=== PATIENT | female | born 1965 | race Caucasian/White ===

== ENCOUNTER 2022-12-06 04:24 | Emergency (ER) | payer OTHER, SELFPAY ==
[2022-12-06 04:35] VITALS: BP 178/101; PULSE 80; RESP 16; TEMP 36.6; O2SAT 96; BMI 29.1
[2022-12-06] MEDS: diphenhydrAMINE 50 MG/ML inj 25 MG IVP (05:02)
[2022-12-06] MEDS: LORazepam 2 MG/ML inj 0.5 MG IVP (05:02)
[2022-12-06] MEDS: METHYLPREDNISOLONE SOD SUCC 62.5 MG/ML (125) 93.75 MG IVP (05:03)
[2022-12-06] MEDS: 0.9 % SODIUM CHLORIDE 1000 ml 1,000 ML IV (05:04)
[2022-12-06 05:05] VITALS: BP 150/89; PULSE 80; RESP 16; O2SAT 96
[2022-12-06 07:00] VITALS: BP 160/87; PULSE 89; O2SAT 95
--- NOTE | 2022-12-06 07:03 | ED_ITS ---
HPI - Allergic Reaction General Chief complaint: Allergic Reaction Stated complaint: Hives Time Seen by Provider: 12/06/22 04:46 History of Present Illness HPI narrative: 57-year-old woman presenting to the emergency department with spouse with concern hives. Present now for about 9 hours as a 7:00 p.m. last night. It started the top of her head and seems to spread down her body. This is not the 1st time she has had hives of unclear etiology.. She is unclear as to what she might have gotten into. She says ?they just do not know?. No sensation of throat closure. Mild nausea. No abdominal pain cramping. No fever. Cough cold symptoms. Around 8 hours ago took 50 mg of diphenhydramine. Itchy. Has not seemed to help. She notes how she has trimmed her nails to avoid scratching. Last eruption like this was about 2 years ago. Related Data Home Medications Medication Instructions Recorded Confirmed lisinopril 40 mg tablet mg 12/06/22 omeprazole 20 mg capsule,delayed mg 12/06/22 release ropinirole 0.25 mg tablet mg 12/06/22 trazodone 50 mg tablet mg 12/06/22 venlafaxine 150 mg mg PO 12/06/22 capsule,extended release 24 hr venlafaxine 37.5 mg mg PO 12/06/22 capsule,extended release 24 hr Allergies Allergy/AdvReac Type Severity Reaction Status Date / Time Iodinated Contrast Media Allergy Intermediate hives Verified 12/06/22 04:33 azithromycin [From Zithromax] AdvReac Mild Abdominal Verified 12/06/22 04:33 Pain Review of Systems Status of ROS Reports: 10 or more systems reviewed and unremarkable except as noted in History and below [facility] Social History Smoking Status: Never smoker Do you use any of these nicotine containing products: None Second hand tobacco smoke exposure: No How often do you have a drink containing alcohol: never How often do you have six or more drinks on one occasion: Never AUDIT-C Alcohol total score: 0 Non-prescribed substance use: denies use service: No Exam Narrative: Exam Narrative: Pleasant. NAD. Breathing easily. Skin is warm and dry with diffuse eruptions of urticaria. No other rash is apparent. Lungs are clear. Heart is with a regular rate and rhythm. Abdomen is soft and nontender. Extremities are without edema. Oropharynx is a little sticky. Const: Vital Signs, click to edit/add: Vital Signs - 24 hr 12/06/22 04:35 12/06/22 05:05 12/06/22 07:04 Temperature 97.9 F Pulse Rate [Pulse Oximeter] 80 80 89 Respiratory Rate 16 16 16 Blood Pressure [Le ft Upper Arm] 178/101 H 150/89 H 160/87 H Pulse Oximetry 96 96 96 Oxygen Delivery Me thod Room Air Room Air Room Air 12/06/22 07:00 Temperature Pulse Rate [Pulse Oximeter] 89 Respiratory Rate Blood Pressure [Le ft Upper Arm] 160/87 H Pulse Oximetry 95 Oxygen Delivery Me thod Room Air Documenting provider has reviewed patient's vital signs: yes Course Vital Signs Vital signs: Initial Vital Signs Temperature 97.9 F 12/06/22 04:35 Temperature Source Temporal Artery Scan 12/06/22 04:35 Pulse Rate 80 12/06/22 04:35 Pulse Rhythm 12/06/22 04:35 Respiratory Rate 16 12/06/22 04:35 Blood Pressure 178/101 H 12/06/22 04:35 Blood Pressure Mean 126 12/06/22 04:35 Pulse Oximetry 96 12/06/22 04:35 Oxygen Delivery Method 12/06/22 04:35 Vital Signs Temperature 97.9 F 12/06/22 04:35 Pulse Rate 80 12/06/22 04:35 Respiratory Rate 16 12/06/22 04:35 Blood Pressure 178/101 H 12/06/22 04:35 Pulse Oximetry 96 12/06/22 04:35 Oxygen Delivery Method 12/06/22 04:35 Temperature 97.9 F 12/06/22 04:35 Pulse Rate 89 12/06/22 07:04 Respiratory Rate 16 12/06/22 07:04 Blood Pressure 160/87 H 12/06/22 07:04 Pulse Oximetry 96 12/06/22 07:04 Oxygen Delivery Method 12/06/22 07:04 MDM - Allergic Reaction MDM Narrative Medical decision making narrative: Will place IV give some IV fluids. Ordered for methylprednisolone, lorazepam, more diphenhydramine. On reassessment is feeling less itchy but urticaria still clearly present. Has been able to rest. Examining again shows faded urticaria now with just some blotchy red patches. Discharge Plan Discharge Clinical Impression: Urticaria Patient Disposition: Home w/ Parent or Adult Condition: Improved Additional Instructions: Stay well-hydrated. You can take diphenhydramine 25-50 mg as needed for breakthrough itch or rash. Prednisone from [facility] for 3 days. Return for any indication difficulty breathing, repeated vomiting/associated abdominal cramping. Prescriptions: No Action venlafaxine 37.5 mg capsule,extended release 24hr PO Label Comments: TAKE ONE CAPSULE BY MOUTH EVERY DAY IN ADDITION TO 1-150MG CAPSULE FOR TOTAL DAILY DOSE OF 187.5MG venlafaxine 150 mg capsule,extended release 24hr PO Label Comments: TAKE ONE CAPSULE BY MOUTH ONCE DAILY ropinirole 0.25 mg tablet Label Comments: TAKE ONE TABLET BY MOUTH EVERY DAY omeprazole 20 mg capsule,delayed release(DR/EC) Label Comments: TAKE ONE CAPSULE BY MOUTH ONCE DAILY 1 HOUR BEFORE A MEAL lisinopril 40 mg tablet Label Comments: TAKE ONE TABLET BY MOUTH EVERY DAY trazodone 50 mg tablet Label Comments: TAKE ONE TABLET BY MOUTH AT BEDTIME NEEDED FOR SLEEP Follow Up/Referrals: Provider,Not a Local [Primary Care Provider] - Stand Alone Forms: [employer] Info Instructions
[2022-12-06 07:04] VITALS: BP 160/87; PULSE 89; RESP 16; O2SAT 96
== END 2022-12-06 07:45 | disposition home or self-care (01) ==
PROVIDERS: Emergency Provider Family Medicine
DX: L50.9 Urticaria, unspecified (principal)
CPT/HCPCS: 96374; 96375; 99283; 99284; J1200; J2060; J2930; J7030

== ENCOUNTER 2022-12-07 02:59 | Emergency (ER) | payer OTHER, SELFPAY ==
[2022-12-07 02:59] VITALS: BP 186/112; PULSE 107; RESP 22; TEMP 36.6; O2SAT 94; BMI 29.1
--- NOTE | 2022-12-07 03:10 | ED.GENADULT ---
HPI - General Adult General Time Seen by Provider: 03:10 Date Seen: 12/07/22 Chief complaint: Allergic Reaction Stated complaint: Hives Time Seen by Provider: 12/07/22 03:03 Source: patient and RN notes reviewed Mode of arrival: ambulatory Limitations: no limitations History of Present Illness HPI narrative: 57-year-old female who presents today with hives. Patient seen for this yesterday, started on prednisone of which she has had 2 doses, rash returned tonight. Last dose of Benadryl was 6 hours ago. Other than Benadryl and prednisone patient is not taking anything. No sensation of throat closure, no cough or wheezing, no abdominal pain, nausea, or vomiting. No new soaps, lotions detergents, or medications. Patient had similar episode of this couple years ago with no definite etiology found at that time. She has had upper respiratory symptoms for about a week. Related Data Home Medications Medication Instructions Recorded Confirmed lisinopril 40 mg tablet 40 mg PO DAILY 12/06/22 12/07/22 omeprazole 20 mg capsule,delayed 20 mg PO DAILY 12/06/22 12/07/22 release ropinirole 0.25 mg tablet 0.25 mg PO DAILY 12/06/22 12/07/22 trazodone 50 mg tablet 50 mg PO QHS PRN sleep 12/06/22 12/07/22 venlafaxine 150 mg 150 mg PO DAILY 12/06/22 12/07/22 capsule,extended release 24 hr venlafaxine 37.5 mg 37.5 mg PO DAILY 12/06/22 12/07/22 capsule,extended release 24 hr Previous Rx's Medication Instructions Recorded cetirizine 10 mg capsule (Zyrtec) 10 mg PO BID #14 caps 12/07/22 famotidine 20 mg tablet (Pepcid) 20 mg PO DAILY #7 tabs 12/07/22 hydroxyzine pamoate 25 mg capsule 25 mg PO QID PRN #20 caps 12/07/22 (Vistaril) prednisone 10 mg tablet 10 mg PO DIRECTED #19 tabs 12/07/22 Allergies Allergy/AdvReac Type Severity Reaction Status Date / Time Iodinated Contrast Media Allergy Intermediate hives Verified 12/06/22 04:33 azithromycin [From Zithromax] AdvReac Mild Abdominal Verified 12/06/22 04:33 Pain PFSH PFSH Social History Smoking Status: Never smoker Do you use any of these nicotine containing products: None Second hand tobacco smoke exposure: No How often do you have a drink containing alcohol: never How often do you have six or more drinks on one occasion: Never AUDIT-C Alcohol total score: 0 Non-prescribed substance use: denies use service: No Exam Narrative: Exam Narrative: General: Well-developed and well-nourished, no acute distress Head: Atraumatic and normocephalic Eyes: Pupils are equal reactive, extraocular motions intact, conjunctiva clear ENT: External nose and ears are normal, posterior pharynx without erythema or exudate Neck: No midline cervical tenderness, full spontaneous range of motion the neck, trachea midline, no adenopathy Heart: Regular rate and rhythm no murmurs or thrills Lungs: Clear to auscultation bilaterally without wheezes or crackles Abdomen: Soft, nontender, nondistended with active bowel sounds Musculoskeletal: No tenderness, deformity, or edema Neurologic: Awake, alert, and oriented x3, no gross focal neurologic deficits, cranial nerves intact as tested Psych: Mood and affect are appropriate Skin: Diffuse urticaria on the chest, little bit on the face, and arms Const: Vital Signs, click to edit/add: Vital Signs - 24 hr 12/07/22 02:59 12/07/22 04:02 12/07/22 05:25 Temperature 97.8 F Pulse Rate [Left P ulse Oximeter] 107 H 81 75 Respiratory Rate 22 18 16 Blood Pressure [Ri ght Upper Arm] 186/112 H 174/101 H 159/87 H Pulse Oximetry 94 96 95 Oxygen Delivery Me thod Room Air Room Air Room Air Course Course Hospital Course: 3:05 a.m. patient seen and examined, prior records are reviewed. Patient presents today hives. No indication of throat swelling, no hoarse voice, no lip or tongue swelling, no cough or breathing difficulty. Benadryl IM is given along with Zyrtec and Pepcid. Patient is already on prednisone. Will extend her course of prednisone as she was given 3 days and will need a longer course. Also will start on scheduled Zyrtec and Benadryl as well as Pepcid. Reevaluation(s) Reevaluation #1: Hives on the chest are improved although still present, patient thinks hives on the legs are about the same although they seem little less erythematous. Epinephrine will be given, patient is also complaining of headache and so Tylenol will be administered. Time: 04:48 Reevaluation #2: Hives improved after epinephrine, stable for discharge. Time: 05:29 Vital Signs Vital signs: Initial Vital Signs Temperature 97.8 F 12/07/22 02:59 Temperature Source Temporal Artery Scan 12/07/22 02:59 Pulse Rate 107 H 12/07/22 02:59 Respiratory Rate 22 12/07/22 02:59 Blood Pressure 186/112 H 12/07/22 02:59 Blood Pressure Mean 136 12/07/22 02:59 Blood Pressure Position Semi-Fowlers 12/07/22 02:59 Pulse Oximetry 94 12/07/22 02:59 Oxygen Delivery Method 12/07/22 02:59 Vital Signs Temperature 97.8 F 12/07/22 02:59 Pulse Rate 107 H 12/07/22 02:59 Respiratory Rate 22 12/07/22 02:59 Blood Pressure 186/112 H 12/07/22 02:59 Pulse Oximetry 94 12/07/22 02:59 Oxygen Delivery Method 12/07/22 02:59 Temperature 97.8 F 12/07/22 02:59 Pulse Rate 75 12/07/22 05:25 Respiratory Rate 16 12/07/22 05:25 Blood Pressure 159/87 H 12/07/22 05:25 Pulse Oximetry 95 12/07/22 05:25 Oxygen Delivery Method 12/07/22 05:25 Discharge Plan Discharge Clinical Impression: Urticaria Patient Disposition: Home, Self-Care Condition: Improved Instructions: Urticaria (ED) Additional Instructions: Zyrtec 10mg twice a day for 7 days Pepcid 20mg daily for 7 days Vistatil 25 every 6 hours for 2 days and then as needed Take the prednisone 20 mg tablet to her prescribed twice a day until they are gone, then start the prednisone taper prescribed today Activity Level: No Restrictions Discharge Diet: Regular Prescriptions: New Zyrtec 10 mg capsule 10 mg PO BID Qty: 14 0RF famotidine [Pepcid] 20 mg tablet 20 mg PO DAILY Qty: 7 0RF prednisone 10 mg tablet 10 mg PO DIRECTED Qty: 19 0RF Rx Instructions: Take 30mg daily for 3 days, then 20mg daily for 3 days, then 10mg daily for 3 days, then 5mg daily for 2 days hydroxyzine pamoate [Vistaril] 25 mg capsule 25 mg PO QID PRNQty: 20 0RF No Action venlafaxine 37.5 mg capsule,extended release 24hr 37.5 mg PO DAILY Label Comments: TAKE ONE CAPSULE BY MOUTH EVERY DAY IN ADDITION TO 1-150MG CAPSULE FOR TOTAL DAILY DOSE OF 187.5MG venlafaxine 150 mg capsule,extended release 24hr 150 mg PO DAILY Label Comments: TAKE ONE CAPSULE BY MOUTH ONCE DAILY ropinirole 0.25 mg tablet 0.25 mg PO DAILY Label Comments: TAKE ONE TABLET BY MOUTH EVERY DAY omeprazole 20 mg capsule,delayed release(DR/EC) 20 mg PO DAILY Label Comments: TAKE ONE CAPSULE BY MOUTH ONCE DAILY 1 HOUR BEFORE A MEAL lisinopril 40 mg tablet 40 mg PO DAILY Label Comments: TAKE ONE TABLET BY MOUTH EVERY DAY trazodone 50 mg tablet 50 mg PO QHS PRN (Reason: sleep) Label Comments: TAKE ONE TABLET BY MOUTH AT BEDTIME NEEDED FOR SLEEP Follow Up/Referrals: Provider,Not a Local [Primary Care Provider] - Stand Alone Forms: [employer] Info Instructions
[2022-12-07] MEDS: diphenhydrAMINE 50 MG/ML inj IM (03:19)
[2022-12-07] MEDS: FAMOTIDINE 20 MG TABLET PO (03:20)
[2022-12-07] MEDS: CETIRIZINE HCL 10 MG TABLET PO (03:23)
[2022-12-07 04:02] VITALS: BP 174/101; PULSE 81; RESP 18; O2SAT 96
[2022-12-07] MEDS: EPINEPHrine 1 MG/ML inj 0.3 MG IM (04:56)
[2022-12-07] MEDS: ACETAMINOPHEN 500 MG TABLET 1000 MG PO (04:56)
[2022-12-07 05:25] VITALS: BP 159/87; PULSE 75; RESP 16; O2SAT 95
[2022-12-07 05:44] VITALS: BP 156/86; PULSE 78; RESP 16
== END 2022-12-07 05:45 | disposition home or self-care (01) ==
LOC: ED 04:02
PROVIDERS: Emergency Provider Family Medicine
DX: L50.9 Urticaria, unspecified (principal)
CPT/HCPCS: 96372; 99283; 99284; A9270; J0171; J1200

== ENCOUNTER 2023-12-14 12:38 | Emergency (ER) | payer OTHER, SELFPAY ==
[2023-12-14 12:57] VITALS: BP 142/95; PULSE 110; RESP 20; TEMP 36.8; O2SAT 94; BMI 31.5
--- NOTE | 2023-12-14 13:55 | CRLHL7_ITS ---
For Patients: As a result of the Cures Act, medical imaging exams and procedure reports are released immediately into your electronic medical record. You may view this report before your referring provider. If you have questions, please contact your health care provider. INDICATION: Shortness of breath. TECHNIQUE: Chest 2 views. COMPARISON: None. FINDINGS: Cardiovascular and mediastinum: Heart size and vasculature are normal in caliber and appearance. Lungs and pleural spaces: Lungs are clear. No sign of infiltrate or mass. No sign of pleural effusion. No pneumothorax. Bones and soft tissues: No significant findings. IMPRESSION: No acute or significant findings. Dictated by Sarabjit Evans MD @ 12/14/2023 2:30:24 PM (Electronically Signed)
--- NOTE | 2023-12-14 14:07 | ED_ITS ---
HPI - Fever General Date Seen: 12/14/23 Chief Complaint: Fever Stated Complaint: trouble breathing / chest pain Time Seen by Provider: 12/14/23 13:40 Source: patient Mode of arrival: ambulatory Limitations: no limitations History of Present Illness HPI Narrative: 58-year-old female with a history of hypertension presenting to the emergency department for flu-like symptoms. Symptoms 1st started 2 days ago. She says at that time she started having some nausea , fevers that were controlled with Tylenol ibuprofen, and a mild headache. She started noticing some chest pain yesterday. Says it is midsternal and feels like a squeezing sensation. Denies ever having symptoms like this before. She is also feeling short of breath. No history of blood clots. She is not aware of any sick contacts. Her father had triple bypass around the age of 60. She has never smoked. With states her nausea has improved and she is not current they feeling nauseated. She has been drinking plenty fluids but had had much of an appetite. She thinks she is dehydrated. Denies diarrhea, constipation, dysuria Related Data Home Medications Medication Instructions Recorded Confirmed lisinopril 40 mg tablet 40 mg PO DAILY 12/06/22 12/14/23 omeprazole 20 mg capsule,delayed 20 mg PO DAILY 12/06/22 12/14/23 release ropinirole 0.25 mg tablet 0.25 mg PO DAILY 12/06/22 12/14/23 trazodone 50 mg tablet 50 mg PO QHS PRN sleep 12/06/22 12/14/23 venlafaxine 150 mg 150 mg PO DAILY 12/06/22 12/14/23 capsule,extended release 24 hr venlafaxine 37.5 mg 37.5 mg PO DAILY 12/06/22 12/14/23 capsule,extended release 24 hr hydrochlorothiazide 12.5 mg tablet 12.5 mg PO QDAY 09/26/23 12/14/23 amlodipine 5 mg tablet 5 mg PO DAILY 12/14/23 12/14/23 topiramate 25 mg tablet mg PO 12/14/23 Previous Rx's Medication Instructions Recorded cetirizine 10 mg capsule (Zyrtec) 10 mg PO BID #14 caps 12/07/22 Allergies Allergy/AdvReac Type Severity Reaction Status Date / Time Iodinated Contrast Media Allergy Intermediate hives Verified 12/06/22 04:33 azithromycin [From Zithromax] AdvReac Mild Abdominal Verified 12/06/22 04:33 Pain Review of Systems Status of ROS Reports: 10 or more systems reviewed and unremarkable except as noted in History and below PFSH [facility] Social History Smoking Status: Never smoker Do you use any of these nicotine containing products: None Second hand tobacco smoke exposure: No How often do you have a drink containing alcohol: never How often do you have six or more drinks on one occasion: Never AUDIT-C Alcohol total score: 0 Non-prescribed substance use: denies use service: No Exam Narrative Exam Narrative: Const: Well-nourished, Well-developed, in mild distress Eyes: PERRL, no conjunctival injection, and symmetrical lids HENT: Atraumatic external nose and ears. Moist mucous membranes. Neck: Symmetric, trachea midline, No thyromegaly. CVS: RRR, No murmurs or gallops. Peripheral pulses 2+ and equal in all extremities RESP: Unlabored respiratory effort. Clear to auscultation bilaterally. GI: Nontender/Nondistended, No rebound or guarding. MSK:Extremities w/o deformity, Normal Active ROM Skin: Warm, Dry. No rashes or lesions. Neuro: Normal Muscle tone, No focal neurological deficits. Psych: Awake, Alert, & Oriented x3. Appropriate mood and affect. Const Vital Signs, click to edit/add: Vital Signs - 24 hr 12/14/23 12:57 12/14/23 15:00 12/14/23 15:30 Temperature 98.2 F Pulse Rate [Right Pulse Oximeter] 110 H 80 76 Respiratory Rate 20 14 16 Blood Pressure [Right Upper Arm] 142/95 H 160/91 H 163/91 H Pulse Oximetry 94 95 94 Oxygen Delivery Method Room Air Room Air Room Air 12/14/23 16:00 12/14/23 16:30 12/14/23 17:15 Temperature Pulse Rate [Right Pulse Oximeter] 70 70 Respiratory Rate 16 16 Blood Pressure [Right Upper Arm] 142/87 H 149/91 H Pulse Oximetry 93 93 Oxygen Delivery Method Room Air Room Air Course Vital Signs Vital signs: Initial Vital Signs Temperature 98.2 F 12/14/23 12:57 Temperature Source Temporal Artery Scan 12/14/23 12:57 Pulse Rate 110 H 12/14/23 12:57 Respiratory Rate 20 12/14/23 12:57 Blood Pressure 142/95 H 12/14/23 12:57 Blood Pressure Mean 110 H 12/14/23 12:57 Blood Pressure Position Sitting 12/14/23 12:57 Pulse Oximetry 94 12/14/23 12:57 Oxygen Delivery Method Room Air 12/14/23 12:57 Vital Signs Temperature 98.2 F 12/14/23 12:57 Pulse Rate 110 H 12/14/23 12:57 Respiratory Rate 20 12/14/23 12:57 Blood Pressure 142/95 H 12/14/23 12:57 Pulse Oximetry 94 12/14/23 12:57 Oxygen Delivery Method Room Air 12/14/23 12:57 Temperature 98.2 F 12/14/23 12:57 Pulse Rate 70 12/14/23 17:15 Respiratory Rate 16 12/14/23 17:15 Blood Pressure 149/91 H 12/14/23 16:30 Pulse Oximetry 93 12/14/23 17:15 Oxygen Delivery Method Room Air 12/14/23 17:15 Medications Administered Medications: Discontinued Medications Generic Name Dose Route Start Last Admin Trade Name Freq PRN Reason Stop Dose Admin Lactated Ringer's 1,000 mls @ 1,000 mls/hr 12/14/23 13:54 12/14/23 14:21 Lactated Ringers 1000 Ml IV 12/14/23 14:53 1,000 mls/hr .Q1H ONE Administration MDM - Fever MDM Narrative Medical decision making narrative: Patient is a 58-year-old female presenting to emergency department for fever and chest pain. She says her chest pain is not as bad today states it. Differential includes pulmonary embolism she finished left, pneumonia, viral syndrome, pneumothorax, ACS. Symptoms likely the ER dissection this lightheaded otherwise stable vital signs. His eyes she has had a mildly sore throat and was sent will check COVID chest flu/RSV and strep test. The ordered his lactate, BMP, CBC, D-dimer, troponin. She states she was feeling dehydrated and did a L of lactated Ringer's was given. After these fluids her heart rate went 110 to 70. She is feeling much better. D-dimer is at 0.43 and a PE is very unlikely. Cbc antibiotic, CMP with also showed no concerning abnormalities. COVID/flu/RSV test was negative. Strep test negative. Troponin was done and was within normal limits. Repeat troponin was also done 2 hours later that did not show any changes. Chest x-ray showed no concerning findings. She is otherwise doing well can be discharged home. Lab Data Labs: Lab Results 12/14/23 12/14/23 12/14/23 Range/Units 13:02 14:10 16:11 WBC 4.41 L (4.50-11.00) K/uL RBC 4.84 (4.00-5.20) m/uL Hgb 13.9 (12.0-16.0) gm/dL Hct 42.0 (33.0-51.0) % MCV 87 (80-100) fL MCH 29 (26-34) pg MCHC 33 (32-36) gm/dL RDW Coeff of Denise 12.4 (11.5-15.5) % Plt Count 196 (140-440) K/uL Neut % (Auto) 56.3 (42.0-72.0) % Lymph % (Auto) 24.7 (20-44) % Gregory % (Auto) 13.8 H (0.0-11.0) % Eos % (Auto) 4.8 (0.0-7.0) % Baso % (Auto) 0.2 (0.0-3.0) % Neut # (Auto) 2.50 (1.7-7.0) K/uL Lymph # (Auto) 1.10 (0.90-2.90) K/uL Gregory # (Auto) 0.60 (0.00-0.90) K/UL Eos # (Auto) 0.20 (0.00-0.50) K/uL Baso # (Auto) 0.00 (0.00-0.30) K/uL Abs Immat Gran (auto) 0.00 (0.00-0.30) K/uL Imm/Tot Granulo (auto) 0.2 % D-Dimer Quant (PE/DVT) 0.43 (0.00-0.50) ug/ml Sodium 140 (135-149) mmol/L Potassium 3.4 L (3.6-5.1) mmol/L Chloride 101 (96-114) mmol/L Carbon Dioxide 26 (20-32) mmol/L Anion Gap 13 (7-15) mEq/L BUN 13 (7-30) mg/dL Creatinine 1.1 (0.5-1.5) mg/dL Estimated Creat Clear 53.46 Estimated GFR 59 ml/min Glucose 108 (60-115) mg/dL Lactate 1.2 (0.5-1.9) mmol/L Calcium 9.7 (8.4-10.6) mg/dL SARS-CoV-2 (PCR) Negative SARS-CoV-2 (Negative) Influenza Type A (PCR) Negative PCR FLU A (Negative) Influenza Type B (PCR) Negative PCR FLU B (Negative) RSV (PCR) Negative PCR RSV (Negative) Group A Strep DNA NOT DETECTED (Not Detectd) POC Troponin I 0.01 0.01 (0.01-0.04) ng/ml Imaging Data Chest x-ray: Radiologist's impression: No acute or significant findings. Dictated by Sarabjit Evans MD @ 12/14/2023 2:30:24 PM ECG Data Attestation: I personally reviewed and interpreted this ECG as follows: Prior ECG tracings: not available for review Interpretation: Normal sinus rhythm with a rate of 78 beats per minute, normal intervals, normal axis, no ST or T-wave abnormalities. Discharge Plan Discharge Clinical Impression: Viral infection Patient Disposition: Home, Self-Care Condition: Improved Instructions: Viral Syndrome (ED) Additional Instructions: You do not have COVID or flu. It does appear that you have a respiratory viral infection at this time though. Follow-up with your primary care provider symptoms persist. Return to emergency department for new or worsening symptoms Prescriptions: No Action hydrochlorothiazide 12.5 mg tablet 12.5 mg PO QDAY venlafaxine 37.5 mg capsule,extended release 24hr 37.5 mg PO DAILY Patient Comments: TAKE ONE CAPSULE BY MOUTH EVERY DAY IN ADDITION TO 1-150MG CAPSULE FOR TOTAL DAILY DOSE OF 187.5MG venlafaxine 150 mg capsule,extended release 24hr 150 mg PO DAILY Patient Comments: TAKE ONE CAPSULE BY MOUTH ONCE DAILY ropinirole 0.25 mg tablet 0.25 mg PO DAILY Patient Comments: TAKE ONE TABLET BY MOUTH EVERY DAY omeprazole 20 mg capsule,delayed release(DR/EC) 20 mg PO DAILY Patient Comments: TAKE ONE CAPSULE BY MOUTH ONCE DAILY 1 HOUR BEFORE A MEAL lisinopril 40 mg tablet 40 mg PO DAILY Patient Comments: TAKE ONE TABLET BY MOUTH EVERY DAY trazodone 50 mg tablet 50 mg PO QHS PRN (Reason: sleep) Patient Comments: TAKE ONE TABLET BY MOUTH AT BEDTIME NEEDED FOR SLEEP Zyrtec 10 mg capsule 10 mg PO BID Qty: 14 0RF topiramate 25 mg tablet PO amlodipine 5 mg tablet 5 mg PO DAILY Follow Up/Referrals: Provider,Not a Local [Primary Care Provider] - Stand Alone Forms: [email or web address] Info Instructions
[2023-12-14 14:08] LABS: PCR FLU A Negative PCR FLU A (Negative); PCR FLU B Negative PCR FLU B (Negative); PCR RSV Negative PCR RSV (Negative); SARS PCR* Negative SARS-CoV-2 (Negative)
--- OUTSIDE RECORDS SUMMARY | 2023-12-14 14:10 | XMS_ITS | Clinical Summary ---
Author Name Unknown Organization [facility] Address [address] [place] [address] Care Team Providers Care Logging Equipment Mechanic Name Role Phone Viki Sauer MD Primary Care Provider [phone] Source Comments You are receiving this document as you are listed as the primary care provider,follow-up provider, or the patient has been referred to you for consultation.This is in compliance with the Medicare and[facility] E[facility]centive [facility],which states Providers who transition their patient to another setting of careor provider of care or refers their patient to another provider of care shouldprovide summary care record for each transition of care or referral. [facility] Allergies Active Allergy Reactions Criticality Noted Date Comments Azithromycin 05/03/2020 Upset stomach Iodinated Contrast Media High 05/03/2020 Diffuse hives Semaglutide Rash 06/23/2023 Medications Medication Sig Dispensed Refills Start Date End Date Status ascorbic acid (AKA VITAMIN C) 500 MG tabletIndications: take with iron to aide in iron absorption Take 1 Tablet (500 mg) by mouth daily. Indications: take with iron to aide in iron absorption 0 12/28/2014 Active ferrous sulfate 325 (65 FE) MG tablet Take 1 Tablet (325 mg) by mouth daily. 0 12/28/2014 Active CALCIUM OR Take 1 tablet by mouth 2 times daily. Indications: HYPOCALCEMIA PREVENTION 0 12/28/2014 Active cholecalciferol (AKA VITAMIN D3) 2000 UNITS tablet Take 1 Tablet (2,000 Units) by mouth daily. 0 12/28/2014 Active cyanocobalamin [address] 1 Tablet (1,000 mcg) under tongue daily. 0 12/28/2014 Active saline 0.65 % nasal solution 1 [place] by Nasal route every morning. 0 11/11/2012 Active diphenhydrAMINE (BENADRYL) 25 MG tabletIndications: allergies Take 1-2 Tablets (25-50 mg) by mouth 4 times daily as needed (Take 25-50 mg by mouth 4 times daily as needed.). Indications: allergies 0 07/25/2008 Active SUMAtriptan (IMITREX) 50 MG tabletIndications: Migraine with aura and without status migrainosus, not intractable Take 1 Tablet by mouth as needed for Migraine. May repeat one tablet after 2 hours if needed. Maximum 4 tabs/24 hours and 9 days/month 9 Tablet 3 09/16/2021 Active tacrolimus (PROTOPIC) 0.1 % ointmentIndication s:Perioral dermatitis Apply topically two times a day. 30 g 11 12/30/2022 Active Pyridoxine HCl (VITAMIN B-6) 50 MG tablet TAKE 2 TABLETS (100 MG) BY MOUTH DAILY. 180 Tablet 3 03/31/2023 Active hydroCHLOROthiazid e (ORETIC) 25 MG tabletIndications: Essential hypertension (HRC) Take 1 Tablet (25 mg) by mouth daily. 90 Tablet 3 04/08/2023 04/07/2024 Active losartan (COZAAR) 100 MG tabletIndications: Essential hypertension (HRC) Take 1 Tablet (100 mg) by mouth daily. 90 Tablet 3 05/19/2023 05/18/2024 Active cetirizine (ZYRTEC) 10 MG tablet Take 1 Tablet (10 mg) by mouth daily. 90 Tablet 3 05/19/2023 Active venlafaxine (EFFEXORXR) 150 MG 24 hour release capsuleIndications :Major depressive disorder with single episode, in partial remission (HRC) Take 1 Capsule (150 mg) by mouth daily. 90 Capsule 3 05/19/2023 Active venlafaxine (EFFEXORXR) 37.5 MG 24 hour release capsuleIndications :Major depressive disorder, recurrent episode, in full remission (HRC) Take 1 Capsule (37.5 mg) by mouth daily. 90 Capsule 3 05/19/2023 Active amLODIPine (NORVASC) 5 MG tabletIndications: Essential hypertension (HRC) Take 1 Tablet (5 mg) by mouth daily. 90 Tablet 3 06/28/2023 06/27/2024 Active omeprazole (PRILOSEC) 20 MG capsuleIndications :Gastroesophageal reflux disease without esophagitis,Jg t's esophagus without dysplasia Take 1 Capsule (20 mg) by mouth daily. 1 HOUR BEFORE A MEAL 90 Capsule 3 06/28/2023 Active traZODone (DESYREL) 50 MG tabletIndications: Chronic insomnia TAKE ONE TABLET BY MOUTH AT BEDTIME NEEDED FOR SLEEP 90 Tablet 3 07/06/2023 Active multivitamin (THERAGRAN) tablet Take 1 Tablet by mouth daily. 0 Active rOPINIRole (REQUIP) 0.25 MG tabletIndications: RLS (restless legs syndrome) TAKE ONE TABLET BY MOUTH EVERY DAY 90 Tablet 3 08/27/2023 Active ALBUterol sulfate HFA 108 (90 Base) MCG/ACT inhalerIndications :SOB (shortness of breath) Inhale 1-2 Puffs every 4 hours as needed for Wheezing. 1 Each 1 08/30/2023 Active vukkvv-atch-ykiiul g chambers devices as needed. 1 Each 0 08/30/2023 Active benzonatate (TESSALON) 100 MG capsuleIndications :Acute cough Take 1 Capsule (100 mg) by mouth three times a day as needed. 30 Capsule 0 08/30/2023 Active topiramate (TOPAMAX) 25 MG tabletIndications: Obesity, Class I, BMI 30-34.9 (HRC) Take 1 Tablet (25 mg) by mouth two times a day for four weeks, then increase to 2 tabs twice daily if tolerating. 180 Tablet 1 11/23/2023 Active Active Problems Problem Noted Date Diagnosed Date Sleep disturbance 06/16/2023 Snoring 06/16/2023 Mild obstructive sleep apnea 10/09/2021 Overview: 10/09/2021 sleep eval very mild. rx for oral appliance vs CPAP, rec to decrease meds Qhs for daytime somnolence Low bone mass 02/12/2021 Overview: DEXA: 02/12/2021 DEXA -2.4, low risk, s/p gastric bypass - DUE 2 years, 07/14/2023 improved osteopenia, -2.1. repeat in 3 years - DUE 06/2026 Hypertensive left ventricula r hypertrophy, without heart failure 02/12/2021 Routine health maintenance 08/08/2020 Overview: Reviewed at physical exam 04/08/2023 Menstrual periods: Post menopausal Calcium/vit D: Recommended daily DEXA: 02/12/2021 DEXA -2.4, low risk, s/p gastric bypass - DUE 2 years, 07/14/2023 improved osteopenia, -2.1. repeat in 3 years - DUE 06/2026 ASA: NA Obesity: Estimated body mass index is 29.05 kg/m?? as calculated from the following: Height as of 12/30/22: 1.676 m (5' 6). Weight as of 12/30/22: 81.6 kg (180 lb). Exercise: Recommended daily 30 min Smoking cessation: Never smoker Mammogram: Last normal 04/2021 DUE annually, ordered 04/08/2023 Pap smear: Neg 09/03/2020 with cotesting, DUE 2024 Colonoscopy - 10/2012 - 10/05/2023 normal, DUE 10 years, 09/2033 EGD - [place] - 07/2020 - DUE 3 years, due 07/2023 Elevated parathyroid hormone 07/22/2020 Overview: S/p gastric bypass - 07/22/2020 PTH 103, 1-2 months after resuming appropriate supplementation post Betty-en-Y, vitamin d in 40s, calcium low 9s. History of Betty-en-Y gastric bypass 05/03/2020 Overview: 2015 PN History of diabetes mellitus 05/03/2020 Overview: Resolved s/p betty en y Essential hypertension 05/03/2020 Overview: Lisinopril d/c 2022 with angioedema/hives - resolved. Losartan 100 mg Migraine with aura and witho ut status migrainosus, not intractable 05/03/2020 Overview: topiramate Qhs started 2019 in [place] - imitrex. Chronic insomnia 05/03/2020 Overview: Trazodone works well RLS (restless legs syndrome) 05/03/2020 Overview: requip controlled low dose 0.25 Liver fibrosis 05/03/2020 Overview: Stage 3-4 dx liver bx in 2013, s/p betty en y, NAFLD. Ref back to GI and RUQ US ordered 05/03/2020 ORTIZ (nonalcoholic steatohepatitis) 06/27/2014 Overview: fatty liver on us 10/03, liver bx 07/05 steatohepatitis stage3-4 fibrosis History of GI bleed 11/11/2012 Overview: hospitalized s/p egd, colonoscopy-colitis vs nsaid related- felt related to NSAID use SUSANA (generalized anxiety disorder) 06/25/2011 Social phobia 06/25/2011 Major depression, recurrent 04/16/2009 Gastroesophageal reflux disease without esophagi tis Overview: PPI resumed 08/2020, ulceration on EGD - indefinite Mixed hyperlipidemia Overview: Hyperlipidemia LDL goal < 130 Obesity, Class I, BMI 30-34.9 Resolved Problems Problem Noted Date Diagnosed Date Resolved Date Vitamin D deficiency 09/04/2022 024 Vitamin B6 deficiency 03/23/20222023 Vitamin B12 deficiency 07/22/202011/23 Iron deficiency anemia secon cec[place] to inadequate dietary iron intake 05/03/2020 Overview: ALICIA s/p betty en y Major depressive disorder wi th single episode, in partial remission 05/03/2020 09/16/2021 Overview: effexor controlled - tried celexa, zoloft and prozac in the past NAFLD (nonalcoholic fatty liver disease) 05/03/2020 11/23/2023 Overview: Dx on biopsy - s/p betty en y Zhao's esophagus with dysplasia 05/03/2020 09/03/2020 Overview: Noted on [place] EGD x2 historically - ref to GI 05/03/2020 to determine if repeat EGD warranted. Major depressive disorder, r ecurrent episode, in full remission 01/04/2015 11/23/2023 Overview: effexor controlled - tried celexa, zoloft and prozac in the past Status post bariatric surgery 11/27/2014 11/23/2023 Overview: Laparoscopic Betty-en-Y gastric bypass Fibrosis of liver 07/24/2014 08/16/2020 Excessive or frequent menstruation 04/25/2014 09/03/2020 Diabetes mellitus type 2, diet-controlled 08/03/2013 09/16/2021 Overview: hgba1c 6.8, fbs 142 Pre-syncope 11/11/2012 08/03/2013 Dysthymic disorder 06/25/2011 0 Elevated liver enzymes 09/03 Overview: fatty liver on us Zhao's esophagus without dysplasia 10/05/2023 Overview: dx'd 2009 [place] EGD x 2 - EGD 08/2020 resumed PPI for ulceration, DUE EGD 2022 (colon too) -- 10/05/2023 Dr Garcia EGD no further surveillance warranted. - Normal esophagus. I do not see any Zhao's. No further routine endoscopic surveillance is required. Recommend ongoing use of PPI for symptom control at lowest effective dose. Anemia due to GI blood loss 06/10/2015 HTN, goal below 140/90 09/16 Restless leg syndrome 2023 Overview: requip Encounters Date Type Department Care Team Description 12/14/2023 Nurse Triage [facility] [address] [place] [address] Unassigned, Provider BREATHING PROBLEM; CHEST PAIN 12/09/2023 10:00 AM [facility] Surgery [address] [place] [phone] Marcelina Young, RDN, LD Obesity, unspecified classification, unspecified obesity type, unspecified whether serious comorbidity present (HRC) (Primary Dx); Body mass index (BMI) of 31.0-31.9 in adult; Liver fibrosis; Mild obstructive sleep apnea; Essential hypertension (HRC) 11/26/2023 6:50 PM PICKLE WATER PUMP OPERATOR E-Visit [facility] [address] [address] Delia Diallo PA-C Chief Comp: Follow-up, NOS 11/26/2023 7:20 AM PICKLE WATER PUMP OPERATOR Lab Visit [facility] [address] [place], [place] [id number] Elevated parathyroid hormone (HRC) (Primary Dx); Status post bariatric surgery; Intestinal malabsorption, unspecified type; Personal history of endocrine disorder; Vitamin D deficiency (HRC) 11/23/2023 2:30 PM PICKLE WATER PUMP OPERATOR Telemedicine [facility] [address] [address] Delia Diallo PA-C Liver fibrosis (Primary Dx); Obesity, Class I, BMI 30-34.9 (HRC); Status post bariatric surgery; Intestinal malabsorption, unspecified type; Personal history of endocrine disorder; Mild obstructive sleep apnea; Elevated parathyroid hormone (HRC); Essential hypertension (HRC); History of diabetes mellitus; Hypertensive left ventricular hypertrophy, without heart failure (HRC); Recurrent major depressive disorder, remission status unspecified (HRC); Mixed hyperlipidemia (HRC) 11/18/2023 E-Visit [facility] [address] [place] [address] Mychart, Generic Provider 11/05/2023 12:05 PM PICKLE WATER PUMP OPERATOR E-Visit [address] [id number] Marcelina Ward, RECORDS MANAGEMENT ASSISTANT, ADJUNCT FACULTY INSTRUCTOR Dx: Acute non-recurrent maxillary sinusitis (Primary Dx) 11/05/2023 9:50 AM PICKLE WATER PUMP OPERATOR E-Visit [facility] [address] [place] [address] Delia Diallo PA-C Chief Comp: Pre-visit Planning 11/03/2023 2:40 PM PICKLE WATER PUMP OPERATOR E-Visit [facility] [address] [place] [address] Provider, E-Visit Chief Comp: QUESTIONS, GENERAL 11/03/2023 2:20 PM PICKLE WATER PUMP OPERATOR Telemedicine [facility] [address] [place] [address] Marcelina Ward, RECORDS MANAGEMENT ASSISTANT, ADJUNCT FACULTY INSTRUCTOR Acute non-recurrent maxillary sinusitis (Primary Dx) 10/05/2023 1:46 PM PICKLE WATER PUMP OPERATOR - 10/05/2023 11:59 PM PICKLE WATER PUMP OPERATOR Hospital Encounter [facility] Procedures [address] [place] [address] Valentin Garcia MD Zhao's esophagus without dysplasia Discharge Disposition: Home 10/05/2023 1:46 PM PICKLE WATER PUMP OPERATOR - 10/05/2023 11:59 PM PICKLE WATER PUMP OPERATOR Hospital Encounter [facility] Procedures [address] [place] [address] Valentin Garcia MD Screening for colon cancer Discharge Disposition: Home 10/05/2023 Nurse Triage [facility] [address] [place] [address] Unknown, Physician Post Procedure Questions 10/05/2023 Telephone [facility] [address] [place] [address] Viki Sauer MD Post-Op Problem 10/04/2023 9:30 AM PICKLE WATER PUMP OPERATOR - 10/04/2023 11:59 PM PICKLE WATER PUMP OPERATOR Hospital Encounter [facility] Procedures [address] [place] [address] Valentin Garcia MD Discharge Disposition: Home 09/24/2023 Notes/[facility]ders [facility] [address] [facility] [place] [address] Valentin Garcia MD from Last 3 Months Immunizations Name Administration Dates Next Due Flu Vac (3+ yrs) 08/24/2012,09/22/2011, 0 Flu Vac Preserv Free (3+yrs) 08/24/2012,09/26/20 09 HepB Adult (Engerix-B, 20+ y rs, 3 dose series) 04/08/2023,03/15/2021,09/03/2020 Influenza (Fluzone 0.25, 6-35 mos) 08/03/2013 Influenza IIV4 (Quadrivalent ) 0.5mL (22255) 10/03/2022,09/16/2021,09/03/2020, 014,08/03/2013 Moderna Monovalent 12+ 04/24/2021,03/26/2021 PCV20 ([id number]) 04/08/2023 PPSV23 (Pneumovax) 09/03/2020 Pfizer Bivalent 12+ 10/27/2022 Tdap 09/03/2020 Zoster RZV (Shingrix) 09/17/2021,06/16/2021 Family History Medical History Relation Name Comments Coronary Artery Disease Father Bertram Sr CABG /s/p 4v cabg in 50's Diabetes Father Bertram Sr type 2 Obstructive Sleep Apnea Father Bertram Sr Anxiety Mother Ernalewilfredo Depression Mother Eric Mother Hypertension Mother Ernalee Heart Disease Maternal Grandmother 70 Diabetes Paternal Grandfather Waqar Sr decea sed Heart Attack Paternal Grandfather Waqar Sr Other Sister 1 autoimmune unkn own Cancer, Breast Negative Family History Cancer, Colon Negative Family History Cancer, Uterine Negative Family History Relation Name Status Comments Father Bertram Sr Alive Mother Eric Alive Maternal Grandmother Paternal Grandfather Waqar Sr Sister 1 Alive Sister 2 Alive Social History Tobacco Use Types Packs/Day Years Used Date Smoking Tobacco: Never Smokeless Tobacco: Never Alcohol Use Standard Drinks/Week Comments Never 0 (1 standard drink = 0.6 oz pur e alcohol) AUDIT-C Answer Date Recorded Q1: How often do you have a drink containing alc ohol? Never 09/03/2020 Average Number of Drinks Not on file 020 Frequency of Binge Drinking Not on file 08/22 PHQ-2 Answer Date Recorded PHQ-2 Score 2 11/03/2023 Sex and Gender Information Value Date Recorded Sex Assigned at Not on file Gender Identity Not on file Sexual Orientation Not on file Last Filed Vital Signs Vital Sign Reading Time Taken Comments Blood Pressure 179/80 11/03/2023 2:03 PM PICKLE WATER PUMP OPERATOR Pulse 75 10/05/2023 3:00 PM PICKLE WATER PUMP OPERATOR Temperature 37.1 ??C (98.7 ??F) 05/19/2023 8:55 AM CD T pt reported Respiratory Rate 16 10/05/2023 3:00 PM PICKLE WATER PUMP OPERATOR Oxygen Saturation 97% 10/05/2023 3:00 PM PICKLE WATER PUMP OPERATOR Inhaled Oxygen Concentration - - Weight 88.5 kg (195 lb) 12/09/2023 10:0 9 AM PICKLE WATER PUMP OPERATOR self-reported Height 167.6 cm (5' 6) 12/09/2023 10:0 9 AM PICKLE WATER PUMP OPERATOR self-reported Body Mass Index 31.47 12/09/2023 10:09 AM PICKLE WATER PUMP OPERATOR Plan of Treatment Upcoming Encounters Date Type Department Care Team Description 01/14/2024 12:30 PM PICKLE WATER PUMP OPERATOR Appointment [facility] [address] [place], [place] [address] [place] [address] [place], [place] [phone] 03/02/2024 3:30 PM CDT Telemedicine [facility] [address] [facility] [address] [place], [place] [address] Delia Diallo, PARyannC [address] [place], [place] [address] Health Maintenance Due Date Last Done Comments MTM Targeted 1967 Diabetes: Eye Exam 01/01/2015 01/01/2014 COVID-19 Vaccine ( season) 2023 10/27/2022, 04/24/2021, 03/26/2021 Influenza (#1) 2023 10/03/2022, 08/23, 09/03/2020, Additional history exists Diabetes: HGBA1C 10/14/2023 07/14/2023, , 04/07/2023, Additional history exists Diabetes: Foot Exam 12/30/2023 12/30/2022, 09/16/2021 (Completed), 09/03/2020 (Completed) Diabetes: Urine Microalbumin 01/21/2024 01/20/2023, 07/03/2021, 09/03/2020, Additional history exists Adult Preventive Visit 04/08/2024 , 09/16/2021, 09/03/2020 Mammogram 04/13/2024 04/13/2023, 04/22, 09/20/2012 Diabetes: Creatinine 07/14/2024 07/14/2023, 04/20/2023, 01/20/2023, Additional history exists Dexa 07/14/2025 07/14/2023, 02/05/2021 Cervical Cancer Screening 09/03/20252019, 09/20/2012, 09/20/2012 Diabetes: Lipid Panel 01/21/2028 01/20/2023 , 08/27/2022, 09/09/2021, Additional history exists DTaP/Tdap/Td (2 - Tdap) 09/03/2030 09/03/2020 Colonoscopy 10/05/2033 10/05/2023, 11/12/2012 HIV Screening (Preventive Services) Completed 07/20/2020 Zoster/Shingles Completed 09/17/2021, 06/16/2021 Cholesterol Discontinued 01/20/2023, 10/0 04/2022, 09/09/2021, Additional history exists Hep C Screening (Preventive Services) Completed 01/20/2023 HepB Completed 04/08/2023, 04/2 02/2021, 09/03/2020 Pneumococcal Completed 04/08/2023, 09/03/2020 HepA Aged Out No longer eligi ble based on patient's age to complete this topic Hib Aged Out No longer eligi ble based on patient's age to complete this topic IPV (Polio) Aged Out No longer eligi ble based on patient's age to complete this topic [email or web address] Aged Out No longer eligi ble based on patient's age to complete this topic Procedures Procedure Name Priority Date/Time Associated Diagnosis Comments PREALBUMIN Routine 11/26/2023 7:16 AM PICKLE WATER PUMP OPERATOR Status post bariatric surgery Intestinal malabsorption, unspecified type CALCIUM Routine 11/26/2023 7:16 AM PICKLE WATER PUMP OPERATOR Status post bariatric surgery Intestinal malabsorption, unspecified type INTACT PTH Routine 11/26/2023 7:16 AM PICKLE WATER PUMP OPERATOR Status post bariatric surgery Intestinal malabsorption, unspecified type VITAMIN D 25-HYDROXY, TOTAL Routine 03/2024 7:16 AM PICKLE WATER PUMP OPERATOR Personal history of endocrine disorder FERRITIN Routine 11/26/2023 7:16 AM PICKLE WATER PUMP OPERATOR Status post bariatric surgery Intestinal malabsorption, unspecified type IRON PROFILE (IRON,TIBC,%SAT.(CALC)) Routine 11/26/2023 7:16 AM PICKLE WATER PUMP OPERATOR Status post bariatric surgery Intestinal malabsorption, unspecified type VITAMIN B12 ONLY Routine 11/26/2023 7:16 AM PICKLE WATER PUMP OPERATOR Status post bariatric surgery Intestinal malabsorption, unspecified type COMPLETE BLOOD COUNT-NO DIFF Routine 03/2024 7:16 AM PICKLE WATER PUMP OPERATOR Status post bariatric surgery Intestinal malabsorption, unspecified type ENDOSCOPY, COLON, SCREENING/DIAGNOSTIC Routine 10/05/2023 2:20 PM PICKLE WATER PUMP OPERATOR Screening for colon cancer ENDO ESOPHAGOGASTRODUODENOSC OPY (EGD) Routine 10/05/2023 1:54 PM PICKLE WATER PUMP OPERATOR Zhao's esophagus without dysplasia from Last 3 Months Results * (ABNORMAL) Vitamin D 25-Hydroxy, Total (11/26/2023 7:16 AM PICKLE WATER PUMP OPERATOR) Vitamin D, 25-OH, Total 28(L) 30 - 80 ng/mL 11/26/2023 12:01 PM PICKLE WATER PUMP OPERATOR [facility] Blood Venipuncture / Unknown 11/26/2023 7:16 AM PICKLE WATER PUMP OPERATOR 11/26/2023 7:16 AM PICKLE WATER PUMP OPERATOR Narrative [facility] - 11/26/2023 12:01 PM PICKLE WATER PUMP OPERATOR Expected values Deficiency: <20 ng/mL Insufficiency: 20-29 ng/mL Optimum: 30-80 ng/mL Possible toxicity: >80 ng/mL Delia Diallo PA-C LAB_1 Performing Organization Address City/[facility]/ZIP Co de Phone Number [facility] [address] [phone] * (ABNORMAL) Intact PTH (11/26/2023 7:16 AM PICKLE WATER PUMP OPERATOR) Intact PTH 153(H) 10 - 100 pg/mL 11/26/2023 12:42 PM PICKLE WATER PUMP OPERATOR [facility] Blood Venipuncture / Unknown 11/26/2023 7:16 AM PICKLE WATER PUMP OPERATOR 11/26/2023 7:16 AM PICKLE WATER PUMP OPERATOR Delia Shawk PA-C LAB_1 Performing Organization Address [facility]/[place] [address], [facility] [phone] * PREALBUMIN (11/26/2023 7:16 AM PICKLE WATER PUMP OPERATOR) Prealbumin 21.8 16.0 - 38.0 mg/dL 11/26/2023 12:36 PM [facility] Blood Venipuncture / Unknown 11/26/2023 7:16 AM PICKLE WATER PUMP OPERATOR 11/26/2023 7:16 AM PICKLE WATER PUMP OPERATOR Delia Shawk PA-C LAB_1 Performing Organization Address [facility] [place] [address], [facility] [phone] * Complete Blood Count-No Diff (11/26/2023 7:16 AM PICKLE WATER PUMP OPERATOR) WBC 4.6 3.5 - 10.5 x10(9)/L 11/26/2023 8:38 AM PICKLE WATER PUMP OPERATOR [facility] RBC 4.27 3.90 - 5.03 x10(12)/L 11/26/2023 8:38 AM PICKLE WATER PUMP OPERATOR [facility] Hemoglobin 12.6 12.0 - 15.5 g/dL 11/26/2023 8:38 AM PICKLE WATER PUMP OPERATOR [facility] HCT 37.8 34.9 - 44.5 % 11/26/2023 8:38 AM [facility] MCV 88.5 80.0 - 100.0 fL 11/26/2023 8:38 AM [facility] MCH 29.5 27.6 - 33.3 pg 11/26/2023 8:38 AM [facility] MCHC 33.3 31.5 - 35.2 g/dL 11/26/2023 8:38 AM [facility] RDW 12.6 11.9 - 15.5 % 11/26/2023 8:38 AM [facility] Platelets 259 150 - 450 x10(9)/L 11/26/2023 8:38 AM [facility] Blood Venipuncture / Unknown 11/26/2023 7:16 AM PICKLE WATER PUMP OPERATOR 11/26/2023 7:16 AM PICKLE WATER PUMP OPERATOR Delia Diallo PA-C LAB_1 Performing Organization Address City/[facility]/ZIP Co de Phone Number [facility] [address] [place] [address], [facility] [phone] * FERRITIN (11/26/2023 7:16 AM PICKLE WATER PUMP OPERATOR) Ferritin 43 9 - 204 ng/mL 11/26/2023 12:10 PM PICKLE WATER PUMP OPERATOR [facility] Blood Venipuncture / Unknown 11/26/2023 7:16 AM PICKLE WATER PUMP OPERATOR 11/26/2023 7:16 AM PICKLE WATER PUMP OPERATOR Delia Diallo PA-C LAB_1 [facility] [address] [address], [facility] [phone] * (ABNORMAL) B12 ONLY (11/26/2023 7:16 AM PICKLE WATER PUMP OPERATOR) Vitamin B12 888(H) 213 - 816 pg/mL 11/26/2023 5:20 PM PICKLE WATER PUMP OPERATOR [facility] Blood Venipuncture / Unknown 11/26/2023 7:16 AM PICKLE WATER PUMP OPERATOR 11/26/2023 7:16 AM PICKLE WATER PUMP OPERATOR Delia Diallo PA-C LAB_1 Performing Organization Address [facility]/ZIP Co de Phone Number [facility] [address] [place] [address], [facility] [phone] * IRON PROFILE (IRON,TIBC,%SAT.(CALC)) (11/26/2023 7:16 AM PICKLE WATER PUMP OPERATOR) Iron 107 50 - 170 mcg/dL 11/26/2023 12:41 PM [facility] Transferrin 288 180 - 382 mg/dL 11/26/2023 12:41 PM [facility] TIBC, Calculated 360 240 - 450 mcg/dL 11/26/2023 12:41 PM [facility] % Saturation, Calculated 30 10 - 50 % 11/26/2023 12:41 PM [facility] Blood Venipuncture / Unknown 11/26/2023 7:16 AM PICKLE WATER PUMP OPERATOR 11/26/2023 7:16 AM PICKLE WATER PUMP OPERATOR Delia Diallo PA-C LAB_1 Performing Organization Address [facility]/[place] [address], [facility] [phone] * Calcium (11/26/2023 7:16 AM PICKLE WATER PUMP OPERATOR) Calcium 9.4 8.4 - 10.4 mg/dL 11/26/2023 11:47 AM PICKLE WATER PUMP OPERATOR [facility] [facility] Blood Venipuncture / Unknown 11/26/2023 7:16 AM PICKLE WATER PUMP OPERATOR 11/26/2023 7:16 AM PICKLE WATER PUMP OPERATOR Delia Shawk PA-C LAB_1 Performing Organization Address [facility]/ZIP Co de Phone Number [facility] [address] [address] [phone] * Endoscopy, Colon, Screening/Diagnostic (10/05/2023 2:20 PM PICKLE WATER PUMP OPERATOR) 10/05/2023 2:20 PM PICKLE WATER PUMP OPERATOR Narrative PN PROVATION - 10/05/2023 2:20 PM PICKLE WATER PUMP OPERATOR Patient Name: Nel Pearl Procedure Date: 10/05/2023 2:20 PM Date of : 1965 Admit Type: Outpatient Age: 58 Gender: Female Note Status: Finalized Attending MD: Valentin Garcia MD, Procedure: ? Colonoscopy Indications: ? Screening for colorectal malignant ? neoplasm, Last colonoscopy: ? October 2012 Providers: ? Valentin Garcia MD, Arely Horowitz ? Brianda Referring : ?Viki Sauer Medicines: ? Fentanyl 50 micrograms IV, ? Midazolam 1 mg IV, Note: Residual ? sedation (2/100) present from ? immediate prior EGD. Complications: ? No immediate complications. Procedure: ? After I obtained informed consent, ? the scope was passed under direct ? vision. Throughout the procedure, ? the patient's blood pressure, ? pulse, and oxygen saturations were ? monitored continuously. The ? [id number] was introduced through ? the anus and advanced to the ? terminal ileum, with identification ? of the appendiceal orifice and IC ? valve. The colonoscopy was ? performed without difficulty. The ? patient tolerated the procedure ? well. The quality of the bowel ? preparation was good. Anatomical ? landmarks were photographed. Findings: ? The terminal ileum appeared normal. ? The colon (entire examined portion) appeared normal. Moderate Sedation: ? Moderate (conscious) sedation was administered by the ? nurse and supervised by the endoscopist. The ? patient's oxygen saturation, heart rate, blood ? pressure and response to care were monitored. Total ? physician intraservice time was 20 minutes. Impression: ?- The examined portion of the ileum ? was normal. ? - The entire examined colon is ? normal. ? - No specimens collected. Recommendation: ?- Repeat colonoscopy in 10 years ? for screening purposes. Procedure Code(s): ? --- Professional --- ? G0121, Colorectal cancer screening; ? colonoscopy on individual not ? meeting criteria for high risk ? G0500, Moderate sedation services ? provided by the same physician or ? other qualified health care ? professional performing a ? gastrointestinal endoscopic service ? that sedation supports, requiring ? the presence of an independent ? trained observer to assist in the ? monitoring of the patient's level ? of consciousness and physiological ? status; initial 15 minutes of ? intra-service time; patient age 5 ? years or older (additional time may ? be reported with 75193, as ? appropriate) Diagnosis Code(s): ? --- Professional --- ? Z12.11, Encounter for screening for ? malignant neoplasm of colon CPT copyright 2021 [employer]. All rights reserved. The codes documented in this report are preliminary and upon gyro compass tester review may be revised to meet current compliance requirements. Valentin Garcia MD 10/05/2023 2:42:22 PM This document has been electronically signed. Number of Addenda: 0 Note Initiated On: 10/05/2023 2:20 PM ? Endoscopy Report Procedure Note Valentin Garcia MD - 10/05/2023 Patient Name: Nel Pearl Procedure Date: 10/05/2023 2:20 PM Date of : 1965 Admit Type: Outpatient Age: 58 Gender: Female Note Status: Finalized Attending MD: Valentin Garcia MD, Procedure: Colonoscopy Indications: Screening for colorectal malignant neoplasm, Last colonoscopy: October 2012 Providers: Valentin Garcia MD, Arely Lamar Referring MD: Viki Sauer Medicines: Fentanyl 50 micrograms IV, Midazolam 1 mg IV, Note: Residual sedation (2/100) present from immediate prior EGD. Complications: No immediate complications. Procedure: After I obtained informed consent, the scope was passed under direct vision. Throughout the procedure, the patient's blood pressure, pulse, and oxygen saturations were monitored continuously. The [id number] was introduced through the anus and advanced to the terminal ileum, with identification of the appendiceal orifice and IC valve. The colonoscopy was performed without difficulty. The patient tolerated the procedure well. The quality of the bowel preparation was good. Anatomical landmarks were photographed. Findings: The terminal ileum appeared normal. The colon (entire examined portion) appeared normal. Moderate Sedation: Moderate (conscious) sedation was administered by the nurse and supervised by the endoscopist. The patient's oxygen saturation, heart rate, blood pressure and response to care were monitored. Total physician intraservice time was 20 minutes. Impression: - The examined portion of the ileum was normal. - The entire examined colon is normal. - No specimens collected. Recommendation: - Repeat colonoscopy in 10 years for screening purposes. Procedure Code(s): --- Professional --- G0121, Colorectal cancer screening; colonoscopy on individual not meeting criteria for high risk G0500, Moderate sedation services provided by the same physician or other qualified health overnight caregiver performing a gastrointestinal endoscopic service that sedation supports, requiring the presence of an independent trained observer to assist in the monitoring of the patient's level of consciousness and physiological status; initial 15 minutes of intra-service time; patient age 5 years or older (additional time may be reported with 07181, as appropriate) Diagnosis Code(s): --- Professional --- Z12.11, Encounter for screening for malignant neoplasm of colon CPT copyright 2021 [employer]. All rights reserved. The codes documented in this report are preliminary and upon gyro compass tester review may be revised to meet current compliance requirements. Valentin Garcia MD 10/05/2023 2:42:22 PM This document has been electronically signed. Number of Addenda: 0 Note Initiated On: 10/05/2023 2:20 PM Endoscopy Report Viki Sauer MD PN GI PROCEDURE ORDE SKIP PN PROVATION * EGD (10/05/2023 1:54 PM PICKLE WATER PUMP OPERATOR) 10/05/2023 1:54 PM PICKLE WATER PUMP OPERATOR Narrative PN PROVATION - 10/05/2023 1:54 PM PICKLE WATER PUMP OPERATOR Patient Name: Nel Pearl Procedure Date: 10/05/2023 1:54 PM Date of : 1965 Admit Type: Outpatient Age: 58 Gender: Female Note Status: Finalized Attending MD: Valentin Garcia MD, Procedure: ? Upper GI endoscopy Indications: ? Follow-up of Zhao's esophagus, ? Last EGD 2019 (biopsied showed no ? Zhao's) Providers: ? Valentin Garcia MD, Arely Horowitz ? Brianda Referring : ?Viki Sauer MD Medicines: ? Fentanyl 100 micrograms IV, ? Midazolam 2 mg IV Complications: ? No immediate complications. Procedure: ? After obtaining informed consent, ? the endoscope was passed under ? direct vision. Throughout the ? procedure, the patient's blood ? pressure, pulse, and oxygen ? saturations were monitored ? continuously. The flexible ? [id number] was introduced through ? the mouth, and advanced to the ? jejunum. The upper GI endoscopy was ? accomplished without difficulty. ? The patient tolerated the procedure ? well. Findings: ? The esophagus was normal. ? Evidence of a gastric bypass was found in the gastric ? body. This was characterized by healthy appearing ? mucosa. ? The examined jejunum was normal. Moderate Sedation: ? Moderate (conscious) sedation was administered by the ? nurse and supervised by the endoscopist. The ? patient's oxygen saturation, heart rate, blood ? pressure and response to care were monitored. Total ? physician intraservice time was 7 minutes. Impression: ?- Normal esophagus. I do not see ? any Zhao's. No further routine ? endoscopic surveillance is ? required. Recommend ongoing use of ? PPI for symptom control at lowest ? effective dose. ? - A gastric bypass was found, ? characterized by healthy appearing ? mucosa. ? - Normal examined jejunum. ? - No specimens collected. Recommendation: ?- Perform a colonoscopy today. Procedure Code(s): ? --- Professional --- ? 87809, Esophagogastroduodenoscopy, ? flexible, transoral; diagnostic, ? including collection of specimen(s) ? by brushing or washing, when ? performed (separate procedure) Diagnosis Code(s): ? --- Professional --- ? K22.70, Zhao's esophagus without ? dysplasia ? Z98.84, Bariatric surgery status CPT copyright 2021 [employer]. All rights reserved. The codes documented in this report are preliminary and upon gyro compass tester review may be revised to meet current compliance requirements. Valentin Garcia MD 10/05/2023 2:20:26 PM This document has been electronically signed. Number of Addenda: 0 Note Initiated On: 10/05/2023 1:54 PM ? Endoscopy Report Procedure Note Valentin Garcia MD - 10/05/2023 Patient Name: Nel Pearl Procedure Date: 10/05/2023 1:54 PM Date of : 1965 Admit Type: Outpatient Age: 58 Gender: Female Note Status: Finalized Attending MD: Valentin Garcia MD, Procedure: Upper GI endoscopy Indications: Follow-up of Zhao's esophagus, Last EGD 2019 (biopsied showed no Zhao's) Providers: Valentin Garcia MD, Arely Lamar Referring MD: Viki Sauer MD Medicines: Fentanyl 100 micrograms IV, Midazolam 2 mg IV Complications: No immediate complications. Procedure: After obtaining informed consent, the endoscope was passed under direct vision. Throughout the procedure, the patient's blood pressure, pulse, and oxygen saturations were monitored continuously. The flexible [id number] was introduced through the mouth, and advanced to the jejunum. The upper GI endoscopy was accomplished without difficulty. The patient tolerated the procedure well. Findings: The esophagus was normal. Evidence of a gastric bypass was found in the gastric body. This was characterized by healthy appearing mucosa. The examined jejunum was normal. Moderate Sedation: Moderate (conscious) sedation was administered by the nurse and supervised by the endoscopist. The patient's oxygen saturation, heart rate, blood pressure and response to care were monitored. Total physician intraservice time was 7 minutes. Impression: - Normal esophagus. I do not see any Zhao's. No further routine endoscopic surveillance is required. Recommend ongoing use of PPI for symptom control at lowest effective dose. - A gastric bypass was found, characterized by healthy appearing mucosa. - Normal examined jejunum. - No specimens collected. Recommendation: - Perform a colonoscopy today. Procedure Code(s): --- Professional --- 91847, Esophagogastroduodenoscopy, flexible, transoral; diagnostic, including collection of specimen(s) by brushing or washing, when performed (separate procedure) Diagnosis Code(s): --- Professional --- K22.70, Zhao's esophagus without dysplasia Z98.84, Bariatric surgery status CPT copyright 2021 [employer]. All rights reserved. The codes documented in this report are preliminary and upon gyro compass tester review may be revised to meet current compliance requirements. Valentin Garcia MD 10/05/2023 2:20:26 PM This document has been electronically signed. Number of Addenda: 0 Note Initiated On: 10/05/2023 1:54 PM Endoscopy Report Viki Sauer MD PN GI PROCEDURE ORDE [facility] Organization Address City/State/ZIP Co de Phone Number PN PROVATION from Last 3 Months Advance Directives Latest Code Status on File Code Status Date Activated Date Inactivated Comments Full Code 11/27/2014 5:46 PM 11/29/2014 5:39 PM Code Status History Code Status Date Activated Date Inactivated Comments Full Code 04/25/2014 11:37 AM 04/25/2014 9:29 PM Full Code 11/11/2012 2:02 PM 11/12/2012 8:33 PM Care Teams Logging Equipment Mechanic Relationship Specialty [place] [address] [address] [address] PCP - General Internal Medicine 05/03/20
--- OUTSIDE RECORDS SUMMARY | 2023-12-14 14:10 | XMS_ITS | Encounter Summary ---
Author Name Unknown Organization [facility] Address [address] [place] [address] Care Team Providers Care Audio Visual Collections Coordinator Name Role Phone Viki Sauer MD Primary Care Provider [phone] Reason for Visit * Reason Comments Follow-up, NOS Entered automaticall y based on patient selection in [employer]. Encounter Details Date Type Department Care Team Description 11/26/2023 6:50 PM HOUSEHOLD APPLIANCE REPAIRER E-Visit [facility] [address] [place], [place] [address] Delia Diallo PA-C [address] [place], [place] [address] Chief Comp: Follow-up, NOS Social History Tobacco Use Types Packs/Day Years [...] on file Sexual Orientation Not on file documented as of this encounter Plan of Treatment Upcoming Encounters Date Type Department Care Team Description 01/14/2024 12:30 PM HOUSEHOLD APPLIANCE REPAIRER Appointment [facility] [address] [facility] [place] [address] [place] [address] [id number] 03/02/2024 3:30 PM CDT Telemedicine [facility] [address] [place] [address] Delia Diallo PA-C [address] [place] [address] documented as of this encounter Visit Diagnoses Not on filedocumented in this encounter Care Teams Audio Visual Collections Coordinator Relationship Specialty [place] [address] [address] [address] PCP - General Internal Medicine 05/03/20 documented as of this encounter
--- OUTSIDE RECORDS SUMMARY | 2023-12-14 14:10 | XMS_ITS | Encounter Summary ---
Author Name Unknown Organization [facility] Address [address], [place] [address] Care Team Providers Care Weapons Engineer Name Role Phone Viki Sauer MD Primary Care Provider [phone] Encounter Details Date Type Department Care Team Description 11/26/2023 7:20 AM FOLDER TAPER OPERATOR Lab Visit [facility] [address] [place] [address] Elevated parathyroid hormone (HRC) (Primary Dx); Status post bariatric surgery; Intestinal malabsorption, unspecified type; Personal history of endocrine disorder; Vitamin D deficiency (HRC) Social History Tobacco Use Types Packs/Day Years [...] on file documented as of this encounter Progress Notes * April Kiran PA-C - 11/26/2023 7:20 AM CSTAddended by: APRIL KIRAN on: 12/06/2023 09:23 AM Modules accepted: Orders ER TAPER OPERATOR documented in this encounter Plan of Treatment Upcoming Encounters Date Type Department Care Team Description 01/14/2024 12:30 PM FOLDER TAPER OPERATOR Appointment [facility] [address] [place], [place] [address] [place] [address] [address] [id number] 03/02/2024 3:30 PM CDT Telemedicine [facility] [address] [facility] [address] [place], [place] [id number] Delia Diallo PA-C [address] [place] [address] Scheduled Orders Name Type Priority Associated Diagnoses Orde r Schedule Intact PTH Lab Routine Elevated parathyroid hormone (HRC) Expected: 03/06/2024, Expires: 06/05/2024 Vitamin D 25-Hydroxy, (In house) Lab Routine Status post bariatric surgery Intestinal malabsorption, unspecified type Vitamin D deficiency (HRC) Expected: 03/06/2024, Expires: 06/05/2024 documented as of this encounter Procedures Procedure Name Priority Date/Time Associated Diagnosis Comments VITAMIN D 25-HYDROXY, TOTAL Routine 11/26/2023 7:16 AM FOLDER TAPER OPERATOR Personal history of endocrine disorder INTACT PTH Routine 11/26/2023 7:16 AM FOLDER TAPER OPERATOR Status post bariatric surgery Intestinal malabsorption, unspecified type PREALBUMIN Routine 11/26/2023 7:16 AM FOLDER TAPER OPERATOR Status post bariatric surgery Intestinal malabsorption, unspecified type COMPLETE BLOOD COUNT-NO DIFF Routine 11/26/2023 7:16 AM FOLDER TAPER OPERATOR Status post bariatric surgery Intestinal malabsorption, unspecified type FERRITIN Routine 11/26/2023 7:16 AM FOLDER TAPER OPERATOR Status post bariatric surgery Intestinal malabsorption, unspecified type VITAMIN B12 ONLY Routine 11/26/2023 7:16 AM FOLDER TAPER OPERATOR Status post bariatric surgery Intestinal malabsorption, unspecified type IRON PROFILE (IRON,TIBC,%SAT.(CA LC)) Routine 11/26/2023 7:16 AM FOLDER TAPER OPERATOR Status post bariatric surgery Intestinal malabsorption, unspecified type CALCIUM Routine 11/26/2023 7:16 AM FOLDER TAPER OPERATOR Status post bariatric surgery Intestinal malabsorption, unspecified type documented in this encounter Results * PREALBUMIN (11/26/2023 7:16 AM FOLDER TAPER OPERATOR) Prealbumin 21.8 16.0 - 38.0 mg/dL 11/26/2023 12:[address] [facility] Blood Venipuncture / Unknown 11/26/2023 7:16 AM FOLDER TAPER OPERATOR 11/26/2023 7:16 AM FOLDER TAPER OPERATOR Delia Diallo PA-C LAB_1 Performing Organization Address City/[facility]/ZIP Co de Phone Number [address] [address], [facility] [phone] * Calcium (11/26/2023 7:16 AM FOLDER TAPER OPERATOR) Calcium 9.4 8.4 - 10.4 mg/dL 11/26/2023 11:47 AM FOLDER TAPER OPERATOR [facility] Blood Venipuncture / Unknown 11/26/2023 7:16 AM FOLDER TAPER OPERATOR 11/26/2023 7:16 AM FOLDER TAPER OPERATOR Delia Diallo PA-C LAB_1 [facility] [address] [address], [facility] [place] [phone] * (ABNORMAL) Intact PTH (11/26/2023 7:16 AM FOLDER TAPER OPERATOR) Intact PTH 153(H) 10 - 100 pg/mL 11/26/2023 12:[address] [facility] Blood Venipuncture / Unknown 11/26/2023 7:16 AM FOLDER TAPER OPERATOR 11/26/2023 7:16 AM FOLDER TAPER OPERATOR Delia CUMMINGSC LAB_[address] [phone] * (ABNORMAL) Vitamin D 25-Hydroxy, Total (11/26/2023 7:16 AM FOLDER TAPER OPERATOR) Vitamin D, 25-OH, Total 28(L) 30 - 80 ng/mL 11/26/2023 12:01 PM FOLDER TAPER OPERATOR [facility] Blood Venipuncture / Unknown 11/26/2023 7:16 AM FOLDER TAPER OPERATOR 11/26/2023 7:16 AM FOLDER TAPER OPERATOR Narrative [facility] - 11/26/2023 12:01 PM FOLDER TAPER OPERATOR Expected values Deficiency: <20 ng/mL Insufficiency: 20-29 ng/mL Optimum: 30-80 ng/mL Possible toxicity: >80 ng/mL Delia CUMMINGSC LAB_1 Performing Organization Address [facility] [place] [facility] Co de Phone Number [facility] [address] [place] [address], [facility] [phone] * FERRITIN (11/26/2023 7:16 AM FOLDER TAPER OPERATOR) Ferritin 43 9 - 204 ng/mL 11/26/2023 12:10 PM FOLDER TAPER OPERATOR [facility] Blood Venipuncture / Unknown 11/26/2023 7:16 AM FOLDER TAPER OPERATOR 11/26/2023 7:16 AM FOLDER TAPER OPERATOR Delia CUMMINGSC LAB_1 Performing Organization Address [facility] [place] [facility] Co de Phone Number [facility] [address] [phone] * IRON PROFILE (IRON,TIBC,%SAT.(CALC)) (11/26/2023 7:16 AM FOLDER TAPER OPERATOR) Iron 107 50 - 170 mcg/dL 11/26/2023 12:[address] [facility] Transferrin 288 180 - 382 mg/dL 11/26/2023 12:[address] [facility] TIBC, Calculated 360 240 - 450 mcg/dL 11/26/2023 12:[address] [facility] % Saturation, Calculated 30 10 - 50 % 11/26/2023 12:[address] [facility] Blood Venipuncture / Unknown 11/26/2023 7:16 AM FOLDER TAPER OPERATOR 11/26/2023 7:16 AM FOLDER TAPER OPERATOR Delia YING-C LAB_1 [place] [address], [facility] [place] [phone] * (ABNORMAL) B12 ONLY (11/26/2023 7:16 AM FOLDER TAPER OPERATOR) Vitamin B12 888(H) 213 - 816 pg/mL 11/26/2023 5:20 PM FOLDER TAPER OPERATOR [facility] Blood Venipuncture / Unknown 11/26/2023 7:16 AM FOLDER TAPER OPERATOR 11/26/2023 7:16 AM FOLDER TAPER OPERATOR Delia YING-C LAB_1 [facility] [address] [phone] * Complete Blood Count-No Diff (11/26/2023 7:16 AM FOLDER TAPER OPERATOR) WBC 4.6 3.5 - 10.5 x10(9)/L 11/26/2023 8:38 AM FOLDER TAPER OPERATOR [facility] RBC 4.27 3.90 - 5.03 x10(12)/L 11/26/2023 8:38 AM FOLDER TAPER OPERATOR [facility] Hemoglobin 12.6 12.0 - 15.5 g/dL 11/26/2023 8:38 AM FOLDER TAPER OPERATOR [facility] HCT 37.8 34.9 - 44.5 % 11/26/2023 8:38 AM FOLDER TAPER OPERATOR [facility] MCV 88.5 80.0 - 100.0 fL 11/26/2023 8:38 AM FOLDER TAPER OPERATOR [facility] MCH 29.5 27.6 - 33.3 pg 11/26/2023 8:38 AM FOLDER TAPER OPERATOR [facility] MCHC 33.3 31.5 - 35.2 g/dL 11/26/2023 8:38 AM [facility] RDW 12.6 11.9 - 15.5 % 11/26/2023 8:38 AM FOLDER TAPER OPERATOR [facility] Platelets 259 150 - 450 x10(9)/L 11/26/2023 8:38 AM FOLDER TAPER OPERATOR [facility] Blood Venipuncture / Unknown 11/26/2023 7:16 AM FOLDER TAPER OPERATOR 11/26/2023 7:16 AM FOLDER TAPER OPERATOR Delia Diallo PA-C LAB_1 [facility] [address] [place] [address], [facility] [place] [phone] documented in this encounter Visit Diagnoses Diagnosis Elevated parathyroid hormone (HRC)- Primary Unspecified endocrine disorder Status post bariatric surgery Bariatric surgery status Intestinal malabsorption, unspecified type Personal history of endocrine disorder Personal history of other endocrine, metabolic, and immunity disorders Vitamin D deficiency (HRC) Unspecified vitamin D deficiency documented in this encounter Care Teams Weapons Engineer Relationship Specialty [place] [address] [place] [address] PCP - General Internal Medicine 05/03/20 documented as of this encounter
--- OUTSIDE RECORDS SUMMARY | 2023-12-14 14:10 | XMS_ITS | Encounter Summary ---
Author Name Unknown Organization [facility] Address [address], [place] [address] Care Team Providers Care [place] Leverman Name Role Phone Viki Sauer MD Primary Care Provider [phone] Reason for Visit * Reason Comments Nutrition Counseling Encounter Details Date Type Department Care Team Description 12/09/2023 10:00 AM ROOM COOLER INSTALLER Telemedicine [facility] Bariatric Surgery [address] [place] [address] Marcelina Young, RDN, LD [address] [place] [address] Obesity, unspecified classification, unspecified obesity type, unspecified whether serious comorbidity present (HRC) (Primary Dx); Body mass index (BMI) of 31.0-31.9 in adult; Liver fibrosis; Mild obstructive sleep apnea; Essential hypertension (HRC) Social History Tobacco Use Types Packs/Day [...] on file documented as of this encounter Last Filed Vital Signs Vital Sign Reading Time Taken Comments Blood Pressure - - Pulse - - Temperature - - Respiratory Rate - - Oxygen Saturation - - Inhaled Oxygen Concentration - - Weight 88.5 kg (195 lb) 12/09/2023 10:09 AM ROOM COOLER INSTALLER self-reported Height 167.6 cm (5' 6) 12/09/2023 10:09 AM ROOM COOLER INSTALLER self-reported Body Mass Index 31.47 12/09/2023 10:09 AM ROOM COOLER INSTALLER documented in this encounter Patient Instructions * Patient Instructions* Marcelina Young RDN, LD - 12/09/2023 10:00 AM ROOM COOLER INSTALLER Patient goals: Take 1000 mcg sublingual B12 weekly. Take 2000 IU vitamin D daily. Take 1000mg calcium daily. Balanced breakfast including lean protein, fruti/veg, grain Smaller coffee drink 3 times/week and smaller size Marcelina Young MS, RDN, LD [phone] COOLER INSTALLER documented in this encounter Progress Notes * Marcelina Young RDN, LD - 12/09/2023 10:00 AM CST [facility] Medical Nutrition Therapy: Bariatric Post-Op Back on Track ASSESSMENT: Referring Provider: Delia Diallo PA-C BMI: Estimated body mass index is 31.96 kg/m?? as calculated from the following: Height as of 10/05/23: 5' 6 (167.6 cm). Weight as of 11/03/23: 198 lb (43118 g). Reported weight: 195 lb Follow-up after gastric by-pass surgery. Date of Surgery: November N/A2014. Since last RD visit: Moved to [place] right after surgery and so did not get follow-up care through specialty. Coffee shop habit - trenti pink drink/yennifer tea 5 days a week, diluted sweet tea - 1 pod. Noalcohol. Does separate fluids from solids. Does eat on the faster side, hamburger feels like it gets stuck. Current dietary habits: Breakfast: bagel with cinnamon sugar butter. Lunch: leftovers (yesterday had chicken/rice/veggies/sauce). Dinner: varies - pro, starch, starchy or non-starchy veg. Snacks: 3 pm - apple, hs -lite popcorn Protein needs estimated at 65 grams daily. Intake does not meet estimated needs for protein. Vitamin/Minerals: Patient is taking the following vitamin and mineral supplements: multivitamin and mineral daily. 1000 IU vitamin D daily. Exercise: Patient is not engaging in physical activity: none. DIAGNOSIS: We will continue to treat the following obesity-associated medical conditions and conditions exacerbated by or contributing to weight gain by aggressive management of weight: RAFIA, HTN, liver fibrosis INTERVENTION: Medical Nutrition Therapy provided on post bariatric surgery nutrition and activity behaviors. MONITORING AND EVALUATION: Patient goals: Take 1000 mcg sublingual B12 weekly. Take 2000 IU vitamin D daily. Take 1000mg calcium daily. Balanced breakfast including lean protein, fruti/veg, grain Smaller coffee drink 3 times/week (small or medium?) Follow up with dietitian in 1-2 month(s). Time: 45 minutes Thank you for this referral This visit was conducted via video COOLER INSTALLER documented in this encounter Plan of Treatment Upcoming Encounters Date Type Department Care Team Description 01/14/2024 12:30 PM ROOM COOLER INSTALLER Appointment [facility] [address] [place] [address] [place] [address] [place] [address] 03/02/2024 3:30 PM CDT Telemedicine [facility] [address] [facility] [address] [place], [place] [id number] Delia Diallo PA-C [address] [place], [place] [address] documented as of this encounter Visit Diagnoses Diagnosis Obesity, unspecified classification, unspecified obesity type, unspecified whether serious comorbidity present (HRC)- Primary Body mass index (BMI) of 31.0-31.9 in adult Body Mass Index 31.0-31.9, adult Liver fibrosis Cirrhosis of liver without mention of alcohol Mild obstructive sleep apnea Obstructive sleep apnea (adult) (pediatric) Essential hypertension (HRC) Unspecified essential hypertension documented in this encounter Care Teams [place] Leverman Relationship Specialty [place] [address] [place] [address] PCP - General Internal Medicine 05/03/20 documented as of this encounter
--- OUTSIDE RECORDS SUMMARY | 2023-12-14 14:10 | XMS_ITS | Clinical Summary ---
Author Name Unknown Organization [facility] Address [place], [place] [address] Care Team Providers Care Cargo Broker Name Role Phone Juan Carlos Leon MD Unavailable [phone] Viki Sauer Primary Care Provider [phone] Allergies Active Allergy Reactions Criticality Noted Date Comments Diatrizoate Allergen Hives 04/09/2009 Azithromycin 10/22/2005 Medications Medication Sig Dispensed Refills Start Date End Date Status BENADRYL 50 MG CAP take 1 capsule (50mg) by oral route every 4-6 hours as needed 0 Active MELATONIN 5 MG TAB Take 1 tablet daily at HS 0 Active CLONAZEPAM 0.5 MG TAB take 1 tablet (0.5 mg) by oral route 1 times per day or as needed 0 Active PREDNISONE 20 MG TAB take one tablet twice a day for 5 days 10 0 05/06/2009 Active rOPINIRole (REQUIP) 0.25 mg tablet Take 0.25 mg by mouth. 0 05/03/2020 Active SUMAtriptan (IMITREX) 50 mg tablet Take 50 mg by mouth. 0 05/03/2020 Active topiramate (TOPAMAX) 100 mg tablet 0 10/25/2020 Active traZODone (DESYREL) 50 mg tablet 0 11/01/2020 Active venlafaxine (EFFEXOR XR) 150 mg Extended-Release capsule Take 150 mg by mouth. 0 06/28/2020 Active Active Problems Problem Noted Date Diagnosed Date Generalized anxiety disorder 04/30/2009 Major depression, recurrent 04/16/2009 Social History Tobacco Use Types Packs/Day Years Used Date Smoking Tobacco: Never Assessed Social Connections Answer Date Recorded Frequency of Communication with Friends and Fami ly Not on file 11/22/2021 Financial Resource Strain Answer Date R ecorded Difficulty of Paying Living Expenses Not on file 11/22/2021 Difficulty of Paying Living Expenses Not on file 11/22/2021 Sex and Gender Information Value Date Recorded Sex Assigned at Not on file Gender Identity Not on file Sexual Orientation Not on file Obstetrics History Last Filed Vital Signs Vital Sign Reading Time Taken Comments Blood Pressure 138/67 06/16/2021 3:45 PM CDT Pulse 60 06/16/2021 3:45 PM CDT Temperature 36.1 ??C (97 ??F) 06/16/2021 3:45 PM CDT Respiratory Rate 16 11/05/2020 5:24 PM TOWER CLEANER Oxygen Saturation 100% 06/16/2021 3:45 PM CDT Inhaled Oxygen Concentration - - Weight 99.8 kg (220 lb) 11/04/2011 8:54 AM TOWER CLEANER Height 167.6 cm (5' 6) 11/04/2011 8:54 AM TOWER CLEANER Body Mass Index 35.51 11/04/2011 8:54 AM TOWER CLEANER Plan of Treatment Health Maintenance Due Date Last Done Comments Tdap 1978 Depression screening for age 12+ 1979 HIV for age 15-65 1982 BMI (ht and wt on same day) for age 18+ 1985 Hepatitis C screening for ag e 18-79 1985 Tetanus booster 1987 Pap test for age 21-65 1988 Colonoscopy through age 75 2012 Lipids for age 45-75 2012 Mammogram for age 45-75 2012 Zoster (shingles) series for age 50+ (1 of 2) 2017 COVID-19 vaccine series (2022- season) 2023 04/24/2021, 03/26/2021 Influenza for age 50-64 07/23/2023 Pneumococcal series for age 6-64 Aged Out No longer eligible b ased on patient's age to complete this topic Care Teams Cargo Broker Relationship Specialty Start Date End Date Viki Sauer [address] [place] [address] PCP - General Internal Medicine 11/05/20 [place] [address] [place] [id number] 06/04/20
--- OUTSIDE RECORDS SUMMARY | 2023-12-14 14:10 | XMS_ITS | Encounter Summary ---
Author Name Unknown Organization [facility] Address [address] [place] [address] Care Team Providers Care Coke Loader Name Role Phone Viki Sauer MD Primary Care Provider [phone] Reason for Visit * Reason Comments BREATHING PROBLEM CHEST PAIN Encounter Details Date Type Department Care Team Description 12/14/2023 Nurse Triage Careline [address] [place], [place] [address] Unassigned, Provider [address] [place] [address] BREATHING PROBLEM; CHEST PAIN Social History Tobacco Use Types Packs/Day Years [...] on file documented as of this encounter Nursing Notes * Marcelina Ambriz I, JALEEL - 12/14/2023 12:04 PM CST Verified patient identity: Yes Situation/Background (brief explanation of current symptoms/situation): Symptoms started on Wednesday Chills, fatigue, headache, fever. Pt is coughing all the time. Chest hurts so bad pain is constant With tylenol temp is 99.6F Out breath with light activity Reviewed with patient pertinent medical history (as it related to the call): Yes High blood pressure Gastric bypass Reviewed with patient pertinent medications (as they relate to call): Yes tylenol Reviewed with patient pertinent allergies (as they relate to call): Yes Reason for Disposition SEVERE or constant chest pain or pressure (Exception: Mild central chest pain, present only when coughing.) Protocols used: Coronavirus (COVID-19) Diagnosed or [id number] Plan: Go to ED Now. Advised patient/caller to call back CareLine if there are further questions or concerns. The CareLine is available 14/06. Pt verbalized understanding and agreed with the plan. Marcelina Medina RN 12/14/2023, 12:09 PM LEAD * Mari Mullins - 12/14/2023 11:59 AM CST Verified patient identity using three identifiers: Yes Caller's relationship to patient: Self, Do you have a provider/clinic where you are seen for this? PN Are you calling about a related concern: No What is your question or concern cough - chest pain , breathing concerns , fever If patient is reporting symptoms, are any of the symptoms the patient is describing on the Red FlagList? Yes: Plan- Warm transferred caller to CareLine RN. Route to CareLine Call Waiting pool. LEAD documented in this encounter Plan of Treatment Upcoming Encounters Date Type Department Care Team Description 01/14/2024 12:30 PM IT LEAD Appointment [facility] [address] [place] [address] [place] [address] [address] [place] [address] 03/02/2024 3:30 PM CDT Telemedicine [facility] [address] [place] [address] Delia Diallo PA-C [address] [place] [address] documented as of this encounter Visit Diagnoses Not on filedocumented in this encounter Care Teams Coke Loader Relationship Specialty [place] [address] [place] [address] PCP - General Internal Medicine 05/03/20 documented as of this encounter
--- OUTSIDE RECORDS SUMMARY | 2023-12-14 14:11 | XMS_ITS | Encounter Summary ---
Author Name Unknown Organization [facility] Address [address] [address] Care Team Providers Care Pillar Man Name Role Phone Viki Sauer MD Primary Care Provider [phone] Reason for Visit * Reason Onset Date Comments Video Visit Swollen, red lip s. Extreme sore throat. Cough, runny nose. Chest congestion. ; [phone] Video Visit 08/30/2023 Encounter Details Date Type Department Care Team Description 08/30/2023 1:00 PM CDT Telemedicine [facility] [address] [facility] [place] [address] [place] [address] [place] [address] SOB (shortness of breath); Acute cough Social History Tobacco Use Types Packs/Day Years [...] 08/22 PHQ-2 Answer Date Recorded PHQ-2 Score 0 07/14/2023 Sex and Gender Information Value Date Recorded Sex Assigned at Not on file Gender Identity Not on file Sexual Orientation Not on file documented as of this encounter Patient Instructions * Patient Instructions* Ian Louie MD - 08/30/2023 1:00 PM CDT Start using albuterol inhaler with spacer up to 4 times a day to help coughing symptoms. If it has been a while since you've used a spacer with an inhaler, you can [employer] MDI spacerfor an instructional video on [email or web address]. You can take Zyr-sharita 10mg twice daily. Ok to continue lip balm/Vaseline for the lip irritation. Youshould seek immediate medical care if you start to have any sensation of swelling on the inside of your mouth or difficulty speaking or swallowing. Start benzonatate cough medication - 1 pill, 3 times a day for the next 2-3 days. Then can take it as needed. documented in this encounter Progress Notes * Ian Louie MD - 08/30/2023 1:00 PM CDT Subjective: Today's visit with Nel was conducted as a scheduled video visit. 58 y.o. F with PMH gastric bypass, GERD, HTN Starting 08/26, having some nasal drainage. Last night, started to get some coughing symptoms, occasionally with phlegm. She felt a little more fatigued when walking today into and out of building forRepRegen test. This morning she woke up and feeling redness and irritation of her lips. She feels likeher lips are swollen, although no difficulty swallowing or speaking. Lips are itchy. No fevers. No other skin rashes. also ill around this same time (COVID- 19 negative on home testing). She has not been using any OTC meds for her new symptoms. She has some termite control servicer coughing symptoms since having COVID-19 in the past, having used albuterol in the past. Objective: There were no vitals taken for this visit. Appears comfortable. Coughing intermittently. No clear facial edema on video. Assessment/Plan: SOB (shortness of breath) - ALBUterol sulfate HFA 108 (90 Base) MCG/ACT inhaler; Inhale 1-2 Puffs every 4 hours as needed forWheezing. Acute cough - benzonatate (TESSALON) 100 MG capsule; Take 1 Capsule (100 mg) by mouth three times a day as needed. Other orders - mpzpit-dlep-oedptcm chambers devices; as needed. Patient awaiting lab COVID-19 test collected earlier today. Discussed potential viral illness. Has had coughing that has improved in the past with albuterol and refill sent in. Given her history of gastric bypass, will hold on systemic steroids at this time. No signs of allergic reaction. Ok to use topical lip therapies and use an increased dose of cetirizine to 10mg BID for next few days. Reviewed signs and symptoms prompting immediate evaluation, patient voiced understanding. Huber Louie MD documented in this encounter Plan of Treatment Upcoming Encounters Date Type Department Care Team Description 01/14/2024 12:30 PM METAL CONTAINER MAKER Appointment [facility] [address] [place], [place] [address] [place] [address] [place] [address] 03/02/2024 3:30 PM CDT Telemedicine [facility] [address] [facility] [address] [place] [address] Delia Diallo PA-C [address] [place] [address] documented as of this encounter Visit Diagnoses Diagnosis SOB (shortness of breath) Shortness of breath Acute cough documented in this encounter Additional Health Concerns Infection Onset Date Last Indicated Resolved Time R/O COVID19 08/30/2023 08/30/2023 08/30/2023 9:30 PM CDT documented as of this encounter Care Teams Pillar Man Relationship Specialty [place] [address] [address] [place] [address] PCP - General Internal Medicine 05/03/20 documented as of this encounter
--- OUTSIDE RECORDS SUMMARY | 2023-12-14 14:11 | XMS_ITS | Encounter Summary ---
Author Name Unknown Organization [facility] Address [address], [place] [address] Care Team Providers Care Machine Trimmer Name Role Phone Viki Sauer MD Primary Care Provider [phone] Encounter Details Date Type Department Care Team Description 09/24/2023 Notes/Orders [facility] [address] [facility] [place], [place] [id number] Valentin Garcia MD [address] [place], [place] [id number] Social History Tobacco Use Types Packs/Day Years [...] Department Care Team Description 01/14/2024 12:30 PM ADMINISTRATIVE SUPPORT TECHNICIAN Appointment [facility] [address] [place] [address] Viki Sauer MD [address] [place], [place] [address] [address] 03/02/2024 3:30 PM CDT Telemedicine [facility] [address] [facility] [address] [place] [address] Delia Diallo PA-C [address] [place], [place] [address] documented as of this encounter Visit Diagnoses Not on filedocumented in this encounter Care Teams Machine Trimmer Relationship Specialty [place] [address] [facility] [address] [place] [address] PCP - General Internal Medicine 05/03/20 documented as of this encounter
--- OUTSIDE RECORDS SUMMARY | 2023-12-14 14:11 | XMS_ITS | Encounter Summary ---
Author Name Unknown Organization [facility] Address [address] [address] Care Team Providers Care Warp Coiler Name Role Phone Viki Sauer MD Primary Care Provider [phone] Reason for Visit * Reason Comments Post-Op Problem Encounter Details Date Type Department Care Team Description 10/05/2023 Telephone [facility] [address] [place] [address] [place] [address] [place] [address] Post-Op Problem Social History Tobacco Use Types Packs/Day Years [...] as of this encounter Nursing Notes * Sonia Garber RN - 10/05/2023 6:55 PM CST Patient calling. She had EGD done earlier today. About an hour after, started feeling like there issomething stuck in her throat on the right side. No difficulty breathing or swallowing. She has eaten and drank since the procedure without difficulty. Per protocol, warm-transferred patient to Careline for further guidance. STER OPERATOR * Laura Hernadez V - 10/05/2023 6:46 PM CST Symptoms Describe your symptoms (if pain, include location): Feels like something is stuck in throat but no pain or breathing issues When did they start? Today - about 1 hour after Additional comments (related to the above concern): upper endo today, stuck in throat- at [facility] If a prescription is needed, patient would like it filled at the pharmacy listed in Medication Management. Is it okay to leave a detailed message on your voicemail? Yes Is there anything else I can help you with today? STER OPERATOR documented in this encounter Plan of Treatment Upcoming Encounters Date Type Department Care Team Description 01/14/2024 12:30 PM DIGESTER OPERATOR Appointment [facility] [address] [place], [place] [id number] [place] [address] [address] [place] [address] 03/02/2024 3:30 PM CDT Telemedicine [facility] [address] [facility] [address] [place] [address] Delia Diallo PA-C [address] [place], [place] [address] documented as of this encounter Visit Diagnoses Not on filedocumented in this encounter Care Teams Warp Coiler Relationship Specialty [place] [address] [address] [place] [address] PCP - General Internal Medicine 05/03/20 documented as of this encounter
--- OUTSIDE RECORDS SUMMARY | 2023-12-14 14:11 | XMS_ITS | Encounter Summary ---
Author Name Unknown Organization [facility] Address [address] [place] [address] Care Team Providers Care Autocad Designer Name Role Phone Viki Sauer MD Primary Care Provider [phone] Encounter Details Date Type Department Care Team Description 11/18/2023 E-Visit [facility] [address] [facility] [address] [place], [place] [address] Mychart, [place] [address] Social History Tobacco Use Types Packs/Day Years [...] Department Care Team Description 01/14/2024 12:30 PM COMMUNITY COORDINATOR Appointment [facility] [address] [place], [place] [address] [place] [address] [place] [id number] 03/02/2024 3:30 PM CDT Telemedicine [facility] [address] [facility] [address] [place], [place] [id number] Delia Diallo PA-C [address] [place], [place] [address] documented as of this encounter Visit Diagnoses Not on filedocumented in this encounter Care Teams Autocad Designer Relationship Specialty [place] [address] [place] [address] PCP - General Internal Medicine 05/03/20 documented as of this encounter
--- OUTSIDE RECORDS SUMMARY | 2023-12-14 14:11 | XMS_ITS | Encounter Summary ---
Author Name Unknown Organization [facility] Address [address], [place] [address] Care Team Providers Care Gantry Rigger Name Role Phone Viki Sauer MD Primary Care Provider [phone] Reason for Visit * Reason Comments Pre-visit Planning Entered automaticall y based on patient selection in [facility]. Encounter Details Date Type Department Care Team Description 10/04/2023 9:30 AM CLINIC CHARGE NURSE - 10/04/2023 11:59 PM [facility] Hospital Encounter [facility] Endoscopy Procedures [address] [place], [place] [address] Valentin Garcia MD [address] [place], [place] [address] Discharge Disposition: Home Social History Tobacco Use Types Packs/Day Years [...] on file documented as of this encounter Medications at Time of Discharge Medication Sig Dispensed Refills Start Date End Date ALBUterol sulfate HFA 108 (90 Base) MCG/ACT inhalerIndications:SO B (shortness of breath) Inhale 1-2 Puffs every 4 hours as needed for Wheezing. 1 Each 1 08/30/2023 amLODIPine (NORVASC) 5 MG tabletIndications:Ess ential hypertension (HRC) Take 1 Tablet (5 mg) by mouth daily. 90 Tablet 3 06/28/2023 06/27/2024 ascorbic acid (AKA VITAMIN C) 500 MG tabletIndications:jose e with iron to aide in iron absorption Take 1 Tablet (500 mg) by mouth daily. Indications: take with iron to aide in iron absorption 0 12/28/2014 benzonatate (TESSALON) 100 MG capsuleIndications:Ac iroquois cough Take 1 Capsule (100 mg) by mouth three times a day as needed. 30 Capsule 0 08/30/2023 CALCIUM OR Take 1 tablet by mouth 2 times daily. Indications: HYPOCALCEMIA PREVENTION 0 12/28/2014 cetirizine (ZYRTEC) 10 MG tablet Take 1 Tablet (10 mg) by mouth daily. 90 Tablet 3 05/19/2023 cholecalciferol (AKA VITAMIN D3) 2000 UNITS tablet Take 1 Tablet (2,000 Units) by mouth daily. 0 12/28/2014 [address]ocobalamin [address] 1 Tablet (1,000 mcg) under tongue daily. 0 12/28/2014 diphenhydrAMINE (BENADRYL) 25 MG tabletIndications:all ergies Take 1-2 Tablets (25-50 mg) by mouth 4 times daily as needed (Take 25-50 mg by mouth 4 times daily as needed.). Indications: allergies 0 07/25/2008 ferrous sulfate 325 (65 FE) MG tablet Take 1 Tablet (325 mg) by mouth daily. 0 12/28/2014 hydroCHLOROthiazide (ORETIC) 25 MG tabletIndications:Ess ential hypertension (HRC) Take 1 Tablet (25 mg) by mouth daily. 90 Tablet 3 04/08/2023 04/07/2024 losartan (COZAAR) 100 MG tabletIndications:Ess ential hypertension (HRC) Take 1 Tablet (100 mg) by mouth daily. 90 Tablet 3 05/19/2023 05/18/2024 multivitamin (THERAGRAN) tablet Take 1 Tablet by mouth daily. 0 omeprazole (PRILOSEC) 20 MG capsuleIndications:Ga stroesophageal reflux disease without esophagitis,Zhao's esophagus without dysplasia Take 1 Capsule (20 mg) by mouth daily. 1 HOUR BEFORE A MEAL 90 Capsule 3 06/28/2023 Pyridoxine HCl (VITAMIN B-6) 50 MG tablet TAKE 2 TABLETS (100 MG) BY MOUTH DAILY. 180 Tablet 3 03/31/2023 rOPINIRole (REQUIP) 0.25 MG tabletIndications:RLS (restless legs syndrome) TAKE ONE TABLET BY MOUTH EVERY DAY 90 Tablet 3 08/27/2023 saline 0.65 % nasal solution 1 [place] by Nasal route every morning. 0 11/11/2012 gbkufx-wgwh-zlerids chambers devices as needed. 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 May repeat one tablet after 2 hours if needed. Maximum 4 tabs/24 hours and 9 days/month 9 Tablet 3 09/16/2021 tacrolimus (PROTOPIC) 0.1 % ointmentIndications:P erioral dermatitis Apply topically two times a day. 30 g 11 12/30/2022 traZODone (DESYREL) 50 MG tabletIndications:Chr onic insomnia TAKE ONE TABLET BY MOUTH AT BEDTIME NEEDED FOR SLEEP 90 Tablet 3 07/06/2023 venlafaxine (EFFEXORXR) 150 MG 24 hour release capsuleIndications:Ma andrew depressive disorder with single episode, in partial remission (HRC) Take 1 Capsule (150 mg) by mouth daily. 90 Capsule 3 05/19/2023 venlafaxine (EFFEXORXR) 37.5 MG 24 hour release capsuleIndications:Ma andrew depressive disorder, recurrent episode, in full remission (HRC) Take 1 Capsule (37.5 mg) by mouth daily. 90 Capsule 3 05/19/2023 bisacodyl (DULCOLAX) 5 MG enteric coated tablet Take as directed in patient instructions: 4 tablets by mouth once at 5 PM the evening before your procedure. 4 Tablet 0 09/24/2023 10/05/2023 ondansetron (ZOFRAN) 4 MG tablet Take 1 Tablet (4 mg) by mouth every 8 hours as needed for Nausea (during bowel prep). 3 Tablet 0 09/24/2023 10/05/2023 polyethylene glycol-electrolyte (GO-LYTELY) 236 g oral solution Take as directed in patient instructions: drink 2000 mL at 6PM the evening before your procedure and 2000 mL 4 hours before leaving home for your procedure. 4000 mL 0 09/24/2023 10/05/2023 documented as of this encounter Plan of Treatment Upcoming Encounters Date Type Department Care Team Description 01/14/2024 12:30 PM CLINIC CHARGE NURSE Appointment [facility] [place] [facility] [address] [place] [address] [place] [address] [id number] 03/02/2024 3:30 PM CDT Telemedicine [facility] [address] [place] [address] Delia Diallo PA-C [address] [place] [address] documented as of this encounter Visit Diagnoses Not on filedocumented in this encounter Care Teams Gantry Rigger Relationship Specialty [place] [address] [address] PCP - General Internal Medicine 05/03/20 documented as of this encounter
--- OUTSIDE RECORDS SUMMARY | 2023-12-14 14:11 | XMS_ITS | Encounter Summary ---
Author Name Unknown Organization [facility] Address [address], [place] [address] Care Team Providers Care Class 1 Owner Operator Name Role Phone Viki Sauer MD Primary Care Provider Reason for Referral * (Routine) - New Request Specialty Diagnoses / Procedures Referred By Lis nichole Referred To Contact Diagnoses Screening for colon cancer Procedures Endoscopy, Colon, Screening[place] [address] [place] [address] Referral ID Status Reason Start Date Expiration Date V isits Requested Visits Authorized [id number] New Request 04/08/2023 04/08/2025 1 1 RVISOR BRINE Reason for Visit * (Routine) - New Request Specialty Diagnoses / Procedures Referred By Lis nichole Referred To Contact Diagnoses Screening for colon cancer Procedures Endoscopy, Colon, Screening[place] [address] [place] [address] Referral ID Status Reason Start Date Expiration Date V isits Requested Visits Authorized [id number] New Request 04/08/2023 04/08/2025 1 1 Encounter Details Date Type Department Care Team Description 10/05/2023 1:46 PM SUPERVISOR BRINE - 10/05/2023 11:59 PM SUPERVISOR BRINE Hospital Encounter [facility] Procedures [address] [place] [address] Valentin Garcia MD [address] [place] [address] Screening for colon cancer Discharge Disposition: Home Social History Tobacco Use [...] Sign Reading Time Taken Comments Blood Pressure 135/69 10/05/2023 3:00 PM SUPERVISOR BRINE Pulse 75 10/05/2023 3:00 PM SUPERVISOR BRINE Temperature - - Respiratory Rate 16 10/05/2023 3:00 PM SUPERVISOR BRINE Oxygen Saturation 97% 10/05/2023 3:00 PM SUPERVISOR BRINE Inhaled Oxygen Concentration - - Weight 88.5 kg (195 lb) 10/05/2023 1:54 PM SUPERVISOR BRINE Height 167.6 cm (5' 6) 10/05/2023 1:54 PM SUPERVISOR BRINE Body Mass Index 31.47 10/05/2023 1:54 PM SUPERVISOR BRINE documented in this encounter Medications at Time of Discharge [...] 0 12/28/2014 benzonatate (TESSALON) 100 MG capsuleIndications:Ac curyung cough Take 1 Capsule (100 mg) by [...] 08/27/2023 saline 0.65 % nasal solution 1 [place] by Nasal route every morning. 0 11/11/2012 mycfct-ohnk-xkrhcxc chambers devices as needed. 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 90 Capsule 3 05/19/2023 venlafaxine (EFFEXORXR) 37.5 MG 24 hour release capsuleIndications:Connie andrew depressive disorder, recurrent episode, in full remission (HRC) Take 1 Capsule (37.5 mg) by mouth daily. 90 Capsule 3 05/19/2023 documented as of this encounter Progress Notes * Arely Lamar RN - 10/05/2023 2:30 PM CST Vitals charted per department protocol.Patient given pain med's intermittently for discomfort.Encourage deep breathing for sats 90% or below. Oxygen used for the procedure 2-5 liters.Patient tolerated procedure. RVISOR BRINE * Sobeida Rome RN - 10/05/2023 2:30 PM CST Patient alert, oriented. Denies pain at this time. Tolerating liquids. Discussed discharge teaching. Patient/family given handouts. Verbalized understanding. RVISOR BRINE documented in this encounter Procedure Notes * Valentin Garcia MD - 10/05/2023 2:20 PM CST Patient Name: Nel Pearl Procedure Date: 10/05/2023 [...] and oxygen saturations were monitored continuously. The [id number] was introduced through the anus and advanced [...] the same physician or other qualified health hospice spiritual care coordinator performing a gastrointestinal endoscopic service that sedation supports, requiring the presence of an independent trained observer to assist in the monitoring of the patient's level of consciousness and physiological status; initial 15 minutes of intra-service time; patient age 5 years or older (additional time may be reported with 62128, as appropriate) Diagnosis Code(s): --- Professional --- Z12.11, Encounter for screening for malignant neoplasm of colon CPT copyright 2021 [employer]. All rights reserved. The codes documented in this report are preliminary and upon architectural sales consultant review may be revised to meet current compliance requirements. Valentin Garcia MD 10/05/2023 2:42:22 PM This document has been electronically signed. Number of Addenda: 0 Note Initiated On: 10/05/2023 2:20 PM Endoscopy Report RVISOR BRINE documented in this encounter Plan of Treatment Upcoming Encounters Date Type Department Care Team Description 01/14/2024 12:30 PM SUPERVISOR BRINE Appointment [facility] [address] [place], [place] [phone] [place] [address] [place], [place] [id number] 03/02/2024 3:30 PM CDT Telemedicine [facility] [address] [facility] [address] [place], [place] [phone] Delia Diallo PA-C [address] [place] [address] documented as of this encounter Procedures Procedure Name Priority Date/Time Associated Diagnosis Comments ENDOSCOPY, COLON, SCREENING/DIAGNOSTI C Routine 10/05/2023 2:20 PM SUPERVISOR BRINE Screening for colon cancer documented in this encounter Results * Endoscopy, Colon, Screening/Diagnostic (10/05/2023 2:20 PM SUPERVISOR BRINE) 10/05/2023 2:20 PM SUPERVISOR BRINE Narrative PN PROVATION - 10/05/2023 2:20 PM SUPERVISOR BRINE Patient Name: Nel Pearl Procedure Date: 10/05/2023 2:20 PM Date of : 1965 Admit Type: Outpatient Age: 58 Gender: Female Note Status: Finalized Attending MD: Valentin Garcia MD, Procedure: ? Colonoscopy Indications: ? Screening for colorectal malignant ? neoplasm, Last colonoscopy: ? October 2012 Providers: ? Valentin Garcia MD, Arely Horowitz ? Brianda Referring : ?Viki M. Sauer Medicines: ? Fentanyl 50 micrograms IV, ? Midazolam 1 mg IV, Note: Residual ? sedation (2/100) present from ? immediate prior EGD. Complications: ? No immediate complications. Procedure: ? After I obtained informed consent, ? the scope was passed under direct ? vision. Throughout the procedure, ? the patient's blood pressure, ? pulse, and oxygen saturations were ? monitored continuously. The ? [id number] was introduced through ? the anus and [...] (additional time may ? be reported with 61084, as ? appropriate) Diagnosis Code(s): ? --- Professional --- ? Z12.11, Encounter for screening for ? malignant neoplasm of colon CPT copyright 2021 [employer]. All rights reserved. The codes documented in this report are preliminary and upon architectural sales consultant review may be revised to meet current [...] and oxygen saturations were monitored continuously. The [id number] was introduced through the anus and advanced [...] the same physician or other qualified health hospice spiritual care coordinator performing a gastrointestinal endoscopic service that sedation supports, requiring the presence of an independent trained observer to assist in the monitoring of the patient's level of consciousness and physiological status; initial 15 minutes of intra-service time; patient age 5 years or older (additional time may be reported with 16883, as appropriate) Diagnosis Code(s): --- Professional --- Z12.11, Encounter for screening for malignant neoplasm of colon CPT copyright 2021 [employer]. All rights reserved. The codes documented in this report are preliminary and upon architectural sales consultant review may be revised to meet current compliance requirements. Valentin Garcia MD 10/05/2023 2:42:22 PM This document has been electronically signed. Number of Addenda: 0 Note Initiated On: 10/05/2023 2:20 PM Endoscopy Report Viki Sauer MD PN GI PROCEDURE ORDNazia VALDIVIA PN PROVATION documented in this encounter Visit Diagnoses Diagnosis Screening for colon cancer Special screening for malignant neoplasms, colon documented in this encounter Administered Medications Inactive Administered Medications - up to 3 most recent administrations Medication Order MAR Action Action Date Dose Rate Site fentaNYL (SUBLIMAZE) injection 25-100 mcg 25-100 mcg, Intravenous, PRN, Other, Moderate Sedation, Starting on Wed10/05/23 at 0805, Until Wed10/26/23 at 020, Administer in 25-100 mcg increments as directed by endoscopy procedure Practitioner up to a total of 300 mcg. (Give only during endoscopy procedure visit) Given 10/05/2023 2:30 PM SUPERVISOR BRINE 150 mcg midazolam (VERSED) injection 0.5-2 mg 0.5-2 mg, Intravenous, PRN, Sedation, Starting on Wed10/05/23 at 0805, Until Wed10/26/23 at 0203, Administer in 0.5-2 mg increments as directed by endoscopy procedure Practitioner up to a total of 8 mg. (Give only during endoscopy procedure visit) Given 10/05/2023 2:30 PM SUPERVISOR BRINE 3 mg sodium chloride 0.9% injection 10-60 mL 10-60 mL, Intravenous, PRN, Line Patency, For port access and deaccess only, Starting on Wed10/05/23 at 0805, Until Wed10/26/23 at 0203 Given 10/05/2023 2:26 PM SUPERVISOR BRINE 20 mL documented in this encounter Care Teams Class 1 Owner Operator Relationship Specialty [place] [address] [place] [address] PCP - General Internal Medicine 05/03/20 documented as of this encounter
--- OUTSIDE RECORDS SUMMARY | 2023-12-14 14:11 | XMS_ITS | Encounter Summary ---
Author Name Unknown Organization [facility] Address [address] [place] [address] Care Team Providers Care Starbucks Clerk Name Role Phone Viki Sauer MD Primary Care Provider [phone] Reason for Visit * Reason Comments QUESTIONS, GENERAL Entered automaticall y based on patient selection in [facility]. Encounter Details Date Type Department Care Team Description 11/03/2023 2:40 PM SCOOPING MACHINE TENDER E-Visit [facility] [address] [facility] [place], [place] [address] Provider, [place] [address] Chief Comp: QUESTIONS, GENERAL Social History Tobacco Use Types Packs/Day Years [...] Department Care Team Description 01/14/2024 12:30 PM SCOOPING MACHINE TENDER Appointment [facility] [address] [place], [place] [address] [place] [address] [place] [address] 03/02/2024 3:30 PM CDT Telemedicine [facility] [address] [facility] [address] [place] [address] Delia Diallo PA-C [address] [place], [place] [address] documented as of this encounter Visit Diagnoses Not on filedocumented in this encounter Care Teams Starbucks Clerk Relationship Specialty [place] [address] [place] [address] PCP - General Internal Medicine 05/03/20 documented as of this encounter
--- OUTSIDE RECORDS SUMMARY | 2023-12-14 14:11 | XMS_ITS | Encounter Summary ---
Author Name Unknown Organization [facility] Address [address] [address] Care Team Providers Care Vice Chair Name Role Phone Viki Sauer MD Primary Care Provider [phone] Reason for Visit * Reason Comments Post Procedure Questions Encounter Details Date Type Department Care Team Description 10/05/2023 Nurse Triage [facility] [address] [facility] [place], [place] [address] Unknown, Physician [address] [place] [address] Post Procedure Questions Social History Tobacco Use Types Packs/Day Years [...] as of this encounter Nursing Notes * Marisabel Mitchell RN - 10/05/2023 8:15 PM CST Verified patient identity: Yes Situation/Background (brief explanation of current symptoms/situation): Had EGD today and feels like something on right side of throat, hurts when swallows. Able to eat and drink with out difficulty but feels like something in throat and hurts to swallow. No drooling and is able to eat and drink Reviewed with patient pertinent medical history (as it related to the call): Yes Reviewed with patient pertinent medications (as they relate to call): Yes Reviewed with patient pertinent allergies (as they relate to call): Yes Reason for Disposition [1] Caller has NON-URGENT question AND [2] triager unable to answer question Answer Assessment - Initial Assessment Questions 1. DATE/TIME: When did you have your endoscopy? 10/05/23 1400 2. MAIN CONCERN: What is your main concern right now? What questions do you have? Feels like something in throat 3. ADOMINAL PAIN: Are you having any abdominal (belly or stomach) pain? If Yes, ask: How bad is it? (e.g., Scale 1-10; mild, moderate, severe). - MILD (1-3): doesn't interfere with normal activities, abdomen soft and not tender to touch - MODERATE (4-7): interferes with normal activities or awakens from sleep, abdomen tender to touch - SEVERE (8-10): excruciating pain, doubled over, unable to do any normal activities denies 4. OTHER SYMPTOMS: What other symptoms are you having? (e.g., breathing or swallowing problems, chest pain, throat pain, hoarseness, vomiting, stomach pain, bloating, fever, dizziness) Hurts to swallow 5. ONSET: When did your symptoms start? 1600 noticed and on going 6. PATTERN: Is the symptom(s) constant or does it come and go? Is your symptom(s) getting worse,better, or staying the same? Constant when drinks or swallows Protocols used: Endoscopy (Upper GI) Symptoms and Nldtyanoc-GYQWD-TC Plan: Pt encouraged to continue to monitor and call the clinic in the morning to update. Advised patient/caller to call back CareLine if there are further questions or concerns or to be seen if situation becomes emergent. The CareLine is available 14/06. Lou Borges RN Careline ING MACHINE BACK TENDER * Sandra Wallace - 10/05/2023 6:54 PM CST Verified patient identity using three identifiers: Yes Caller's relationship to patient: Self, Do you have a provider/clinic where you are seen for this? PN Specialty Symptoms Describe the reason for call/symptoms (include location and duration if applicable): EGD today. Feels like something is in throat on the right hand side. More annoying, not painful. Has had several EGD's in the past. Never had this problem. No breathing or swallowing issues. Plan:The current callback time to speak with a nurse is 2 hours. If your symptoms change or worsen,or if you have not received a call back in the stated timeframe, please call us back ING MACHINE BACK TENDER documented in this encounter Plan of Treatment Upcoming Encounters Date Type Department Care Team Description 01/14/2024 12:30 PM SOAPING MACHINE BACK TENDER Appointment [facility] [address] [place], [place] [address] [place] [address] [place] [address] 03/02/2024 3:30 PM CDT Telemedicine [facility] [address] [facility] [address] [place] [address] Delia Diallo PA-C [address] [place], [place] [address] documented as of this encounter Visit Diagnoses Not on filedocumented in this encounter Care Teams Vice Chair Relationship Specialty [place] [address] [place] [address] PCP - General Internal Medicine 05/03/20 documented as of this encounter
--- OUTSIDE RECORDS SUMMARY | 2023-12-14 14:11 | XMS_ITS | Encounter Summary ---
Author Name Unknown Organization [facility] Address [address], [place] [address] Care Team Providers Care Rn Enterostomal Name Role Phone Viki Sauer MD Primary Care Provider [phone] Reason for Visit * Reason Comments Video Visit INFECTION, SINUS CONGESTION, NASAL Headache Encounter Details Date Type Department Care Team Description 11/03/2023 2:20 PM BANK APPRAISER Telemedicine [address] [address] Marcelina Ward, LOCK INSTALLER, BOARD MILL SUPERVISOR [address] [place] [address] Acute non-recurrent maxillary sinusitis (Primary Dx) Social History Tobacco Use Types Packs/Day Years [...] Comments Blood Pressure 179/80 11/03/2023 2:03 PM BANK APPRAISER Pulse - - Temperature - - Respiratory Rate - - Oxygen Saturation - - Inhaled Oxygen Concentration - - Weight 89.8 kg (198 lb) 11/03/2023 2:03 PM BANK APPRAISER P t reported. Height - - Body Mass Index 31.96 10/05/2023 1:54 PM BANK APPRAISER documented in this encounter Progress Notes * Marcelina Ward APRN, CNP - 11/03/2023 2:20 PM CST Subjective: Nel is a 58 y.o. female with 2-3 week history of URI symptoms. Went to [facility] and tested positive for Influenza A. Completed Tamiflu. Has had lingering nasal congestion. 6 days ago developed left maxillary pain and frontal headache. Has tried saline rinses, increased hydration, Nasocort, acetaminophen. Denies current fever, dyspnea, or chest pain Objective: Gen: A/O NAD Resp: Speaks calmly and clearly in full sentences. No cough or breathlessness MS: Independent movement and position change Skin: Normal Neuro: Coordinated and symmetric movement with no focal deficits. Speech clear, no confusion. Psych: Pleasant, interactive. Non-distressed Assessment/ Plan: Acute non-recurrent maxillary sinusitis - amoxicillin-clavulanate (AUGMENTIN) 875-125 mg per tablet; Take 1 Tablet by mouth two times a dayfor 10 days. - E-Visit (Provider Initiated); Future Suggested try Nasacort right at the onset of nasal symptoms in future to hopefully help prevent sinusitis complication. For this episode however will treat with the antibiotics that were helpful to her in past. AARON Mc[facility]or online account E-visit follow up initiated. APPRAISER documented in this encounter Plan of Treatment Upcoming Encounters Date Type Department Care Team Description 01/14/2024 12:30 PM BANK APPRAISER Appointment [facility] [address] [place], [place] [phone] [place] [address] [phone] 03/02/2024 3:30 PM CDT Telemedicine [facility] [address] [place] [address] Delia Diallo PA-C [address] [facility] [place] [place] [address] documented as of this encounter Visit Diagnoses Diagnosis Acute non-recurrent maxillary sinusitis- Primary documented in this encounter Care Teams Rn Enterostomal Relationship Specialty [place] [address] [place] [address] PCP - General Internal Medicine 05/03/20 documented as of this encounter
--- OUTSIDE RECORDS SUMMARY | 2023-12-14 14:11 | XMS_ITS | Encounter Summary ---
Author Name Unknown Organization [facility] Address [address], [place] [address] Care Team Providers Care Production Stage Manager Name Role Phone Viki Sauer MD Primary Care Provider [phone] Reason for Visit * Reason Comments Pre-visit Planning Entered automaticall y based on patient selection in [employer]. Encounter Details Date Type Department Care Team Description 11/05/2023 9:50 AM TACKER ELASTIC BAND E-Visit [facility] [address] [facility] [address] [place], [place] [id number] Delia Diallo PA-C [address] [place], [place] [address] Chief Comp: Pre-visit Planning Social History Tobacco Use Types Packs/Day Years [...] Department Care Team Description 01/14/2024 12:30 PM TACKER ELASTIC BAND Appointment [facility] [address] [place] [id number] [place] [address] [place] [address] 03/02/2024 3:30 PM CDT Telemedicine [facility] [address] [facility] [address] [place] [address] Delia Diallo PA-C [address] [place] [address] documented as of this encounter Visit Diagnoses Not on filedocumented in this encounter Care Teams Production Stage Manager Relationship Specialty [place] [address] [place] [address] PCP - General Internal Medicine 05/03/20 documented as of this encounter
--- OUTSIDE RECORDS SUMMARY | 2023-12-14 14:11 | XMS_ITS | Encounter Summary ---
Author Name Unknown Organization [facility] Address [address] [place] [address] Care Team Providers Care Forming Process Worker Name Role Phone Viki Sauer MD Primary Care Provider [phone] Encounter Details Date Type Department Care Team Description 11/23/2023 2:30 PM FLIGHT OPERATIONS MANAGER Telemedicine [facility] [address] [facility] [address] [place], [place] [address] Delia Diallo PA-C [address] [place] [address] Liver fibrosis (Primary Dx); Obesity, Class I, BMI 30-34.9 (HRC); Status post bariatric surgery; Intestinal malabsorption, unspecified type; Personal history of endocrine disorder; Mild obstructive sleep apnea; Elevated parathyroid hormone (HRC); Essential hypertension (HRC); History of diabetes mellitus; Hypertensive left ventricular hypertrophy, without heart failure (HRC); Recurrent major depressive disorder, remission status unspecified (HRC); Mixed hyperlipidemia (HRC) Social History Tobacco Use Types Packs/Day [...] this encounter Patient Instructions * Patient Instructions* Delia Diallo PA-C - 11/23/2023 2:30 PM FLIGHT OPERATIONS MANAGER Lab Instructions (to be put in AVS) Please follow the following instructions prior to having your labs drawn: No vitamins or supplements for 24 hours prior to the test No alcohol for 24 hours prior to the test No food or drink (other than water or plain, black coffee) for 12 hours prior to the test. You may call [phone] to schedule a lab appointment at the [facility] lab nearest you. Scheduled appointments are preferred; however, walk-ins are also accepted. The [place] location isopen Saturdays. HT OPERATIONS MANAGER documented in this encounter Progress Notes * Delia Diallo PA-C - 11/23/2023 2:30 PM CST Bariatric Surgery [id number] Post-Operative Follow Up DATE OF VISIT: 11/30/2023 SUBJECTIVE: This 58 y.o. year-old female with chronic medical problems including HTN, hypertensive left ventricular hypertrophy without heart failure, HL, hepatic fibrosis, anxiety, depression, migraine, RLS, RAFIA, insomnia, history of diabetes, and morbid obesity now obesity presents for routine postoperative f ollowup status post Laparoscopic Claire-en-Y. Last visit in our clinic was 05/2015. Pre-op weight: 230 lbs Post-op low: 140 lbs (maintained) Last visit weight: 153 lbs (05/30/15) Current weight: 198 lbs She returns today to discuss weight regain. She states she started to notice her weight creeping upabout one year post-operatively. Around this time, she moved to [place]. She states the move was stressful and reports increased snacking. Tried to establish with bariatrics down there, but their program was not helpful for machine lay out worker support. She does continue to practice several bariatric principles - holding liquids 30 min before eating, reducing having seconds. She states her portions are larger than they are supposed to be. She has a history of being more active. Also ordering a large starbucks daily - gets pink drink or yennifer. She does feel guilty about ordering starbucks. Patient reports paying attention to physical hunger. States her eating is sometimes just dictated by a schedule - 5PM is time to eat. Has ongoing issues with cravings - states her mind tells her toeat cookies. She knows she shouldn't but does anyway. Does not feel out of control in these situations. She denies emotional eating. 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 She has a history of using topiramate for migraine. Denies nephrolithiasis hx. Focuses on eating protein at most meals: No Fluid intake averages 48-64 oz oz per day. Exercise: What are you doing for exercise?: Walking Patient states that she doesn't love exercise. Limited by knee pain and carrying her weight in her lower extremities. She reports taking MVI, B12 SL weekly, and Vitamin D supplements as prescribed. She is taking one tablet of calcium daily, but unsure about type of calcium and dose. Patient is not taking additional iron supplements. Patient denies alcohol use, carbonated beverages, and tobacco use. REVIEW OF SYSTEMS: Patient is experiencing the following symptoms/problems: Back Pain, Bloating, Diarrhea, Emotional Eating, Eating Until Feeling Overfull, Increased Food Cravings, Joint Pain, Side Effects from Weight Loss Medication PAST MEDICAL HISTORY: Past Medical History: Diagnosis Date Anemia due to GI blood loss Zhao esophagus dx'd 2009 [place] EGD x 3 Zhao's esophagus with dysplasia 05/03/2020 Chronic insomnia 05/03/2020 Diabetes mellitus type 2, diet-controlled (HRC) 08/03/2013 hgba1c 6.8, fbs 142 Dysthymic disorder ([facility] 06/25/2011 Elevated liver enzymes fatty liver on us 10/03, liver bx 07/05 steatohepatitis stage3-4 fibrosis c/w ORTIZ Essential hypertension (HRC) 05/03/2020 SUSANA (generalized anxiety disorder) (ACG) 06/25/2011 GERD (gastroesophageal reflux disease) GI bleed 11/11/2012 hospitalized s/p egd, colonoscopy-colitis vs nsaid related- felt related to NSAID use HTN, goal below 140/90 (ACG) Hx gestational diabetes Hyperlipidemia LDL goal < 130 (ACG) ALICIA (iron deficiency anemia) Iron deficiency anemia secondary to inadequate dietary iron intake 05/03/2020 Laparoscopic Claire-en-Y gastric bypass 11/27/2014 Leg swelling Liver fibrosis 05/03/2020 Low back pain ([facility] Low bone mass 02/12/2021 Major depressive disorder with single episode, in partial remission ([facility]) 05/03/2020 Major depressive disorder, recurrent episode, unspecified 12/18/2011 f/b psychiatry Dr. Mathis-prozac, wellbutrin, seroquel, zoloft ineffective Migraine with aura and without status migrainosus, not intractable 05/03/2020 ORTIZ (nonalcoholic steatohepatitis) ([facility]) 06/27/2014 fatty liver on us 10/03, liver bx 07/05 steatohepatitis stage3-4 fibrosis Obesity (BMI 30-39.9) ([facility]) RAFIA (obstructive sleep apnea) 10/09/2021 Restless leg syndrome requip RLS (restless legs syndrome) 05/03/2020 Social phobia ([facility]) 06/25/2011 Type 2 diabetes mellitus without complications ([facility]) Type II or unspecified type diabetes mellitus without mention of complication, not stated as uncontrolled ([facility]) Vitamin B12 deficiency 07/22/2020 Vitamin D deficiency ([facility]) 09/04/2022 MEDICATIONS: ALBUterol sulfate HFA 108 (90 Base) MCG/ACT inhaler, Inhale 1-2 Puffs every 4 hours as needed for Wheezing., Disp: 1 Each, Rfl: 1 amLODIPine (NORVASC) 5 MG tablet, Take 1 Tablet (5 mg) by mouth daily., Disp: 90 Tablet, Rfl: 3 ascorbic acid (AKA VITAMIN C) 500 MG tablet, Take 1 Tablet (500 mg) by mouth daily. Indications: take with iron to aide in iron absorption, Disp: , Rfl: benzonatate (TESSALON) 100 MG capsule, Take 1 Capsule (100 mg) by mouth three times a day as needed., Disp: 30 Capsule, Rfl: 0 CALCIUM OR, Take 1 tablet by mouth 2 times daily. Indications: HYPOCALCEMIA PREVENTION, Disp: , Rfl: cetirizine (ZYRTEC) 10 MG tablet, Take 1 Tablet (10 mg) by mouth daily., Disp: 90 Tablet, Rfl: 3 cholecalciferol (AKA VITAMIN D3) 2000 UNITS tablet, Take 1 Tablet (2,000 Units) by mouth daily., Disp: , Rfl: cyanocobalamin 1000 MCG tablet, Place 1 Tablet (1,000 mcg) under tongue daily., Disp: , Rfl: diphenhydrAMINE (BENADRYL) 25 MG tablet, Take 1-2 Tablets (25-50 mg) by mouth 4 times daily as needed (Take 25-50 mg by mouth 4 times daily as needed.). Indications: allergies, Disp: , Rfl: ferrous sulfate 325 (65 FE) MG tablet, Take 1 Tablet (325 mg) by mouth daily., Disp: , Rfl: hydroCHLOROthiazide (ORETIC) 25 MG tablet, Take 1 Tablet (25 mg) by mouth daily., Disp: 90 Tablet, Rfl: 3 losartan (COZAAR) 100 MG tablet, Take 1 Tablet (100 mg) by mouth daily., Disp: 90 Tablet, Rfl: 3 multivitamin (THERAGRAN) tablet, Take 1 Tablet by mouth daily., Disp: , Rfl: omeprazole (PRILOSEC) 20 MG capsule, Take 1 Capsule (20 mg) by mouth daily. 1 HOUR BEFORE A MEAL, Disp: 90 Capsule, Rfl: 3 Pyridoxine HCl (VITAMIN B-6) 50 MG tablet, TAKE 2 TABLETS (100 MG) BY MOUTH DAILY., Disp: 180 Tablet, Rfl: 3 rOPINIRole (REQUIP) 0.25 MG tablet, TAKE ONE TABLET BY MOUTH EVERY DAY, Disp: 90 Tablet, Rfl: 3 saline 0.65 % nasal solution, 1 [place] by Nasal route every morning., Disp: , Rfl: qdxaun-gsus-swsljri chambers devices, as needed., Disp: 1 Each, Rfl: 0 SUMAtriptan (IMITREX) 50 MG tablet, Take 1 Tablet by mouth as needed for Migraine. May repeat one tablet after 2 hours if needed. Maximum 4 tabs/24 hours and 9 days/month, Disp: 9 Tablet, Rfl: 3 tacrolimus (PROTOPIC) 0.1 % ointment, Apply topically two times a day., Disp: 30 g, Rfl: 11 traZODone (DESYREL) 50 MG tablet, TAKE ONE TABLET BY MOUTH AT BEDTIME NEEDED FOR SLEEP, Disp: 90Tablet, Rfl: 3 venlafaxine (EFFEXORXR) 150 MG 24 hour release capsule, Take 1 Capsule (150 mg) by mouth daily., Disp: 90 Capsule, Rfl: 3 venlafaxine (EFFEXORXR) 37.5 MG 24 hour release capsule, Take 1 Capsule (37.5 mg) by mouth daily., Disp: 90 Capsule, Rfl: 3 No current facility-administered medications on file as of 11/23/2023. 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 Data from: 05/03/20 Enc Dept: [facility] [employer] , 6 grandkids. 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 Cat - likes to read. Social Determinants of Health Financial Resource Strain: Not on file Food Insecurity: Not on file Transportation Needs: Not on file Intimate Partner Violence: Not on file Housing Stability: Not on file Patient Employment Employer: Address: City: State: Zip: Phone: Occupation: Employee?: No OBJECTIVE: There were no vitals taken for this visit. BMI: Estimated body mass index is 31.96 kg/m?? as calculated from the following: Height as of 10/05/23: 5' 6 (167.6 cm). Weight as of 11/03/23: 198 lb (87359 g). GENERAL: Patient appears no apparent distress, alert and oriented RESPIRATORY: Non-labored breathing SKIN: Intact NEUROPSYCH: Normal, exhibits appropriate affect LABORATORY STUDIES: None are available at the time of appointment. ASSESSMENT: We will continue to treat the patient's obesity, obesity-associated medical conditions, and conditions exacerbated by or contributing to weight gain by aggressive management of weight: ICD-10-CM 1. Liver fibrosis K74.00 2. Obesity, Class I, BMI 30-34.9 (HRC) E66.9 topiramate (TOPAMAX) 25 MG tablet 3. Status post bariatric surgery Z98.84 Complete Blood Count-No Diff B12 ONLY IRON PROFILE (IRON,TIBC,%SAT.(CALC)) FERRITIN Intact PTH Calcium PREALBUMIN 4. Intestinal malabsorption, unspecified type K90.9 Complete Blood Count-No Diff B12 ONLY IRON PROFILE (IRON,TIBC,%SAT.(CALC)) FERRITIN Intact PTH Calcium PREALBUMIN 5. Personal history of endocrine disorder Z86.39 Vitamin D 25-Hydroxy, Total 6. Mild obstructive sleep apnea G47.33 7. Elevated parathyroid hormone (HRC) R79.89 8. Essential hypertension (HRC) I10 9. History of diabetes mellitus Z86.39 10. Hypertensive left ventricular hypertrophy, without heart failure (HRC) I11.9 11. Recurrent major depressive disorder, remission status unspecified (HRC) F33.9 12. Mixed hyperlipidemia (HRC) E78.2 PLAN: Routine laboratory studies needed today. Medications: Start topiramate taper. Side effects reviewed. - Medications which may not be appropriate for future use: naltrexone (hepatic fibrosis) Establish care with RD. Encouraged patient to try ordering smaller size of Starbucks, ordering a few less days per week or talking with thierry about decreasing added sugar to her drinks Exercise: Discussed ways to increase steps throughout day at work. Return to the clinic: in 3-4 months. Patient is especially encouraged to return to the clinic sooner if having problems/concerns or if failing to lose further weight. Total time 60 minutes, ahvm-ak-dhth counseling time 45 minutes, spent discussing lifestyle interventions for management of weight post-surgery as above. Delia Diallo PA-C This visit was conducted via video. Location of clinician clinic. Location of patient home. At the beginning of the visit, I discussed with the patient/parent that this visit is a telehealth visit that will be billed to their insurance. I reviewed potential benefits, risks, and confidentiality of telehealth visits. We made a contingency plan in the event of technical problems. I explainedthat the appropriateness of telehealth visits is determined by the provider and that patient may need to be seen in clinic in the future. They consented to proceed. This service was provided via telehealth and conducted using a synchronous audiovideo link. HT OPERATIONS MANAGER documented in this encounter Plan of Treatment Upcoming Encounters Date Type Department Care Team Description 01/14/2024 12:30 PM FLIGHT OPERATIONS MANAGER Appointment [facility] [address] [place], [place] [address] [place] [address] [place], [place] [id number] 03/02/2024 3:30 PM CDT Telemedicine [facility] [address] [facility] [address] [place], [place] [id number] Delia Diallo PA-C [address] [place], [place] [address] documented as of this encounter Results * PREALBUMIN (11/26/2023 7:16 AM FLIGHT OPERATIONS MANAGER) Prealbumin 21.8 16.0 - 38.0 mg/dL 11/26/2023 12:36 PM FLIGHT OPERATIONS MANAGER [facility] Blood Venipuncture / Unknown 11/26/2023 7:16 AM FLIGHT OPERATIONS MANAGER 11/26/2023 7:16 AM FLIGHT OPERATIONS MANAGER Delia Diallo PA-C LAB_[address] [address], [facility] [phone] * Calcium (11/26/2023 7:16 AM FLIGHT OPERATIONS MANAGER) Calcium 9.4 8.4 - 10.4 mg/dL 11/26/2023 11:47 AM FLIGHT OPERATIONS MANAGER [facility] Blood Venipuncture / Unknown 11/26/2023 7:16 AM FLIGHT OPERATIONS MANAGER 11/26/2023 7:16 AM FLIGHT OPERATIONS MANAGER Delia Diallo DEONNARyannC LAB_1 Performing Organization Address [facility] Co de Phone Number [facility] [address] [id number], [facility] [phone] * (ABNORMAL) Intact PTH (11/26/2023 7:16 AM FLIGHT OPERATIONS MANAGER) Intact PTH 153(H) 10 - 100 pg/mL 11/26/2023 12:42 PM FLIGHT OPERATIONS MANAGER [facility] Blood Venipuncture / Unknown 11/26/2023 7:16 AM FLIGHT OPERATIONS MANAGER 11/26/2023 7:16 AM FLIGHT OPERATIONS MANAGER Delia YING-C LAB_1 Performing Organization Address [facility] [place] [address], [facility] [phone] * (ABNORMAL) Vitamin D 25-Hydroxy, Total (11/26/2023 7:16 AM FLIGHT OPERATIONS MANAGER) Vitamin D, 25-OH, Total 28(L) 30 - 80 ng/mL 11/26/2023 12:01 PM FLIGHT OPERATIONS MANAGER [facility] Blood Venipuncture / Unknown 11/26/2023 7:16 AM FLIGHT OPERATIONS MANAGER 11/26/2023 7:16 AM FLIGHT OPERATIONS MANAGER Narrative [facility] - 11/26/2023 12:01 PM FLIGHT OPERATIONS MANAGER Expected values Deficiency: <20 ng/mL Insufficiency: 20-29 ng/mL Optimum: 30-80 ng/mL Possible toxicity: >80 ng/mL Delia Diallo DEONNARyannC LAB_1 Performing Organization Address [facility] Co de Phone Number [facility] [address] [address], [facility] [phone] * FERRITIN (11/26/2023 7:16 AM FLIGHT OPERATIONS MANAGER) Ferritin 43 9 - 204 ng/mL 11/26/2023 12:10 PM FLIGHT OPERATIONS MANAGER [facility] Blood Venipuncture / Unknown 11/26/2023 7:16 AM FLIGHT OPERATIONS MANAGER 11/26/2023 7:16 AM FLIGHT OPERATIONS MANAGER Delia YING-C LAB_1 Performing Organization Address City/[facility]/ZIP Co de Phone Number [facility] [address] [place] [address], [facility] [phone] * IRON PROFILE (IRON,TIBC,%SAT.(CALC)) (11/26/2023 7:16 AM FLIGHT OPERATIONS MANAGER) Iron 107 50 - 170 mcg/dL 11/26/2023 12:41 PM [facility] Transferrin 288 180 - 382 mg/dL 11/26/2023 12:41 PM [facility] TIBC, Calculated 360 240 - 450 mcg/dL 11/26/2023 12:41 PM [facility] % Saturation, Calculated 30 10 - 50 % 11/26/2023 12:41 PM [facility] Blood Venipuncture / Unknown 11/26/2023 7:16 AM FLIGHT OPERATIONS MANAGER 11/26/2023 7:16 AM FLIGHT OPERATIONS MANAGER Delia YING-C LAB_1 Performing Organization Address City/[facility]/ZIP Co de Phone Number [address] [address], [facility] [phone] * (ABNORMAL) B12 ONLY (11/26/2023 7:16 AM FLIGHT OPERATIONS MANAGER) Vitamin B12 888(H) 213 - 816 pg/mL 11/26/2023 5:20 PM FLIGHT OPERATIONS MANAGER [facility] Blood Venipuncture / Unknown 11/26/2023 7:16 AM FLIGHT OPERATIONS MANAGER 11/26/2023 7:16 AM FLIGHT OPERATIONS MANAGER Delia Diallo PA-C LAB_1 Performing Organization Address City/[facility]/ZIP Co de Phone Number [facility] [address] [address], [facility] [phone] * Complete Blood Count-No Diff (11/26/2023 7:16 AM FLIGHT OPERATIONS MANAGER) WBC 4.6 3.5 - 10.5 x10(9)/L 11/26/2023 8:38 AM FLIGHT OPERATIONS MANAGER [facility] RBC 4.27 3.90 - 5.03 x10(12)/L 11/26/2023 8:38 AM [facility] Hemoglobin 12.6 12.0 - 15.5 g/dL 11/26/2023 8:38 AM FLIGHT OPERATIONS MANAGER [facility] HCT 37.8 34.9 - 44.5 % 11/26/2023 8:38 AM [facility] MCV 88.5 80.0 - 100.0 fL 11/26/2023 8:38 AM [facility] MCH 29.5 27.6 - 33.3 pg 11/26/2023 8:38 AM [facility] MCHC 33.3 31.5 - 35.2 g/dL 11/26/2023 8:38 AM [facility] RDW 12.6 11.9 - 15.5 % 11/26/2023 8:38 AM [facility] Platelets 259 150 - 450 x10(9)/L 11/26/2023 8:38 AM [facility] Blood Venipuncture / Unknown 11/26/2023 7:16 AM FLIGHT OPERATIONS MANAGER 11/26/2023 7:16 AM FLIGHT OPERATIONS MANAGER Delia Diallo PA-C LAB_1 Performing Organization Address City/State/[facility] Co de Phone Number [facility] [address] [place] [address], [facility] [phone] documented in this encounter Visit Diagnoses Diagnosis Liver fibrosis- Primary Cirrhosis of liver without mention of alcohol Obesity, Class I, BMI 30-34.9 (HRC) Obesity, unspecified Status post bariatric surgery Bariatric surgery status Intestinal malabsorption, unspecified type Personal history of endocrine disorder Personal history of other endocrine, metabolic, and immunity disorders Mild obstructive sleep apnea Obstructive sleep apnea (adult) (pediatric) Elevated parathyroid hormone (HRC) Unspecified endocrine disorder Essential hypertension (HRC) Unspecified essential hypertension History of diabetes mellitus Personal history of other endocrine, metabolic, and immunity disorders Hypertensive left ventricular hypertrophy, without heart failure (HRC) Recurrent major depressive disorder, remission status unspecified (HRC) Mixed hyperlipidemia (HRC) Mixed hyperlipidemia documented in this encounter Care Teams Forming Process Worker Relationship Specialty [place] [address] [place] [address] PCP - General Internal Medicine 05/03/20 documented as of this encounter
--- OUTSIDE RECORDS SUMMARY | 2023-12-14 14:11 | XMS_ITS | Encounter Summary ---
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 [place] [address] [place] [address] Referral ID Status Reason Start Date Expiration Date V isits Requested Visits Authorized [id number] New Request 04/08/2023 07/07/2024 1 1 LA LINER HELPER Reason for Visit * Procedure/Equipment (Routine) - New Request Specialty Diagnoses / Procedures Referred By Lis nichole Referred To Contact Diagnoses Zhao's esophagus without [place] [address] [place] [address] Referral ID Status Reason Start Date Expiration Date V isits Requested Visits Authorized [id number] New Request 04/08/2023 07/07/2024 1 1 Encounter Details Date Type Department Care Team Description 10/05/2023 1:46 PM CUPOLA LINER HELPER - 10/05/2023 11:59 PM CUPOLA LINER HELPER Hospital Encounter [facility] Endoscopy Procedures [address] [place] [address] Valentin Garcia MD [address] [place] [address] 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 0 11/11/2012 upxcqa-efbf-zwofgqk chambers devices as needed. 1 Each 0 [...] (EFFEXORXR) 150 MG 24 hour release capsuleIndications:Connie morales depressive disorder with single episode, in partial remission (HRC) Take 1 Capsule (150 mg) by mouth daily. 90 Capsule 3 05/19/2023 venlafaxine (EFFEXORXR) 37.5 MG 24 hour release capsuleIndications:Connie andrew depressive disorder, recurrent episode, in full remission (HRC) Take 1 Capsule (37.5 mg) by mouth daily. 90 Capsule 3 05/19/2023 documented as of this encounter Procedure Notes * Valentin Garcia MD - 10/05/2023 1:54 PM CST Patient Name: Nel Pearl Procedure [...] oxygen saturations were monitored continuously. The flexible [id number] was introduced through the mouth, and advanced [...] colonoscopy today. 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 All rights reserved. The codes documented in this report are preliminary and upon outsole cementer machine review may be revised to meet current compliance requirements. Valentin Garcia MD 10/05/2023 2:20:26 PM This document has been electronically signed. Number of Addenda: 0 Note Initiated On: 10/05/2023 1:54 PM Endoscopy Report LA LINER HELPER documented in this encounter Plan of Treatment Upcoming Encounters Date Type Department Care Team Description 01/14/2024 12:30 PM CUPOLA LINER HELPER Appointment [facility] [address] [place], [place] [id number] [place] [address] [place] [id number] 03/02/2024 3:30 PM CDT Telemedicine [facility] [address] 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 Upper GI endoscopy Indications: ? Follow-up of Zhao's esophagus, ? Last EGD 2019 (biopsied showed no ? Zhao's) Providers: ? Valentin Garcia MD, Arely Horowitz ? Brianda Appiah MD: ?Viki Sauer MD Medicines: ? Fentanyl 100 micrograms IV, ? Midazolam 2 mg IV Complications: ? No immediate complications. Procedure: ? After obtaining informed consent, ? the endoscope was passed under ? direct vision. Throughout the ? procedure, the patient's blood ? pressure, pulse, and oxygen ? saturations were monitored ? continuously. The flexible ? [id number] was introduced through ? the mouth, and [...] Procedure Code(s): ? --- Professional --- ? 20999, Esophagogastroduodenoscopy, ? flexible, transoral; diagnostic, ? including collection of specimen(s) ? by brushing or washing, when ? performed (separate procedure) Diagnosis Code(s): ? --- Professional --- ? K22.70, Zhao's esophagus without ? dysplasia ? Z98.84, Bariatric surgery status CPT copyright 2021 [employer]. All rights reserved. The codes documented in this report are preliminary and upon outsole cementer machine review may be revised to meet current compliance requirements. Valentin Garcia MD 10/05/2023 2:20:26 PM This document has been electronically signed. Number of Addenda: 0 Note Initiated On: 10/05/2023 1:54 PM ? Endoscopy Report Procedure Note Valnetin Garcia MD - 10/05/2023 Patient Name: Nel [...] oxygen saturations were monitored continuously. The flexible [id number] was introduced through the mouth, and advanced [...] colonoscopy today. 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 All rights reserved. The codes documented in this report are preliminary and upon outsole cementer machine review may be revised to meet current compliance requirements. Valentin Garcia MD 10/05/2023 2:20:26 PM This document has been electronically signed. 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
--- OUTSIDE RECORDS SUMMARY | 2023-12-14 14:11 | XMS_ITS | Encounter Summary ---
Author Name Unknown Organization [facility] Address [address] [place] [address] Care Team Providers Care Edge Inker Uppers Name Role Phone Viki Sauer MD Primary Care Provider [phone] Reason for Visit * Reason Comments Follow-up, NOS Entered automaticall y based on patient selection in [employer]. Encounter Details Date Type Department Care Team Description 11/05/2023 12:05 PM MASTER ELECTRICIAN E-Visit [facility] [address] [place] [address] Marcelina Ward, SPORTS ANCHOR, DIRECTOR MACHINE [address] [place] [phone] Dx: Acute non-recurrent maxillary sinusitis (Primary Dx) Social [...] as of this encounter Nursing Notes * Shirley Acosta, RN - 11/05/2023 4:10 PM CST Clinician: Review and advise, Patient is expecting a MyChart message from Rush Rutledge for E-Visit as appropriate, and Close encounter Patient/critical care cns request: Input needed: ongoing symptoms Specific Request: Patient having ongoing symptoms. Now reporting diarrhea. ER ELECTRICIAN documented in this encounter Plan of Treatment Upcoming Encounters Date Type Department Care Team Description 01/14/2024 12:30 PM MASTER ELECTRICIAN Appointment [facility] [address] [place] [address] [place] [address] [place] [id number] 03/02/2024 3:30 PM CDT Telemedicine [facility] [address] [facility] [address] [place] [address] Delia Diallo PA-C [address] [place] [address] Scheduled Orders Name Type Priority Associated Diagnoses Orde r Schedule 2019 Novel Coronavirus (COVID-19) Microbiology Routine Acute non-recurrent maxillary sinusitis Expected: 11/05/2023, Expires: 12/06/2023 documented as of this encounter Visit Diagnoses Diagnosis Acute non-recurrent maxillary sinusitis- Primary documented in this encounter Care Teams Edge Inker Uppers Relationship Specialty [place] [address] [place] [address] PCP - General Internal Medicine 05/03/20 documented as of this encounter
--- OUTSIDE RECORDS SUMMARY | 2023-12-14 14:12 | XMS_ITS | Encounter Summary ---
Author Name Unknown Organization [facility] Address [address] [address] Care Team Providers Care Power Electronics Engineer Name Role Phone Viki Sauer MD Primary Care Provider [phone] Reason for Referral * Procedure/Equipment (Routine) - Closed Specialty Diagnoses / Procedures Referred By Lis nichole Referred To Contact Diagnoses RAFIA (obstructive sleep apnea) Procedures Sleep Diagnostic Tests: [place] [address] [place] [address] Referral ID Status Reason Start Date Expiration Date Visits Re quested Visits Authorized [id number] Closed 04/22/2023 07/21/2024 1 1 Reason for Visit * Procedure/Equipment (Routine) - Closed Specialty Diagnoses / Procedures Referred By Lis nichole Referred To Contact Diagnoses RAFIA (obstructive sleep apnea) Procedures Sleep Diagnostic [place] [address] [place] [address] Referral ID Status Reason Start Date Expiration Date Visits Re quested Visits Authorized [id number] Closed 04/22/2023 07/21/2024 1 1 Encounter Details Date Type Department Care Team Description 05/03/2023 10:04 AM CDT - 05/03/2023 11:59 PM CDT Hospital Encounter [facility] [address] [facility] [address] [place] [address] Discharge Disposition: Home Social History Tobacco Use [...] PHQ-2 Answer Date Recorded PHQ-2 Score 2 04/08/2023 Sex and Gender Information Value Date Recorded Sex Assigned at Not on file Gender Identity Not on file Sexual Orientation Not on file documented as of this encounter Medications at Time of Discharge Medication Sig Dispensed Refills Start Date End Date ascorbic acid (AKA VITAMIN C) 500 MG tabletIndications:ta ke with iron to aide in iron absorption Take 1 Tablet (500 mg) by mouth daily. Indications: take with iron to aide in iron absorption 0 12/28/2014 CALCIUM OR Take 1 tablet by mouth 2 times daily. Indications: HYPOCALCEMIA PREVENTION 0 12/28/2014 cholecalciferol (AKA VITAMIN D3) 2000 UNITS tablet Take 1 Tablet (2,000 Units) by mouth daily. 0 12/28/[address]oc[address] 1 Tablet (1,000 mcg) under tongue daily. 0 12/28/2014 diphenhydrAMINE (BENADRYL) 25 MG tabletIndications:al lergies Take 1-2 Tablets (25-50 mg) by mouth 4 times daily as needed (Take 25-50 mg by mouth 4 times daily as needed.). Indications: allergies 0 07/25/2008 ferrous sulfate 325 (65 FE) MG tablet Take 1 Tablet (325 mg) by mouth daily. 0 12/28/2014 hydroCHLOROthiazide (ORETIC) 25 MG tabletIndications:Es sential hypertension (HRC) Take 1 Tablet (25 mg) by mouth daily. 90 Tablet 3 04/08/2023 04/07/2024 Pyridoxine HCl (VITAMIN B-6) 50 MG tablet TAKE 2 TABLETS (100 MG) BY MOUTH DAILY. 180 Tablet 3 03/31/2023 saline 0.65 % nasal solution 1 [place] by Nasal route every morning. 0 11/11/2012 SUMAtriptan (IMITREX) 50 MG tabletIndications:Mi graine with aura and without status migrainosus, not intractable Take 1 Tablet by mouth as needed for Migraine. May repeat one tablet after 2 hours if needed. Maximum 4 tabs/24 hours and 9 days/month 9 Tablet 3 09/16/2021 tacrolimus (PROTOPIC) 0.1 % ointmentIndications: Perioral dermatitis Apply topically two times a day. 30 g 11 12/30/2022 semaglutide-weight management (WEGOVY) 0.5 MG/0.5ML pen injectionIndications :Obesity, Class I, BMI 30-34.9 (HRC) Inject 0.5 mL (0.5 mg) subcutaneously once a week for 4 doses. Do not start before May 19, 2023. 2 mL 0 05/19/2023 06/10/2023 semaglutide-weight management (WEGOVY) 1 MG/0.5ML pen injectionIndications :Obesity, Class I, BMI 30-34.9 (HRC) Inject 0.5 mL (1 mg) subcutaneously once a week for 4 doses. Do not start before June 16, 2023. 2 mL 0 06/16/2023 07/08/2023 ALBUterol sulfate HFA 108 (90 Base) MCG/ACT inhalerIndications:S OB (shortness of breath) Inhale 1-2 Puffs every 4 hours as needed for Wheezing. 1 Each 1 10/27/2022 08/30/2023 amLODIPine (NORVASC) 5 MG tabletIndications:Es sential hypertension (HRC) Take 1 Tablet (5 mg) by mouth daily. 30 Tablet 2 04/21/2023 06/28/2023 cetirizine (ZYRTEC) 10 MG tablet TAKE ONE TABLET BY MOUTH EVERY DAY 90 Tablet 2 10/29/2022 05/19/2023 diclofenac (VOLTAREN) 1 % gelIndications:Low back pain without sciatica, unspecified back pain laterality, unspecified chronicity Bid affected area as needed. 30 g 0 01/23/2022 06/07/2023 famotidine (PEPCID) 20 MG tabletIndications:Ga stroesophageal reflux disease without esophagitis Take 1 Tablet by mouth two times a day before meals. 180 Tablet 3 03/15/2021 07/14/2023 hydrocortisone 2.5 % cream Apply topically two times a day. You can use this for up to 2 weeks in a row before you should take a break. 30 g 0 07/01/2021 07/14/2023 hydrocortisone, Perianal, (PROCTOSOL-HC) 2.5 % rectal creamIndications:Inf lamed Hemorrhoids Insert rectally two times daily as needed. Indications: Inflamed Hemorrhoids 28 g 1 06/23/2022 07/14/2023 losartan (COZAAR) 100 MG tabletIndications:Es sential hypertension (HRC) TAKE 1 TABLET (100 MG) BY MOUTH DAILY. 90 Tablet 2 03/31/2023 05/19/2023 methocarbamol (ROBAXIN) 500 MG tabletIndications:Lo w back pain without sciatica, unspecified back pain laterality, unspecified chronicity Take 1 Tablet (500 mg) by mouth at bedtime as needed. 10 Tablet 0 01/23/2022 08/30/2023 omeprazole (PRILOSEC) 20 MG capsuleIndications:G astroesophageal reflux disease without esophagitis,Zhao' s esophagus without dysplasia TAKE ONE CAPSULE BY MOUTH ONCE DAILY 1 HOUR BEFORE A MEAL 90 Capsule 2 09/24/2022 06/28/2023 pediatric multiple vitamin-iron (FRUITY CHEWS/IRON) chew tablet Chew and swallow 1 Tablet by mouth daily. 0 12/04/2014 Pyridoxine HCl (VITAMIN B6) 50 MG TABS TAKE 2 TABLETS (100 MG) BY MOUTH DAILY. 0 03/31/2023 05/19/2023 rOPINIRole (REQUIP) 0.25 MG tabletIndications:RL S (restless legs syndrome) TAKE ONE TABLET BY MOUTH EVERY DAY 90 Tablet 3 08/28/2022 08/27/2023 traZODone (DESYREL) 50 MG tabletIndications:Ch ronic insomnia TAKE ONE TABLET BY MOUTH AT BEDTIME NEEDED FOR SLEEP 90 Tablet 2 10/05/2022 07/06/2023 venlafaxine (EFFEXORXR) 150 MG 24 hour release capsuleIndications:M ajor depressive disorder with single episode, in partial remission (HRC) TAKE ONE CAPSULE BY MOUTH ONCE DAILY 90 Capsule 2 09/24/2022 05/19/2023 venlafaxine (EFFEXORXR) 37.5 MG 24 hour release capsuleIndications:Igor joy depressive disorder, recurrent episode, in full remission (HRC) TAKE ONE CAPSULE BY MOUTH EVERY DAY IN ADDITION TO 1-150MG CAPSULE FOR TOTAL DAILY DOSE OF 187.5MG 90 Capsule 2 09/24/2022 05/19/2023 documented as of this encounter Progress Notes * Edvin Viki Lowery - 05/03/2023 10:30 AM CDT This is a type III unattended home sleep test (diagnostic). The study was scored using the 3% AASM hypopnea rule. Total recording was 8 hours and 18 minutes with an estimated sleep efficiency of 98%.Snoring was moderate. A few PACs noticed (see epochs 242 and 269 for examples). Overall study quality was good. * Terrence Viveros MD - 05/03/2023 12:00 AM CDT NAME: NEL WREN CSN: [id number] CLINIC NOTE DATE OF SERVICE: 05/03/2023 : 1965 DESCRIPTION OF STUDY: This is a nocturnal polysomnogram outpatient type 3 study. The patient had 498 minutes of recording time. During that period of time, there were 3 obstructive apneas, 2 mixed apneas, 39 hypopneas. This gives an RDI/GINA of 6 per hour, the low sat is 85. ASSESSMENT: This sleep study, therefore, shows mild obstructive sleep apnea with RDI/GINA of 6 per hour and a low sat of 85. PLAN: Followup will be in clinic to review the results of study and would recommend outpatient AutoAdjust CPAP trial with followup download and clinical correlation for therapeutic benefit for mild sleep-disordered breathing. Alternative to CPAP would be a mandibular advancement device. MD CIRO RICKS/JEFF /[id number] documented in this encounter Plan of Treatment Upcoming Encounters Date Type Department Care Team Description 01/14/2024 12:30 PM HEALTH SERVICES DIRECTOR [facility]ointment [facility] [address] [place] [address] [place] [address] [place] [address] 03/02/2024 3:30 PM CDT Telemedicine [facility] [address] [facility] [address] [place], [place] [address] Delia Diallo PA-C [address] [place], [place] [phone] Scheduled Orders Name Type Priority Associated Diagnoses Orde r Schedule Sleep Diagnostic Tests: HST Sleep Study Routine RAFIA (obstructive sleep apnea) 1 Occurrences starting 05/03/2023 until 05/03/2023 documented as of this encounter Visit Diagnoses Diagnosis RAFIA (obstructive sleep apnea)- Primary Obstructive sleep apnea (adult) (pediatric) documented in this encounter Care Teams Power Electronics Engineer Relationship Specialty [place] [address] [place] [address] PCP - General Internal Medicine 05/03/20 documented as of this encounter
--- OUTSIDE RECORDS SUMMARY | 2023-12-14 14:12 | XMS_ITS | Encounter Summary ---
Author Name Unknown Organization [facility] Address [address], [place] [address] Care Team Providers Care Plugman Name Role Phone Viki Sauer MD Primary Care Provider [phone] Reason for Visit * Reason Comments CONSULT * Consult/Transfer Care (Routine) - Closed Specialty Diagnoses / Procedures Referred By Lis nichole Referred To Contact Diagnoses Essential hypertension (HRC) RAFIA (obstructive sleep apnea) History of Claire-en-[place] [address] [place] [address] Referral ID Status Reason Start Date Expiration Date Visits Re quested Visits Authorized [id number] Closed 04/21/2023 07/20/2024 1 1 Encounter Details Date Type Department Care Team Description 06/16/2023 11:30 AM CDT [facility] Pulmonary Medicine [address] [facility] [address] [place], [place] [id number] Terrence Viveros MD [address] [facility] [address] [place] [address] RAFIA (obstructive sleep apnea) (Primary Dx); Mild obstructive sleep apnea; RLS (restless legs syndrome); Sleep disturbance; Chronic insomnia; Snoring Social History Tobacco Use Types Packs/Day Years [...] 08/22 PHQ-2 Answer Date Recorded PHQ-2 Score 1 05/19/2023 Sex and Gender Information Value Date Recorded Sex Assigned at Not on file Gender Identity Not on file Sexual Orientation Not on file documented as of this encounter Patient Instructions * Patient Instructions* Terrence Viveros MD - 06/16/2023 11:30 AM CDT You have the most mild sleep apnea with 6 apneas each hour. They are fairly short apneas in duration and therefore your oxygen level drops minimally to the lowest of 85%. There is probably a minimal to zero contribution of this mild sleep apnea to your hypertension. Fine to continue your treatment for insomnia and RLS as current doses as you are. documented in this encounter Progress Notes * Terrence Viveros MD - 06/16/2023 12:00 AM CDT NAME: NEL [facility]: [id number] CLINIC NOTE DATE OF SERVICE: 06/16/2023 : 1965 SUBJECTIVE: Ms. Wren is here for consultation regarding sleep-disordered breathing. She had a nocturnal polysomnogram outpatient type 3 study, and she is concerned whether there is sleep apnea. She specifically is referred due to hypertension. It has been difficult to control and the issue of whether that might be contributing. She has had a PSG in the past, several years ago, that showed a RDI around 6 per hour and a low sat of 89. Currently, she goes to bed at 8:30, she is up at 5:15 with an alarm. She takes trazodone 50 mg at bedtime and has no problems with sleep onset or sleep maintenance. Her says she has some snoring. It is occasional. She primarily sleeps on her side. She has no sleep walking, talking, bruxism,or enuresis. She sleeps relatively well through the night and does not have a hangover effect from the trazodone. Gets up with an alarm at 5:15 in the morning. She also has RLS, takes 1 Requip at bedtime, and is not having any symptomatology from her that is significant or she thinks needs a changein medication from her restless legs syndrome. She gets up with an alarm. She feels relatively well rested. She drinks 1 caffeine in the morning, typically tea. She gets a little draggy at the end of the afternoon. She is not taking any naps at work. She works 7 to 3:30. She occasionally closes her eyes during the work hours for just a few minutes. She does not get dozy driving and drives half an hour to and from work. She does feel a little worn out after work. She sleeps in on weekends and feels better after that. 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 She has no cataplexy or hypnagogic or hypnopompic hallucinations, or sleep paralysis. RLS is relatively well controlled and her insomnia is relatively well controlled on her current medications. REVIEW OF SYSTEMS: Otherwise negative. PHYSICAL EXAM: This is a video visit. Neck size noted. BMI 31 noted. LABORATORY EVALUATION: Includes a nocturnal polysomnogram outpatient type 3 study. She had an RDI/GINA of 6 per hour, low sat is 85. She did sleep supine for much of the night on the PSG. ASSESSMENT: 1.Mild obstructive sleep apnea. She has mild obstructive sleep apnea. She has a low sat of 85. I think the contribution to hypertension is minimal to none. This sleep study is relatively unchanged from her previous one. I offered her a CPAP trial for a couple months to see if that would improve herhypertension. I think it is unlikely to help and I also offered her CPAP for any treatment of other symptoms such as sleepiness during the day for that and she declines both those, and I support that. We discussed this in detail for counseling time. We reviewed her sleep study and we will have her follow up on an as needed basis and she will get her hypertension controlled through her primary care with no treatment for sleep-disordered breathing and no CPAP trial at the patient's decision. 2.Insomnia. We discussed her insomnia in detail for counseling time. She is doing well on the trazodone, that is continued. 3.Restless legs syndrome. She is relatively well controlled with her restless legs syndrome. She occasionally has a symptom before she takes medication, but it is not troublesome and she does not feel like it is worth changing the dosing. She is pretty happy with how she is treated and she will follow up with us on an as needed basis. Total time 45 minutes, counseling time greater than 50%. TERRENCE VIVEROS MD KRH/AQS /[id number] documented in this encounter Plan of Treatment Upcoming Encounters Date Type Department Care Team Description 01/14/2024 12:30 PM AGILE QA TESTER Appointment [facility] [address] [place], [place] [id number] [place] [address] [place] [id number] 03/02/2024 3:30 PM CDT Telemedicine [facility] [address] [facility] [address] [place], [place] [phone] Delia Diallo PA-C [address] [place], [place] [phone] Scheduled Referrals Name Type Priority Associated Diagnoses Orde r Schedule Sleep Services Referral Routine Essential hypertension (HRC) RAFIA (obstructive sleep apnea) History of Claire-en-Y gastric bypass Ordered: 04/21/2023 documented as of this encounter Visit Diagnoses Diagnosis RAFIA (obstructive sleep apnea)- Primary Obstructive sleep apnea (adult) (pediatric) Mild obstructive sleep apnea Obstructive sleep apnea (adult) (pediatric) RLS (restless legs syndrome) Restless legs syndrome (RLS) Sleep disturbance Sleep disturbance, unspecified Chronic insomnia Insomnia, unspecified Snoring Other dyspnea and respiratory abnormality documented in this encounter Care Teams Plugman Relationship Specialty [place] [address] [place] [id number] PCP - General Internal Medicine 05/03/20 documented as of this encounter
--- OUTSIDE RECORDS SUMMARY | 2023-12-14 14:12 | XMS_ITS | Encounter Summary ---
Author Name Unknown Organization [facility] Address [address], [place] [address] Care Team Providers Care Crystal Mounter Name Role Phone Viki Sauer MD Primary Care Provider [phone] Reason for Visit * Reason Comments Refill omeprazole (PRILOSEC ) 20 MG capsule [Pharmacy Med Name: OMEPRAZOLE 20 MG CPDR 20 Capsule]; amLODIPine (NORVASC) 5 MG tablet [Pharmacy Med Name: AMLODIPINE BESYLATE 5 MG TA 5 Tablet] Encounter Details Date Type Department Care Team Description 06/28/2023 Refill [facility] [address] [place] [address] [place] [address] [place] [address] Refill (omeprazole (PRILOSEC) 20 MG capsule [Pharmacy Med Name: OMEPRAZOLE 20 MG CPDR 20 Capsule]; amLODIPine (NORVASC) 5 MG tablet [Pharmacy Med Name: AMLODIPINE BESYLATE 5 MG TA 5 Tablet]) Social History Tobacco Use Types Packs/Day Years [...] as of this encounter Nursing Notes * Antonette Guy, RN - 06/28/2023 4:59 PM CDT Renewed medication per medication refill protocol. Requested Prescriptions Pending Prescriptions Disp Refills amLODIPine (NORVASC) 5 MG tablet [Pharmacy Med Name: AMLODIPINE BESYLATE 5 MG TA 5 Tablet] 90 Tablet 3 Sig: Take 1 Tablet (5 mg) by mouth daily. omeprazole (PRILOSEC) 20 MG capsule [Pharmacy Med Name: OMEPRAZOLE 20 MG CPDR 20 Capsule] 90 Capsule 3 Sig: Take 1 Capsule (20 mg) by mouth daily. 1 HOUR BEFORE A MEAL * Interface, Out Surescripts Prov Query - 06/28/2023 3:26 PM CDT amLODIPine (NORVASC) 5 MG tablet [Pharmacy Med Name: AMLODIPINE BESYLATE 5 MG TA 5 Tablet] Medication started: 05/09/2021 Last ordered by VIKI SAUER: 04/21/2023 (68 days ago) QTY: 30, Refills: 2, Sig: take 1 tablet (5 mg) by mouth daily. (unchanged) -> Refill x 12 months, qty: 90, refills: 3 (until due for an office visit) Last qualifying visit: 05/19/2023 (with VIKI SAUER) Next scheduled visit: 07/14/2023 (with VIKI SAUER) [facility] [employer] Embedded Refills, Reference: [id number], 06/28/2023 3:26:10 PM CDT, Pool: LYNDSEY IMED REFILL ([id number]) omeprazole (PRILOSEC) 20 MG capsule [Pharmacy Med Name: OMEPRAZOLE 20 MG CPDR 20 Capsule] Medication started: 08/06/2020 Last ordered by VIKI SAUER: 09/24/2022 (277 days ago) QTY: 90, Refills: 2, Sig: take one capsule by mouth once daily 1 hour before a meal (unchanged) -> Refill x 12 months, qty: 90, refills: 3 (until due for an office visit) Last qualifying visit: 05/19/2023 (with VIKI SAUER) Next scheduled visit: 07/14/2023 (with VIKI SAUER) [facility] [employer] Embedded Refills, Reference: [id number], 06/28/2023 3:26:10 PM CDT, Pool: LYNDSEY MARTÍNEZ REFILL ([id number]) documented in this encounter Plan of Treatment Upcoming Encounters Date Type Department Care Team Description 01/14/2024 12:30 PM MANAGER DIESEL Appointment [facility] [address] [place] [address] [place] [address] [place] [address] 03/02/2024 3:30 PM CDT Telemedicine [facility] [address] [facility] [address] [place] [address] Delia Diallo PA-C [address] [place] [address] documented as of this encounter Visit Diagnoses Diagnosis Essential hypertension (HRC) Unspecified essential hypertension Gastroesophageal reflux disease without esophagitis Esophageal reflux Zhao's esophagus without dysplasia Zhao's esophagus documented in this encounter Care Teams Crystal Mounter Relationship Specialty [place] [address] [place] [address] PCP - General Internal Medicine 05/03/20 documented as of this encounter
--- OUTSIDE RECORDS SUMMARY | 2023-12-14 14:12 | XMS_ITS | Encounter Summary ---
Author Name Unknown Organization [facility] Address [address], [place] [address] Care Team Providers Care Business Operations Manager Name Role Phone Viki Sauer MD Primary Care Provider Reason for Visit * Procedure/Equipment (Routine) - Incomplete Specialty Diagnoses / Procedures Referred By Lis nichole Referred To Contact Diagnoses Screening for osteoporosis Estrogen deficiency (HRC) Procedures DXA Bone D[place] Sp[place] [address] [place] [id number] Referral ID Status Reason Start Date Expiration Date V isits Requested Visits Authorized [id number] Incomplete 04/08/2023 07/07/2024 1 1 Encounter Details Date Type Department Care Team Description 07/14/2023 4:30 PM CDT Ancillary Procedure [facility] [address] [place], [place] [address] [place] [address] [place] [id number] Screening for osteoporosis; Estrogen deficiency (HRC) Social History Tobacco Use Types [...] Department Care Team Description 01/14/2024 12:30 PM JAVASCRIPT PROGRAMMER Appointment [facility] [address] [place], [place] [address] [place] [address] [place], [place] [address] 03/02/2024 3:30 PM CDT Telemedicine [facility] [address] [facility] [address] [place], [place] [phone] Delia Diallo PA-C [address] [place], [place] [phone] documented as of this encounter Procedures Procedure Name Priority Date/Time Associated Diagnosis Comments DXA BONE DENSITY SPINE/HIP Routine 07/14/2023 4:28 PM CDT Screening for osteoporosis Estrogen deficiency (HRC) documented in this encounter Results * DXA Bone Density Spine/Hip (07/14/2023 4:28 PM CDT) DXA Lumbar Spine Bone Mineral Density 0.922 gm/cm2 EXTERNAL RESULTS DXA Lumbar Spine T-Score -1.1 EXTERNAL RESULTS DXA Lumbar Spine Z-Score 0.0 EXTERNAL RESULTS DXA Hip Left Bone Mineral Density 0.750 gm/cm2 EXTERNAL RESULTS DXA Hip Left T-Score -1.6 EXTERNAL RESULTS DXA Hip Left Z-Score -0.8 EXTERNAL RESULTS DXA Femur Left Bone Mineral Density 0.618 gm/cm2 EXTERNAL RESULTS DXA Femur Left T-Score -2.1 EXTERNAL RESULTS DXA Femur Left Z-Score -1.0 EXTERNAL RESULTS % Change Spine -1.1 % EXTER NAL RESULTS % Change Left Hip (Total) 5.2 % EXTERNAL RESULTS Anatomical Region Laterality Modality Lower Extremity, Spine, Hip, L-Spine Radiographic Imaging Narrative 07/14/2023 4:44 PM CDT Table formatting from the original result was not included. Patient Name: Nel Pearl Densitometer: Kindful W Appt Dept/Resource: [facility] Demographics Age: 58 y.o. Gender: Female Height: 5' 6 (1.676 m) Height at age 27: 5.6 Weight: 190 lb (86.2 kg) Race: Medical/Surgical History Menstrual periods: None Age of menopause: 57 ?? Able to stand from a chair easily without use of the arms?: Yes, easily How many falls indoors/outdoors within the last 12 months?: 0 History of fractures in parents: No History of previous fractures?: No ?? Hip replacement?: No Oral cortisone or steroid medication for more than 3 months?: No ?? Currently or have taken medications to treat osteoporosis?: No ?? Taking any aromatase inhibitor medication for breast cancer - anti-estrogen excluding tamoxifen?: No ?? Have had the following medical conditions: None Dietary/Habit Alcohol 3 units or more per day on average?: No Currently smoking tobacco? No Daily servings of calcium rich food: 1 Do you take a daily calcium supplement?: No Dual-X-ray Absorptiometry (DXA) Results Skeletal Site BMD (gm/cm2) T-Score Z-Score % Change from Previous Scan dated: 02/05/2021 Spine (L1, L2, L3, L4) 0.922 -1.1 0.0 -1.1% Left Hip (Total) 0.750 -1.6 -0.8 5.2% Left Hip (Femoral neck) 0.618 -2.1 -1.0 N/A Right Hip (Total) N/A N/A N/A N/A Right Hip (Femoral neck) N/A N/A N/A N/A Forearm (11/24) (Not Scanned) N/A N/A N/A N/A ??*N/A indicates that measurements were either not needed or not valid TBS: Trabecular Bone Score (TBS): 1.292 FRAX Score: 10 Year Risk Hip Fracture: 0.9% 10 Year Risk Major Osteoporotic Fracture: 8.5% Comments: *Increase in bone density of hip is clinically significant. Diagnosis: *Osteopenia of left hip. Patient has a low risk of fracture Recommendations:. *Consider follow up DXA ??in 3 years, unless clinical circumstances change. FRAX Explanation: The 10 year risks of hip and major osteoporotic fractures (clinical spine, forearm, hip or shoulder fracture) are calculated by the FRAX algorithm based on femoral neck bone density, age, gender, race/ethnicity, weight, height, previous fracture, parental hip fracture, smoking status, glucocorticoid intake, history of RA, secondary osteoporosis, and high alcohol consumption. FRAX fracture risk estimates are adjusted for Trabecular Bone Score (TBS) when available. Trabecular Bone Score (TBS) is a measure of the microarchitectural integrity of trabecular bone, and is derived from the zaedi-gt-eicas changes of bone density embedded in the AP spine BMD image. TBS is only modestly correlated with BMD, and is modestly associated with incident major osteoporotic and hip fractures independent of BMD and other risk factors. FRAX Fracture Risk Categories in terms of major osteoporotic fractures: < 10% = low fracture risk = 10% and <15% = mildly increased fracture risk = 15% and <20% = moderately increased fracture risk = 20% and <30% = high fracture risk = 30% = very high fracture risk National Osteoporosis Foundation Treatment Guideline A clinician may consider FDA-approved medical therapies in postmenopausal women and men aged 50 years and older, if one or more of the following is present (clinical correlation required and therapy may not always be indicated): The patient has a hip or vertebral fracture. T-score = -2.5 at the femoral neck, hip, or spine after appropriate evaluation to exclude secondary causes. Low bone mass (T-score between -1.0 and -2.5 at the femoral neck, hip or spine) and a 10-year probability of a hip fracture = 3% or a 10-year probability of a major osteoporosis-related fracture = 20% based on the FRAX scores. ?? Viki Sauer MD RAD DEXA documented in this encounter Visit Diagnoses Diagnosis Screening for osteoporosis Special screening for osteoporosis Estrogen deficiency (HRC) Other ovarian failure documented in this encounter Care Teams Business Operations Manager Relationship Specialty [place] [address] [place] [address] PCP - General Internal Medicine 05/03/20 documented as of this encounter
--- OUTSIDE RECORDS SUMMARY | 2023-12-14 14:12 | XMS_ITS | Encounter Summary ---
Author Name Unknown Organization [facility]ly [facility] Address [address], [place] [address] Care Team Providers Care Body Press Operator Name Role Phone Viki Sauer MD Primary Care Provider Reason for Referral * Consult/Transfer Care (Routine) - New Request Specialty Diagnoses / Procedures Referred By Lis nichole Referred To Contact Diagnoses Rash [place] [address] [place] [address] Referral ID Status Reason Start Date Expiration Date V isits Requested Visits Authorized [id number] New Request 05/19/2023 08/17/2024 1 1 Scheduling Instructions Your clinician has recommended an appointment with Loren Jaimes. You can quickly make your appointment online at [employer]/schedule. You can also call [phone] for help scheduling your appointment. We suggest you call your health insurance company about your coverage and benefits for this appointment. Question Answer Appointment Urgency? Within 1 Week (Urgent) Reason for visit? rash * Consult/Transfer Care (Routine) - New Request Specialty Diagnoses / Procedures Referred By Lis nichole Referred To Contact Diagnoses History of [place] [address] [place] [address] Referral ID Status Reason Start Date Expiration Date V isits Requested Visits Authorized [id number] New Request 05/19/2023 08/17/2024 1 1 Scheduling Instructions Your provider [facility] You may call [phone] for help scheduling your appointment. We suggest you call your health insurance company about your coverage and benefits for this appointment. Question Answer Appointment Urgency? Non-Urgent Reason for Visit * Reason Comments Rash Encounter Details Date Type Department Care Team Description 05/19/2023 11:30 AM CDT Telemedicine [facility] [address] [place], [place] [phone] [place] [address] [place] [address] Rash and nonspecific skin eruption (Primary Dx); Essential hypertension (HRC); Major depressive disorder with single episode, in partial remission (HRC); Major depressive disorder, recurrent episode, in full remission (HRC); Itching; History of diabetes mellitus Social History Tobacco Use Types Packs/Day Years [...] Pressure - - Pulse - - Temperature 37.1 ??C (98.7 ??F) 05/19/2023 8:55 AM CD T pt reported Respiratory Rate - - Oxygen Saturation - - Inhaled Oxygen Concentration - - Weight 86.2 kg (190 lb) 05/19/2023 8:55 AM CDT p t reported Height 167.6 cm (5' 6) 05/19/2023 8:55 AM CDT p t reported Body Mass Index 30.67 05/19/2023 8:55 AM CDT documented in this encounter Patient Instructions * Patient Instructions* Viki Sauer MD - 05/19/2023 11:30 AM CDT Scabies massage permethrin cream thoroughly into the skin from the neck to the soles of the feet, includingareas under the fingernails and toenails The cream should be removed by washing (shower or bath) after 8 to 14 hours Repeat in 1 week. * Attachments The following attachments cannot be sent through Care Everywhere. * Scabies ([place] Islander) documented in this encounter Progress Notes * Viki Sauer MD - 05/19/2023 11:30 AM CDT IM VIDEO Visit Chief Complaint: Chief Complaint Patient presents with Rash Subjective: Today's visit with Nel Pearl was conducted as a scheduled VIDEO visit. Started Wegovy on April 23. HCTZ was new in March, but has taken historically without reactions. Rash started 4-5 days later Rash is itchy, located on the arms, legs, axilla bilaterally, right wrist, groin folds a little offthe underwear line, upper back. No hives, no other systemic symptoms Reports her sister has had a similar rash for the past 2 months, was seen in derm with punch biopsystating dx was 'staph' She has not been outdoors to get bites, no new products, no travel. ROS: Negative as per HPI Objective: General : No acute distress Neuro: Alert and oriented Psych: normal affect Health Maintenance Due Topic Date Due Diabetes: Eye Exam 01/01/2015 Colonoscopy 11/12/2022 Dexa 02/05/2023 Diabetes: HGBA1C 07/08/2023 BP Readings from Last 1 Encounters: 04/22/23 (!) 145/90 Assessment/Plan: Nel Pearl was seen today for follow-up and Video visit. Assessment/Plan Rash Distribution in the bilateral axilla, right wrist, groin fold, chest and sister having similar itchy rash (together weekly, only thing shared is sitting on couch) does raise scabies into the ddx- we discussed empiric treatment and she would like to proceed. Drug rash on ddx - started wegovy 4-5 days prior, however, no hives and although limited eval of rash via video visit, she does not describe a typical drug exanthem type of rash If does not resolve with holding wegovy, treatment as below - ref to derm. If resolves, may retry wegovy - close monitoring of her appetite suppression, low dose 0.25 caused no appetite, but she is still eating at regular times. No weight loss in first month. Nel was seen today for rash. Diagnoses and all orders for this visit: Rash and nonspecific skin eruption - Dermatology Consult-Adult/Peds - hydrOXYzine HCl (ATARAX) 25 MG tablet; Take 1 Tablet (25 mg) by mouth every 6 hours as needed forItching. Essential hypertension (HRC) - losartan (COZAAR) 100 MG tablet; Take 1 Tablet (100 mg) by mouth daily. Major depressive disorder with single episode, in partial remission (HRC) - venlafaxine (EFFEXORXR) 150 MG 24 hour release capsule; Take 1 Capsule (150 mg) by mouth daily. Major depressive disorder, recurrent episode, in full remission (HRC) - venlafaxine (EFFEXORXR) 37.5 MG 24 hour release capsule; Take 1 Capsule (37.5 mg) by mouth daily. Itching History of diabetes mellitus - Eye Care Consult-Adult/Peds [[id number]] - Hgb A1C; Future Other orders - cetirizine (ZYRTEC) 10 MG tablet; Take 1 Tablet (10 mg) by mouth daily. - permethrin (ELIMITE) 5 % cream; Apply topically once for 1 dose. Thoroughly massage cream into skin from chin to the soles of the feet. Wash off after 8 to 14 hours. Repeat in one week. Indications: Scabies - semaglutide-weight management (WEGOVY) 0.25 MG/0.5ML pen injection; Inject 0.5 mL (0.25 mg) subcutaneously once a week for 28 days. Disposition Home Care, with routine follow up in 2 month, sooner prn for new or worsening symptoms. Patient Instructions Scabies massage permethrin cream thoroughly into the skin from the neck to the soles of the feet, includingareas under the fingernails and toenails The cream should be removed by washing (shower or bath) after 8 to 14 hours Repeat in 1 week. This visit was conducted via video. Location of clinician home. Location of patient home. Billing based on: Time Total time 36 minutes spent reviewing records, lab results, performing exam and preparing plan of care. Viki Sauer MD documented in this encounter Plan of Treatment Upcoming Encounters Date Type Department Care Team Description 01/14/2024 12:30 PM EGG PROCESSOR Appointment [facility] [address] [place], [place] [phone] [place] [address] [place], [place] [phone] 03/02/2024 3:30 PM CDT Telemedicine [facility] [address] [facility] [address] [place], [place] [phone] Delia Diallo PA-C [address] [place], [place] [phone] Scheduled Referrals Name Type Priority Associated Diagnoses Orde r Schedule Eye Care Consult-Adult/Peds [[id number]] Referral Routine History of diabetes mellitus Ordered: 05/19/2023 Dermatology Consult-Adult/Peds Referral Routine Rash and nonspecific skin eruption Ordered: 05/19/2023 documented as of this encounter Results * Hgb A1C (07/14/2023 4:43 PM CDT) Hemoglobin A1C (Rapid) 5.3 <=5.6 % 07/14/2023 5:03 PM CDT [facility] Estimated Average Glucose (Calc) 105 < 117 mg/dL 07/14/2023 5:03 PM CDT [facility] Comment:Estimated average gl ucose (eAG) converts A1c into glucose units (mg/dL) and estimates average glucose over the past approximately 3 months. The eAG reference interval (<117 mg/dL) corresponds to an A1c of <5.7%. Blood Venipuncture / Unknown 07/14/2023 4:43 PM CDT 07/14/2023 4:43 PM CDT Narrative [facility] - 07/14/2023 5:03 PM CDT The test method used for this Hemoglobin A1c result can experience interference from elevated hemoglobin and other hemoglobin variants. In patients with results that do not correlate clinically, contact the lab for further direction. Viki Sauer MD LAB_1 [facility] [address] [place] [address], [facility] [phone] documented in this encounter Visit Diagnoses Diagnosis Rash and nonspecific skin eruption- Primary Rash and other nonspecific skin eruption Essential hypertension (HRC) Unspecified essential hypertension Major depressive disorder with single episode, in partial remission (HRC) Major depressive disorder, recurrent episode, in full remission (HRC) Major depressive disorder, recurrent episode, in full remission Itching Unspecified pruritic disorder History of diabetes mellitus Personal history of other endocrine, metabolic, and immunity disorders documented in this encounter Care Teams Body Press Operator Relationship Specialty [place] [address] [place] [address] PCP - General Internal Medicine 05/03/20 documented as of this encounter
--- OUTSIDE RECORDS SUMMARY | 2023-12-14 14:12 | XMS_ITS | Encounter Summary ---
Author Name Unknown Organization [facility] Address [address], [place] [address] Care Team Providers Care Elevator Dispatcher Name Role Phone Viki Sauer MD Primary Care Provider [phone] Reason for Visit * Reason Comments Refill traZODone (DESYREL) 50 MG tablet [Pharmacy Med Name: TRAZODONE HCL 50 MG TABS 50 Tablet] Encounter Details Date Type Department Care Team Description 07/06/2023 Refill [facility] [address] [place], [place] [phone] [place] [address] [place] [phone] Refill (traZODone (DESYREL) 50 MG tablet [Pharmacy Med Name: TRAZODONE HCL 50 MG TABS 50 Tablet]) Social History Tobacco Use Types Packs/Day [...] as of this encounter Nursing Notes * Randa Diop - 07/06/2023 12:53 PM CDT Renewed medication per medication refill standing order. Requested Prescriptions Pending Prescriptions Disp Refills traZODone (DESYREL) 50 MG tablet [Pharmacy Med Name: TRAZODONE HCL 50 MG TABS 50 Tablet] 90 Tablet Sig: TAKE ONE TABLET BY MOUTH AT BEDTIME NEEDED FOR SLEEP * Interface, Out Surescripts Prov Query - 07/06/2023 11:32 AM CDT traZODone (DESYREL) 50 MG tablet [Pharmacy Med Name: TRAZODONE HCL 50 MG TABS 50 Tablet] Medication started: 03/22/2020 Last ordered by VIKI SAUER: 10/05/2022 (274 days ago) QTY: 90, Refills: 2, Sig: take one tablet by mouth at bedtime as needed for sleep (unchanged) -> Refill x 12 months (until due for an office visit) -> Calculate the quantity and number of refills manually. Last qualifying visit: 05/19/2023 (with VIKI SAUER) Next scheduled visit: 07/14/2023 (with VIKI SAUER) [employer] Embedded Refills, Reference: [id number], 07/06/2023 11:32:11 AM CDT, Pool: LYNDSEY MARTÍNEZ REFILL ([id number]) documented in this encounter Plan of Treatment Upcoming Encounters Date Type Department Care Team Description 01/14/2024 12:30 PM INFORMATION CODER Appointment [facility] [address] [place] [address] [place] [address] [place] [address] 03/02/2024 3:30 PM CDT Telemedicine [facility] [address] [facility] [address] [place], [place] [address] Delia Diallo PA-C [address] [place] [address] documented as of this encounter Visit Diagnoses Diagnosis Chronic insomnia Insomnia, unspecified documented in this encounter Care Teams Elevator Dispatcher Relationship Specialty [place] [address] [address] [place] [address] PCP - General Internal Medicine 05/03/20 documented as of this encounter
--- OUTSIDE RECORDS SUMMARY | 2023-12-14 14:12 | XMS_ITS | Encounter Summary ---
Author Name Unknown Organization [facility] Address [address], [place] [address] Care Team Providers Care Party Planner Name Role Phone Viki Sauer MD Primary Care Provider [phone] Reason for Visit * Reason Comments Appointment Encounter Details Date Type Department Care Team Description 05/17/2023 Telephone [facility] [address] [place] [address] [place] [address] [place] [address] Appointment Social History Tobacco Use Types Packs/Day Years [...] as of this encounter Nursing Notes * Leni Wallace - 05/17/2023 12:34 PM CDT Spoke to patient, rescheduled appointment for 05/19/2023 VV. * Leni Wallace - 05/17/2023 12:34 PM CDT ----- Message from Viki Sauer MD sent at 05/17/2023 12:10 PM CDT ----- Friday 05/18 11:00 was scheduled via online as video visit - I believe template should be no phone/video for my in-person days. [place] - would you please call patient to see if she can come in to clinic for the rash evaluation, OV ideal for rash and I only do OV on this day. If desires VV - I have an opening Wednesday, to be rescheduled. Leadership - Are we able to see why online allowed this to be scheduled on a clinic day, and if canbe prevented in future? Notes:video visit; Rash breakout; Rash breakout; [phone] Made On:05/17/2023 9:15 AMBy:ONLINE, SIMPLIFIED Thank you, Nel Burns LMRN:[id number] Preferred Name: :1965 Date:05/18/2023atus:Scheduled Time:11:00 AMLength:30 Visit Type:VIDEO VISIT [[id number]]Department:[facility] Provider:Viki Sauer MDDepartment Address:[address] [place], [place] [id number] Chronic Specialist: JAYLA/ Referral #: Referral Status: Referral Src: Notes:video visit; Rash breakout; Rash breakout; [phone] Made On:05/17/2023 9:15 AMBy:ONLINE, SIMPLIFIED documented in this encounter Plan of Treatment Upcoming Encounters Date Type Department Care Team Description 01/14/2024 12:30 PM CUSTOM STOCK MAKER Appointment [facility] [address] [place] [address] Viki Sauer MD [address] [place] [address] [place] [address] 03/02/2024 3:30 PM CDT Telemedicine [facility] [address] [facility] [address] [place], [place] [address] Delia Diallo PA-C [address] [place] [address] documented as of this encounter Visit Diagnoses Not on filedocumented in this encounter Care Teams Party Planner Relationship Specialty [place] [address] [address] [place] [address] PCP - General Internal Medicine 05/03/20 documented as of this encounter
--- OUTSIDE RECORDS SUMMARY | 2023-12-14 14:12 | XMS_ITS | Encounter Summary ---
Author Name Unknown Organization [facility] Address [address], [place] [address] Care Team Providers Care Sprinkler Repair Technician Name Role Phone Viki Sauer MD Primary Care Provider [phone] Reason for Visit * Reason Comments DERMATITIS Improving with treat ment of triamcinolone. No new breakouts. Encounter Details Date Type Department Care Team Description 06/21/2023 4:00 PM CDT Office Visit [facility] [address] [place] [address] Mari Richards MD [address] [place] [id number] Post-inflammatory hyperpigmentation (Primary Dx); Adverse effect of drug, subsequent encounter Social History Tobacco Use Types Packs/Day Years [...] as of this encounter Progress Notes * Mari Richards MD - 06/21/2023 4:00 PM CDT Chief Complaint Patient presents with DERMATITIS Improving with treatment of triamcinolone. No new breakouts. History of Present Illness: Nel Pearl is a 58 y.o. female who presents to clinic today for rash f/u, thought to be due to Wegovy. She has not developed new spots since stopping the medication. Current lesions are resolvingwith triamcinolone 0.1% ointment as prescribed last visit. FINAL DIAGNOSIS Date Value Ref Range Status 06/07/2023 Final A. Skin, abdomen, punch, direct immunofluorescence examination of tissue: Negative Surgical Path, Dermatology: [id number] Order: [id number] Collected 06/07/2023 15:11 Status: Final result Component FINAL DIAGNOSIS A. Skin, Left Abdomen (side) - Lower, punch: - Urticarial reaction pattern. COMMENT: The dermis is edematous with a mild interstitial mixed inflammatory infiltrate including eosinophils and rare neutrophils. The epidermis is essentially normal. The findings suggest urticaria; the differential diagnosis includes urticarial medication reaction and urticarial phase of an autoimmune bullous disorder. There is no evidence of vasculitis. Medications: Reviewed. Physical Examination: General: Well-appearing female, in no distress, alert and oriented. Skin: noted as below Exam otherwise was normal. Assessment and Plan: 1. Post-inflammatory hyperpigmentation, stable Advised this will take some time resolve 2. Adverse effect of drug, initial encounter Likely to Wegovy, will add to her allergy list. Discussed she may have similar reactions to medications in this category, we cannot say for certain but she should be aware of this possibility. Continue triamcinolone 0.1% ointment BID to affected areas on trunk and extremities PRN. Discussed risk of LT use. Follow up: Return to clinic PRN, sooner for new concerns. Resident disclosure: This patient was seen and evaluated by me, Mari Richards MD, the resident physician with the attending, Abdi. The above note represents our joint plan of care. Discussed diagnosis, workup, and treatment with the patient who expressed understanding and agreement with the plan. Associated attestation - Maria E Patton MD - 06/25/2023 2:47 PM CDT Faculty Note: I evaluated and examined the patient with the resident physician today. I have discussed the findings and plan of care with the resident physician. I have reviewed the documentation and where appropriate amended/corrected it. This final version accurately reflects my clinical findings, observations, diagnoses, treatment plan, and follow-up. Maria E Patton MD 06/25/2023, 2:47 PM documented in this encounter Plan of Treatment Upcoming Encounters Date Type Department Care Team Description 01/14/2024 12:30 PM INSURANCE CLAIMS CLERK Appointment [facility] [address] [place] [address] Viki Sauer MD [address] [place] [address] [address] [place] [id number] 03/02/2024 3:30 PM CDT Telemedicine [facility] [address] [facility] [address] [place], [place] [address] Delia Diallo PA-C [address] [place], [place] [phone] documented as of this encounter Visit Diagnoses Diagnosis Post-inflammatory hyperpigmentation- Primary Dyschromia, unspecified Adverse effect of drug, subsequent encounter documented in this encounter Care Teams Sprinkler Repair Technician Relationship Specialty Start Date End Date Viki Sauer MD [address] [place] [address] [place] [address] PCP - General Internal Medicine 05/03/20 documented as of this encounter
--- OUTSIDE RECORDS SUMMARY | 2023-12-14 14:12 | XMS_ITS | Encounter Summary ---
Author Name Unknown Organization [facility] Address [address] [address] Care Team Providers Care Color Room Attendant Name Role Phone Viki Sauer MD Primary Care Provider [phone] Reason for Referral * Consult/Transfer Care (Routine) - New Request Specialty Diagnoses / Procedures Referred By Lis nichole Referred To Contact Diagnoses History of Claire-en-Y gastric bypass Obesity, Class I, BMI 30-34.9 ([facility]) Viki Sauer MD [id number] [place] [address] [place] [address] Referral ID Status Reason Start Date Expiration Date V isits Requested Visits Authorized [id number] New Request 07/14/2023 10/12/2024 1 1 Scheduling Instructions Your clinician has recommended an evaluation by our [facility] team. The first step is to complete a pre-visit packet. Our service center coordinator will call you within 2 business days to help you get started and answer any questions you might have. You may call [phone] for assistance. Question Answer Appointment Urgency? Non-Urgent Reason for Visit * Reason Comments Video Visit FOLLOW-UP,DIABETES Follow Up Medication Encounter Details Date Type Department Care Team Description 07/14/2023 3:30 PM CDT Telemedicine [facility] [address] [place] [address] [place] [address] [place] [address] Essential hypertension (HRC) (Primary Dx); History of Claire-en-Y gastric bypass; Obesity, Class I, BMI 30-34.9 (HRC); Zhao's esophagus without dysplasia; Snoring; Mild obstructive sleep apnea Social History Tobacco Use Types Packs/Day Years [...] * Patient Instructions* Viki Sauer MD - 07/14/2023 3:30 PM CDT If BP less than 140 and 90 - then no changes and send mychart BP value. If higher (either) - self increase amlodipine to 5 mg twice daily. Send updated BP in 1-2 weeks. Check labs for potassium level now on the OTC supplement. Keep EGD appt. [facility] - consult there would be great so that they can discuss the different meds and decide which if any would be right for you. Call [phone] to set up appointment with weight management. documented in this encounter Progress Notes * Viki Sauer MD - 07/14/2023 3:30 PM CDT IM VIDEO Visit Chief Complaint: Chief Complaint Patient presents with Video Visit FOLLOW-UP,DIABETES Follow Up Medication Subjective: Today's visit with Nel Pearl was conducted as a scheduled VIDEO visit. Resolved DMII - controlled s/p claire en Y. Seen with labs once annually Rash confirmed urticaria with dermatology biopsy, Wegovy was stopped and added to allergy list. She is interested in weight loss options, due to her history s/p claire en Y recommend ref to weight management clinic Uncontrolled HTN - has been taking the new amlodipine 5 mg every other day, recommend increase to daily in AM and if BP remains high - increase to 10 mg daily, will do 5 mg BID. Recheck potassium now - taking OTC supplement Had sleep eval and no CPAP needed. Fatigue is much better, possibly wegovy related. Rash confirmed urticaria with dermatology biopsy, Wegovy was stopped and added to allergy list. She is interested in weight loss options, due to her history s/p claire en Y recommend ref to weight management clinic DEXA pending today. ROS: Negative as per HPI Objective: General : No acute distress Neuro: Alert and oriented Psych: normal affect Health Maintenance Due Topic Date Due Diabetes: Eye Exam 01/01/2015 Colonoscopy 11/12/2022 Dexa 02/05/2023 Diabetes: HGBA1C 07/08/2023 BP Readings from Last 1 Encounters: 04/22/23 (!) 145/90 Assessment/Plan: Nel Pearl was seen today for follow-up and Video visit. Assessment/Plan Uncontrolled HTN - has been taking the new amlodipine 5 mg every other day, recommend increase to daily in AM and if BP remains high - increase to 10 mg daily, will do 5 mg BID. Recheck potassium now - taking OTC supplement Had sleep eval and no CPAP needed. Fatigue is much better, possibly wegovy related. Rash confirmed urticaria with dermatology biopsy, Wegovy was stopped and added to allergy list. She is interested in weight loss options, due to her history s/p claire en Y recommend ref to weight management clinic DEXA pending today. F/u pending BP readings - if needs further adjustment will need close follow up. If daily and/or increased amlodipine dose brings into goal range, will plan to see her in 6 months - Dec/March for med check There are no diagnoses linked to this encounter. Disposition Home Care, with routine follow up in 6 month, sooner prn for new or worsening symptoms. There are no Patient Instructions on file for this visit. This visit was conducted via video. Location of clinician home. Location of patient parked car . Billing based on: complexity Total time 25 minutes spent reviewing records, lab results, performing exam and preparing plan of care. Viki Sauer MD documented in this encounter Plan of Treatment Upcoming Encounters Date Type Department Care Team Description 01/14/2024 12:30 PM INDEPENDENT CROP CONSULTANT Appointment [facility] [address] [place], [place] [address] [place] [address] [place] [address] 03/02/2024 3:30 PM CDT Telemedicine [facility] [address] [facility] [address] [place], [place] [phone] Delia Diallo PA-C [address] [place], [place] [phone] Scheduled Referrals Name Type Priority Associated Diagnoses Orde r Schedule Weight Management and Bariatric Surgery Consult Referral Routine History of Claire-en-Y gastric bypass Obesity, Class I, BMI 30-34.9 (HRC) Ordered: 07/14/2023 documented as of this encounter Visit Diagnoses Diagnosis Essential hypertension (HRC)- Primary Unspecified essential hypertension History of Claire-en-Y gastric bypass Bariatric surgery status Obesity, Class I, BMI 30-34.9 (HRC) Obesity, unspecified Zhao's esophagus without dysplasia Zhao's esophagus Snoring Other dyspnea and respiratory abnormality Mild obstructive sleep apnea Obstructive sleep apnea (adult) (pediatric) documented in this encounter Care Teams Color Room Attendant Relationship Specialty [place] [address] [place] [address] PCP - General Internal Medicine 05/03/20 documented as of this encounter
--- OUTSIDE RECORDS SUMMARY | 2023-12-14 14:12 | XMS_ITS | Encounter Summary ---
Author Name Unknown Organization [facility] Address [address] [place] [address] Care Team Providers Care Assistant Boys Track Coach Name Role Phone Viki Sauer MD Primary Care Provider [phone] Encounter Details Date Type Department Care Team Description 05/03/2023 Orders Only [facility] Provider, [place] [address] Social History Tobacco Use Types Packs/Day Years [...] Care Team Description 01/14/2024 12:30 PM SUPERVISOR BONDING Appointment [facility] [address] [place], [place] [address] [place] [address] [place] [address] 03/02/2024 3:30 PM CDT Telemedicine [facility] [address] [facility] [address] [place], [place] [address] Delia Diallo PA-C [address] [place], [place] [phone] documented as of this encounter Procedures Procedure Name Priority Date/Time Associated Diagnosis Comments SLEEP STUDY 05/03/2023 documented in this encounter Results * SLEEP STUDY (05/03/2023) Interface Provider MD DUMMY/OTHER/AR documented in this encounter Visit Diagnoses Not on filedocumented in this encounter Care Teams Assistant Boys Track Coach Relationship Specialty [place] [address] [place] [address] PCP - General Internal Medicine 05/03/20 documented as of this encounter
--- OUTSIDE RECORDS SUMMARY | 2023-12-14 14:12 | XMS_ITS | Encounter Summary ---
Author Name Unknown Organization [facility] Address [address], [place] [address] Care Team Providers Care Manager Of Revenue Name Role Phone Viki Sauer MD Primary Care Provider [phone] Reason for Visit * Reason Comments Refill rOPINIRole (REQUIP) 0.25 MG tablet [Pharmacy Med Name: ROPINIROLE HCL 0.25 MG TAB 0.25 Tablet] Encounter Details Date Type Department Care Team Description 08/27/2023 Refill [facility] [address] [place] [address] Viki Sauer MD [address] [place] [phone] Refill (rOPINIRole (REQUIP) 0.25 MG tablet [Pharmacy Med Name: ROPINIROLE HCL 0.25 MG TAB 0.25 Tablet]) Social History Tobacco Use Types Packs/Day [...] as of this encounter Nursing Notes * Clotilde Wallace, RN - 08/27/2023 5:16 PM CDT Renewed medication per medication refill standing order. Requested Prescriptions Pending Prescriptions Disp Refills rOPINIRole (REQUIP) 0.25 MG tablet [Pharmacy Med Name: ROPINIROLE HCL 0.25 MG TAB 0.25 Tablet] 90 Tablet 3 Sig: TAKE ONE TABLET BY MOUTH EVERY DAY * Interface, Out SureUnblabripts Prov Query - 08/27/2023 3:57 PM CDT rOPINIRole (REQUIP) 0.25 MG tablet [Pharmacy Med Name: ROPINIROLE HCL 0.25 MG TAB 0.25 Tablet] Medication started: 03/21/2020 Last ordered by VIKI SAUER: 08/28/2022 (364 days ago) QTY: 90, Refills: 3, Sig: take one tablet by mouth every day (unchanged) -> Refill x 12 months, qty: 90, refills: 3 (until due for an office visit) Last qualifying visit: 07/14/2023 (with VIKI SAUER) Next scheduled visit: None [employer] Embedded Refills, Reference: [id number], 08/27/2023 3:57:06 PM CDT, Trip: LYNDSEY MARTÍNEZ REFILL ([id number]) documented in this encounter Plan of Treatment Upcoming Encounters Date Type Department Care Team Description 01/14/2024 12:30 PM FISH AND WILDLIFE BIOLOGIST Appointment [facility] [address] [place] [address] [place] [address] [place] [address] 03/02/2024 3:30 PM CDT Telemedicine [facility] [address] [facility] [address] [place], [place] [address] Delia Diallo PA-C [address] [place], [place] [address] documented as of this encounter Visit Diagnoses Diagnosis RLS (restless legs syndrome) Restless legs syndrome (RLS) documented in this encounter Care Teams Manager Of Revenue Relationship Specialty [place] [address] [place] [address] PCP - General Internal Medicine 05/03/20 documented as of this encounter
--- OUTSIDE RECORDS SUMMARY | 2023-12-14 14:12 | XMS_ITS | Encounter Summary ---
Author Name Unknown Organization [facility] Address [address], [place] [address] Care Team Providers Care Factorer Name Role Phone Viki Sauer MD Primary Care Provider [phone] Encounter Details Date Type Department Care Team Description 07/14/2023 4:40 PM CDT Lab Visit [facility] [address] [place], [place] [phone] History of diabetes mellitus; Essential hypertension (HRC) Social History Tobacco Use [...] Department Care Team Description 01/14/2024 12:30 PM NETWORK OPERATIONS SPECIALIST Appointment [facility] [address] [place], [place] [address] [place] [address] [place] [address] 03/02/2024 3:30 PM CDT Telemedicine [facility] [address] [facility] [address] [place] [address] Delia Diallo PA-C [address] [place] [address] documented as of this encounter Procedures Procedure Name Priority Date/Time Associated Diagnosis Comments BASIC METABOLIC PANEL Routine 07/14/2023 4:43 PM CDT Essential hypertension (HRC) HGB A1C Routine 07/14/2023 4:43 PM CDT History of diabetes mellitus documented in this encounter Results * Basic Metabolic Panel (07/14/2023 4:43 PM CDT) Sodium 141 136 - 145 mmol/L 07/14/2023 6:00 PM [facility] Potassium 3.7 3.5 - 5.1 mmol/L 07/14/2023 6:00 PM [facility] Chloride 104 98 - 109 mmol/L 07/14/2023 6:00 PM [facility] CO2 26 20 - 29 mmol/L 07/14/2023 6:00 PM [facility] Anion Gap 11 7 - 16 mmol/L 07/14/2023 6:00 PM [facility] Calcium 9.3 8.4 - 10.4 mg/dL 07/14/2023 6:00 PM [facility] BUN 14 7 - 26 mg/dL 07/14/2023 6:00 PM [facility] Creatinine 1.00 0.55 - 1.02 mg/dL 07/14/2023 6:00 PM [facility] Glucose 86 70 - 100 mg/dL 07/14/2023 6:00 PM [facility] Comment:The given reference range is for the fasting state. Non-fasting reference range for glucose is 70 - 180 mg/dL. GFR, Estimated >60 >60 mL/min/1.7 3m2 07/14/2023 6:00 PM [facility] Hours Fasting 0.1 8 - 12 Hours 07/14/2023 6:00 PM CDT [facility] Comment:Lab unable to obtain patient's fasting status at time of specimen collection. Blood Venipuncture / Unknown 07/14/2023 4:43 PM CDT 07/14/2023 4:43 PM CDT Viki Sauer MD LAB_1 Performing Organization Address [facility] Co de Phone Number [facility] [address] [place] [address], [facility] [phone] * Hgb A1C (07/14/2023 4:43 PM CDT) Hemoglobin A1C (Rapid) 5.3 <=5.6 % 07/14/2023 5:03 PM CDT [facility] Estimated Average Glucose (Calc) 105 < 117 mg/dL 07/14/2023 5:03 PM CDT [facility] Comment:Estimated average gl ucose (eAG) converts A1c into glucose units (mg/dL) and estimates average glucose over the past approximately 3 months. The eAG reference interval (<117 mg/dL) corresponds to an A1c of <5.7%. Blood Venipuncture / Unknown 07/14/2023 4:43 PM CDT 07/14/2023 4:43 PM CDT Narrative [facility] - 07/14/2023 5:03 PM CDT The test method used for this Hemoglobin A1c result can experience interference from elevated hemoglobin and other hemoglobin variants. In patients with results that do not correlate clinically, contact the lab for further direction. Viki Sauer MD LAB_1 Performing Organization Address [facility] Co de Phone Number [facility] [address] [place] [address], [facility] [phone] documented in this encounter Visit Diagnoses Diagnosis History of diabetes mellitus Personal history of other endocrine, metabolic, and immunity disorders Essential hypertension (HRC) Unspecified essential hypertension documented in this encounter Care Teams Factorer Relationship Specialty Start Date End Date Viki Sauer MD [address] [place] [address] [place] [address] PCP - General Internal Medicine 05/03/20 documented as of this encounter
--- OUTSIDE RECORDS SUMMARY | 2023-12-14 14:12 | XMS_ITS | Encounter Summary ---
Author Name Unknown Organization [facility] Address [address], [place] [address] Care Team Providers Care Track Helper Name Role Phone Viki Sauer MD Primary Care Provider Reason for Visit * Reason Onset Date Comments COVID Questions 08/30/2023 Encounter Details Date Type Department Care Team Description 08/30/2023 9:00 AM CDT Lab Visit [facility] [address] [place] [address] Encounter for screening for other viral diseases (Primary Dx) Social History Tobacco Use Types [...] Department Care Team Description 01/14/2024 12:30 PM SNATH HANDLE ASSEMBLER Appointment [facility] [address] [place] [address] Viik Sauer MD [address] [place] [address] [place] [address] 03/02/2024 3:30 PM CDT Telemedicine [facility] [address] [facility] [address] [place], [place] [address] Delia Diallo PA-C [address] [place] [address] documented as of this encounter Procedures Procedure Name Priority Date/Time Associated Diagnosis Comments 2019 NOVEL CORONAVIRUS Routine 08/30/2023 9:00 AM CDT Encounter for screening for other viral diseases documented in this encounter Results * Symptomatic - 2019 Novel Coronavirus (COVID-19) (08/30/2023 9:00 AM CDT) COVID-19 Interpretation Not Detected Not Detected 08/30/2023 9:30 PM CDT [facility] Nares, left and right 08/30/2023 9:30 PM CDT [facility] Swab (Source Required) Non-blood Collection / Unknown 08/30/2023 9:00 AM CDT 08/30/2023 9:00 AM CDT Narrative [facility] - 08/30/2023 9:30 PM CDT Test performed by Glass Breaker Mediated Amplification. TMA has been shown to be equivalent to commercial real-time PCR tests. This test has been authorized by the FDA under Emergency Use Authorization (EUA) for use by authorized laboratories. Viki Sauer MD LAB_1 [facility] [address] [address], [place] [phone] documented in this encounter Visit Diagnoses Diagnosis Encounter for screening for other viral diseases- Primary documented in this encounter Care Teams Track Helper Relationship Specialty [place] [address] [address] [place] [address] PCP - General Internal Medicine 05/03/20 documented as of this encounter
--- OUTSIDE RECORDS SUMMARY | 2023-12-14 14:12 | XMS_ITS | Encounter Summary ---
Author Name Unknown Organization [facility] Address [address], [place] [address] Care Team Providers Care Director Software Development Name Role Phone Viki Sauer MD Primary Care Provider [phone] Reason for Visit * Reason Comments Refill amLODIPine (NORVASC) 5 MG tablet Encounter Details Date Type Department Care Team Description 04/23/2023 Refill [facility] [address] [place], [place] [phone] [place] [id number] [place] [address] Refill (amLODIPine (NORVASC) 5 MG tablet) Social History Tobacco Use Types Packs/Day Years [...] as of this encounter Nursing Notes * Interface, Out Surescripts Prov Query - 04/23/2023 3:46 PM CDT amLODIPine (NORVASC) 5 MG tablet Medication started: 05/09/2021 Last ordered by VIKI SAUER: 04/21/2023 (2 days ago) QTY: 30, Refills: 2, Sig: take 1 tablet (5 mg) by mouth daily. (unchanged) -> A duplicate request was processed on 04/21/2023. -> Refill x 12 months, qty: 90, refills: 3 (until due for an office visit) Last qualifying visit: 04/21/2023 (with VIKI SAUER) Next scheduled visit: 07/14/2023 (with VIKI SAUER) [facility] [employer] Embedded Refills, Reference: [id number], 04/23/2023 3:46:48 PM CDT, Pool: PN REFILL WIZARD ADMIN ([id number]) * Ap Barragan - 04/23/2023 3:45 PM CDT Medications - Refill Request Name of prescribing clinician: Viki Sauer MD Additional comments (related to the above concern): Please see pt message from 04/22 For this refill, patient would like it filled at the pharmacy listed in Medication Management. If there are questions regarding your request, is it okay to leave a detailed message on your voicemail? Yes Is there anything else I can help you with today? documented in this encounter Plan of Treatment Upcoming Encounters Date Type Department Care Team Description 01/14/2024 12:30 PM LAND EXAMINER Appointment [facility] [address] [place] [address] [place] [address] [address] [place] [address] 03/02/2024 3:30 PM CDT Telemedicine [facility] [address] [facility] [address] [place], [place] [address] Delia Diallo PA-C [address] [place], [place] [address] documented as of this encounter Visit Diagnoses Diagnosis Essential hypertension (HRC) Unspecified essential hypertension documented in this encounter Care Teams Director Software Development Relationship Specialty Start [place] [address] [address] [place] [address] PCP - General Internal Medicine 05/03/20 documented as of this encounter
--- OUTSIDE RECORDS SUMMARY | 2023-12-14 14:12 | XMS_ITS | Encounter Summary ---
Author Name Unknown Organization [facility] Address [address], [place] [address] Care Team Providers Care Buildings And Grounds Superintendent Name Role Phone Viki Sauer MD Primary Care Provider [phone] Reason for Visit * Reason Comments RASH Lesions throughout b paco starting second week of April 2023, wonders if this is related to doing Wegovy injections that started 04/22 * Consult/Transfer Care (Routine) - New Request Specialty Diagnoses / Procedures Referred By Lis nichole Referred To Contact Diagnoses Rash [place] [address] [place] [address] Referral ID Status Reason Start Date Expiration Date V isits Requested Visits Authorized [id number] New Request 05/19/2023 08/17/2024 1 1 Encounter Details Date Type Department Care Team Description 06/07/2023 2:30 PM CDT Office Visit [facility] [address] [place] [address] Mari Richards MD [address] [place] [id number] Rash (Primary Dx) Social History Tobacco Use Types [...] this encounter Patient Instructions * Patient Instructions* Ashwini Fernández RN - 06/07/2023 2:30 PM CDT Images from the original note were not included. Care Instructions after a Punch Biopsy/Surgery When do I start changing the bandage on my punch biopsy/surgery site? Leave the original bandage/dressing in place for 24 to 48 hours. If you develop bleeding from the site, apply firm pressure directly over the bandage, using the heel of your hand, for [address] another bandage on top of the first one - don???t keep removing and replacing dressings. NO PEEKING! Notify us if the bleeding still does not stop. How do I change the bandage on my punch biopsy/surgery site? Clean the area once a day with warm soap and water. Gently pat dry the area. Use a cotton-tipped applicator to gently remove any crust or scab that has formed over your sutures. After the area has been cleaned and is dry, apply a small amount of petroleum jelly or Aquaphor healing ointment and apply a new bandage. We prefer that you do not use an antibacterial ointment (i.e. bacitracin, Neosporin) as many people develop a hypersensitivity including a rash and even blistering related to these. Is it okay to shower after having a punch biopsy/surgery? Showering is okay, but please do not soak in a bathtub, hot tub, or pool. This will slow the healing process and may create infection. When can I stop bandaging my punch biopsy/surgery site? Continue the wound care process until stitches are removed. Complete healing usually takes 2-4 weeks. Wounds heal best when kept moist, try not to let the area dry out. Letting them open to air, drying out, and having a scab form actually causes wounds to take longer to heal. If your skin is getting sensitive to the bandage, use gauze and paper tape. Can I exercise after having a punch biopsy/surgery? Avoid exercising for 2 days and with stitches, you will want to restrict your physical activity to avoid strenuous movements that will cause stretching and pulling of the skin for 2 weeks. What signs or symptoms should I call the dermatology department about? Infection after a biopsy or surgery is not likely, but can occur. Mild amounts of redness, bruising, swelling, discomfort and a clear to yellowish to blood- tinged discharge are normal. Signs of Infection include: fever, increasing pain, blood blister, drainage of pus, and extreme heat from the site. Please call the clinic if you experience any of these symptoms. When should my sutures be removed? You elected to remove the sutures at home. Please see directions below and use kit provided. [place] daily wound care until sutures are removed in 2 weeks. When will I receive my skin biopsy results? Your skin biopsy specimen will be sent to our laboratory for processing. Your clinician will contact you with the results of this pathology report when it is available. Typically you will be contacted 7 to 14 days after your biopsy or procedure. Our pathology services will be listed separately on your bill. If you have further questions about the biopsy process or if you have not received your biopsy results within 2 weeks, please call the clinic. Method for Removing Sutures (Stitches) If there is redness, swelling, drainage, or concern for infection in the area you wish to remove sutures, please call the dermatology clinic before doing this procedure and ask to speak with a nurse. Be sure to clean your scissors and tweezers with rubbing alcohol before and after use! Grasp the knot of the first suture and raise it off the skin with tweezers. This will expose a small portion of the suture that was below skin level. Place the tip of the scissors against the skin and cut through the exposed portion of the suture. Then, still holding the knot with the tweezers, pull the cut suture up and out of the skin in a smooth continuous motion. Repeat process for each additional stitch. Care Instructions after a Punch Biopsy/Surgery When do I start changing the bandage on my punch biopsy/surgery site? Leave the original bandage/dressing in place for 24 to 48 hours. If you develop bleeding from the site, apply firm pressure directly over the bandage, using the heel of your hand, for [address] bandage on top of the first one - don???t keep removing and replacing dressings. NO PEEKING! Notify us if the bleeding still does not stop. How do I change the bandage on my punch biopsy/surgery site? Clean the area once a day with warm soap and water. Gently pat dry the area. Use a cotton-tipped applicator to gently remove any crust or scab that has formed over your sutures. After the area has been cleaned and is dry, apply a small amount of petroleum jelly or Aquaphor healing ointment and apply a new bandage. We prefer that you do not use an antibacterial ointment (i.e. bacitracin, Neosporin) as many people develop a hypersensitivity including a rash and even blistering related to these. Is it okay to shower after having a punch biopsy/surgery? Showering is okay, but please do not soak in a bathtub, hot tub, or pool. This will slow the healing process and may create infection. When can I stop bandaging my punch biopsy/surgery site? Continue the wound care process until stitches are removed. Complete healing usually takes 2-4 weeks. Wounds heal best when kept moist, try not to let the area dry out. Letting them open to air, drying out, and having a scab form actually causes wounds to take longer to heal. If your skin is getting sensitive to the bandage, use gauze and paper tape. Can I exercise after having a punch biopsy/surgery? Avoid exercising for 2 days and with stitches, you will want to restrict your physical activity to avoid strenuous movements that will cause stretching and pulling of the skin for 2 weeks. What signs or symptoms should I call the dermatology department about? Infection after a biopsy or surgery is not likely, but can occur. Mild amounts of redness, bruising, swelling, discomfort and a clear to yellowish to blood- tinged discharge are normal. Signs of Infection include: fever, increasing pain, blood blister, drainage of pus, and extreme heat from the site. Please call the clinic if you experience any of these symptoms. When should my sutures be removed? Your care team will help you schedule a suture removal appointment. Depending on the location on your body, sutures are usually removed within 5-14 days. When will I receive my skin biopsy results? Your skin biopsy specimen will be sent to our laboratory for processing. Your clinician will contact you with the results of this pathology report when it is available. Typically you will be contacted 7 to 14 days after your biopsy or procedure. Our pathology services will be listed separately on your bill. If you have further questions about the biopsy process or if you have not received your biopsy results within 2 weeks, please call the clinic. documented in this encounter Progress Notes * Sarabjit Al MD - 06/07/2023 2:30 PM CDT Images from the original note were not included. Faculty Note: I evaluated and examined the patient with the resident physician today. I have discussed the findings and plan of care with the resident physician. I have reviewed the documentation and where appropriate amended/corrected it. This final version accurately reflects my clinical findings, observations, diagnoses, treatment plan, and follow-up. Sarabjit Al MD 06/11/2023, 12:30 PM I was physically present for/or performed the minor procedure(s) furnished by the resident physician. Sarabjit Al MD 06/11/2023, 12:30 PM FINAL DIAGNOSIS A. Skin, abdomen, punch, direct immunofluorescence examination of tissue: Negative at 1331 Clinical Information papular urticaria/arthropod, medication reaction, folliculitis, impetigo, bullous pemphioid Widespread papular eruption 5 days after starting Wegovy Microscopic Description Microscopic examination is performed. Direct immunofluorescence studies show: IgG: Negative IgA: Negative IgM: Negative C3: Negative Fibrinogen: Negative FINAL DIAGNOSIS A. Skin, Left Abdomen (side) - Lower, punch: - Urticarial reaction pattern. COMMENT: The dermis is edematous with a mild interstitial mixed inflammatory infiltrate including eosinophils and rare neutrophils. The epidermis is essentially normal. The findings suggest urticaria; the differential diagnosis includes urticarial medication reaction and urticarial phase of an autoimmune bullous disorder. There is no evidence of vasculitis. Last Visit Maximum visits displayed: 1 Date Type Department Provider Description 05/27/2009 Office Visit [facility] [address] D[address] Enrique Bellamy MD Dermatology Visit Questionnaire (Mychart) 06/03/2023 12:44 PM CDT - Filed by Patient What's the main skin concern you'd like to discuss during your visit? Sores all over What prescribed or pynw-vvb-dcoypsq medications, supplements, ointments or creams have you used foryour skin concern in the past? Na Have you seen someone for your skin concern outside of the [facility] network? No Chief Complaint Patient presents with RASH Lesions throughout body starting second week of April 2023, wonders if this is related to doing Wegovy injections that started 04/22 History of Present Illness: Nel Neumann is a 57 y.o. old female who presents to clinic today for Rash. Developed full body itchy rash 4-5 days after starting Wegovy on April 23. Started on the chest. No new products, illness, travel, visits in the [place] Has not gone to the pool or [place] No one else itching at home Held Wegovy for a week without change PCP prescribed atarax which she is still taking @25mg QHS Completed 2 weeks of permethrin (ELIMITE) 5 % cream without change Using OTC anti-itch now Of note, her sister has autoimmune disease, recently diagnosed with [facility] Medications: The patient has a current medication list which includes the following prescription(s): albuterol sulfate hfa, amlodipine, ascorbic acid, calcium, cetirizine, cholecalciferol, cyanocobalamin, diphenhydramine, famotidine, ferrous sulfate, hydrochlorothiazide, hydrocortisone, hydrocortisone (perianal), hydroxyzine hcl, losartan, methocarbamol, omeprazole, fruity chews/iron, vitamin b-6, ropinirole,saline, semaglutide-weight management, semaglutide-weight management, [START ON 06/16/2023] semaglutide-weight management, sumatriptan, tacrolimus, trazodone, venlafaxine, and venlafaxine. Allergies: The patient is allergic to contrast [iodinated contrast media], diatrizoate, and azithromycin. Review of Systems: Feeling well. Physical Examination: General: Well-appearing female, in no distress, alert and oriented. Skin: Focused, disease dependent, skin exam was performed, with relevant findings in problem based assessment Assessment and Plan: 1. Rash Left Abdomen (side) - Lower [place] and red inflammatory papules, some with overlying serous crust, involving the extremities and trunk Armpits and webspaces are clear Skin Biopsy (No CPT) - Left Abdomen (side) - Lower Type of biopsy: punch Informed consent: discussed and consent obtained Timeout: patient name, date of , surgical site, and procedure verified Procedure prep: Patient was prepped and draped in usual sterile fashion Prep type: Isopropyl alcohol Anesthesia: the lesion was anesthetized in a standard fashion Anesthetic: 1% lidocaine plain local infiltration Punch size: 4 mm Suture size: 4-0 Suture type: Prolene (polypropylene) Suture removal (days): 14 Hemostasis achieved with: suture and pressure Outcome: patient tolerated procedure well Post-procedure details: sterile dressing applied and wound care instructions given Dressing type: petrolatum and pressure dressing Direct Immunofluorescence (DIF) - Skin - Left Abdomen (side) - Lower Specimen 1 - Surgical Path, Dermatology Clinical Impression: papular urticaria/arthropod, medication reaction, folliculitis, impetigo, bullous pemphioid Widespread papular eruption 5 days after starting Wegovy Rx sent for triamcinolone acetonide (KENALOG) 0.1 % ointment BID Follow up: pending biopsy Resident disclosure: This patient was seen and evaluated by me, Mari Richards MD, the resident physician with the attending, Dr. Al. The above note represents our joint plan of care. Discussed diagnosis, workup, and treatment with the patient who expressed understanding and agreement with the plan. documented in this encounter Plan of Treatment Upcoming Encounters Date Type Department Care Team Description 01/14/2024 12:30 PM PRECAST MOLDER Appointment [facility] [address] [place], [place] [id number] [place] [address] [facility] [place] [id number] 03/02/2024 3:30 PM CDT Telemedicine [facility] [address] [facility] [address] [place], [place] [id number] Delia Diallo PA-C [address] [place], [place] [phone] documented as of this encounter Procedures Procedure Name Priority Date/Time Associated Diagnosis Comments DIRECT IMMUNOFLUORESCENCE (DIF) - SKIN Routine 06/07/2023 3:12 PM CDT Rash SKIN BIOPSY Routine 06/07/2023 3:11 PM CDT Rash SURGICAL PATHOLOGY, DERMATOLOGY Routine 06/07/2023 3:11 PM CDT Rash documented in this encounter Results * Direct Immunofluorescence (DIF) - Skin (06/07/2023 3:12 PM CDT) Case Report Direct Immunofluorescence ? Case: [id number] ? Authorizing Provider: ??Sarabjit lA MD ? Collected: ? 06/07/2023 1512 ? Ordering Location: ? [facility] ? Received: ?06/07/2023 1613 ? Pathologist: ? Randa Fuller MD ? Specimen: ?Skin punch ? 06/09/2023 1:31 PM [facility] FINAL DIAGNOSIS A. Skin, abdomen, punch, direct immunofluorescence examination of tissue: Negative 06/09/2023 1:31 PM [facility] Clinical Information papular urticaria/arthropod, medication reaction, folliculitis, impetigo, bullous pemphioid Widespread papular eruption 5 days after starting Wegovy 06/09/2023 1:31 PM [facility] Microscopic Description Microscopic examination is performed. Direct immunofluorescence studies show: IgG: Negative IgA: Negative IgM: Negative C3: Negative Fibrinogen: Negative 06/09/2023 1:31 PM [facility] Special Stains The stain controls have been reviewed and stain appropriately. 06/09/2023 1:31 PM [facility] Gross Description A: The specimen is received in Sebastián's fixative and labeled with the patient's name and Skin punch. The specimen consists of a 0.3 cm in diameter by 0.6 cm in depth skin punch biopsy. The specimen is bisected, placed back in the labeled vial of Sebastián's fixative, and submitted for direct immunofluorescence studies. CR 06/09/2023 1:31 PM [facility] Embedded Images 06/09/2023 1:31 PM [facility] Skin SKIN PUNCH BIOPSY SPECIMEN / Unknown 06/07/2023 3:12 PM CDT 06/07/2023 4:13 PM CDT Comment:Consult pathology if more than one order per patient is indicated. Sarabjit Al MD LAB PATHOLOGY Performing Organization Address City/State/[facility] [place] [address], [facility] [phone] * Skin Biopsy (No CPT) (06/07/2023 3:11 PM CDT) Narrative EXTERNAL RESULTS - 06/07/2023 3:11 PM CDT Type of biopsy: punch ?? Informed consent: discussed and consent obtained ?? Timeout: patient name, date of , surgical site, and procedure verified ?? Procedure prep: ??Patient was prepped and draped in usual sterile fashion Prep type: ??Isopropyl alcohol Anesthesia: the lesion was anesthetized in a standard fashion ?? Anesthetic: ??1% lidocaine plain local infiltration Punch size: ??4 mm Suture size: ??4-0 Suture type: Prolene (polypropylene) ?? Suture removal (days): ??14 Hemostasis achieved with: suture and pressure ?? Outcome: patient tolerated procedure well ?? Post-procedure details: sterile dressing applied and wound care instructions given ?? Dressing type: petrolatum and pressure dressing ?? Sarabjit Al MD DERM PROCEDURE [facility] EXTERNAL RESULTS * Surgical Path, Dermatology (06/07/2023 3:11 PM CDT) Case Report Surgical Pathology Report ? Case: [id number] ? Authorizing Provider: ??Sarabjit Al MD ? Collected: ? 06/07/2023 1511 ? Ordering Location: ? [facility] ? Received: ?06/08/2023 0757 ? Pathologist: ? Mychal De Leon MD ? Specimen: ?Skin, Left Abdomen (side) - Lower ? 06/11/2023 10:57 AM CDT [facility] [address] DERMATOLOGY FINAL DIAGNOSIS A. Skin, Left Abdomen (side) - Lower, punch: - Urticarial reaction pattern. COMMENT: The dermis is edematous with a mild interstitial mixed inflammatory infiltrate including eosinophils and rare neutrophils. The epidermis is essentially normal. The findings suggest urticaria; the differential diagnosis includes urticarial medication reaction and urticarial phase of an autoimmune bullous disorder. There is no evidence of vasculitis. 06/11/2023 10:57 AM [facility] [address] DERMATOLOGY Clinical Information Clinical Impression: papular urticaria/arthrop od, medication reaction, folliculitis, impetigo, bullous pemphioid Widespread papular eruption 5 days after starting Wegovy 06/11/2023 10:57 AM [facility] 3800 DERMATOLOGY Microscopic Description Microscopic examination is performed. 06/11/2023 10:57 AM [facility] [address]00 DERMATOLOGY Technical Information A portion of the technical staining was performed at [facility], [address] [place] [address]. The professional interpretation was performed at [facility]. 06/11/2023 10:57 AM [facility] [address] DERMATOLOGY Gross Description A: Received in formalin, labeled with the patient's name and Skin, Left Abdomen (side) - Lower is a 5 x 5 x 7 mm punch biopsy of skin. The specimen is marked with black ink, bisected, and submitted entirely in one cassette. TV 06/11/2023 10:57 AM [facility] [address] DERMATOLOGY Embedded Images 06/11/2023 10:57 AM [facility] [address] DERMATOLOGY Skin (Skin) 06/07/2023 3:11 PM CDT 06/08/2023 7:57 AM CDT Comment:Clinical Impression: papular urticaria/arthropod, medication reaction, folliculitis, impetigo, bullous pemphioid Widespread papular eruption 5 days after starting Wegovy Sarabjit Al MD LAB PATHOLOGY [facility] [address] [facility] [address] [place] [address], [facility] documented in this encounter Visit Diagnoses Diagnosis Rash- Primary Rash and other nonspecific skin eruption documented in this encounter Care Teams Buildings And Grounds Superintendent Relationship Specialty [place] [address] [place] [address] PCP - General Internal Medicine 05/03/20 documented as of this encounter
--- OUTSIDE RECORDS SUMMARY | 2023-12-14 14:13 | XMS_ITS | Encounter Summary ---
Author Name Unknown Organization [facility] Address [address], [place] [address] Care Team Providers Care Tobacco Sieve Operator Name Role Phone Viki Sauer MD Primary Care Provider [phone] Reason for Visit * Reason Comments Refill losartan (COZAAR) 10 0 MG tablet [Pharmacy Med Name: LOSARTAN POTASSIUM 100 MG T 100 Tablet] Encounter Details Date Type Department Care Team Description 03/31/2023 Refill [facility] [id number] [place] [id number] Viki Sauer MD [address] [place] [id number] Refill (losartan (COZAAR) 100 MG tablet [Pharmacy Med Name: LOSARTAN POTASSIUM 100 MG T 100 Tablet]) Social History Tobacco Use Types Packs/Day [...] as of this encounter Nursing Notes * Sveta Duggan RN - 03/31/2023 4:17 PM CDT Further Assistance Needed on Refill from Clinician RN reviewed. Medication ordered for short term. Medication ordered for short term supply only and Please advise if clerical transcriber supply is appropriate Last qualifying visit: 12/30/2022 (with VIKI SAUER) Next scheduled visit: 04/08/2023 Review pended order for accuracy and sign if appropriate and Document if appointment is needed for further refills Requested Prescriptions Pending Prescriptions Disp Refills losartan (COZAAR) 100 MG tablet [Pharmacy Med Name: LOSARTAN POTASSIUM 100 MG T 100 Tablet] 90 Tablet 2 Sig: Take 1 Tablet (100 mg) by mouth daily. * Interface, Out [employer] Prov Query - 03/31/2023 1:59 PM CDT losartan (COZAAR) 100 MG tablet [Pharmacy Med Name: LOSARTAN POTASSIUM 100 MG T 100 Tablet] Medication started: 12/30/2022 Last ordered by VIKI SAUER: 12/30/2022 (91 days ago) QTY: 30, Refills: 3, Sig: take 1 tablet (100 mg) by mouth daily. (unchanged) -> Refill x 9 months, qty: 90, refills: 2 (until due for an office visit) Last qualifying visit: 12/30/2022 (with VIKI SAUER) Next scheduled visit: 04/08/2023 (with VIKI SAUER) Cr: 0.8 mg/dL on 01/20/2023 K: 4 mEq/L on 01/20/2023 [employer] Embedded Refills, Reference: [id number], 03/31/2023 1:59:53 PM CDT, Pool: LYNDSEY IMED REFILL ([id number]) * Interface, Out [employer] Prov Query - 03/31/2023 1:59 PM CDT The following lab order(s) may be associated with the following Patient Result Comment (Entered by Viki Sauer MD at 01/28/2023 3:31 PM): VITAMIN B6 (8HR FAST RECOMMENDED) Nel - vitamin B6 returned too high - I recommend cut B6 intake by at least 50% if you are takinga Bcomplex or a B6 supplement. 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 Appointment [facility] [address] [place], [place] [phone] [place] [address] [facility] [place] [id number] 03/02/2024 3:30 PM CDT Telemedicine [facility] [address] [facility] [address] [place], [place] [address] Delia Diallo PA-C [address] [place], [place] [phone] documented as of this encounter Visit Diagnoses Diagnosis Essential hypertension (HRC) Unspecified essential hypertension Vitamin B6 deficiency (HRC) Vitamin B6 deficiency documented in this encounter Care Teams Tobacco Sieve Operator Relationship Specialty [place] [address] [place] [address] PCP - General Internal Medicine 05/03/20 documented as of this encounter
--- OUTSIDE RECORDS SUMMARY | 2023-12-14 14:13 | XMS_ITS | Encounter Summary ---
Author Name Unknown Organization [facility] Address [address] [place] [address] Care Team Providers Care Conciliation Court Judge Name Role Phone Viki Sauer MD Primary Care Provider [phone] Reason for Referral * Procedure/Equipment (Routine) - Incomplete Specialty Diagnoses / Procedures Referred By Lis nichole Referred To Contact Procedures MM Mammogram Screening Bilat W [address] [address] [place] [address] Referral ID Status Reason Start Date Expiration Date V isits Requested Visits Authorized [id number] Incomplete 04/13/2023 07/12/2024 1 1 Reason for Visit * Procedure/Equipment (Routine) - Incomplete Specialty Diagnoses / Procedures Referred By Lis nichole Referred To Contact Procedures MM Mammogram Screening Bilat W [address] [address] [place] [address] Referral ID Status Reason Start Date Expiration Date V isits Requested Visits Authorized [id number] Incomplete 04/13/2023 07/12/2024 1 1 Encounter Details Date Type Department Care Team Description 04/13/2023 3:20 PM CDT Ancillary Procedure [facility] [address] [place] [address] Social History Tobacco Use Types Packs/Day Years [...] Department Care Team Description 01/14/2024 12: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 Appointment [facility] [address] [place], [place] [address] [place] [address] [place], [place] [id number] 03/02/2024 3:30 PM CDT Telemedicine [facility] [address] [facility] [address] [place], [place] [address] Delia Diallo PA-C [address] [place], [place] [phone] documented as of this encounter Procedures Procedure Name Priority Date/Time Associated Diagnosis Comments MM MAMMOGRAM SCREENING BILAT W 3D YONIS W CAD Routine 04/13/2023 3:20 PM CDT documented in this encounter Results * MM Mammogram Screening Bilat W 3D Yonis W CAD (04/13/2023 3:20 PM CDT) Anatomical Region Laterality Modality Breast Bilateral Mammography Impressions 04/13/2023 3:53 PM CDT : ACR BI-RADS Category 1: Negative RECOMMENDATION: Follow Up Imaging in 12 months - Bilateral The results and recommendations of this examination will be communicated to the patient. Narrative 04/13/2023 3:53 PM CDT MM MAMMOGRAM SCREENING BILAT W 3D YONIS W CAD performed on 04/13/23 Compared to: 05/09/2021 MM Mammogram Screening Bilat W CAD, 01/02/2019 Foreign Image(S) Mammogram, and 12/17/2016 Foreign Image(S) Mammogram ?? FINDINGS: Bilateral screening mammogram was performed with the assistance of Computer-Aided Detection and breast tomosynthesis. The breasts have scattered areas of fibroglandular density. There is no radiographic evidence of malignancy. ?? Viki Sauer MD RAD [facility] documented in this encounter Visit Diagnoses Not on filedocumented in this encounter Care Teams Conciliation Court Judge Relationship Specialty [place] [address] [place] [address] PCP - General Internal Medicine 05/03/20 documented as of this encounter
--- OUTSIDE RECORDS SUMMARY | 2023-12-14 14:13 | XMS_ITS | Encounter Summary ---
Author Name Unknown Organization [facility] Address [address], [place] [address] Care Team Providers Care Fitter Hand Name Role Phone Viki Sauer MD Primary Care Provider [phone] Reason for Visit * Reason Comments Refill Pyridoxine HCl (JOSE RAUL MIN B-6) 50 MG tablet [Pharmacy Med Name: VITAMIN B-6 50 MG TABS 50 Tablet] Encounter Details Date Type Department Care Team Description 03/31/2023 Refill [facility] [address] [place], [place] [phone] Viki Sauer MD [address] [place] [phone] Refill (Pyridoxine HCl (VITAMIN B-6) 50 MG tablet [Pharmacy Med Name: VITAMIN B-6 50 MG TABS 50 Tablet]) Social History [...] this encounter Nursing Notes * Interface, Out BandApp Prov Query - 03/31/2023 1:59 PM CDT Pyridoxine HCl (VITAMIN B-6) 50 MG tablet [Pharmacy Med Name: VITAMIN B-6 50 MG TABS 50 Tablet] Medication started: 03/23/2022 Last ordered by VIKI SAUER: 03/23/2022 (373 days ago) QTY: 180, Refills: 3, Sig: take 2 tablets (100 mg) by mouth daily. (unchanged) -> Medication cannot be delegated. 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 Appointment [facility] [address] [facility] [place] [address] [place] [address] [place] [phone] 03/02/2024 3:30 PM CDT [facility] [address] [facility] [address] [place], [place] [address] Delia Diallo PA-C [address] [place] [address] documented as of this encounter Visit Diagnoses Not on filedocumented in this encounter Care Teams Fitter Hand Relationship Specialty [place] [address] [place] [address] PCP - General Internal Medicine 05/03/20 documented as of this encounter
--- OUTSIDE RECORDS SUMMARY | 2023-12-14 14:13 | XMS_ITS | Encounter Summary ---
Author Name Unknown Organization [facility] Address [address] [address] Care Team Providers Care Film Developer Name Role Phone Viki Sauer MD Primary Care Provider Reason for Referral * Medication Prior Authorization - Authorized Specialty Diagnoses / Procedures Referred By Contac [place] [address] [place] [address] Referral ID Status Reason Start Date Expiration Date V isits Requested Visits Authorized [id number] Authorized 03/10/2023 04/08/2024 1 1 * Procedure/Equipment (Routine) - New Request Specialty Diagnoses / Procedures Referred By Contac t Referred To Contact Diagnoses Zhao's esophagus without dysplasia [place] [address] [place] [address] Referral ID Status Reason Start Date Expiration Date V isits Requested Visits Authorized [id number] New Request 04/08/2023 07/07/2024 1 1 * Procedure/Equipment (Routine) - Incomplete Specialty Diagnoses / Procedures Referred By Contac t Referred To Contact Diagnoses Screening for osteoporosis Estrogen deficiency (HRC) Procedures DXA Bone Density [place]ine[place] [address] [place] [address] Referral ID Status Reason Start Date Expiration Date V isits Requested Visits Authorized [id number] Incomplete 04/08/2023 07/07/2024 1 1 * (Routine) - New Request Specialty Diagnoses / Procedures Referred By Lis nichole Referred To Contact Diagnoses Screening for colon cancer Procedures Endoscopy, Colon, Screening[place] [address] [place] [address] Referral ID Status Reason Start Date Expiration Date V isits Requested Visits Authorized [id number] New Request 04/08/2023 04/08/2025 1 1 * Procedure/Equipment (Routine) - Incomplete Specialty Diagnoses / Procedures Referred By Lis nichole Referred To Contact Diagnoses Encounter for screening mammogram for malignant neoplasm of breast Procedures MM Mammogram Screening [place] [address] [place] [address] Referral ID Status Reason Start Date Expiration Date V isits Requested Visits Authorized [id number] Incomplete 04/08/2023 07/07/2024 1 1 Reason for Visit * Reason Comments Follow-up ROUTINE HEALTH MAINTENANCE Encounter Details Date Type Department Care Team Description 04/08/2023 3:30 PM CDT Office Visit [facility] [address] [facility] [place], [place] [address] [place] [address] [place] [address] Routine physical examination (Primary Dx); Zhao's esophagus without dysplasia; History of Claire-en-Y gastric bypass; Major depressive disorder, recurrent episode, in full remission (HRC); Essential hypertension (HRC); NAFLD (nonalcoholic fatty liver disease) (HRC); Liver fibrosis; SUSANA (generalized anxiety disorder) (HRC); Gastroesophageal reflux disease without esophagitis; Screening for colon cancer; Screening for osteoporosis; Estrogen deficiency (HRC); Encounter for screening mammogram for malignant neoplasm of breast; Restless leg syndrome; Mixed hyperlipidemia (HRC); Vitamin B12 deficiency; Vitamin B6 deficiency (HRC); Vitamin D deficiency (HRC) Social History Tobacco [...] Sign Reading Time Taken Comments Blood Pressure 179/104 04/08/2023 3:50 PM CDT Pulse 66 04/08/2023 3:50 PM CDT Temperature - - Respiratory Rate - - Oxygen Saturation - - Inhaled Oxygen Concentration - - Weight 86.8 kg (191 lb 6.4 oz) 04/08/2023 3:38 P M CDT Height - - Body Mass Index 30.89 12/30/2022 11:18 AM COAGULANT DIPPER documented in this encounter Patient Instructions * Patient Instructions* Viki Sauer MD - 04/08/2023 3:30 PM CDT ADD HCTZ 25 mg in the morning Nruse and lab in 2 weeks Video in 2 weeks for BP and Wegovy if covered and affordable. Recommended 150 minutes of aerobic exercise per week + 40 min weekly of strengthening Goal 1200 mg daily TOTAL of calcium in diet per day - preferred from food sources. If taking Calcium supplement >600 mg, should be split into two doses at different times of day to improve absorption, and taken with food. Vitamin D 2000 units daily Continue all other vitamin supplements - including B6 - level pending. Please call [phone] to schedule your mammogram Please call [phone] to schedule your DEXA (bone scan to screen for osteoporosis) Please call [phone] to schedule your colonoscopy AND EGD to monitor Zhao's Patient Counseling: --Nutrition: Limit to in moderation in sodium/caffeine intake, saturated fat and cholesterol, caloric balance, sufficient intake of fresh fruits, vegetables, and fiber. --Exercise: regular exercise - 30 minutes minimum per day --Weight reduction to healthy BMI of less than 25 if BMI elevated. --Substance Abuse: no more than 1 or 2 alcoholic beverages per day and avoid driving or other dangerous activities under the influence; If you smoke, cessation of tobacco use is recommended. --Sexuality: condoms recommended unless in monogamous relationship to prevent STD. --Injury prevention: daily use of safety belts, safety helmets, smoke detector check in home every 6 months. --Dental health: daily tooth brushing, flossing, and dental visits every 6 months - 1 year. Follow up in one year or as recommended by your provider. documented in this encounter Progress Notes * Viki Sauer MD - 04/08/2023 3:30 PM CDT Internal Medicine Preventative Physical Exam Chief concern: Chief Complaint Patient presents with Follow-up ROUTINE HEALTH MAINTENANCE Preventive Health Assessment: Reviewed at physical exam 04/08/2023 Menstrual periods: Post menopausal Calcium/vit D: Recommended daily DEXA: 02/12/2021 DEXA -2.4, low risk, s/p gastric bypass - DUE 2 years - 01/2023, ordered 04/08/2023 ASA: NA Obesity: Estimated body mass index is 29.05 kg/m?? as calculated from the following: Height as of 12/30/22: 1.676 m (5' 6). Weight as of 12/30/22: 81.6 kg (180 lb). Exercise: Recommended daily 30 min Smoking cessation: Never smoker Mammogram: Last normal 04/2021 DUE annually, ordered 04/08/2023 Pap smear: Neg 09/03/2020 with cotesting, DUE 2025 Colonoscopy - 10/2012 - DUE 10/2022, ordered again 04/08/2023 EGD - Barretts - 07/2020 - DUE 3 years, due 07/2023 Exercise: Recommended daily 30 min Diet: Discussed well balanced diet Weight: Estimated body mass index is 30.89 kg/m?? as calculated from the following: Height as of 12/30/22: 1.676 m (5' 6). Weight as of this encounter: 86.8 kg (191 lb 6.4 oz). Immunization History Administered Date(s) Administered Flu Vac (3+ yrs) 09/26/2010, 09/22/2011, 08/24/2012 Flu Vac Preserv Free (3+yrs) 09/26/2009, 08/24/2012 HepB Adult (Engerix-B, 20+ yrs, 3 dose series) 09/03/2020, 03/15/2021 Influenza (Fluzone 0.25, 6-35 mos) 08/03/2013 Influenza IIV4 (Quadrivalent) 0.5mL (28581) 08/03/2013, 09/04/2014, 09/03/2020, 09/16/2021, 10/03/2022 Moderna Monovalent 12+ 03/26/2021, 04/24/2021 PPSV23 (Pneumovax) 09/03/2020 Pfizer Bivalent 12+ 10/27/2022 Tdap 09/03/2020 Zoster RZV (Shingrix) 06/16/2021, 09/17/2021 Review of Systems: complete ROS negative other than those noted below in A/P Surgical History: Reviewed in [facility] Family History: Reviewed in [facility] Social History: Reviewed in [facility] Adverse Drug Reactions: See [facility] Past Medical History: Reviewed in [facility] Current Medications: Outpatient Medications Prior to Visit Medication Sig Dispense Refill ALBUterol sulfate HFA 108 (90 Base) MCG/ACT inhaler Inhale 1-2 Puffs every 4 hours as needed for Wheezing. 1 Each 1 ascorbic acid (AKA VITAMIN C) 500 MG tablet Take 1 Tablet (500 mg) by mouth daily. Indications: take with iron to aide in iron absorption CALCIUM OR Take 1 tablet by mouth 2 times daily. Indications: HYPOCALCEMIA PREVENTION cetirizine (ZYRTEC) 10 MG tablet TAKE ONE TABLET BY MOUTH EVERY DAY 90 Tablet 2 cholecalciferol (AKA VITAMIN D3) 2000 UNITS tablet Take 1 Tablet (2,000 Units) by mouth daily. cyanocobalamin [address] 1 Tablet (1,000 mcg) under tongue daily. diclofenac (VOLTAREN) 1 % gel Bid affected area as needed. 30 g 0 diphenhydrAMINE (BENADRYL) 25 MG tablet Take 1-2 Tablets (25-50 mg) by mouth 4 times daily as needed (Take 25-50 mg by mouth 4 times daily as needed.). Indications: allergies famotidine (PEPCID) 20 MG tablet Take 1 Tablet by mouth two times a day before meals. 180 Tablet 3 ferrous sulfate 325 (65 FE) MG tablet Take 1 Tablet (325 mg) by mouth daily. hydrocortisone 2.5 % cream Apply topically two times a day. You can use this for up to 2 weeks in arow before you should take a break. 30 g 0 hydrocortisone, Perianal, (PROCTOSOL-HC) 2.5 % rectal cream Insert rectally two times daily as needed. Indications: Inflamed Hemorrhoids 28 g 1 losartan (COZAAR) 100 MG tablet TAKE 1 TABLET (100 MG) BY MOUTH DAILY. 90 Tablet 2 methocarbamol (ROBAXIN) 500 MG tablet Take 1 Tablet (500 mg) by mouth at bedtime as needed. 10 Tablet 0 omeprazole (PRILOSEC) 20 MG capsule TAKE ONE CAPSULE BY MOUTH ONCE DAILY 1 HOUR BEFORE A MEAL 90 Capsule 2 pediatric multiple vitamin-iron (FRUITY CHEWS/IRON) chew tablet Chew and swallow 1 Tablet by mouth daily. Pyridoxine HCl (VITAMIN B-6) 50 MG tablet TAKE 2 TABLETS (100 MG) BY MOUTH DAILY. 180 Tablet 3 Pyridoxine HCl (VITAMIN B6) 50 MG TABS TAKE 2 TABLETS (100 MG) BY MOUTH DAILY. rOPINIRole (REQUIP) 0.25 MG tablet TAKE ONE TABLET BY MOUTH EVERY DAY 90 Tablet 3 saline 0.65 % nasal solution 1 [place] by Nasal route every morning. SUMAtriptan (IMITREX) 50 MG tablet Take 1 Tablet by mouth as needed for Migraine. May repeat one tablet after 2 hours if needed. Maximum 4 tabs/24 hours and 9 days/month 9 Tablet 3 tacrolimus (PROTOPIC) 0.1 % ointment Apply topically two times a day. 30 g 11 traZODone (DESYREL) 50 MG tablet TAKE ONE TABLET BY MOUTH AT BEDTIME NEEDED FOR SLEEP 90 Tablet 2 venlafaxine (EFFEXORXR) 150 MG 24 hour release capsule TAKE ONE CAPSULE BY MOUTH ONCE DAILY 90 Capsule 2 venlafaxine (EFFEXORXR) 37.5 MG 24 hour release capsule TAKE ONE CAPSULE BY MOUTH EVERY DAY IN ADDITION TO 1-150MG CAPSULE FOR TOTAL DAILY DOSE OF 187.5MG 90 Capsule 2 benzonatate (TESSALON) 100 MG capsule Take 1 Capsule (100 mg) by mouth three times a day as needed.30 Capsule 0 cholecalciferol (VITAMIN D3) 1.25 MG (52013 UT) capsule Take 1 Capsule (50,000 Units) by mouth onceevery week for 12 doses. 12 Capsule 0 guaiFENesin-codeine (ROBITUSSINAC) 100-10 MG/5ML solution Take 10 mL by mouth at bedtime as needed.120 mL 0 predniSONE (DELTASONE) 10 MG tablet Take 3 tabs daily for 3 days, 2 tabs daily for 3 days, 1 tab daily for 3 days. 18 Tablet 0 No facility-administered medications prior to visit. OBJECTIVE: Vital Signs: BP (!) 179/104 (BP Location: Left Arm, BP Cuff Size: Large) Pulse 66 Wt 86.8 kg (191 lb 6.4 oz) BMI 30.89 kg/m?? General: Patient alert, in NAD. Eyes: PERRLA. HEENT: Bilateral TM's, external canals Neck: Supple, without thyroid tenderness or enlargement, nodules. CV: RRR without murmurs, rubs or gallops. Resp: Clear to auscultation without crackles, wheezes or distress. Skin: normal breast and axilla skin Breast: bilateral breast exam normal, nontender. LN - no axillary LA noted Abdomen: Soft, non-tender, without hepatosplenomegaly, masses, or hernias. Extremities: No edema, gait normal Neuro: Alert and oriented Psychiatric: Normal mood reported and affect. No SI ASSESSMENT: Encounter Diagnoses Name Primary? Routine physical examination Yes Zhao's esophagus without dysplasia History of Claire-en-Y gastric bypass Major depressive disorder, recurrent episode, in full remission (HRC) Essential hypertension (HRC) NAFLD (nonalcoholic fatty liver disease) (HRC) Liver fibrosis SUSANA (generalized anxiety disorder) (HRC) Gastroesophageal reflux disease without esophagitis Screening for colon cancer Screening for osteoporosis Estrogen deficiency (HRC) Encounter for screening mammogram for malignant neoplasm of breast Restless leg syndrome Mixed hyperlipidemia (HRC) Vitamin B12 deficiency Vitamin B6 deficiency (HRC) Vitamin D deficiency (HRC) ASSESSMENT/PLAN: See patient instructions below for further details. 1) Health maintanence - See HPI for prior screening exams and next due. Screening labs/studies and plan as outlined below. OV in addition to WELL Exam - Chief complaint: med check HPI Resolved DMII - controlled s/p claire en Y. Seen with labs once annually ORTIZ with liver fibrosis - GI visit 07/2020 I would check her liver enzymes at least once per yearand perhaps liver imaging every 3-5 years. Certainly if she had evidence for increasing LFTs or worsening fibrosis we would see her back. HTN - 12/2022 ACEi stopped due to angioedema and hives, changed to losartan 100 mg Denies NOWAK, CP, edema, vision changes, UOP stable - edema from amlodipine Claire en Y - secondary HPT - Resumed calcium, vit D, B12 injections, PO B6 resumed last visit. Hyperlipidemia statin, no new myalgias ALICIA - iron supp recommended Depression - well controlled on venlafaxine 187.5 mg daily (150 + 37.5) Insomnia - trazodone 50 mg qhs prn Migraines - imitrex prn, topamax Qhs RLS - requip GERD - controlled on PPI 20 + pepcid BID - DUE to baretts due EGD 07/2023. Due colonoscopy - discussed/ordered. B6 def - resumed 3 months ago, repeat level pending. ROS: complete as above Exam: as above Assessment/Plan All chronic medical conditions below reviewed, see details in HPI - labs for monitoring as ordered below, medications refilled, chronic conditions stable, unless noted - changes as outlined below in patient instructions. >2 chronic conditions and Rx management. DUE EGD for barrettts. If Wegovy affordable ([facility] states $60) VV in 2 weeks to discuss in detail, benefits/risks. Attention at follow up - 1) repeat liver imaging for fibrosis, MRI elastography. 2) weight recheck GLP1 3) HTN recheck on HCTZ, repeat labs and nurse visit day prior to video visit.- strong suspicion with 30# weight gain that her very mild RAFIA is likely contributing to significant BP elevation and excessive daytime fatigue. Tt 51 min. In addition to Well/Physical exam, Total time >40 minutes spent reviewing records, lab results, performing exam and preparing plan of care. Patient Instructions Recommended 150 minutes of aerobic exercise per week + 40 min weekly of strengthening Goal 1200 mg daily TOTAL of calcium in diet per day - preferred from food sources. If taking Calcium supplement >600 mg, should be split into two doses at different times of day to improve absorption, and taken with food. Vitamin D 2000 units daily Continue all other vitamin supplements - including B6 - level pending. Please call [phone] to schedule your mammogram Please call [phone] to schedule your DEXA (bone scan to screen for osteoporosis) Please call [phone] to schedule your colonoscopy AND EGD to monitor Zhao's Patient Counseling: --Nutrition: Limit to in moderation in sodium/caffeine intake, saturated fat and cholesterol, caloric balance, sufficient intake of fresh fruits, vegetables, and fiber. --Exercise: regular exercise - 30 minutes minimum per day --Weight reduction to healthy BMI of less than 25 if BMI elevated. --Substance Abuse: no more than 1 or 2 alcoholic beverages per day and avoid driving or other dangerous activities under the influence; If you smoke, cessation of tobacco use is recommended. --Sexuality: condoms recommended unless in monogamous relationship to prevent STD. --Injury prevention: daily use of safety belts, safety helmets, smoke detector check in home every 6 months. --Dental health: daily tooth brushing, flossing, and dental visits every 6 months - 1 year. Follow up in one year or as recommended by your provider. Nel was seen today for follow-up and routine health maintenance. Diagnoses and all orders for this visit: Routine physical examination Zhao's esophagus without dysplasia - EGD; Future History of Claire-en-Y gastric bypass Major depressive disorder, recurrent episode, in full remission (HRC) Essential hypertension (HRC) - Electrolyte Panel; Future - Creatinine / GFR; Future - hydroCHLOROthiazide (ORETIC) 25 MG tablet; Take 1 Tablet (25 mg) by mouth daily. NAFLD (nonalcoholic fatty liver disease) (HRC) Liver fibrosis SUSANA (generalized anxiety disorder) (HRC) Gastroesophageal reflux disease without esophagitis Screening for colon cancer - Endoscopy, Colon, Screening/Diagnostic; Future Screening for osteoporosis - DXA Bone Density Spine/Hip; Future Estrogen deficiency (HRC) - DXA Bone Density Spine/Hip; Future Encounter for screening mammogram for malignant neoplasm of breast - MM Mammogram Screening Bilat W CAD; Future Restless leg syndrome Mixed hyperlipidemia (HRC) Vitamin B12 deficiency Vitamin B6 deficiency (HRC) Vitamin D deficiency (HRC) Other orders - PCV20 ([id number]) - HepB Adult (Engerix-B, 20+ yrs, 3 dose series) - semaglutide-weight management (WEGOVY) 0.25 MG/0.5ML pen injection; Inject 0.5 mL (0.25 mg) subcutaneously once a week for 4 doses. The patient was discharged ambulatory and in stable condition and agreed with the above plan. Viki Sauer MD documented in this encounter Plan of Treatment Upcoming Encounters Date Type Department Care Team Description 01/14/2024 12:30 PM COAGULANT DIPPER Appointment [facility] [address] [place], [place] [address] [place] [address] [place] [address] 03/02/2024 3:30 PM CDT Telemedicine [facility] [address] [facility] [address] [place], [place] [address] Delia Diallo PA-C [address] [place] [address] Scheduled Orders Name Type Priority Associated Diagnoses Orde r Schedule MM Mammogram Screening Bilat W CAD Imaging New Routine Encounter for screening mammogram for malignant neoplasm of breast Expected: 04/08/2023 (Approximate), Expires: 04/07/2024 documented as of this encounter Results * Endoscopy, Colon, Screening/Diagnostic (10/05/2023 2:20 PM COAGULANT DIPPER) 10/05/2023 2:20 PM COAGULANT DIPPER Narrative PN PROVATION - 10/05/2023 2:20 PM COAGULANT DIPPER Patient Name: Nel Pearl Procedure Date: 10/05/2023 2:20 PM Date of : 1965 Admit Type: Outpatient Age: 58 Gender: Female Note Status: Finalized Attending MD: Valentin Garcia MD, Procedure: ? Colonoscopy Indications: ? Screening for colorectal malignant ? neoplasm, Last colonoscopy: ? October 2012 Providers: ? Valentin Garcia MD, Arely Horowitz ? Brianda Appiah MD: ?Viki Sauer Medicines: ? Fentanyl 50 micrograms [...] saturations were ? monitored continuously. The ? [id number] was introduced through ? the anus and [...] (additional time may ? be reported with [address]60, as ? appropriate) Diagnosis Code(s): ? --- Professional --- ? Z12.11, Encounter for screening for ? malignant neoplasm of colon CPT copyright 2021 [employer]. All rights reserved. The codes documented in this report are preliminary and upon restuarant crew worker review may be revised to meet current compliance requirements. Valentin Garcia MD 10/05/2023 2:42:22 PM This document has been electronically signed. Number of Addenda: 0 Note Initiated On: 10/05/2023 2:20 PM ? Endoscopy Report Procedure Note Valentin Garcai MD - 10/05/2023 Patient Name: Nel Pearl Procedure Date: 10/05/2023 2:20 PM Date of : 1965 Admit Type: Outpatient Age: 58 Gender: Female Note Status: Finalized Attending MD: Valentin Garcia MD, Procedure: Colonoscopy Indications: Screening for colorectal malignant neoplasm, Last colonoscopy: October 2012 Providers: Valentin Garcia MD, Arely Appiah MD: Viki Sauer Medicines: Fentanyl 50 micrograms IV, Midazolam 1 mg IV, Note: Residual sedation (2/100) present from immediate prior EGD. Complications: No immediate complications. Procedure: After I obtained informed consent, the scope was passed under direct vision. Throughout the procedure, the patient's blood pressure, pulse, and oxygen saturations were monitored continuously. The [id number] was introduced through the anus and advanced [...] the same physician or other qualified health resident care coordinator performing a gastrointestinal endoscopic service that sedation supports, requiring the presence of an independent trained observer to assist in the monitoring of the patient's level of consciousness and physiological status; initial 15 minutes of intra-service time; patient age 5 years or older (additional time may be reported with 65246, as appropriate) Diagnosis Code(s): --- Professional --- Z12.11, Encounter for screening for malignant neoplasm of colon CPT copyright 2021 [employer]. All rights reserved. The codes documented in this report are preliminary and upon restuarant crew worker review may be revised to meet current compliance requirements. Valentin Garcia MD 10/05/2023 2:42:22 PM This document has been electronically signed. Number of Addenda: 0 Note Initiated On: 10/05/2023 2:20 PM Endoscopy Report Viki Sauer MD PN GI PROCEDURE ORDNazia VALDIVIA PN PROVATION * EGD (10/05/2023 1:54 PM COAGULANT DIPPER) 10/05/2023 1:54 PM COAGULANT DIPPER Narrative PN PROVATION - 10/05/2023 1:54 PM COAGULANT DIPPER Patient Name: Nel Pearl Procedure Date: 10/05/2023 [...] were monitored ? continuously. The flexible ? [id number] was introduced through ? the mouth, and [...] Procedure Code(s): ? --- Professional --- ? 03931, Esophagogastroduodenoscopy, ? flexible, transoral; diagnostic, ? including collection of specimen(s) ? by brushing or washing, when ? performed (separate procedure) Diagnosis Code(s): ? --- Professional --- ? K22.70, Zhao's esophagus without ? dysplasia ? Z98.84, Bariatric surgery status CPT copyright 2021 [employer]. All rights reserved. The codes documented in this report are preliminary and upon restuarant crew worker review may be revised to meet current [...] oxygen saturations were monitored continuously. The flexible [id number] was introduced through the mouth, and advanced [...] colonoscopy today. Procedure Code(s): --- Professional --- 30823, Esophagogastroduodenoscopy, flexible, transoral; diagnostic, including collection of specimen(s) by brushing or washing, when performed (separate procedure) Diagnosis Code(s): --- Professional --- K22.70, Zhao's esophagus without dysplasia Z98.84, Bariatric surgery status CPT copyright 2021 [employer]. All rights reserved. The codes documented in this report are preliminary and upon restuarant crew worker review may be revised to meet current compliance requirements. Valentin Garcia MD 10/05/2023 2:20:26 PM This document has been electronically signed. Number of Addenda: 0 Note Initiated On: 10/05/2023 1:54 PM Endoscopy Report Viki Sauer MD GI PROCEDURE ORDE RABLES PN PROVATION * DXA Bone Density Spine/Hip (07/14/2023 4:28 [...] not included. Patient Name: Nel Pearl Densitometer: The Rounds W Appt Dept/Resource: [facility] Bone Density SOL[facility]IO [...] trabecular bone, and is derived from the apeai-on-rfmeg changes of bone density embedded in the [...] scores. ?? Viki Sauer MD RAD DEXA * (ABNORMAL) Creatinine / GFR (04/20/2023 4:01 PM CDT) Creatinine 1.03(H) 0.55 - 1.02 mg/dL 04/20/2023 6:52 PM CDT [facility] GFR, Estimated >60 >60 mL/min/1. 73m2 04/20/2023 6:52 PM CDT [facility] Blood Venipuncture / Unknown 04/20/2023 4:01 PM CDT 04/20/2023 4:01 PM CDT Viki Sauer MD LAB_1 Performing Organization Address City/State/[facility] Co de Phone Number [facility] [address] [phone] * (ABNORMAL) Electrolyte Panel (04/20/2023 4:01 PM CDT) Sodium 138 136 - 145 mmol/L 04/20/2023 6:52 PM CDT [facility] Potassium 3.2(L) 3.5 - 5.1 mmol/L 04/20/2023 6:52 PM CDT [facility] Chloride 101 98 - 109 mmol/L 04/20/2023 6:52 PM CDT [facility] CO2 26 20 - 29 mmol/L 04/20/2023 6:52 PM CDT [facility] Anion Gap 11 7 - 16 mmol/L 04/20/2023 6:52 PM CDT [facility] Blood Venipuncture / Unknown 04/20/2023 4:01 PM CDT 04/20/2023 4:01 PM CDT Viki Sauer MD LAB_1 [facility] [address] [phone] documented in this encounter Visit Diagnoses Diagnosis Routine physical examination- Primary Routine general medical examination at a [facility] care facility Zhao's esophagus without dysplasia Zhao's esophagus History of Claire-en-Y gastric bypass Bariatric surgery status Major depressive disorder, recurrent episode, in full remission (HRC) Major depressive disorder, recurrent episode, in full remission Essential hypertension (HRC) Unspecified essential hypertension NAFLD (nonalcoholic fatty liver disease) (HRC) Other chronic nonalcoholic liver disease Liver fibrosis Cirrhosis of liver without mention of alcohol SUSANA (generalized anxiety disorder) (HRC) Generalized anxiety disorder Gastroesophageal reflux disease without esophagitis Esophageal reflux Screening for colon cancer Special screening for malignant neoplasms, colon Screening for osteoporosis Special screening for osteoporosis Estrogen deficiency (HRC) Other ovarian failure Encounter for screening mammogram for malignant neoplasm of breast Other screening mammogram Restless leg syndrome Restless legs syndrome (RLS) Mixed hyperlipidemia (HRC) Mixed hyperlipidemia Vitamin B12 deficiency Other B-complex deficiencies Vitamin B6 deficiency (HRC) Vitamin B6 deficiency Vitamin D deficiency (HRC) Unspecified vitamin D deficiency Screening for osteoporosis Special screening for osteoporosis Estrogen deficiency (HRC) Other ovarian failure Zhao's esophagus without dysplasia Zhao's esophagus Screening for colon cancer Special screening for malignant neoplasms, colon documented in this encounter Care Teams Film Developer Relationship Specialty [place] [address] [place] [address] PCP - General Internal Medicine 05/03/20 documented as of this encounter
--- OUTSIDE RECORDS SUMMARY | 2023-12-14 14:13 | XMS_ITS | Encounter Summary ---
Author Name Unknown Organization [facility] Address [address], [place] [address] Care Team Providers Care Trimmer And Borer Machine Operator Name Role Phone Viki Sauer MD Primary Care Provider Reason for Referral * Consult/Transfer Care (Routine) - Closed Specialty Diagnoses / Procedures Referred By Lis nichole Referred To Contact Diagnoses Essential hypertension (HRC) RAFIA (obstructive sleep apnea) History of [place]-en-[place] [address] [place] [address] Referral ID Status Reason Start Date Expiration Date Visits Re quested Visits Authorized [id number] Closed 04/21/2023 07/20/2024 1 1 Scheduling Instructions Your clinician has recommended an appointment with [facility] Services. This is not a sleep study order and must first be reviewed by a sleep specialist to determine the next steps. The review process looks at multiple factors including your insurance requirements, personal health history, and [place] [employer] guidelines. This order will be reviewed within 1 business day and sent to scheduling for one of the following appointments: - Consultation/Office Visit with a Sleep Medicine Specialist - Consultation/Office Visit with an Insomnia Specialist - Portable/Home Sleep Test If you do not hear from our scheduling staff within the next 7 days, please contact us at [phone] and select option 1. Question Answer Appointment Urgency Non-Urgent Sleep Service Requested Sleep Test Other Pertinent History Poorly Controlled Hypertension Comments Comments: Age/Sex: 57 y.o. / female Height: 12/30/22 : 1.676 m (5' 6) Weight: 04/08/23 : 86.8 kg (191 lb 6.4 oz) BMI: Estimated body mass index is 30.89 kg/m?? as calculated from the following: Height as of 12/30/22: 1.676 m (5' 6). Weight as of 04/08/23: 86.8 kg (191 lb 6.4 oz). Reason for Visit * Reason Comments Follow-up HTN Encounter Details Date Type Department Care Team Description 04/21/2023 3:00 PM CDT Telemedicine [facility] [address] [place] [address] [place] [address] [place] [address] Essential hypertension (HRC) (Primary Dx); RAFIA (obstructive sleep apnea); History of Claire-en-Y gastric bypass; Zhao's esophagus without dysplasia; Obesity, Class I, BMI 30-34.9 (HRC) Social History Tobacco Use Types Packs/Day [...] * Patient Instructions* Viki Sauer MD - 04/21/2023 3:00 PM CDT 1) I recommend sleep study for evaluation for possible sleep apnea. Please call for the sleep [phone] to set up your appointment. 2) add amlodipine 5 mg daily in evening. 3) nurse BP check in 1 month - An appointment can be scheduled with the injection nurse at [phone] for future blood pressure checks (free of charge) and immunizations. 4) repeat labs in 1 month - Please call [phone] to schedule your lab appointment Or schedule online at [employer] Some foods that are high in potassium Fruits Vegetables Proteins Other Avocado Artichokes Black beans Chocolate Bananas Baked beans Clams Dairy products Coconut Beets Ground beef Granola Cantaloupe and honeydew melons Broccoli Kidney beans Milk Dates Tipton sprouts Lobster Peanut butter Dried fruits Cabbage (raw) [place] beans Soups that are salt-free or low-sodium Figs Carrots (raw) Samaniego beans Soy milk Kiwi Chard Alexis Sports drinks Alexandre Olives Sardines Tomato sauce Nectarines Potatoes (white and sweet) Scallops Wheat bran and bran products Oranges and orange juice Pickles Steak Whole-grain bread Prunes and prune juice Pumpkin Keene Yogurt Raisins Rutabaga Squash (acorn, butternut, solitaroi) Tomatoes and tomato juice Graphic 82434 Version 1.0 documented in this encounter Progress Notes * Viki Sauer MD - 04/21/2023 3:00 PM CDT IM VIDEO Visit Chief Complaint: Chief Complaint Patient presents with Follow-up HTN Subjective: Today's visit with Nel Pearl was conducted as a scheduled VIDEO visit. ACEi stopped due to angioedema, hives - resolved Changed to losartan 100 mg with BP uncontrolled. 03/2023 HCTZ 25 mg started - mild hypoK 3.2 and Cr up slightly to 1.03. no changes in urination. Amlodipine 10 mg caused edema. 06/2022 decreased to 5 mg, she reported edema persisted. Home BP Estimated body mass index is 30.89 kg/m?? as calculated from the following: Height as of 12/30/22: 1.676 m (5' 6). Weight as of 04/08/23: 86.8 kg (191 lb 6.4 oz). ROS: Negative as per HPI Objective: General : No acute distress Neuro: Alert and oriented Psych: normal affect Health Maintenance Due Topic Date Due Diabetes: Eye Exam 01/01/2015 Colonoscopy 11/12/2022 Dexa 02/05/2023 BP Readings from Last 1 Encounters: 04/08/23 (!) 179/104 Assessment/Plan: Nel Pearl was seen today for follow-up and Video visit. Assessment/Plan RN BP check is scheduled for tomorrow BP improved from 179/104 --> home reporrted 131/92. Pending tomorrow nurse check, if still high would add very low dose amlodipine 2.5 - 5 mg (10 mg caused edema, now on HCTZ to hopefully counteract to some degree) RAFIA suspected with weight up again - asked to schedule home sleep test. Obesity treatment Current BMI Estimated body mass index is 30.89 kg/m?? as calculated from the following: Height as of 12/30/22: 1.676 m (5' 6). Weight as of 04/08/23: 86.8 kg (191 lb 6.4 oz).. She is interested in treatment with GLP1 - will check with pharmacy/insurance RE semaglutide coverage, we discussed FDA approved Wegovy vs other GLP use off label. Rx was sent for 0.25 mg x 4 weeks then titration up to 0.5 mg. Denies h/o pancreatitis or FHx MEN1/2 or FHx medullary thyroid cancer. Discussed common risks of GI SE, including diarrhea, constipation, nausea. Ramp up to 1 mg over next couple months, f/u in 2.5 months to discuss tolerance and further titration. Nel was seen today for follow-up. Diagnoses and all orders for this visit: Essential hypertension (HRC) - amLODIPine (NORVASC) 5 MG tablet; Take 1 Tablet (5 mg) by mouth daily. - Basic Metabolic Panel; Future - Sleep Services RAFIA (obstructive sleep apnea) - Sleep Services History of Claire-en-Y gastric bypass - Sleep Services Zhao's esophagus without dysplasia Obesity, Class I, BMI 30-34.9 (HRC) - semaglutide-weight management (WEGOVY) 0.5 MG/0.5ML pen injection; Inject 0.5 mL (0.5 mg) subcutaneously once a week for 4 doses. Do not start before May 19, 2023. - semaglutide-weight management (WEGOVY) 1 MG/0.5ML pen injection; Inject 0.5 mL (1 mg) subcutaneously once a week for 4 doses. Do not start before June 16, 2023. Disposition Home Care, with routine follow up in 2.5 video month, sooner prn for new or worsening symptoms. Patient Instructions 1) I recommend sleep study for evaluation for possible sleep apnea. Please call for the sleep [phone] to set up your appointment. 2) add amlodipine 5 mg daily in evening. 3) nurse BP check in 1 month - An appointment can be scheduled with the injection nurse at [phone] for future blood pressure checks (free of charge) and immunizations. 4) repeat labs in 1 month - Please call [phone] to schedule your lab appointment Or schedule online at [employer] Some foods that are high in potassium Fruits Vegetables Proteins Other Avocado Artichokes Black beans Chocolate Bananas Baked beans Clams Dairy products Coconut Beets Ground beef Granola Cantaloupe and honeydew melons Broccoli Kidney beans Milk Dates Tipton sprouts Lobster Peanut butter Dried fruits Cabbage (raw) [place]wood beans Soups that are salt-free or low-sodium Figs Carrots (raw) Samaniego beans Soy milk Kiwi Chard Alexis Sports drinks [place] Olives Sardines Tomato sauce Nectarines Potatoes (white and sweet) Scallops Wheat bran and bran products Oranges and orange juice Pickles Steak Whole-grain bread Prunes and prune juice Pumpkin Keene Yogurt Raisins Rutabaga Squash (acorn, butternut, solitario) Tomatoes and tomato juice Graphic 15468 Version 1.0 This visit was conducted via video. Location of clinician home. Location of patient home. Billing based on: Time Total time 34 minutes spent reviewing records, lab results, performing exam and preparing plan of care. Viki Sauer MD documented in this encounter Plan of Treatment Upcoming Encounters Date Type Department Care Team Description 01/14/2024 12:30 PM IMPROVEMENT NURSE Appointment [facility] [address] [facility] [place] [address] [place] [address] [place] [address] 03/02/2024 3:30 PM CDT Telemedicine [facility] [address] [facility] [address] [place], [place] [address] Delia Diallo PA-C [address] [place], [place] [address] Scheduled Referrals Name Type Priority Associated Diagnoses Orde r Schedule Sleep Services Referral Routine Essential hypertension (HRC) RAFIA (obstructive sleep apnea) History of Claire-en-Y gastric bypass Ordered: 04/21/2023 documented as of this encounter Results * Basic Metabolic Panel (07/14/2023 4:43 PM CDT) Sodium 141 136 - 145 mmol/L 07/14/2023 6:00 PM [facility] Potassium 3.7 3.5 - 5.1 mmol/L 07/14/2023 6:00 PM [facility] Chloride 104 98 - 109 mmol/L 07/14/2023 6:00 PM [facility] CO2 26 20 - 29 mmol/L 07/14/2023 6:00 PM [facility] Anion Gap 11 7 - 16 mmol/L 07/14/2023 6:00 PM [facility] Calcium 9.3 8.4 - 10.4 mg/dL 07/14/2023 6:00 PM [facility] BUN 14 7 - 26 mg/dL 07/14/2023 6:00 PM [facility] Creatinine 1.00 0.55 - 1.02 mg/dL 07/14/2023 6:00 PM [facility] Glucose 86 70 - 100 mg/dL 07/14/2023 6:00 PM [facility] Comment:The given reference range is for the fasting state. Non-fasting reference range for glucose is 70 - 180 mg/dL. GFR, Estimated >60 >60 mL/min/1.7 3m2 07/14/2023 6:00 PM [facility] Hours Fasting 0.1 8 - 12 Hours 07/14/2023 6:00 PM [facility] Comment:Lab unable to obtain patient's fasting status at time of specimen collection. Blood Venipuncture / Unknown 07/14/2023 4:43 PM CDT 07/14/2023 4:43 PM CDT Viki Sauer MD LAB_1 [facility] [address] [place] [address], [facility] [phone] documented in this encounter Visit Diagnoses Diagnosis Essential hypertension (HRC)- Primary Unspecified essential hypertension RAFIA (obstructive sleep apnea) Obstructive sleep apnea (adult) (pediatric) History of Claire-en-Y gastric bypass Bariatric surgery status Zhao's esophagus without dysplasia Zhao's esophagus Obesity, Class I, BMI 30-34.9 (HRC) Obesity, unspecified documented in this encounter Care Teams Trimmer And Borer Machine Operator Relationship Specialty [place] [address] [facility] [place] [address] PCP - General Internal Medicine 05/03/20 documented as of this encounter
--- OUTSIDE RECORDS SUMMARY | 2023-12-14 14:13 | XMS_ITS | Encounter Summary ---
Author Name Unknown Organization [facility] Address [address] [address] Care Team Providers Care Supervisor Telephone Information Name Role Phone Viki Sauer MD Primary Care Provider [phone] Reason for Visit * Reason Comments BLOOD PRESSURE CHECK Encounter Details Date Type Department Care Team Description 04/22/2023 2:45 PM CDT Nursing Visit [facility] Department [address] [place] [id number] Essential hypertension (HRC) (Primary Dx) Social History Tobacco Use Types [...] Sign Reading Time Taken Comments Blood Pressure 145/90 04/22/2023 2:58 PM CDT Pulse 68 04/22/2023 2:58 PM CDT Temperature - - Respiratory Rate - - Oxygen Saturation - - Inhaled Oxygen Concentration - - Weight - - Height - - Body Mass Index - - documented in this encounter Progress Notes * Celia Medina LPN - 04/22/2023 2:45 PM CDT Nel in clinic for a blood pressure check. Blood pressure medications: currently prescribed and taking blood pressure medication(s) Blood Pressure from current encounter: BP: (!) 154/87, BP Method: Automatic single , BP: (!) 145/90, BP Method: Automatic average Blood Pressure Results: BP Readings from Last 4 Encounters: 04/22/23 (!) 145/90 04/08/23 (!) 179/104 01/19/23 (!) 159/62 12/04/22 (!) 158/81 Follow Up BP Guidelines: Patient instructed on follow up recommendations BP 140-159/90-99 Recheck BP within 2-4 weeks. If next BP not improved, schedule a Clinician visit within 1 month. Does patient have a digital home blood pressure monitor with upper arm cuff? Yes documented in this encounter Plan of Treatment Upcoming Encounters Date Type Department Care Team Description 01/14/2024 12:30 PM TRAFFIC LAW ATTORNEY Appointment [facility] [address] [place] [address] [place] [address] [place] [address] 03/02/2024 3:30 PM CDT Telemedicine [facility] [address] [facility] [address] [place] [address] Delia Diallo PA-C [address] [place] [address] documented as of this encounter Visit Diagnoses Diagnosis Essential hypertension (HRC)- Primary Unspecified essential hypertension documented in this encounter Care Teams Supervisor Telephone Information Relationship Specialty [place] [address] [place] [address] PCP - General Internal Medicine 05/03/20 documented as of this encounter
--- OUTSIDE RECORDS SUMMARY | 2023-12-14 14:13 | XMS_ITS | Encounter Summary ---
Author Name Unknown Organization [facility] Address [address], [place] [address] Care Team Providers Care Development Vice President Name Role Phone Viki Sauer MD Primary Care Provider Reason for Visit * Reason Comments BP READING Encounter Details Date Type Department Care Team Description 04/22/[address] [address] [place] [address] [place] [address] BP READING Social History Tobacco Use Types Packs/Day Years [...] as of this encounter Nursing Notes * Viki Sauer MD - 04/22/2023 3:47 PM CDT Please call - BP high, please add amlodipine 2.5 mg daily or 1/2 tab of the amlodipine. Monitor BP,if > 140 or >90 then increase to full 5 mg tab daily and recheck BP with nurse in 4 weeks * Celia Medina LPN - 04/22/2023 3:11 PM CDT Nel in clinic for a [...] Department Care Team Description 01/14/2024 12:30 PM COMPUTER CLERK Appointment [facility] [address] [place], [place] [address] [place] [address] [place] [address] 03/02/2024 3:30 PM CDT Telemedicine [facility] [address] [facility] [address] [place], [place] [address] Delia Diallo PA-C [address] [place] [address] documented as of this encounter Visit Diagnoses Not on filedocumented in this encounter Care Teams Development Vice President Relationship Specialty [place] [address] [place], [place] [address] PCP - General Internal Medicine 05/03/20 documented as of this encounter
--- OUTSIDE RECORDS SUMMARY | 2023-12-14 14:13 | XMS_ITS | Encounter Summary ---
Author Name Unknown Organization [facility] Address [address] [address] Care Team Providers Care Fender Mechanic Name Role Phone Viki Sauer MD Primary Care Provider [phone] Encounter Details Date Type Department Care Team Description 04/20/2023 4:10 PM CDT Lab Visit [facility] [address] [place], [place] [id number] Essential hypertension (HRC) Social History Tobacco Use [...] Care Team Description 01/14/2024 12:30 PM MANAGER INVESTMENT Appointment [facility] [address] [place], [place] [address] [place] [address] [place] [address] 03/02/2024 3:30 PM CDT Telemedicine [facility] [address] [facility] [address] [place] [address] Delia Diallo PA-C [address] [place] [address] documented as of this encounter Procedures Procedure Name Priority Date/Time Associated Diagnosis Comments CREATININE / GFR Routine 04/20/2023 4:01 PM CDT Essential hypertension (HRC) ELECTROLYTE PANEL Routine 04/20/2023 4:0 1 PM CDT Essential hypertension (HRC) documented in this encounter Results * (ABNORMAL) Creatinine / GFR (04/20/2023 4:01 PM CDT) Creatinine 1.03(H) 0.55 - 1.02 mg/dL 04/20/2023 6:52 PM CDT [facility] GFR, Estimated >60 >60 mL/min/1. 73m2 04/20/2023 6:52 PM CDT [facility] Blood Venipuncture / Unknown 04/20/2023 4:01 PM CDT 04/20/2023 4:01 PM CDT Viki Sauer MD LAB_1 [facility] [address] [phone] * (ABNORMAL) Electrolyte Panel (04/20/2023 4:01 PM CDT) Sodium 138 136 - 145 mmol/L 04/20/2023 6:52 PM CDT [facility] Potassium 3.2(L) 3.5 - 5.1 mmol/L 04/20/2023 6:52 PM CDT [facility] Chloride 101 98 - 109 mmol/L 04/20/2023 6:52 PM CDT [facility] CO2 26 20 - 29 mmol/L 04/20/2023 6:52 PM CDT [facility] Anion Gap 11 7 - 16 mmol/L 04/20/2023 6:52 PM CDT [facility] Blood Venipuncture / Unknown 04/20/2023 4:01 PM CDT 04/20/2023 4:01 PM CDT Viki Sauer MD LAB_1 Performing Organization Address City/State/[facility] Co de Phone Number [facility] [address] [place] [id number] [phone] documented in this encounter Visit Diagnoses Diagnosis Essential hypertension (HRC) Unspecified essential hypertension documented in this encounter Care Teams Fender Mechanic Relationship Specialty [place] [address] [place] [address] PCP - General Internal Medicine 05/03/20 documented as of this encounter
--- OUTSIDE RECORDS SUMMARY | 2023-12-14 14:13 | XMS_ITS | Encounter Summary ---
Author Name Unknown Organization [facility] Address [address], [place] [address] Care Team Providers Care Plaster Patternmaker Name Role Phone Viki Sauer MD Primary Care Provider [phone] Reason for Visit * Reason Comments BLOOD PRESSURE CHECK Encounter Details Date Type Department Care Team Description 01/19/2023 3:45 PM STOVE INSTALLER Nursing Visit [facility] Department [id number] [place] [address] Essential hypertension (Primary Dx) Social History Tobacco Use Types [...] PHQ-2 Answer Date Recorded PHQ-2 Score 1 12/30/2022 Sex and Gender Information Value Date Recorded Sex Assigned at Not on file Gender Identity Not on file Sexual Orientation Not on file documented as of this encounter Last Filed Vital Signs Vital Sign Reading Time Taken Comments Blood Pressure 159/62 01/19/2023 3:56 PM STOVE INSTALLER Pulse 69 01/19/2023 3:56 PM STOVE INSTALLER Temperature - - Respiratory Rate - - Oxygen Saturation - - Inhaled Oxygen Concentration - - Weight - - Height - - Body Mass Index - - documented in this encounter Progress Notes * Celia Medina LPN - 01/19/2023 3:45 PM CST Nel in clinic for a blood pressure check. Blood pressure medications: currently prescribed and taking blood pressure medication(s) Blood Pressure from current encounter: BP: (!) 163/92, BP Method: Automatic single , BP: (!) 159/62, BP Method: Automatic average Blood Pressure Results: BP Readings from Last 4 Encounters: 01/19/23 (!) 159/62 12/04/22 (!) 158/81 10/27/22 129/89 06/23/22 131/86 Follow Up BP Guidelines: Patient instructed on follow up recommendations BP 140-159/90-99 Recheck BP within 2-4 weeks. If next BP not improved, schedule a Clinician visit within 1 month. Patient agrees to schedule bp check with nurse in 1-2 weeks. She will bring home monitor to compare with clinic readings. Patient denies having any symptoms of elevated bp. Does patient have a digital home blood pressure monitor with upper arm cuff? Yes E INSTALLER documented in this encounter Plan of Treatment Upcoming Encounters Date Type Department Care Team Description 01/14/2024 12:30 PM STOVE INSTALLER Appointment [facility] [address] [place], [place] [address] [place] [address] [place] [address] 03/02/2024 3:30 PM CDT Telemedicine [facility] [address] [facility] [address] [place] [address] Delia Diallo PA-C [address] [place], [place] [address] documented as of this encounter Visit Diagnoses Diagnosis Essential hypertension (HRC)- Primary Unspecified essential hypertension documented in this encounter Care Teams Plaster Patternmaker Relationship Specialty [place] [address] [address] [place] [address] PCP - General Internal Medicine 05/03/20 documented as of this encounter
--- OUTSIDE RECORDS SUMMARY | 2023-12-14 14:13 | XMS_ITS | Encounter Summary ---
Author Name Unknown Organization [facility] Address [address], [place] [address] Care Team Providers Care Corporate Human Resources Manager Name Role Phone Viki Sauer MD Primary Care Provider [phone] Encounter Details Date Type Department Care Team Description 01/20/2023 3:50 PM MIDDLEWARE DEVELOPER Lab Visit [facility] [id number] [place] [phone] History of diabetes mellitus; Need for hepatitis C screening test; Recurrent urticaria; Mixed hyperlipidemia; Angioedema of lips, subsequent encounter; Vitamin B12 deficiency; Vitamin B6 deficiency; Vitamin D deficiency; Status post bariatric surgery Social History Tobacco Use Types Packs/Day Years [...] Department Care Team Description 01/14/2024 12:30 PM MIDDLEWARE DEVELOPER Appointment [facility] [address] [place] [address] Viki Sauer MD [address] [place] [address] [place] [address] 03/02/2024 3:30 PM CDT Telemedicine [facility] [address] [facility] [address] [place], [place] [address] Delia Diallo PA-C [address] [place], [place] [phone] documented as of this encounter Procedures Procedure Name Priority Date/Time Associated Diagnosis Comments ALBUMIN/CREAT RATIO Routine 01/20/2023 3 :43 PM MIDDLEWARE DEVELOPER History of diabetes mellitus CBC AND DIFFERENTIAL PANEL Routine 01/20/2023 3:38 PM MIDDLEWARE DEVELOPER Recurrent urticaria Angioedema of lips, subsequent encounter VITAMIN B6 (8HR FAST RECOMMENDED) Routine 01/20/2023 3:38 PM MIDDLEWARE DEVELOPER Vitamin B6 deficiency LIPID PANEL & DIRECT LDL (IF NEEDED) Routine 01/20/2023 3:38 PM MIDDLEWARE DEVELOPER Mixed hyperlipidemia VITAMIN D 25-HYDROXY, TOTAL Routine 01/20/2023 3:38 PM MIDDLEWARE DEVELOPER Vitamin D deficiency Status post bariatric surgery COMPLETE BLOOD COUNT-W/DIFF Routine 01/20/2023 3:38 PM MIDDLEWARE DEVELOPER Recurrent urticaria Angioedema of lips, subsequent encounter COMPREHENSIVE METABOLIC PANEL Routine 01/20/2023 3:38 PM MIDDLEWARE DEVELOPER Recurrent urticaria TSH, SENSITIVE Routine 01/20/2023 3:38 PM MIDDLEWARE DEVELOPER Angioedema of lips, subsequent encounter HEPATITIS C ANTIBODY, WITH REFLEX Routine 01/20/2023 3:38 PM MIDDLEWARE DEVELOPER Need for hepatitis C screening test C4 COMPLEMENT Routine 01/20/2023 3:38 PM MIDDLEWARE DEVELOPER Recurrent urticaria Angioedema of lips, subsequent encounter C3 COMPLEMENT Routine 01/20/2023 3:38 PM MIDDLEWARE DEVELOPER Recurrent urticaria Angioedema of lips, subsequent encounter C-REACTIVE PROTEIN Routine 01/20/2023 3: 38 PM MIDDLEWARE DEVELOPER Recurrent urticaria Angioedema of lips, subsequent encounter HGB A1C Routine 01/20/2023 3:38 PM MIDDLEWARE DEVELOPER History of diabetes mellitus VITAMIN B12 ONLY Routine 01/20/2023 3:38 PM MIDDLEWARE DEVELOPER Vitamin B12 deficiency CK, TOTAL Routine 01/20/2023 3:38 PM MIDDLEWARE DEVELOPER Mixed hyperlipidemia documented in this encounter Results * Albumin/Creatinine Ratio,Random Urine (01/20/2023 3:43 PM MIDDLEWARE DEVELOPER) Pathologist [facility] Albumin/Creati nine Ratio, Urine, Random 13 <30 mg/g 01/20/2023 5:37 PM MIDDLEWARE DEVELOPER [facility] Albumin, Urine, Random 17.0 mg/L 01/20/2023 5:37 PM MIDDLEWARE DEVELOPER [facility] Creatinine, Urine, Random 136 >20 mg/dL mg/dL 01/20/2023 5:37 PM MIDDLEWARE DEVELOPER [facility] Urine Non-blood Collection / Unknown 01/20/2023 3:43 PM MIDDLEWARE DEVELOPER 01/20/2023 3:43 PM MIDDLEWARE DEVELOPER Viki Sauer MD LAB_1 [facility] [address] [place] [address], [facility] [phone] * Complete Blood Count-W/Diff (01/20/2023 3:38 PM MIDDLEWARE DEVELOPER) WBC 6.8 3.5 - 10.5 x10(9)/L 01/20/2023 3:46 PM MIDDLEWARE DEVELOPER [facility] RBC 4.10 3.90 - 5.03 x10(12)/L 01/20/2023 3:46 PM MIDDLEWARE DEVELOPER [facility] Hemoglobin 12.0 12.0 - 15.5 g/dL 01/20/2023 3:46 PM [facility] HCT 36.5 34.9 - 44.5 % 01/20/2023 3:46 PM [facility] MCV 89.0 80.0 - 100.0 fL 01/20/2023 3:46 PM [facility] MCH 29.3 27.6 - 33.3 pg 01/20/2023 3:46 PM [facility] MCHC 32.9 31.5 - 35.2 g/dL 01/20/2023 3:46 PM [facility] RDW 12.7 11.9 - 15.5 % 01/20/2023 3:46 PM [facility] Platelets 232 150 - 450 x10(9)/L 01/20/2023 3:46 PM [facility] Neutrophil Absolute 3.8 1.7 - 7.0 10(9)/L 01/20/2023 3:46 PM [facility] Lymphocyte Absolute 2.1 1.0 - 4.8 10(9)/L 01/20/2023 3:46 PM [facility] Monocyte Absolute 0.5 0.2 - 0.9 10(9)/L 01/20/2023 3:46 PM [facility] Eosinophil Absolute 0.4 0.0 - 0.5 10(9)/L 01/20/2023 3:46 PM [facility] Basophil Absolute 0.0 0.0 - 0.3 10(9)/L 01/20/2023 3:46 PM [facility] Immature Granulocyte % 0.3 0.0 - 0.5 % 01/20/2023 3:46 PM [facility] Blood Venipuncture / Unknown 01/20/2023 3:38 PM MIDDLEWARE DEVELOPER 01/20/2023 3:38 PM [facility] Viki Sauer MD LAB_1 [facility] [address] [place] [address], [facility] [phone] * Vitamin D 25-Hydroxy, Total (01/20/2023 3:38 PM MIDDLEWARE DEVELOPER) [facility] Vitamin D, 25-OH, Total 49 30 - 80 ng/mL 01/20/2023 10:04 PM MIDDLEWARE DEVELOPER [facility] Blood Venipuncture / Unknown 01/20/2023 3:38 PM MIDDLEWARE DEVELOPER 01/20/2023 3:38 PM MIDDLEWARE DEVELOPER Viki Sauer MD LAB_1 Performing Organization Address [facility] de Phone Number [facility] [address] * (ABNORMAL) Vitamin B6 (8Hr Fast Recommended) (01/20/2023 3:38 PM MIDDLEWARE DEVELOPER) Vitamin B6 398.7(H) 20.0 - 125.0 nmol/L 01/24/2023 5:43 PM MIDDLEWARE DEVELOPER [facility] Comment: INTERPRETIVE INFORMATION: Vitamin B6 (Pyridoxal 5-Phosphate) Pyridoxal 5'-phosphate measured in a specimen collected following an 8-hour or overnight fast accurately indicates vitamin B6 nutritional status. Non-fasting specimen concentration reflects recent vitamin intake. This test was developed and its performance characteristics determined by [facility]. It has not been cleared or approved by the US Food and Drug Administration. This test was performed in a CLIA certified laboratory and is intended for clinical purposes. Performed By: [facility] [address] [place] [address] Grinder Operator Surface Tool: Perfecto Valdivia MD, PhD Blood Venipuncture / Unknown 01/20/2023 3:38 PM MIDDLEWARE DEVELOPER 01/20/2023 3:38 PM MIDDLEWARE DEVELOPER Viki Sauer MD LAB_1 Performing Organization Address [facility] de Phone Number [facility] [address] [place], [place] [address] [place] [phone] * Vitamin B12 Only (01/20/2023 3:38 PM MIDDLEWARE DEVELOPER) Vitamin B12 464 213 - 816 pg/mL 01/20/2023 10:12 PM MIDDLEWARE DEVELOPER [facility] Blood Venipuncture / Unknown 01/20/2023 3:38 PM MIDDLEWARE DEVELOPER 01/20/2023 3:38 PM MIDDLEWARE DEVELOPER Viki Sauer MD LAB_1 Performing Organization Address City/[facility]/ZIP Co de Phone Number [facility] [address] [place], [place] [phone] [place] [address] * C-Reactive Protein (01/20/2023 3:38 PM MIDDLEWARE DEVELOPER) C-Reactive Protein <0.5 0.0 - 0.7 mg/dL 01/20/2023 5:57 PM MIDDLEWARE DEVELOPER [facility] Blood Venipuncture / Unknown 01/20/2023 3:38 PM MIDDLEWARE DEVELOPER 01/20/2023 3:38 PM MIDDLEWARE DEVELOPER Viki Sauer MD LAB_1 Performing Organization Address [facility] Co de Phone Number [facility] [address] [place] [address], [facility] [phone] * C4 Complement (01/20/2023 3:38 PM MIDDLEWARE DEVELOPER) C4 Complement 18.0 15.0 - 57.0 mg/dL 01/20/2023 9:24 PM MIDDLEWARE DEVELOPER [facility] Blood Venipuncture / Unknown 01/20/2023 3:38 PM MIDDLEWARE DEVELOPER 01/20/2023 3:38 PM MIDDLEWARE DEVELOPER Viki Sauer MD LAB_1 Performing Organization Address [facility] de Phone Number [facility] [address] [place], [place] [address] [place] [address] * C3 Complement (01/20/2023 3:38 PM MIDDLEWARE DEVELOPER) C3 Complement 128 83 - 193 mg/dL 01/20/2023 9:24 PM MIDDLEWARE DEVELOPER [facility] Blood Venipuncture / Unknown 01/20/2023 3:38 PM MIDDLEWARE DEVELOPER 01/20/2023 3:38 PM MIDDLEWARE DEVELOPER Viki Sauer MD LAB_1 Performing Organization Address [facility] Co de Phone Number [facility] [address] * TSH (01/20/2023 3:38 PM MIDDLEWARE DEVELOPER) TSH, Sensitive 1.16 0.30 - 4.50 uIU/mL 01/20/2023 10:12 PM MIDDLEWARE DEVELOPER [facility] Blood Venipuncture / Unknown 01/20/2023 3:38 PM MIDDLEWARE DEVELOPER 01/20/2023 3:38 PM MIDDLEWARE DEVELOPER Viki Sauer MD LAB_1 [facility] [address] * CK, Total (01/20/2023 3:38 PM MIDDLEWARE DEVELOPER) Pathologist [facility] CK, Total 50 29 - 168 U/L 01/20/2023 5:57 PM [facility] Blood Venipuncture / Unknown 01/20/2023 3:38 PM MIDDLEWARE DEVELOPER 01/20/2023 3:38 PM MIDDLEWARE DEVELOPER Viki Sauer MD LAB_1 Performing Organization Address City/[facility]/ZIP Co de Phone Number [facility] [address] [place] [address] [phone] * Lipid Panel and Direct LDL(If Needed) (01/20/2023 3:38 PM MIDDLEWARE DEVELOPER) [facility] Cholesterol 141 0 - 199 mg/dL 01/20/2023 5:57 PM [facility] Triglyceride 128 <=149 mg/dL 01/20/2023 5:57 PM [facility] HDL Cholesterol 56 >=40 mg/dL 5:57 PM [facility] LDL, Calculated 59 <130 mg/dL 5:57 PM [facility] Non HDL Chol, Calculated 85 <=159 mg/dL 01/20/2023 5:57 PM [facility] Cholesterol/HDL Ratio 2.5 01/20/2023 5:57 PM [facility] Hours Fasting 3 01/20/2023 5:57 PM [facility] Blood Venipuncture / Unknown 01/20/2023 3:38 PM MIDDLEWARE DEVELOPER 01/20/2023 3:38 PM MIDDLEWARE DEVELOPER Viki Sauer MD LAB_1 [facility] [address] [place] [address], [place] [phone] [facility] [address] [place] [address], [place] [phone] * (ABNORMAL) Comp Metabolic Panel (01/20/2023 3:38 PM MIDDLEWARE DEVELOPER) Sodium 142 136 - 145 mmol/L 01/20/2023 5:57 PM [facility] Potassium 4.0 3.5 - 5.1 mmol/L 01/20/2023 5:57 PM [facility] Chloride 108 98 - 109 mmol/L 01/20/2023 5:57 PM [facility] CO2 24 20 - 29 mmol/L 01/20/2023 5:57 PM [facility] Anion Gap 10 7 - 16 mmol/L 01/20/2023 5:57 PM [facility] Calcium 9.5 8.4 - 10.4 mg/dL 01/20/2023 5:57 PM [facility] BUN 19 7 - 26 mg/dL 01/20/2023 5:57 PM [facility] Creatinine 0.80 0.55 - 1.02 mg/dL 01/20/2023 5:57 PM [facility] Alkaline Phosphatase 90 40 - 150 U/L 01/20/2023 5:57 PM [facility] AST (SGOT) 27 10 - 40 U/L 01/20/2023 5:57 PM [facility] ALT (SGPT) 23 <=55 U/L 01/20/2023 5:57 PM [facility] Bilirubin, Total 0.1(L) 0.2 - 1.2 mg/dL 01/20/2023 5:57 PM [facility] Protein, Total 7.3 6.4 - 8.3 g/dL 01/20/2023 5:57 PM [facility] Albumin 3.8 3.5 - 5.0 g/dL 01/20/2023 5:57 PM [facility] Glucose 90 70 - 100 mg/dL 01/20/2023 5:57 PM [facility] Comment:The given reference range is for the fasting state. Non-fasting reference range for glucose is 70 - 180 mg/dL. Hours Fasting 3 01/20/2023 5:57 PM [facility] GFR, Estimated >60 >60 mL/min/1.7 3m2 01/20/2023 5:57 PM MIDDLEWARE DEVELOPER [facility] Blood Venipuncture / Unknown 01/20/2023 3:38 PM MIDDLEWARE DEVELOPER 01/20/2023 3:38 PM MIDDLEWARE DEVELOPER Viki Sauer MD LAB_1 Performing Organization Address City/[facility]/ZIP Co de Phone Number [facility] [address] [place] [address], [facility] [phone] [facility] [address] [place] [address], [facility] [phone] * Hepatitis C Antibody, with Reflex (01/20/2023 3:38 PM MIDDLEWARE DEVELOPER) Pathologist [facility] Hepatitis C Antibody Negative (Non Reactive) Negative (Non Reactive) 01/20/2023 10:12 PM MIDDLEWARE DEVELOPER [facility] Comment:Antibodies to HCV no t detected. Does not exclude the possiblity of exposure to HCV. Blood Venipuncture / Unknown 01/20/2023 3:38 PM MIDDLEWARE DEVELOPER 01/20/2023 3:38 PM MIDDLEWARE DEVELOPER Viki Sauer MD LAB_1 [facility] [address] [place], [place] [phone] [place] [address] * (ABNORMAL) Hgb A1C (01/20/2023 3:38 PM MIDDLEWARE DEVELOPER) Pathologist [facility] Hemoglobin A1C 5.7(H) <=5.6 % 01/21/2023 9:32 AM MIDDLEWARE DEVELOPER [facility] Estimated Average Glucose (Calc) 117 < 117 mg/dL 01/21/2023 9:32 AM [facility] Comment:Estimated average gl ucose (eAG) converts A1c into glucose units (mg/dL) and estimates average glucose over the past approximately 3 months. The eAG reference interval (<117 mg/dL) corresponds to an A1c of <5.7%. Blood Venipuncture / Unknown 01/20/2023 3:38 PM MIDDLEWARE DEVELOPER 01/20/2023 3:38 PM MIDDLEWARE DEVELOPER Narrative [facility] - 01/21/2023 9:32 AM MIDDLEWARE DEVELOPER For patients not previously diagnosed with diabetes: 5.7-6.4%: Increased risk for diabetes 6.5% and greater: Diagnostic for diabetes For patients diagnosed with diabetes: <8.0%: Goal of therapy for ages 18-75 Clinicians may recommend a higher or lower goal for specific individuals. Viki Sauer MD LAB_1 [facility] [address] [phone] documented in this encounter Visit Diagnoses Diagnosis History of diabetes mellitus Personal history of other endocrine, metabolic, and immunity disorders Need for hepatitis C screening test Special screening examination for other specified viral diseases Recurrent urticaria Mixed hyperlipidemia (HRC) Mixed hyperlipidemia Angioedema of lips, subsequent encounter Vitamin B12 deficiency Other B-complex deficiencies Vitamin B6 deficiency (HRC) Vitamin B6 deficiency Vitamin D deficiency (HRC) Unspecified vitamin D deficiency Status post bariatric surgery Bariatric surgery status documented in this encounter Care Teams Corporate Human Resources Manager Relationship Specialty [place] [address] [place] [address] PCP - General Internal Medicine 05/03/20 documented as of this encounter
--- OUTSIDE RECORDS SUMMARY | 2023-12-14 14:13 | XMS_ITS | Encounter Summary ---
Author Name Unknown Organization [facility] Address [address] [address] Care Team Providers Care Financial Sales Associate Name Role Phone Viki Sauer MD Primary Care Provider [phone] Reason for Visit * Reason Comments Refill cetirizine (ZYRTEC) 10 MG tablet [Pharmacy Med Name: CETIRIZINE HCL 10 MG TABS 10 Tablet] Encounter Details Date Type Department Care Team Description 12/31/2022 Refill [facility] [address] [place], [place] [phone] [place] [address] [place], [place] [phone] Refill (cetirizine (ZYRTEC) 10 MG tablet [Pharmacy Med Name: CETIRIZINE HCL 10 MG TABS 10 Tablet]) Social History Tobacco Use Types Packs/Day [...] this encounter Nursing Notes * Interface, Out Loci Controls Prov Query - 12/31/2022 2:08 PM CST cetirizine (ZYRTEC) 10 MG tablet [Pharmacy Med Name: CETIRIZINE HCL 10 MG TABS 10 Tablet] Medication started: 10/13/2021 Last ordered by VIKI SAUER M: 10/29/2022 (63 days ago) QTY: 90, Refills: 2, Sig: take one tablet by mouth every day (changed) -> The patient is requesting refills too soon, the current prescription is due to run out on 07/26/2023. -> Unable to determine if sig has changed, review required. -> Refill x 12 months, qty: 180, refills: 3 (until due for an office visit) Last qualifying visit: 12/30/2022 (with VIKI SAUER) Next scheduled visit: None [facility] Emb[facility]ded Refills, Reference: [id number], 12/31/2022 2:08:28 PM OUTPATIENT PSYCHIATRIST, Trip: LYNDSEY MARTÍNEZ REFILL ([id number]) ATIENT PSYCHIATRIST documented in this encounter Plan of Treatment Upcoming Encounters Date Type Department Care Team Description 01/14/2024 12:30 PM OUTPATIENT PSYCHIATRIST Appointment [facility] [address] [place] [address] [place] [address] [address] [place] [address] 03/02/2024 3:30 PM CDT Telemedicine [facility] [address] [facility] [address] [place] [address] Delia Diallo PA-C [address] [place] [address] documented as of this encounter Visit Diagnoses Not on filedocumented in this encounter Care Teams Financial Sales Associate Relationship Specialty [place] [address] [address] [place] [address] PCP - General Internal Medicine 05/03/20 documented as of this encounter
--- OUTSIDE RECORDS SUMMARY | 2023-12-14 14:13 | XMS_ITS | Encounter Summary ---
Author Name Unknown Organization [facility] Address [address], [place] [address] Care Team Providers Care Building Construction Teacher Name Role Phone Viki Sauer MD Primary Care Provider [phone] Encounter Details Date Type Department Care Team Description 04/07/2023 7:10 AM CDT Lab Visit [facility] [address] [place], [place] [address] History of diabetes mellitus; Excessive vitamin B6 intake Social History Tobacco Use Types Packs/Day Years [...] as of this encounter Nursing Notes * Magali Cramer - 04/07/2023 7:10 AM CDT The prior authorization for semaglutide-weight management (WEGOVY) 0.25 MG/0.5ML pen injection has been approved. Please contact the pharmacy and ask them to notify the patient when prescription is ready for lemon picker. Authorized from March 10, 2023 to April 08, 2024 Document using the ePA QuickAction PA Approved. Click Sign and Complete. * Kathi Perea CMA - 04/07/2023 7:10 AM CDT PA Approved, pharmacy advised via Fax documented in this encounter Plan of Treatment Upcoming Encounters Date Type Department Care Team Description 01/14/2024 12:30 PM PROFESSOR OF EDUCATION Appointment [facility] [address] [place], [place] [phone] [place] [address] [facility] [place] [phone] 03/02/2024 3:30 PM CDT Telemedicine [facility] [address] [facility] [address] [place], [place] [phone] Delia Diallo PA-C [address] [place], [place] [phone] documented as of this encounter Procedures Procedure Name Priority Date/Time Associated Diagnosis Comments VITAMIN B6 (8HR FAST RECOMMENDED) Routine 04/07/2023 7:11 AM CDT Excessive vitamin B6 intake HGB A1C Routine 04/07/2023 7:11 AM CDT History of diabetes mellitus documented in this encounter Results * Vitamin B6 (8Hr Fast Recommended) (04/07/2023 7:11 AM CDT) Vitamin B6 91.2 20.0 - 125.0 nmol/L 04/11/2023 4:08 PM CDT [facility] Comment: INTERPRETIVE INFORMATION: Vitamin B6 (Pyridoxal 5-Phosphate) Pyridoxal 5'-phosphate measured in a specimen collected following an 8-hour or overnight fast accurately indicates vitamin B6 nutritional status. Non-fasting specimen concentration reflects recent vitamin intake. This test was developed and its performance characteristics determined by [facility]. It has not been cleared or approved by the US Food and Drug Administration. This test was performed in a CLIA certified laboratory and is intended for clinical purposes. Performed By: [facility] [address] [place] [address] Cellar Pumper: Perfecto Valdivia MD, PhD Blood Venipuncture / Unknown 04/07/2023 7:11 AM CDT 04/07/2023 7:11 AM CDT Viki Sauer MD LAB_1 Performing Organization Address [facility] de Phone Number [facility] [address] [place], [place] [address] [place] [address] * Hgb A1C (04/07/2023 7:11 AM CDT) Hemoglobin A1C (Rapid) 5.5 <=5.6 % 04/07/2023 8:00 AM [facility] Estimated Average Glucose (Calc) 111 < 117 mg/dL 04/07/2023 8:00 AM [facility] Comment:Estimated average gl ucose (eAG) converts A1c into glucose units (mg/dL) and estimates average glucose over the past approximately 3 months. The eAG reference interval (<117 mg/dL) corresponds to an A1c of <5.7%. Blood Venipuncture / Unknown 04/07/2023 7:11 AM CDT 04/07/2023 7:11 AM CDT Narrative [facility] - 04/07/2023 8:00 AM CDT The test method used for this Hemoglobin A1c result can experience interference from elevated hemoglobin and other hemoglobin variants. In patients with results that do not correlate clinically, contact the lab for further direction. Viki Sauer MD LAB_1 Performing Organization Address City/[facility]/ZIP Co de Phone Number [facility] [address] [place] [address], [place] [phone] documented in this encounter Visit Diagnoses Diagnosis History of diabetes mellitus Personal history of other endocrine, metabolic, and immunity disorders Excessive vitamin B6 intake documented in this encounter Care Teams Building Construction Teacher Relationship Specialty [place] [address] [address] PCP - General Internal Medicine 05/03/20 documented as of this encounter
--- OUTSIDE RECORDS SUMMARY | 2023-12-14 14:13 | XMS_ITS | Encounter Summary ---
Author Name Unknown Organization [facility] Address [address], [place] [address] Care Team Providers Care Ball Winder Name Role Phone Viki Sauer MD Primary Care Provider [phone] Reason for Referral * Procedure/Equipment (Routine) - Closed Specialty Diagnoses / Procedures Referred By Lis nichole Referred To Contact Diagnoses RAFIA (obstructive sleep apnea) Procedures Sleep Diagnostic Tests: [place] [address] [place] [address] Referral ID Status Reason Start Date Expiration Date Visits Re quested Visits Authorized [id number] Closed 04/22/2023 07/21/2024 1 1 Encounter Details Date Type Department Care Team Description 04/22/2023 Notes/Orders [facility] [address] [place] [address] [place] [address] [place] [phone] RAFIA (obstructive sleep apnea) (Primary Dx) Social History Tobacco Use Types [...] Department Care Team Description 01/14/2024 12:30 PM HOSE HANDLER Appointment [facility] [address] [place] [address] [place] [address] [place] [address] 03/02/2024 3:30 PM CDT Telemedicine [facility] [address] [facility] [address] [place] [address] Delia Diallo PA-C [address] [place], [place] [address] Scheduled Orders Name Type Priority Associated Diagnoses Orde r Schedule Sleep Diagnostic Tests: HST Sleep Study Routine RAFIA (obstructive sleep apnea) 1 Occurrences starting 04/22/2023 documented as of this encounter Visit Diagnoses Diagnosis RAFIA (obstructive sleep apnea)- Primary Obstructive sleep apnea (adult) (pediatric) documented in this encounter Care Teams Ball Winder Relationship Specialty [place] [address] [place] [address] PCP - General Internal Medicine 05/03/20 documented as of this encounter
--- OUTSIDE RECORDS SUMMARY | 2023-12-14 14:14 | XMS_ITS | Encounter Summary ---
Author Name Unknown Organization [facility] Address [address], [place] [address] Care Team Providers Care Dewaxer Name Role Phone Viki Sauer MD Primary Care Provider [phone] Encounter Details Date Type Department Care Team Description 12/20/2022 10:30 AM WIRE REPAIRER Lab Visit [facility] [address] [place] [address] Routine general medical examination at health care facility (Primary Dx) Social History Tobacco Use Types [...] PHQ-2 Answer Date Recorded PHQ-2 Score 0 10/27/2022 Sex and Gender Information Value Date Recorded Sex Assigned at Not on file Gender Identity Not on file Sexual Orientation Not on file documented as of this encounter Plan of Treatment Upcoming Encounters Date Type Department Care Team Description 01/14/2024 12:30 PM WIRE REPAIRER Appointment [facility] [address] [place] [address] [place] [address] [place] [address] 03/02/2024 3:30 PM CDT [facility] [address] [facility] [address] [place] [address] Delia Diallo PA-C [address] [place] [address] documented as of this encounter Procedures Procedure Name Priority Date/Time Associated Diagnosis Comments DNA ANALYSIS DISCRETE SEQUENCE VARIATION PANEL Routine 12/20/2022 10:18 AM WIRE REPAIRER Routine general medical examination at [facility] care facility documented in this encounter Results * DNA Analysis Discrete Sequence Variation Panel (12/20/2022 10:18 AM WIRE REPAIRER) Familial Hypercholesterolemia Not Detected 01/07/2023 10:40 AM WIRE REPAIRER [employer] Comment: Pathogenic variant not detected. No pathogenic or likely pathogenic variants were found in the 11 genes included on this test. This result reduces (but does not eliminate) the likelihood of a diagnosis of hereditary breast and ovarian cancer (HBOC) syndrome, Garcia syndrome, and familial hypercholesterolemia (FH) for this individual. Other clinical diagnostic testing for these three conditions could identify variants not detected by this test. If this individual has had previous testing, these results should be taken into consideration during risk assessments and medical management. No pathogenic or likely pathogenic variants were detected in the genes associated with familial hypercholesterolemia (FH). The genes tested for this condition were APOB, LDLR, LDLRAP1, and PCSK9. Evaluation of 11 genes associated with hereditary breast and ovarian cancer (HBOC) syndrome, Garcia syndrome and familial hypercholesterolemia (FH). The genes tested are BRCA1, BRCA2, MLH1, MSH2, MSH6, PMS2, EPCAM, APOB, LDLR, LDLRAP1, and PCSK9. Genes tested: BRCA1,BRCA2,MLH1,MSH2,MSH6,PMS2,EPCAM,APOB,LDLR,LDLRAP1,PCSK9 Methods and Limitations: DNA extracted from this individual's sample was captured and enriched using a custom set of reagents ([employer]+ chemistry). Targeted regions were then sequenced using an Illumina DNA sequencing system. The individual's sequence was then matched to a modified version of the [place] standard reference genome (GRCh38). Variant calling was completed using a customized version of [employer] software, requiring 20x coverage for validated variant calls. Copy number variants (CNVs) were called using a proprietary bioinformatics pipeline that compared the coverage profile of the sample with the coverage profiles of other reference set samples. [facility] then analyzed the generated variant data for the exons and 10 bp of flanking intronic sequence (and select tagged intronic variants) of the 11 genes included in [employer] from the [employer] Secure Database. The sample was reviewed for single nucleotide variants (SNVs), indels up to 20 bp in length, and CNVs that are known or predicted to be actionable. NOTE: This assay has limited sensitivity to CNVs smaller than a few exons. APOB, PCSK9, and LDLR interpretation and reporting is specific to the familial hypercholesterolemia phenotype. Variants associated with other phenotypes such as hypobetalipoproteinemia are not included. Some known complex variants like the inversion of exons 1-7 in the MSH2 gene (Kd inversion), exons 11-15 of the PMS2 gene, or variants within or immediately adjacent to long homopolymer runs are not analyzed or reported. Additionally, there are regions that are not covered, such as deep intronic, promoter, and enhancer regions. It is important to note that this assay cannot detect all variants known to increase disease risk. Other clinical diagnostic testing for these three conditions could identify variants not detected by this [place] test. If this individual has had previous testing, these results should be taken into consideration during risk assessments and medical management. Interpretive report performed and validated by [facility] [employer] ([facility] [facility]; [address] [place] [address] (CLIA# [id number], CAP #[id number]). Sequencing done at: [facility], [address] [place] [address] , [place] [address]. (CLIA# [id number], CAP #[id number]). This test has not been cleared or approved by the U.S. Food and Drug Administration. approvals: Klever Beauchamp, Ph.D. [facility] email: [email or web address] Hereditary Breast and Ovarian Cancer Syndrome Not Detected 01/07/2023 10:40 AM WIRE REPAIRER [employer] Comment: Pathogenic variant not detected. No pathogenic or likely pathogenic variants were found in the 11 genes included on this test. This result reduces (but does not eliminate) the likelihood of a diagnosis of hereditary breast and ovarian cancer (HBOC) syndrome, Garcia syndrome, and familial hypercholesterolemia (FH) for this individual. Other clinical diagnostic testing for these three conditions could identify variants not detected by this test. If this individual has had previous testing, these results should be taken into consideration during risk assessments and medical management. No pathogenic or likely pathogenic variants were detected in the genes associated with hereditary breast and ovarian cancer (HBOC) syndrome. The genes tested for this condition were BRCA1 and BRCA2. Evaluation of 11 genes associated with hereditary breast and ovarian cancer (HBOC) syndrome, Garcia syndrome and familial hypercholesterolemia (FH). The genes tested are BRCA1, BRCA2, MLH1, MSH2, MSH6, PMS2, EPCAM, APOB, LDLR, LDLRAP1, and PCSK9. Genes tested: BRCA1,BRCA2,MLH1,MSH2,MSH6,PMS2,EPCAM,APOB,LDLR,LDLRAP1,PCSK9 Interpretive report performed and validated by [facility] [employer] TM ([facility] [facility]; [address] [place] [address] (CLIA# [id number], CAP #[id number]). Sequencing done at: [facility], [address] [place] [address] , [place] [address]. (CLIA# [id number], CAP #[id number]). This test has not been cleared or approved by the U.S. Food and Drug Administration. approvals: Klever Beauchamp, Ph.D. [facility] email: [email or web address] Garcia Syndrome Not Detected 01/07/2023 10:40 AM WIRE REPAIRER [employer] Comment: Pathogenic variant not detected. No pathogenic or likely pathogenic variants were found in the 11 genes included on this test. This result reduces (but does not eliminate) the likelihood of a diagnosis of hereditary breast and ovarian cancer (HBOC) syndrome, Garcia syndrome, and familial hypercholesterolemia (FH) for this individual. Other clinical diagnostic testing for these three conditions could identify variants not detected by this test. If this individual has had previous testing, these results should be taken into consideration during risk assessments and medical management. No pathogenic or likely pathogenic variants were detected in the genes associated with Garcia syndrome. The genes tested for this condition were MLH1, MSH2, MSH6, PMS2, and EPCAM. Evaluation of 11 genes associated with hereditary breast and ovarian cancer (HBOC) syndrome, Garcia syndrome and familial hypercholesterolemia (FH). The genes tested are BRCA1, BRCA2, MLH1, MSH2, MSH6, PMS2, EPCAM, APOB, LDLR, LDLRAP1, and PCSK9. Genes tested: BRCA1,BRCA2,MLH1,MSH2,MSH6,PMS2,EPCAM,APOB,LDLR,LDLRAP1,PCSK9 Interpretive report performed and validated by [facility] [employer] ([facility] [facility]; [address] [place] [address] (CLIA# [id number], CAP #[id number]). Sequencing done at: [facility], [address] [place] [address] , [place] [address]. (CLIA# [id number], CAP #[id number]). This test has not been cleared or approved by the U.S. Food and Drug Administration. approvals: Klever Beauchamp, Ph.D. [facility] email: [email or web address] DNA VENOUS BLOOD SPECIMEN / Unknown 12/20/2022 10:18 AM WIRE REPAIRER 12/20/2022 10:19 AM WIRE REPAIRER Not Found Clinician LAB_[facility] [address] [facility] [address] [place] [address] documented in this encounter Visit Diagnoses Diagnosis Routine general medical examination at health care facility- Primary Routine general medical examination at a health care facility documented in this encounter Care Teams Dewaxer Relationship Specialty [place] [address] [place] [address] PCP - General Internal Medicine 05/03/20 documented as of this encounter
--- OUTSIDE RECORDS SUMMARY | 2023-12-14 14:14 | XMS_ITS | Encounter Summary ---
Author Name Unknown Organization Pending sale to [facility] Address [address], [place] [address] Care Team Providers Care Pillowcase Cutter Name Role Phone Viki Sauer MD Primary Care Provider Reason for Referral * Consult/Transfer Care (Routine) - New Request Specialty Diagnoses / Procedures Referred By Lis nichole Referred To Contact Diagnoses Essential hypertension (HRC) [place] [address] [place] [address] Referral ID Status Reason Start Date Expiration Date V isits Requested Visits Authorized [id number] New Request 12/30/2022 03/30/2024 1 1 Scheduling Instructions Your clinician has recommended an appointment with Loren Jaimes. You can quickly make your appointment online at [email or web address]. You can also call [phone] for help scheduling your appointment. We suggest you call your health insurance company about your coverage and benefits for this appointment. Question Answer Appointment Urgency? Non-Urgent IE * Consult/Transfer Care (Routine) - New Request Specialty Diagnoses / Procedures Referred By Lis nichole Referred To Contact Diagnoses Recurrent urticaria Angioedema [place], [place] [address] [place] [address] Referral ID Status Reason Start Date Expiration Date V isits Requested Visits Authorized [id number] New Request 12/30/2022 03/30/2024 1 1 Scheduling Instructions Your clinician has recommended an appointment with [facility]. You can quickly make your appointment online at [email or web address]. You can also call [phone] for help scheduling your appointment. We suggest you call your health insurance company about your coverage and benefits for this appointment. Question Answer Appointment Urgency? Non-Urgent IE * Consult/Transfer Care (Routine) - New Request Specialty Diagnoses / Procedures Referred By Lis nichole Referred To Contact Diagnoses History of [place] [address] [place] [address] Referral ID Status Reason Start Date Expiration Date V isits Requested Visits Authorized [id number] New Request 12/30/2022 03/30/2024 1 1 Scheduling Instructions Your provider has recommended an appointment with [facility]. You may call [phone] for help scheduling your appointment. We suggest you call your health insurance company about your coverage and benefits for this appointment. Question Answer Appointment Urgency? Non-Urgent IE Reason for Visit * Reason Comments Video Visit CRACKED, LIPS Encounter Details Date Type Department Care Team Description 12/30/2022 3:30 PM CADDIE Telemedicine [facility] [address] [place] [address] [place] [address] [id number] Recurrent urticaria (Primary Dx); Angioedema of lips, subsequent encounter; Vitamin B12 deficiency; Vitamin B6 deficiency; Vitamin D deficiency; History of diabetes mellitus; Essential hypertension; Iron deficiency anemia secondary to inadequate dietary iron intake; History of Claire-en-Y gastric bypass; Mixed hyperlipidemia; Status post bariatric surgery; Perioral dermatitis; Need for hepatitis C screening test Social History Tobacco Use Types Packs/Day Years [...] - - Temperature 37.1 ??C (98.7 ??F) 12/30/2022 11:[address] pt reported Respiratory Rate - - Oxygen Saturation - - Inhaled Oxygen Concentration - - Weight 81.6 kg (180 lb) 12/30/2022 11:18 AM CADDIE pt reported Height 167.6 cm (5' 6) 12/30/2022 11:18 AM CADDIE pt reported Body Mass Index 29.05 12/30/2022 11:18 AM CADDIE documented in this encounter Progress Notes * Viki Sauer MD - 12/30/2022 3:30 PM CST IM VIDEO Visit Chief Complaint: Chief Complaint Patient presents with Video Visit CRACKED, LIPS Subjective: Today's visit with Nel Lowery Lacey was conducted as a scheduled VIDEO visit. September had onset of lip swelling and rash - reports severly chapped lips. The swelling has come and go. She was seen in the ER 2x in Nov 2022, [facility] for hives, head to toe - lip rash and dryness resolved very rapidly after receiving IV steroids. Has tried all OTC lip treatments, was seen in clinic and rec vaseline with 1% HC cream, 1 week on and off - no improvement. Denies tongue, throat swelling No cough, difficulty swallowing - no dyspnea, no new joint pain - chronic stable bilateral knee pain, worse at the end of the day No muscle pain No other rashes. She is on ACEi Sister has dx polymyositis, she has concern for possible autoimmune disease. She is s/p ROS: Negative as per HPI Objective: General : No acute distress Neuro: Alert and oriented Psych: normal affect Health Maintenance Due Topic Date Due Hep C Screening (Preventive Services) Never done Pneumococcal (1 - PCV) 1971 Diabetes: Eye Exam 01/01/2015 HepB (3) 07/15/2021 Mammogram 05/09/2022 Diabetes: Urine Microalbumin 07/03/2022 Adult Preventive Visit 09/16/2022 Colonoscopy 11/12/2022 Diabetes: HGBA1C 11/27/2022 BP Readings from Last 1 Encounters: 12/04/22 (!) 158/81 Assessment/Plan: Nel Pearl was seen today for follow-up and Video visit. Assessment/Plan ER 2x last month for urticaria diffusely. Ddx for lip/perioral rash includes perioral dermatitis, angular chelitis from B vitamin def (but reports compliance with supplements), angioedema from ACEi with the swelling at onset and intermittently. Recommend stop ACEi lisinopril 40 mg to remove from ddx, will change to losartan 100 mg daily with nurse BP check and labs in 1-2 weeks. Call if dizziness and decrease to 1/2 tab recommended. Given the episode of recurrent urticaria - recommended ref to signal processing engineer, stop ACEi. If no improvement in few weeks, try empiric tx perioral dermatitis and ref to derm prn Due PX, unfortunately MD had to cancel last appts - will obtain routine fasting labs as well F/u PX in 3 months. Nel was seen today for video visit and cracked, lips. Diagnoses and all orders for this visit: Recurrent urticaria - Allergy And Immunology Consult Adult/Peds - Comp Metabolic Panel; Future - C3 Complement; Future - C4 Complement; Future - C-Reactive Protein; Future - Complete Blood Count -W/Diff; Future Angioedema of lips, subsequent encounter - Allergy And Immunology Consult Adult/Peds - TSH; Future - C3 Complement; Future - C4 Complement; Future - C-Reactive Protein; Future - Complete Blood Count -W/Diff; Future Vitamin B12 deficiency - Vitamin B12 Only; Future Vitamin B6 deficiency (HRC) - Vitamin B6 (8Hr Fast Recommended); Future Vitamin D deficiency (HRC) - Vitamin D 25-Hydroxy, Total; Future History of diabetes mellitus - Eye Care Consult-Adult/Peds [[id number]] - Diabetic Foot Check (Ep101) - Hgb A1C; Future - Albumin/Creatinine Ratio,Random Urine; Future Essential hypertension (HRC) - Dermatology Consult-Adult/Peds - losartan (COZAAR) 100 MG tablet; Take 1 Tablet (100 mg) by mouth daily. Iron deficiency anemia secondary to inadequate dietary iron intake History of Claire-en-Y gastric bypass Mixed hyperlipidemia (HRC) - Lipid Panel and Direct LDL(If Needed); Future - CK, Total; Future Status post bariatric surgery - Vitamin D 25-Hydroxy, Total; Future Perioral dermatitis - tacrolimus (PROTOPIC) 0.1 % ointment; Apply topically two times a day. Need for hepatitis C screening test - Hepatitis C Antibody, with Reflex; Future Disposition Home Care, with routine follow up in 3 month, sooner prn for new or worsening symptoms. There are no Patient Instructions on file for this visit. This visit was conducted via video. Location of clinician home. Location of patient home. Billing based on: Time Total time 35minutes spent reviewing records, lab results, performing exam and preparing plan of care. Viki Sauer MD IE documented in this encounter Plan of Treatment Upcoming Encounters Date Type Department Care Team Description 01/14/2024 12:30 PM CADDIE Appointment [facility] [address] [place], [place] [id number] [place] [address] [place] [address] 03/02/2024 3:30 PM CDT Telemedicine [facility] [address] [facility] [address] [place], [place] [address] Delia Diallo PA-C [address] [place], [place] [address] Scheduled Referrals Name Type Priority Associated Diagnoses Orde r Schedule Eye Care Consult-Adult/Peds [[id number]] Referral Routine History of diabetes mellitus Ordered: 12/30/2022 Allergy And Immunology Consult Adult/Peds Referral Routine Recurrent urticaria Angioedema of lips, subsequent encounter Ordered: 12/30/2022 Dermatology Consult-Adult/Peds Referral Routine Essential hypertension Ordered: 12/30/2022 documented as of this encounter Results * Albumin/Creatinine Ratio,Random Urine (01/20/2023 3:43 PM CADDIE) Albumin/Creati nine Ratio, Urine, Random 13 <30 mg/g 01/20/2023 5:37 PM CADDIE [facility] Albumin, Urine, Random 17.0 mg/L 01/20/2023 5:37 PM CADDIE [facility] Creatinine, Urine, Random 136 >20 mg/dL mg/dL 01/20/2023 5:37 PM CADDIE [facility] Urine Non-blood Collection / Unknown 01/20/2023 3:43 PM CADDIE 01/20/2023 3:43 PM CADDIE Viki Sauer MD LAB_1 [facility] [address] [place] [address] [phone] * Vitamin D 25-Hydroxy, Total (01/20/2023 3:38 PM CADDIE) Vitamin D, 25-OH, Total 49 30 - 80 ng/mL 01/20/2023 10:04 PM CADDIE [facility] Blood Venipuncture / Unknown 01/20/2023 3:38 PM CADDIE 01/20/2023 3:38 PM CADDIE Viki Sauer MD LAB_1 [facility] [address] * (ABNORMAL) Vitamin B6 (8Hr Fast Recommended) (01/20/2023 3:38 PM CADDIE) Vitamin B6 398.7(H) 20.0 - 125.0 nmol/L 01/24/2023 5:43 PM CADDIE [facility] Comment: INTERPRETIVE INFORMATION: Vitamin B6 (Pyridoxal 5-Phosphate) Pyridoxal 5'-phosphate measured in a specimen collected following an 8-hour or overnight fast accurately indicates vitamin B6 nutritional status. Non-fasting specimen concentration reflects recent vitamin intake. This test was developed and its performance characteristics determined by [facility]. It has not been cleared or approved by the US Food and Drug Administration. This test was performed in a CLIA certified laboratory and is intended for clinical purposes. Performed By: [facility] [address] [place] [address] Titrator: Perfecto Valdivia MD, PhD Blood Venipuncture / Unknown 01/20/2023 3:38 PM CADDIE 01/20/2023 3:38 PM CADDIE Viki Sauer MD LAB_1 Performing Organization Address [facility]/ZIP Co de Phone Number [facility] [address] [place], [place] [address] [place] [address] * Vitamin B12 Only (01/20/2023 3:38 PM CADDIE) Vitamin B12 464 213 - 816 pg/mL 01/20/2023 10:12 PM CADDIE [facility] Blood Venipuncture / Unknown 01/20/2023 3:38 PM CADDIE 01/20/2023 3:38 PM CADDIE Viki Sauer MD LAB_1 Performing Organization Address City/[facility] Co de Phone Number [facility] [address] [place], [place] [address] * C-Reactive Protein (01/20/2023 3:38 PM CADDIE) C-Reactive Protein <0.5 0.0 - 0.7 mg/dL 01/20/2023 5:57 PM CADDIE [facility] Blood Venipuncture / Unknown 01/20/2023 3:38 PM CADDIE 01/20/2023 3:38 PM CADDIE Viki Sauer MD LAB_1 [facility] [address] [place] [address], [facility] [phone] * C4 Complement (01/20/2023 3:38 PM CADDIE) Pathologist [facility] C4 Complement 18.0 15.0 - 57.0 mg/dL 01/20/2023 9:24 PM CADDIE [facility] Blood Venipuncture / Unknown 01/20/2023 3:38 PM CADDIE 01/20/2023 3:38 PM CADDIE Viki Sauer MD LAB_1 Performing Organization Address [facility] Phone Number [facility] [address] [place] [address] * C3 Complement (01/20/2023 3:38 PM CADDIE) [facility] C3 Complement 128 83 - 193 mg/dL 01/20/2023 9:24 PM CADDIE [facility] Blood Venipuncture / Unknown 01/20/2023 3:38 PM CADDIE 01/20/2023 3:38 PM CADDIE Viki Sauer MD LAB_1 Performing Organization Address [facility] Phone Number [facility] [address] [place] [address] * TSH (01/20/2023 3:38 PM CADDIE) Pathologist [facility] TSH, Sensitive 1.16 0.30 - 4.50 uIU/mL 01/20/2023 10:12 PM CADDIE [facility] Blood Venipuncture / Unknown 01/20/2023 3:38 PM CADDIE 01/20/2023 3:38 PM CADDIE Viki Sauer MD LAB_1 Performing Organization Address [facility] Phone Number [facility] [address] [place] [address] * CK, Total (01/20/2023 3:38 PM CADDIE) Pathologist [facility] CK, Total 50 29 - 168 U/L 01/20/2023 5:57 PM CADDIE [facility] Blood Venipuncture / Unknown 01/20/2023 3:38 PM CADDIE 01/20/2023 3:38 PM CADDIE Viki Sauer MD LAB_1 Performing Organization Address [facility]/ZIP Co de Phone Number [facility] [address] [place] [address], [facility] [phone] * Lipid Panel and Direct LDL(If Needed) (01/20/2023 3:38 PM CADDIE) Cholesterol 141 0 - 199 mg/dL 01/20/2023 5:57 PM [facility] Triglyceride 128 <=149 mg/dL 01/20/2023 5:57 PM [facility] HDL Cholesterol 56 >=40 mg/dL 5:57 PM [facility] LDL, Calculated 59 <130 mg/dL 5:57 PM [facility] Non HDL Chol, Calculated 85 <=159 mg/dL 01/20/2023 5:57 PM [facility] Cholesterol/HDL Ratio 2.5 01/20/2023 5:57 PM [facility] Hours Fasting 3 01/20/2023 5:57 PM [facility] Blood Venipuncture / Unknown 01/20/2023 3:38 PM CADDIE 01/20/2023 3:38 PM CADDIE Viki Sauer MD LAB_1 Performing Organization Address [facility]/ZIP Co de Phone Number [facility] [address] [place] [address], [facility] [phone] [facility] [address] [place] [address], [facility] [phone] * (ABNORMAL) Comp Metabolic Panel (01/20/2023 3:38 PM CADDIE) Sodium 142 136 - 145 mmol/L 01/20/2023 5:57 PM [facility] Potassium 4.0 3.5 - 5.1 mmol/L 01/20/2023 5:57 PM [facility] Chloride 108 98 - 109 mmol/L 01/20/2023 5:57 PM [facility] CO2 24 20 - 29 mmol/L 01/20/2023 5:57 PM [facility] Anion Gap 10 7 - 16 mmol/L 01/20/2023 5:57 PM [facility] Calcium 9.5 8.4 - 10.4 mg/dL 01/20/2023 5:57 PM [facility] BUN 19 7 - 26 mg/dL 01/20/2023 5:57 PM [facility] Creatinine 0.80 0.55 - 1.02 mg/dL 01/20/2023 5:57 PM [facility] Alkaline Phosphatase 90 40 - 150 U/L 01/20/2023 5:57 PM [facility] AST (SGOT) 27 10 - 40 U/L 01/20/2023 5:57 PM [facility] ALT (SGPT) 23 <=55 U/L 01/20/2023 5:57 PM [facility] Bilirubin, Total 0.1(L) 0.2 - 1.2 mg/dL 01/20/2023 5:57 PM [facility] Protein, Total 7.3 6.4 - 8.3 g/dL 01/20/2023 5:57 PM [facility] Albumin 3.8 3.5 - 5.0 g/dL 01/20/2023 5:57 PM [facility] Glucose 90 70 - 100 mg/dL 01/20/2023 5:57 PM [facility] Comment:The given reference range is for the fasting state. Non-fasting reference range for glucose is 70 - 180 mg/dL. Hours Fasting 3 01/20/2023 5:57 PM [facility] GFR, Estimated >60 >60 mL/min/1.7 3m2 01/20/2023 5:57 PM [facility] Blood Venipuncture / Unknown 01/20/2023 3:38 PM CADDIE 01/20/2023 3:[address] [facility] Viki Sauer MD LAB_1 [facility] [address] [place] [address], [facility] [phone] [facility] [address] [place] [address], [facility] [phone] * Hepatitis C Antibody, with Reflex (01/20/2023 3:38 PM CADDIE) Hepatitis C Antibody Negative (Non Reactive) Negative (Non Reactive) 01/20/2023 10:12 PM CADDIE [facility] Comment:Antibodies to HCV no t detected. Does not exclude the possiblity of exposure to HCV. Blood Venipuncture / Unknown 01/20/2023 3:38 PM CADDIE 01/20/2023 3:38 PM CADDIE Viki Sauer MD LAB_1 [facility] [address] * (ABNORMAL) Hgb A1C (01/20/2023 3:38 PM CADDIE) Hemoglobin A1C 5.7(H) <=5.6 % 01/21/2023 9:32 AM CADDIE [facility] Estimated Average Glucose (Calc) 117 < 117 mg/dL 01/21/2023 9:32 AM CADDIE [facility] Comment:Estimated average gl ucose (eAG) converts A1c into glucose units (mg/dL) and estimates average glucose over the past approximately 3 months. The eAG reference interval (<117 mg/dL) corresponds to an A1c of <5.7%. Blood Venipuncture / Unknown 01/20/2023 3:38 PM CADDIE 01/20/2023 3:38 PM CADDIE Narrative [facility] - 01/21/2023 9:32 AM CADDIE For patients not previously diagnosed with diabetes: 5.7-6.4%: Increased risk for diabetes 6.5% and greater: Diagnostic for diabetes For patients diagnosed with diabetes: <8.0%: Goal of therapy for ages 18-75 Clinicians may recommend a higher or lower goal for specific individuals. Viki Sauer MD LAB_1 Performing Organization Address City/[facility]/ZIP Co de Phone Number [facility] [address] [phone] documented in this encounter Visit Diagnoses Diagnosis Recurrent urticaria- Primary Angioedema of lips, subsequent encounter Vitamin B12 deficiency Other B-complex deficiencies Vitamin B6 deficiency (HRC) Vitamin B6 deficiency Vitamin D deficiency (HRC) Unspecified vitamin D deficiency History of diabetes mellitus Personal history of other endocrine, metabolic, and immunity disorders Essential hypertension (HRC) Unspecified essential hypertension Iron deficiency anemia secondary to inadequate dietary iron intake History of Claire-en-Y gastric bypass Bariatric surgery status Mixed hyperlipidemia (HRC) Mixed hyperlipidemia Status post bariatric surgery Bariatric surgery status Perioral dermatitis Rosacea Need for hepatitis C screening test Special screening examination for other specified viral diseases documented in this encounter Care Teams Pillowcase Cutter Relationship Specialty [place] [address] [place] [address] PCP - General Internal Medicine 05/03/20 documented as of this encounter
--- OUTSIDE RECORDS SUMMARY | 2023-12-14 14:14 | XMS_ITS | Clinical Summary ---
Author Name Unknown Organization [facility] Address [address] [place] [address] Care Team Providers Care Entry Level Web Developer Name Role Phone Clinic, [facility] ovider Allergies Active Allergy Reactions Criticality Noted Date Comments Azithromycin 02/10/2021 Contrast Dye Hives 02/10/2021 Medications Medication Sig Dispensed Refills Start Date End Date Status sucralfate (CARAFATE) 1 GM/10ML suspension Take 10 mLs (1 g) by mouth 4 times daily as needed (Pain) 420 mL 0 02/10/2021 Active Social History Tobacco Use Types Packs/Day Years Used Date Smoking Tobacco: Never Assessed Adolescent Education Answer Date Record ed Getting School Help Needed Not on file 08/22 Sex and Gender Information Value Date Recorded Sex Assigned at Not on file Gender Identity Not on file Sexual Orientation Not on file Last Filed Vital Signs Vital Sign Reading Time Taken Comments Blood Pressure 203/102 02/10/2021 6:00 PM CDT Pulse 54 02/10/2021 6:00 PM CDT Temperature 36.6 ??C (97.8 ??F) 02/10/2021 3:36 PM CD T Respiratory Rate 9 02/10/2021 6:00 PM CDT Oxygen Saturation 96% 02/10/2021 6:00 PM CDT Inhaled Oxygen Concentration - - Weight 72.6 kg (160 lb) 02/10/2021 3:36 PM CDT Height 167.6 cm (5' 6) 02/10/2021 3:36 PM CDT Body Mass Index 25.82 02/10/2021 3:36 PM CDT Plan of Treatment Health Maintenance Due Date Last Done Comments ADVANCE CARE PLANNING 1967 ANNUAL REVIEW OF HM ORDERS 1967 CT COLONOGRAPHY 1967 FIT 1967 FLEX SIG 1967 MAMMO SCREENING 1967 sDNA (Cologuard) 1967 COVID-19 Vaccine (#1) 1967 COLONOSCOPY 1977 COLORECTAL CANCER SCREENING 1977 HIV SCREENING 1982 HEPATITIS C SCREENING 1985 PAP 1988 DTAP/TDAP/TD IMMUNIZATION (1 - Tdap) 1992 LIPID 2012 ZOSTER IMMUNIZATION (1 of 2) 2017 HEPATITIS B IMMUNIZATION (2 of 3 - 19+ 3-dose series) 10/01/2020 09/03/2020 YEARLY PREVENTIVE VISIT 09/03/2021 09/03/2020 INFLUENZA VACCINE (#1) 2023 0, 09/04/2014, 08/03/2013, Additional history exists PHQ-2 (once per calendar year) 2023 Pneumococcal Vaccine: Pediatrics (0 to 5 Years) and At-Risk Patients (6 to 64 Years) Aged Out 09/03/2020 No longer eligible based on patient's age to complete this topic HPV IMMUNIZATION Aged Out No longer e ligible based on patient's age to complete this topic IPV IMMUNIZATION Aged Out No longer e ligible based on patient's age to complete this topic MENINGITIS IMMUNIZATION Aged Out No l onger eligible based on patient's age to complete this topic RSV MONOCLONAL ANTIBODY Aged Out No l onger eligible based on patient's age to complete this topic Care Teams Entry Level Web Developer Relationship Specialty Start Date End Date Clinic, [facility] [address] [place], [place] [address] PCP - General 04/20/23
--- OUTSIDE RECORDS SUMMARY | 2023-12-14 14:14 | XMS_ITS | Referral Summary ---
Author Name Unknown Organization [facility] Address [address] [place] [address] Care Team Providers Care Water Filterer Helper Name Role Phone Clinic, [facility] Primary [...] 02/10/2021 3:36 PM CDT Plan of Treatment Not on file Care Teams Water Filterer Helper Relationship Specialty Start Date End Date Clinic, [facility] [id number] [place] [address] PCP - General 04/20/23
--- OUTSIDE RECORDS SUMMARY | 2023-12-14 14:14 | XMS_ITS | Encounter Summary ---
Author Name Unknown Organization [facility] Address [address] [place] [address] Care Team Providers Care Log Data Technician Name Role Phone Viki Sauer MD Primary Care Provider [phone] Reason for Visit * Reason Comments [facility] Care Coordination Encounter Details Date Type Department Care Team Description 05/09/2015 Care [address] [id number] Jayla Love, RN [address] [place] [address] Social History Tobacco Use Types Packs/Day Years Used Date Smoking Tobacco: Never Assessed Sex and Gender Information Value Date Recorded Sex Assigned at Not on file Gender Identity Not on file Sexual Orientation Not on file documented as of this encounter Plan of Treatment Upcoming Encounters Date Type Department Care Team Description 01/14/2024 12:30 PM ONLINE AFFILIATE MARKETING MANAGER Appointment [facility] [address] [place], [place] [id number] [place] [address] [facility] [place] [phone] 03/02/2024 3:30 PM CDT Telemedicine [facility] [address] [facility] [address] [place] [address] Delia Diallo PA-C [address] [place] [address] documented as of this encounter Visit Diagnoses Not on filedocumented in this encounter Additional Health Concerns Infection Onset Date Last Indicated Resolved Time R/O COVID19 09/26/2020 09/26/2020 09/27/2020 2:50 AM ONLINE AFFILIATE MARKETING MANAGER COVID19 09/26/2020 09/26/2020 10/17/2020 3:17 AM ONLINE AFFILIATE MARKETING MANAGER R/O COVID19 06/18/2022 06/18/2022 06/19/2022 4:17 AM CDT R/O COVID19 08/30/2023 08/30/2023 08/30/2023 9:30 PM CDT documented as of this encounter Care Teams Log Data Technician Relationship Specialty [place] [address] [place] [place] [address] PCP - General Internal Medicine 05/03/20 documented as of this encounter
[2023-12-14] MEDS: LACTATED RINGERS 1000 ML 1,000 ML IV (14:21)
[2023-12-14 14:26] LABS: Lactate Sepsis w/Reflex* 1.2 mmol/L (0.5-1.9); Troponin, Point-of-Care* 0.01 ng/ml (0.01-0.04)
[2023-12-14 14:27] LABS: Basophils Percent Auto 0.2 % (0.0-3.0); Eosinophils Percent Auto 4.8 % (0.0-7.0); Hemoglobin* 13.9 gm/dL (12.0-16.0); Immature Granulocytes Pct Auto 0.2 %; Lymphocytes Percent Auto 24.7 % (20-44); Mean Corpuscular HGB Conc 33 gm/dL (32-36); Mean Corpuscular Hemoglobin 29 pg (26-34); Mean Corpuscular Volume 87 fL (80-100); Monocytes Percent Auto 13.8 % (0.0-11.0); Neutrophils Percent Auto 56.3 % (42.0-72.0); Platelet Count* 196 K/uL (140-440); RDW Coefficient of Variation % 12.4 % (11.5-15.5); Red Blood Count 4.84 m/uL (4.00-5.20); White Blood Count* 4.41 K/uL (4.50-11.00)
[2023-12-14 14:42] LABS: Slide Review Reflex No
[2023-12-14 14:53] LABS: Strep A DNA Probe* NOT DETECTED (Not Detectd)
[2023-12-14 14:58] LABS: Chloride* 101 mmol/L (96-114); Potassium* 3.4 mmol/L (3.6-5.1); Sodium* 140 mmol/L (135-149)
[2023-12-14 15:00] VITALS: BP 160/91; PULSE 80; RESP 14; O2SAT 95
[2023-12-14 15:01] LABS: Anion Gap 13 mEq/L (7-15); Carbon Dioxide* 26 mmol/L (20-32); Creatinine* 1.1 mg/dL (0.5-1.5); Est. Creatinine Clearance* 53.46; Estimated Glomerular Filt Rate 59 ml/min
[2023-12-14 15:02] LABS: Blood Urea Nitrogen* 13 mg/dL (7-30); Calcium* 9.7 mg/dL (8.4-10.6); Glucose* 108 mg/dL (60-115)
[2023-12-14 15:30] VITALS: BP 163/91; PULSE 76; RESP 16; O2SAT 94
[2023-12-14 15:50] LABS: D Dimer Quantitative* 0.43 ug/ml (0.00-0.50)
[2023-12-14 16:00] VITALS: BP 142/87; PULSE 70; RESP 16; O2SAT 93
[2023-12-14 16:30] VITALS: BP 149/91
[2023-12-14 16:49] LABS: Troponin, Point-of-Care* 0.01 ng/ml (0.01-0.04)
[2023-12-14 17:15] VITALS: PULSE 70; RESP 16; O2SAT 93
== END 2023-12-14 17:21 | disposition home or self-care (01) ==
PROVIDERS: Emergency Provider Student in an Organized Health Care Education/Training Program
DX: B34.9 Viral infection, unspecified (principal)
CPT/HCPCS: 36415; 71046; 80048; 83605; 84484; 85025; 85379; 87631; 87651; 93005; 99283; 99284; 99285; J7120

== ENCOUNTER 2024-08-07 15:58 | Outpatient (CLI) | payer OTHER, SELFPAY ==
--- OUTSIDE RECORDS SUMMARY | 2024-08-10 11:30 | XMS_ITS | Clinical Summary ---
Author Organization [facility] Address [address] [place] [address] Care Team Providers Care Accounts Payable Supervisor Name Role Phone [facility], [facility] ov[facility] Allergies Active Allergy Reactions Criticality Noted Date Comments Azithromycin 02/10/2021 Contrast Dye Hives 02/10/2021 Medications Medication Sig Dispensed Refills Start Date End Date Status sucralfate (CARAFATE) 1 GM/10ML suspension Take 10 mLs (1 g) by mouth 4 times daily as needed (Pain) 420 mL 02/10/2021 Active Social History Tobacco Use Types [...] of Treatment Not on file Care Teams Accounts Payable Supervisor Relationship Specialty Start Date End Date Clinic, [place] [address] [address] PCP - General 04/20/23
--- OUTSIDE RECORDS SUMMARY | 2024-08-10 11:30 | XMS_ITS | Referral Summary ---
Author Organization [facility] Address [address] [place] [id number] Care Team Providers Care Dry Yard Worker Name Role Phone Clinic, [facility] [...] of Treatment Not on file Care Teams Dry Yard Worker Relationship Specialty Start Date End Date Clinic, [place] [address] PCP - General 04/20/23
--- OUTSIDE RECORDS SUMMARY | 2024-08-10 11:30 | XMS_ITS | Clinical Summary ---
Author Organization [facility] Address [place], [place] [address] Care Team Providers Care Gasfitter Name Role Phone Juan Carlos Leon MD Unavailable [phone] Viki Sauer Primary Care Provider [phone] Allergies Active Allergy Reactions Criticality Noted Date Comments Diatrizoate Allergen Hives 04/09/2009 Azithromycin 10/22/2005 Medications Medication Sig Dispensed Refills Start Date End Date Status BENADRYL 50 MG CAP take 1 capsule (50mg) by oral route every 4-6 hours as needed 0 Active MELATONIN 5 MG TAB Take 1 tablet daily at HS Active CLONAZEPAM 0.5 MG TAB take 1 tablet (0.5 mg) by oral route 1 times per day or as needed Active PREDNISONE 20 MG TAB take one tablet twice a day for 5 days 10 0 05/06/2009 Active rOPINIRole (REQUIP) 0.25 mg tablet Take 0.25 mg by mouth. 05/03/2020 Active SUMAtriptan (IMITREX) 50 mg tablet Take 50 mg by mouth. 05/03/2020 Active topiramate (TOPAMAX) 100 mg tablet 10/25/2020 Active traZODone (DESYREL) 50 mg tablet 11/01/2020 Active venlafaxine (EFFEXOR XR) 150 mg Extended-Release capsule Take 150 mg by mouth. 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 Oxygen Saturation 100% 06/16/2021 3:45 PM CDT Inhaled Oxygen Concentration - - Weight 99.8 kg (220 lb) 11/04/2011 8:54 AM 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
== END 2024-08-07 15:59 | disposition home or self-care (01) ==
LOC: NFLDREF 08-10 11:27
PROVIDERS: Visit Provider Physician Assistant
DX: N39.0 Urinary tract infection, site not specified (principal)
CPT/HCPCS: 87086; 87186

== ENCOUNTER 2025-08-25 15:25 | Emergency (ER) | payer OTHER, SELFPAY ==
--- OUTSIDE RECORDS SUMMARY | 2025-07-26 14:51 | XMS_ITS | Encounter Summary ---
[facility] Address [address], [place] [address] Care Team Providers Care Senior Property Accountant Name Role Phone Viki Sauer MD Primary Care Provider [phone] Reason for Visit * Reason Comments OBESITY Encounter Details Date Type Department Care Team (Late st Contact Info) Description 07/26/2025 2:51 PM CDT - 07/26/2025 11:59 PM CDT Hospital Encounter [facility] [address], [address] [place] [address] Amy Davis, PhD, [address] [place] [id number] SUSANA (generalized anxiety disorder) (HRC) (Primary Dx); Recurrent major depressive disorder in partial remission (HRC); History of Claire-en-Y gastric bypass Social History Tobacco Use Types Packs/Day Years [...] PHQ-2 Answer Date Recorded PHQ-2 Score 1 07/26/2025 Hunger Vital Sign Answer Date Recorded Within the past 12 months, y ou worried that your food would run out before you got the money to buy more. Never true 08/29/20 24 Within the past 12 months, t he food you bought just didn't last and you didn't have money to get more. Never true 08/29/2024 PRAPARE - Transportation Answer Date Re corded In the past 12 months, has l ack of transportation kept you from medical appointments or from getting medications? No 06/2024 In the past 12 months, has l ack of transportation kept you from meetings, work, or from getting things needed for daily living? No 08/29/2024 Housing Stability Vital Sign Answer Kj e Recorded In the last 12 months, was t here a time when you were not able to pay the mortgage or rent on time? No 08/29/2024 In the past 12 months, how m any times have you moved where you were living? 0 08/29/2024 At any time in the past 12 m [facility], were you homeless or living in a half-way (including now)? 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 1 Each 1 3 ascorbic acid (AKA VITAMIN C) 500 MG tabletIndications :take with iron to aide in iron absorption Take 1 Tablet (500 mg) by mouth daily. Indications: take with iron to aide in iron absorption 5 CALCIUM OR Take 1 tablet by mouth 2 times daily. Indications: HYPOCALCEMIA PREVENTION 5 carvedilol (COREG) 3.125 MG tabletIndications :Essential hypertension (HRC),Resistant hypertension Take 1 Tablet (3.125 mg) by mouth two times a day with meals. 180 Tablet 3 4 08/29/20 25 cetirizine (ZYRTEC) 10 MG tablet Take 1 Tablet (10 mg) by mouth daily. 90 Tablet 3 4 cholecalciferol (AKA VITAMIN D3) 2000 UNITS tablet Take 1 Tablet (2,000 Units) by mouth daily. [address] 1 Tablet (1,000 mcg) under tongue daily. 5 cyclobenzaprine (FLEXERIL) 10 MG tablet Take 1 Tablet (10 mg) by mouth three times a day. 4 diphenhydrAMINE (BENADRYL) 25 MG tabletIndications :allergies Take 1-2 Tablets (25-50 mg) by mouth 4 times daily as needed (Take 25-50 mg by mouth 4 times daily as needed.). Indications: allergies 8 ferrous sulfate 325 (65 FE) MG tablet Take 1 Tablet (325 mg) by mouth daily. 5 fluticasone propionate (FLONASE) 50 MCG/ACT nasal solution Place 2 Sprays into both nostrils daily. decrease to 1 spray per nostril daily if symptoms controlled 16 g 11 4 hydroCHLOROthiazi de (ORETIC) 25 MG tabletIndications :Essential hypertension (HRC) Take 1 Tablet (25 mg) by mouth daily. 90 Tablet 3 4 08/29/20 25 latanoprost (XALATAN) 0.005 % eye drop solution Place 1 Drop into left eye daily at bedtime. 4 losartan (COZAAR) 100 MG tabletIndications :Essential hypertension (HRC) Take 1 Tablet (100 mg) by mouth daily. 90 Tablet 3 4 08/29/20 25 multivitamin (THERAGRAN) tablet Take 1 Tablet by mouth daily. omeprazole (PRILOSEC) 20 MG capsuleIndication s:Gastroesophagea l reflux disease without esophagitis Take 1 Capsule (20 mg) by mouth daily. 1 HOUR BEFORE A MEAL 90 Capsule 3 4 potassium chloride (KLOR-CON M) 20 MEQ ER tabletIndications :Hypokalemia Take 1 Tablet (20 mEq) by mouth two times a day. 180 Tablet 3 4 09/20/20 25 Pyridoxine HCl (VITAMIN B-6) 50 MG tabletIndications :Vitamin B6 deficiency (HRC) Take 2 Tablets (100 mg) by mouth daily. 180 Tablet 3 4 Pyridoxine HCl (VITAMIN B6) 50 MG TABS TAKE 2 TABLETS (100 MG) BY MOUTH DAILY. 5 rOPINIRole (REQUIP) 0.25 MG tabletIndications :RLS (restless legs syndrome) Take 1 Tablet (0.25 mg) by mouth daily. 90 Tablet 3 4 saline 0.65 % nasal solution 1 [place] by Nasal route every morning. 2 huzjaq-qphm-diqgs ng chambers devices as needed. 1 Each 3 SUMAtriptan (IMITREX) 50 MG tabletIndications :Migraine with aura and without status migrainosus, not intractable Take 1 Tablet (50 mg) by mouth as needed for Migraine. May repeat one tablet after 2 hours if needed. Maximum 4 tabs/24 hours and 9 days/month 9 Tablet 3 4 tacrolimus (PROTOPIC) 0.1 % ointmentIndicatio ns:Perioral dermatitis Apply topically two times a day. 30 g 11 4 traZODone (DESYREL) 50 MG tabletIndications :Chronic insomnia Take 1 Tablet (50 mg) by mouth at bedtime as needed. for sleep 90 Tablet 3 4 venlafaxine (EFFEXORXR) 150 MG 24 hour release capsuleIndication s:Major depressive disorder, recurrent episode, in full remission (HRC) Take 1 Capsule (150 mg) by mouth daily. 90 Capsule 3 4 venlafaxine (EFFEXORXR) 37.5 MG 24 hour release capsuleIndication s:Major depressive disorder, recurrent episode, in full remission (HRC) Take 1 Capsule (37.5 mg) by mouth daily. 90 Capsule 3 4 amLODIPine (NORVASC) 2.5 MG tabletIndications :Essential hypertension (HRC) Take 1 Tablet (2.5 mg) by mouth daily. 90 Tablet 3 4 08/23/20 25 tirzepatide-weigh t management (ZEPBOUND) 10 MG/0.5ML pen injectionIndicati ons:Obesity, Class I, BMI 30-34.9 Inject 10 mg subcutaneously one time weekly for 4 weeks Do not start before June 18, 2025. 2 mL 5 08/07/20 25 tirzepatide-weigh t management (ZEPBOUND) 12.5 MG/0.5ML pen injectionIndicati ons:Obesity, Class I, BMI 30-34.9 Inject 12.5 mg subcutaneously one time weekly for 4 weeks Do not start before July 16, 2025. 2 mL 5 08/07/20 25 tirzepatide-weigh t management (ZEPBOUND) 15 MG/0.5ML pen injectionIndicati ons:Obesity, Class I, BMI 30-34.9 Inject 15 mg subcutaneously one time weekly for 4 weeks Do not start before August 13, 2025. 2 mL 11 5 08/07/20 25 tirzepatide-weigh t management (ZEPBOUND) 2.5 MG/0.5ML pen injectionIndicati ons:Obesity, Class I, BMI 30-34.9 Inject 2.5 mg subcutaneously one time weekly for 4 weeks 2 mL 5 08/07/20 25 tirzepatide-weigh t management (ZEPBOUND) 5 MG/0.5ML pen injectionIndicati ons:Obesity, Class I, BMI 30-34.9 Inject 5 mg subcutaneously one time weekly for 4 weeks Do not start before April 23, 2025. 2 mL 5 08/07/20 25 tirzepatide-weigh t management (ZEPBOUND) 7.5 MG/0.5ML pen injectionIndicati ons:Obesity, Class I, BMI 30-34.9 Inject 7.5 mg subcutaneously one time weekly for 4 weeks Do not start before May 21, 2025. 2 mL 5 08/07/20 25 topiramate (TOPAMAX) 100 MG tabletIndications :Obesity, Class I, BMI 30-34.9 TAKE 1 TABLET (100 MG) BY MOUTH TWO TIMES A DAY. 180 Tablet 5 07/27/20 25 documented as of this encounter Progress Notes * Amy Davis, PhD, LP - 07/26/2025 3:00 PM CDT [facility] Psychotherapy Progress Note DIAGNOSIS: 1. SUSANA (generalized anxiety disorder) (HRC) 2. Recurrent major depressive disorder in partial remission (HRC) 3. History of Claire-en-Y gastric bypass Level of Care: Outpatient, [facility] Summary and recommendations from initial assessment completed by Amy Davis, PhD, LP on 06/12/25 included the following: Nel is a 59 y.o., , White, female s/p VSG (2014) referred to bariatric to address mindless eating. Based on aforementioned concerns including difficulties related to eating, exercise, body image, anxiety, and to a lesser extent depression, service writer discussed meeting individually for additional support and behavior change. Patiet was in agreement. At this juncture,diagnosis of SUSANA will be carried forward and diagnosis of MDD, recurrent, in full remission will beamended to partial remission. Video Visit: This appointment was conducted via telehealth (video) as it is the patient's preference and it is appropriate for the treatment being provided. Patient location: home, Clinician location: home. Date of Visit: 07/26/2025 Start Time: 3:03pm End Time: 3:55pm Present in Session: The patient was seen alone. Weight Management Symptom Review Date of bariatric surgery: VSG through in 2014 Current Height and Weight: Estimated body mass index is 26.15 kg/m?? as calculated from the following: Height as of 03/26/25: 5' 6 (1.676 m). Weight as of 03/26/25: 162 lb (73.5 kg). Weight Loss Medications: topiramate (Zepbound denied by insurance) Treatment Goals Formal treatment planning to occur if therapy sessions extend beyond 3 sessions. Today we discusseduse of CBT, VA, and emotion-focused interventions to address presenting concerns. Intervention Method Treatment Modality: CBT Session #: 1 Session Focus: introduced CBT model, highlighting role of distorted thoughts and avoidance behaviors in maintaining anxiety, depressive symptoms, avoidance of health behaviors such as exercise, and body dissatisfaction. Engaged pt in Socratic dialogue to address recent incident where she saw picture of herself and thought I am really fat. Also did experiment in session to highlight bias and inaccuracies in perceiving self. Encouraged identification of emotions and shifting from controlling and rigid self-directed styles to more acceptance, flexibility and self-protection. Supportively challenged unrealistic expectations around weight maintenance and rigid adherence to bariatric diet this far out from surgery as certain beliefs are impeding her ability to care for self. Nel engaged well and was receptive to service writer's interventions. Mental Status Exam Mood: anxious Affect: mood-congruent, appropriately tearful Appearance: within normal limits Suicide Assessment Suicide Ideation: Patient denies suicidal ideation. Suicide Plan: no Suicide Intent: No. Outcome Measures [employer] last three scores: 07/26/2025 2:51 PM 07/04/2025 11:59 PM 06/12/2025 10:44 AM [employer] SUSANA-7 Total Scores 0 0 0 PHQ-9 Score 3 2 0 Follow Up/Recommendations Psychotherapy Follow-up Plan: Individual therapy, RTC 3-4 weeks Treatment Team Follow-up: Pt should continue with medical weight management/bariatric interdisciplinary team as recommended. documented in this encounter Plan of Treatment Upcoming Encounters Date Type Department Care Team (Late st Contact Info) Description 09/18/2025 5:30 PM CDT Appointment [facility] [address] [place] [address] [place] [id number] [address] [phone] documented as of this encounter Visit Diagnoses Diagnosis SUSANA (generalized anxiety disorder) (HRC)- Primary Generalized anxiety disorder Recurrent major depressive disorder in partial remission (HRC) Major depressive disorder, recurrent episode, in partial or unspecified remission History of Claire-en-Y gastric bypass Bariatric surgery status documented in this encounter Care Teams Senior Property Accountant Relationship Specialty Start [place] [id number] [address] [phone] PCP - General Internal Medicine 05/03/20 documented as of this encounter
--- OUTSIDE RECORDS SUMMARY | 2025-08-07 16:30 | XMS_ITS | Encounter Summary ---
Author Organization [facility] Address [address], [place] [address] Care Team Providers Care Changer Fixer Name Role Phone Viki Sauer MD Primary Care Provider [phone] Reason for Referral * Procedure/Equipment (Routine) - Incomplete Specialty Diagnoses / Procedures Referred By Contac t Referred To Contact Diagnoses Dysphagia, unspecified type Procedures FL UGI W Esophagus Samaria Perdomo MD [address] [place] [phone] Phone: tel: fax: Referral ID Status Reason Start Date Expiration Date V isits Requested Visits Authorized [id number] Incomplete 08/07/2025 11/06/2026 1 1 Reason for Visit * Reason Comments Bypass Surg Followup Encounter Details Date Type Department Care Team (Late st Contact Info) Description 08/07/2025 4:30 PM CDT Telemedicine [facility] [address] [place] [address], [address] [place] [address] Samaria Perdomo MD [address] [place] [phone] Dysphagia, unspecified type (Primary Dx); History of Claire-en-Y gastric bypass; Stage 3a chronic kidney disease (HRC); Chronic insomnia; Mild obstructive sleep apnea; Osteopenia of multiple sites; SUSANA (generalized anxiety disorder) (HRC); Recurrent major depressive disorder in partial remission (HRC); Iron deficiency anemia secondary to inadequate dietary iron intake; Social phobia (HRC); Vitamin D deficiency (HRC); Gastroesophageal reflux disease without esophagitis; Liver fibrosis; ORTIZ (nonalcoholic steatohepatitis); Essential hypertension (HRC); Mixed hyperlipidemia (HRC) Social History Tobacco [...] any time in the past 12 m [facility], were you homeless or living in a fci (including now)? 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 year-old female with presents for routine postoperative followup status post Laparoscopic Claire-en-Y. Bariatric Weight History and Calculations Weight History Starting Weight: 198 lb Current Weight: 165 lb Height (in): 66 Weight Calculations Excess Weight: 59 lb Current Weight Loss: 33 lb Goal Weight: 139 lb Starting BMI: 32.02 Percent Exess Weight Loss: 56 Current BMI: 26.69 Percent Totoal Body Weight Loss: 17 Date of surgery 11/27/2014. Pre-op weight: 217 lb Post-op charlene: 153 lb Weight last visit: 162 lb Weight today: 165 lb Last visit with me 03/26/25. Continued topamax 100mg BID, was to take AM dose a little later 8am and PM dose around 3-5 to help cover cravings better. Encouraged her to meet with bariatric to discuss improving mindful eating. Encouraged eating breakfast earlier, soon after waking. Had urticarial reaction with semaglutide, Zepbound was denied by insurance. Just started meeting with and has had two sessions, so far has been really helpful. Meeting every couple weeks. She has been working on reframing where she is with her weight. Taking the topamax at the alternative times has been helping but she is forgetting on the weekends. Food is getting stuck in her esophagus sometimes, thinks this is happening more frequently than prior. Happens with just about any solids. Happening maybe once per day. Very uncomfortable feeling, makes her want to throw up. Started feeling worse maybe 4 months ago. No changes with her medications in that time. Drinking fluids the same as she used to. No reflux or heartburn, continues on omeprazole. Focuses on eating protein at most meals: Yes Fluid intake averages 48-64 oz oz per day. What are you doing for exercise?: Walking She reports taking MVI, B12 SL weekly, Vitamin D and Calcium supplements as prescribed. Patient denies alcohol use, carbonated beverages, and tobacco use. 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 BMI: Estimated body mass index is 26.63 kg/m?? as calculated from the following: Height as of this encounter: 1.676 m (5' 6). Weight as of this encounter: 74.8 kg (165 lb). GENERAL: Patient appears no apparent distress RESPIRATORY: Normal respiratory effort PSYCH: no overt evidence of anxiety or depression LABORATORY STUDIES: Reviewed in Epic. ASSESSMENT: We will continue to treat the patient's obesity, obesity-associated medical conditions, and conditions exacerbated by or contributing to weight gain by aggressive management of weight: ICD-10-CM 1. Dysphagia, unspecified type R13.10 2. History of Claire-en-Y gastric bypass Z98.84 3. Stage 3a chronic kidney disease (HRC) N18.31 4. Chronic insomnia F51.04 5. Mild obstructive sleep apnea G47.33 6. Osteopenia of multiple sites M85.89 7. SUSANA (generalized anxiety disorder) (HRC) F41.1 8. Recurrent major depressive disorder in partial remission (HRC) F33.41 9. Iron deficiency anemia secondary to inadequate dietary iron intake D50.8 10. Social phobia (HRC) F40.10 11. Vitamin D deficiency (HRC) E55.9 12. Gastroesophageal reflux disease without esophagitis K21.9 13. Liver fibrosis K74.00 14. ORTIZ (nonalcoholic steatohepatitis) K75.81 15. Essential hypertension (HRC) I10 16. Mixed hyperlipidemia (HRC) E78.2 Very pleased to hear that she is making good progress with our bariatric psychologist on self-imageand reframing. Has had excellent weight stability since her surgery 10 years ago. Dysphagia present since surgery now worsening. Never had UGI. Will start here and likely repeat EGD, did have normal EGD 2022. Continues on omeprazole and GERD well-controlled. PLAN: No laboratory studies needed today, her primary has been ordering these. Patient will work on: Continue working with bariatric psychologist on reframing weight mindset. Get UGI study to evaluate dysphagia, may consider EGD depending on results. Continue topamax 100mg BID for now, may consider reducing this in the future Medications: - GLP-1: urticaria with wegovy, zepbound denied by insurance - Wellbutrin/naltrexone: ineffective for mental health, was not trialed for weight loss, interaction with effexor and she is on high dose of this so would need to coordinate with psychiatry if we wanted to pursue this - Phentermine: caution hypertension - Topamax: continue 100mg BID - Zonisamide: - Metformin: No insulin resistance, unlikely to be effective Return to the clinic in 6 months, sooner p.r.n. problems or concerns. Patient is especially encouraged to return to the clinic if failing to lose further weight. Samaria Perdomo MD documented in this encounter Nursing Notes * Kayla Morrison MA - 08/07/2025 4:30 PM CDT Patient has completed mobile check in. Last seen by provider on 03/26/25 with recorded weight of 162 lbs. Weight History: Bariatric Weight History and Calculations Weight History Starting Weight: 198 lb Current Weight: 165 lb Height (in): 66 Weight Calculations Excess Weight: 59 lb Current Weight Loss: 33 lb Goal Weight: 139 lb Starting BMI: 32.02 Percent Exess Weight Loss: 56 Current BMI: 26.69 Percent Totoal Body Weight Loss: 17 Ht 1.676 m (5' 6) Wt 74.8 kg (165 lb) BMI 26.63 kg/m?? Eating patterns Patient is experiencing the following symptoms/problems: None Medications: reviewed by patient. Compliance: Yes Side effects: NO Patient would like to discuss: Follow up from last time documented in this encounter Plan of Treatment Upcoming Encounters Date Type Department Care Team (Late st Contact Info) Description 09/18/2025 5:30 PM CDT Appointment [facility] [address] [place] [address] [place] [address] [place] [address] documented as of this encounter Results * FL UGI W Esophagus (08/15/2025 8:37 AM CDT) Anatomical Region Laterality Modality Chest, Abdomen, Neck Radio Fluor oscopy Impressions 08/15/2025 9:06 AM CDT 1. Mild esophageal dysmotility 2. Hiatal hernia containing much if not all of the stomach pouch. Trace esophageal reflux. No significant stricture. If, at some point, surgical intervention is considered, recommend correlation with CT of the abdomen as well. Signed by: Jacob Campos 08/15/2025 9:06 AM Narrative 08/15/2025 9:06 AM CDT EXAM: FL UGI W ESOPHAGUS INDICATION: solids sticking in throat about once per day, very uncomfortable, COMPARISON: None. FINDINGS: The patient swallowed barium without difficulty. Mild esophageal dysmotility but the esophagus is otherwise unremarkable. Lateral views of the neck obtained as well. No evidence of diverticulum. The patient is status post Claire-en-Y bypass. Hiatal hernia is present which contains much, if not all, of the stomach pouch. A barium tablet was administered which readily passes. No significant stricture in the esophagus or of the proximal anastomosis. Bypass limb appears patent. Procedure Note Jacob Campos MD - 08/15/2025 EXAM: FL UGI W ESOPHAGUS INDICATION: solids sticking in throat about once per day, veryuncomfortable, COMPARISON: None. FINDINGS: The patient swallowed barium without difficulty. Mild esophagealdysmotility but the esophagus is otherwise unremarkable. Lateral views ofthe neck obtained as well. No evidence of diverticulum. The patient isstatus post Claire-en-Y bypass. Hiatal hernia is present which containsmuch, if not all, of the stomach pouch. A barium tablet was administeredwhich readily passes. No significant stricture in the esophagus or of theproximal anastomosis. Bypass limb appears patent. IMPRESSION 1. Mild esophageal dysmotility 2. Hiatal hernia containing much if not all of the stomach pouch. Traceesophageal reflux. No significant stricture. If, at some point, surgicalintervention is considered, recommend correlation with CT of the abdomenas well. Signed by: Jacob Campos 08/15/2025 9:06 AM Samaria Perdomo MD [facility] Final Result documented in this encounter Visit Diagnoses Diagnosis Dysphagia, unspecified type- Primary History of Claire-en-Y gastric bypass Bariatric surgery status Stage 3a chronic kidney disease (HRC) Chronic insomnia Insomnia, unspecified Mild obstructive sleep apnea Obstructive sleep apnea (adult) (pediatric) Osteopenia of multiple sites SUSANA (generalized anxiety disorder) (HRC) Generalized anxiety disorder Recurrent major depressive disorder in partial remission (HRC) Major depressive disorder, recurrent episode, in partial or unspecified remission Iron deficiency anemia secondary to inadequate dietary iron intake Social phobia (HRC) Social phobia Vitamin D deficiency (HRC) Unspecified vitamin D deficiency Gastroesophageal reflux disease without esophagitis Esophageal reflux Liver fibrosis Cirrhosis of liver without mention of alcohol ORTIZ (nonalcoholic steatohepatitis) Other chronic nonalcoholic liver disease Essential hypertension (HRC) Unspecified essential hypertension Mixed hyperlipidemia (HRC) Mixed hyperlipidemia Dysphagia, unspecified type- Primary documented in this encounter Care Teams Changer Fixer Relationship Specialty [place] [address] [place] [address] PCP - General Internal Medicine 05/03/20 documented as of this encounter
--- OUTSIDE RECORDS SUMMARY | 2025-08-15 08:00 | XMS_ITS | Encounter Summary ---
[facility] Organization [facility] Address [address] [address] Care Team Providers Care Sewage Disposal Engineer Name Role Phone Viki Sauer MD Primary Care Provider [phone] Reason for Visit * Procedure/Equipment (Routine) - Incomplete Specialty Diagnoses / Procedures Referred By Contac t Referred To Contact Diagnoses Dysphagia, unspecified type Procedures FL UGI W Esophagus Samaria Perdomo MD [address] [place] [address] Phone: tel: fax: Referral ID Status Reason Start Date Expiration Date V isits Requested Visits Authorized [id number] Incomplete 08/07/2025 11/06/2026 1 1 Encounter Details Date Type Department Care Team (Late st Contact Info) Description 08/15/2025 8:00 AM CDT Ancillary Procedure [facility] [address] [place] [address] Samaria Perdomo MD [address] [place] [address] Dysphagia, unspecified type (Primary Dx) Social History Tobacco Use Types [...] PHQ-2 Answer Date Recorded PHQ-2 Score 0 08/16/2025 Hunger Vital Sign Answer Date Recorded Within [...] any time in the past 12 m [facility], were you homeless or living in a jail (including now)? 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 Not on file Not on file documented as of this encounter Plan of Treatment Upcoming Encounters Date Type Department Care Team (Late st Contact Info) Description 09/18/2025 5:30 PM CDT Appointment [facility] [address] [place] [address] [place] [address] [address] documented as of this encounter Procedures Procedure Name Priority Date/Time Associated Diagnosis Comments FL UGI W ESOPHAGUS Routine 08/15/2025 8: 37 AM CDT Dysphagia, unspecified type documented in this encounter Results * FL UGI W [...] Campos 08/15/2025 9:06 AM Samaria Perdomo MD [facility] Final Result documented in this encounter Visit Diagnoses Diagnosis Dysphagia, unspecified type- Primary documented in this encounter Administered Medications Inactive Administered Medications - up to 3 most recent administrations Medication Order MAR Action Action Date Dose Rate Site barium sulfate (EZ HD) 98 % oral suspension 135 mL 135 mL, Oral, ONCE, On Wed08/15/25 at 0900, For 1 doseIndications:Dysphagia, unspecified type Given 08/15/2025 8:43 AM CDT 135 mL barium sulfate (EZ-DISK) tablet 700 mg 700 mg, Oral, ONCE, On Wed08/15/25 at 0900, For 1 doseIndications:Dysphagia, unspecified type Given 08/15/2025 8:42 AM CDT 700 mg barium sulfate (LIQUID E-Z-PAQUE) 60 % oral solution 355 mL 355 mL, Oral, ONCE, On Wed08/15/25 at 0900, For 1 doseIndications:Dysphagia, unspecified type Given 08/15/2025 8:44 AM CDT 355 mL sodium bicarbonate-citric acid-simethicone (E-Z GAS II) 2.21-1.53-0.04 g oral powder 1 Packet 1 Packet, Oral, ONCE, On Wed08/15/25 at 0900, For 1 dose, Place 1/2 packet contents on back of tongue and wash down with 1/2 oz of water. Repeat with remaining packet.Indications:Dysphagia, unspecified type Given 08/15/2025 8:42 AM CDT 1 Packet documented in this encounter Care Teams Sewage Disposal Engineer Relationship Specialty [place] [address] [address] [address] PCP - General Internal Medicine 05/03/20 documented as of this encounter
--- OUTSIDE RECORDS SUMMARY | 2025-08-16 15:30 | XMS_ITS | Encounter Summary ---
Author Organization [facility] Address [address], [place] [address] Care Team Providers Care Rippler Name Role Phone Viki Sauer MD Primary Care Provider [phone] Reason for Visit * Reason Comments Video Visit Please sent link whe n ready Sinus Problem Sinus congestion x 2 wks Encounter Details Date Type Department Care Team (Late st Contact Info) Description 08/16/2025 3:30 PM CDT Telemedicine [facility] [address] [place] [address] Amarilis Calvillo MD [address] [place] [phone] Acute non-recurrent maxillary sinusitis (Primary Dx) Social History Tobacco Use Types Packs/Day Years Used Date Smoking Tobacco: Never Passive Smoke Exposure: Never Smokeless Tobacco: Never Tobacco Cessation:Counseling Given: Not Answered Alcohol Use Standard Drinks/Week Comments Never 0 [...] any time in the past 12 m [place], were you homeless or living in a correction (including now)? 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 female who presents for Video Visit (Please sent link when ready) and Sinus Problem (Sinus congestion x 2 wks) History of Present Illness Nel Pearl is a 60 year old female who presents with sinus congestion and suspected sinus infection. She has been experiencing sinus congestion for over two weeks. She has headaches but no typical sinus pressure under her eyes and next to her nose. Thick mucus is present. No fever or chills. She has a history of sinus infections.She has previously used Augmentin without any allergic reactions. She has tried various treatments including nasal sprays, standing in the shower, and using a nettipot, but these have not resolved her symptoms. She typically experiences these symptoms annually around the same time, often coinciding with her vacation plans to [place], where her parents have a timeshare. She inquires about the use of Astelin spray, particularly in relation to her high blood pressure. Objective There were no vitals taken for this visit. Physical Exam Results Assessment & Plan Acute sinusitis Sinus congestion for over two weeks, likely acute sinusitis. No fever or chills. No allergies to Augmentin, effective in past. - Prescribe Augmentin. - Continue Medipod or OTC saline nasal spray. - Prescribe Astelin nasal spray. - Send prescriptions to [facility] in [place]. Acute non-recurrent maxillary sinusitis - amoxicillin-clavulanate (AUGMENTIN) 875-125 mg per tablet; Take 1 Tablet by mouth two times a dayfor 10 days. - azelastine (ASTELIN) 0.1 % nasal solution; Place 1 [place] into both nostrils two times a day. Amarilis Calvillo MD 08/16/2025, 1:46 PM documented in this encounter Plan of Treatment Upcoming Encounters Date Type Department Care Team (Late st Contact Info) Description 09/18/2025 5:30 PM CDT Appointment [facility] [address] [place], [place] [address] [place] [address] [place] [address] documented as of this encounter Visit Diagnoses Diagnosis Acute non-recurrent maxillary sinusitis- Primary documented in this encounter Care Teams Rippler Relationship Specialty [place] [address] [place] [address] PCP - General Internal Medicine 05/03/20 documented as of this encounter
--- OUTSIDE RECORDS SUMMARY | 2025-08-21 15:00 | XMS_ITS | Encounter Summary ---
Author Organization [facility] Address [address] [address] Care Team Providers Care Weight Recorder Name Role Phone Viki Sauer MD Primary Care Provider [phone] Reason for Visit * Reason Comments RESULTS, TEST Entered automaticall y based on patient selection in [employer]. Encounter Details Date Type Department Care Team (Late st Contact Info) Description 08/21/2025 3:00 PM CDT E-Visit [facility] [address], [address] [place], [place] [id number] Samaria Perdomo MD [address] [place] [phone] Chief Comp: RESULTS, TEST Social History Tobacco Use Types Packs/Day Years Used Date Smoking Tobacco: Never Passive Smoke Exposure: Never Smokeless Tobacco: Never Alcohol Use Standard Drinks/Week Comments Never 0 (1 standard drink = 0.6 oz pur e alcohol) AUDIT-C Answer Date Recorded Q1: How often do you have a drink containing alc ohol? Never 09/03/2020 Average Number of Drinks Not on file 020 Frequency of Binge Drinking Not on file 08/22 PHQ-2 Answer Date Recorded PHQ-2 Score 0 08/20/2025 Hunger Vital Sign Answer Date Recorded Within [...] any time in the past 12 m onths, were you homeless or living in a correction (including now)? 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 Not on file Not on file documented as of this encounter Plan of Treatment Upcoming Encounters Date Type Department Care Team (Late st Contact Info) Description 09/18/2025 5:30 PM CDT Appointment [facility] [address] [place] [address] [place] [address] [place] [phone] documented as of this encounter Visit Diagnoses Not on filedocumented in this encounter Care Teams Weight Recorder Relationship Specialty Start Date [place] [id number] [place] [address] [place] [phone] PCP - General Internal Medicine 05/03/20 documented as of this encounter
--- OUTSIDE RECORDS SUMMARY | 2025-08-23 09:00 | XMS_ITS | Encounter Summary ---
[facility] Address [address] [address] Care Team Providers Care Supervisor Coremaker Name Role Phone Viki Sauer MD Primary Care Provider [phone] Reason for Visit * Reason Comments OBESITY Encounter Details Date Type Department Care Team (Late st Contact Info) Description 08/23/2025 9:00 AM CDT - 08/23/2025 11:59 PM CDT Hospital Encounter [facility] [address], [address] [place] [address] Amy Davis, PhD, [address] [place] [phone] SUSANA (generalized anxiety disorder) (HRC) (Primary Dx); [...] any time in the past 12 m [facility], were you homeless or living in a [facility] (including now)? 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 1 Each 1 08/30/2023 amLODIPine (NORVASC) 2.5 MG tabletIndications :Essential hypertension (HRC) TAKE ONE TABLET (2.5MG) BY MOUTH DAILY 90 Tablet 2 08/23/2025 amoxicillin-clavu lanate (AUGMENTIN) 875-125 mg per tabletIndications :Acute non-recurrent maxillary sinusitis Take 1 Tablet by mouth two times a day for 10 days. 20 Tablet 08/16/2025 ascorbic acid (AKA VITAMIN C) 500 MG tabletIndications :take with iron to aide in iron absorption Take 1 Tablet (500 mg) by mouth daily. Indications: take with iron to aide in iron absorption 12/28/2014 azelastine (ASTELIN) 0.1 % nasal solutionIndicatio ns:Acute non-recurrent maxillary sinusitis Place 1 Friendship into both nostrils two times a day. 30 mL 6 08/16/2025 CALCIUM OR Take 1 tablet by mouth 2 times daily. Indications: HYPOCALCEMIA PREVENTION 12/28/2014 carvedilol (COREG) 3.125 MG tabletIndications :Essential hypertension (HRC),Resistant hypertension Take 1 Tablet (3.125 mg) by mouth two times a day with meals. 180 Tablet 3 08/29/2024 cetirizine (ZYRTEC) 10 MG tablet Take 1 Tablet (10 mg) by mouth daily. 90 Tablet 3 08/29/2024 cholecalciferol (AKA VITAMIN D3) 2000 UNITS tablet Take 1 Tablet (2,000 Units) by mouth daily. 12/28/[address]oc[address] 1 Tablet (1,000 mcg) under tongue daily. 12/28/2014 cyclobenzaprine (FLEXERIL) 10 MG tablet Take 1 Tablet (10 mg) by mouth three times a day. 06/04/2024 diphenhydrAMINE (BENADRYL) 25 MG tabletIndications :allergies Take 1-2 Tablets (25-50 mg) by mouth 4 times daily as needed (Take 25-50 mg by mouth 4 times daily as needed.). Indications: allergies 07/25/2008 ferrous sulfate 325 (65 FE) MG tablet Take 1 Tablet (325 mg) by mouth daily. 12/28/2014 fluticasone propionate (FLONASE) 50 MCG/ACT nasal solution Place 2 Sprays into both nostrils daily. decrease to 1 spray per nostril daily if symptoms controlled 16 g 11 08/29/2024 hydroCHLOROthiazi de (ORETIC) 25 MG tabletIndications :Essential hypertension (HRC) Take 1 Tablet (25 mg) by mouth daily. 90 Tablet 3 08/29/2024 latanoprost (XALATAN) 0.005 % eye drop solution Place 1 Drop into left eye daily at bedtime. 04/28/2024 losartan (COZAAR) 100 MG tabletIndications :Essential hypertension (HRC) Take 1 Tablet (100 mg) by mouth daily. 90 Tablet 3 08/29/2024 multivitamin (THERAGRAN) tablet Take 1 Tablet by mouth daily. omeprazole (PRILOSEC) 20 MG capsuleIndication s:Gastroesophagea l reflux disease without esophagitis Take 1 Capsule (20 mg) by mouth daily. 1 HOUR BEFORE A MEAL 90 Capsule 3 08/29/2024 potassium chloride (KLOR-CON M) 20 MEQ ER tabletIndications :Hypokalemia Take 1 Tablet (20 mEq) by mouth two times a day. 180 Tablet 3 09/20/2024 Pyridoxine HCl (VITAMIN B-6) 50 MG tabletIndications :Vitamin B6 deficiency (HRC) Take 2 Tablets (100 mg) by mouth daily. 180 Tablet 3 08/29/2024 Pyridoxine HCl (VITAMIN B6) 50 MG TABS TAKE 2 TABLETS (100 MG) BY MOUTH DAILY. 07/20/2025 rOPINIRole (REQUIP) 0.25 MG tabletIndications :RLS (restless legs syndrome) Take 1 Tablet (0.25 mg) by mouth daily. 90 Tablet 3 08/29/2024 saline 0.65 % nasal solution 1 Friendship by Nasal route every morning. 11/11/2012 cbkxtc-suqy-zrazw ng chambers devices as needed. 1 Each 08/30/2023 SUMAtriptan (IMITREX) 50 MG tabletIndications :Migraine with aura and without status migrainosus, not intractable Take 1 Tablet (50 mg) by mouth as needed for Migraine. May repeat one tablet after 2 hours if needed. Maximum 4 tabs/24 hours and 9 days/month 9 Tablet 3 08/29/2024 tacrolimus (PROTOPIC) 0.1 % ointmentIndicatio ns:Perioral dermatitis Apply topically two times a day. 30 g 11 08/29/2024 topiramate (TOPAMAX) 100 MG tabletIndications :Obesity, Class I, BMI 30-34.9 Take 1 Tablet (100 mg) by mouth two times a day. 180 Tablet 07/27/2025 traZODone (DESYREL) 50 MG tabletIndications :Chronic insomnia Take 1 Tablet (50 mg) by mouth at bedtime as needed. for sleep 90 Tablet 3 08/29/2024 venlafaxine (EFFEXORXR) 150 MG 24 hour release capsuleIndication s:Major depressive disorder, recurrent episode, in full remission (HRC) Take 1 Capsule (150 mg) by mouth daily. 90 Capsule 3 08/29/2024 venlafaxine (EFFEXORXR) 37.5 MG 24 hour release capsuleIndication s:Major depressive disorder, recurrent episode, in full remission (HRC) Take 1 Capsule (37.5 mg) by mouth daily. 90 Capsule 3 08/29/2024 documented as of this encounter Progress Notes * Amy Davis, PhD, LP - 08/23/2025 9:00 AM CDT [facility] Psychotherapy Progress Note DIAGNOSIS: 1. SUSANA (generalized anxiety disorder) (HRC) 2. Recurrent major depressive disorder in partial remission (HRC) 3. History of Claire-en-Y gastric bypass Video Visit: This appointment was conducted via telehealth (video) as it is the patient's preference and it is appropriate for the treatment being provided. Patient location: [facility] in [place], [place], Clinician location: clinic. Present in Session: The patient was seen alone. Date of Visit: 08/23/2025 Start Time: 9:02am End Time: 9:46am Level of Care: Outpatient, Bariatric Surgery and [...] anxiety, and to a lesser extent depression, flex o writer operator discussed meeting individually for additional support and behavior change. Patiet was in agreement. At this juncture,diagnosis of SUSANA will be carried forward and diagnosis of MDD, recurrent, in full remission will beamended to partial remission. Weight Management Symptom Review Date of bariatric surgery: VSG through in 2014 Current Height and Weight: Estimated body mass index is 26.63 kg/m?? as calculated from the following: Height as of 08/07/25: 5' 6 (1.676 m). Weight as of 08/07/25: 165 lb (74.8 kg). Weight Loss Medications: topiramate (Zepbound denied by insurance) Treatment Goals Formal treatment planning to occur if therapy sessions extend beyond 3 sessions. We have discussed use of CBT, NV, and emotion-focused interventions to address presenting concerns. Intervention Method Treatment Modality: CBT Session #: 2 Session Focus: Reports body image has improved with cognitive restructuring which was introduced atour last session. Offered additional strategies to reduce body avoidance including focus on function over form and spending more time in front of the mirror, mindfully observing thoughts, feelings, and experience of body. Also assisted her in challenging thoughts around eating ice cream alone (e.g., I shouldn't have done that or If I eat ice cream I will regain weight) which recently resultedin her then skipping lunch. She is not self- weighing but denies avoidance around this. Focus is more so on her shape. Elicited reasons for exercise which was challenging for Nel. She did note somephysical benefits and impact of anxiety and depression. Metal Refiner offered some additional information on exercise for weight maintenance, mobility and longevity. We discussed her h/o w/ exercise and challenges including motivation and not seeing results. Pt agreeable to setting goal around movement sowould like to unbox her yoga mat and begin to stretch. Identified barrier of I'm too tired and how we can still move our bodies when we are tired. Also introduced idea of jump starting motivation with behavior activation. Session ended with patient engaging in a few stretches to begin her new relationship with exercise and movement. Nel engaged well and was receptive to flex o writer operator's interventions. Mental Status Exam Mood: WNL Affect: mood-congruent Appearance: within normal limits Suicide Assessment Suicide Ideation: Patient denies suicidal ideation. Suicide Plan: no Suicide Intent: No. Outcome Measures Sasha Tonic last three scores: 08/20/2025 9:00 AM 08/16/2025 3:30 PM 07/26/2025 2:51 PM Sasha Tonic SUSANA-7 Total Scores 0 0 PHQ-9 Score 1 1 3 Follow Up/Recommendations Psychotherapy Follow-up Plan: Individual therapy, RTC 1 month Treatment Team Follow-up: Pt should continue with medical weight management/bariatric interdisciplinary team as recommended. documented in this encounter Plan of Treatment Upcoming Encounters Date Type Department Care Team (Late st Contact Info) Description 09/18/2025 5:30 PM CDT Appointment [facility] [address] [facility] [place] [address] [place] [address] [address] [place] [address] documented as of this encounter Visit Diagnoses Diagnosis SUSANA (generalized anxiety disorder) (HRC)- Primary Generalized anxiety disorder Recurrent major depressive disorder in partial remission (HRC) Major depressive disorder, recurrent episode, in partial or unspecified remission History of Claire-en-Y gastric bypass Bariatric surgery status documented in this encounter Care Teams Supervisor Coremaker Relationship Specialty [place] [address] [address] [address] PCP - General Internal Medicine 05/03/20 documented as of this encounter
--- OUTSIDE RECORDS SUMMARY | 2025-08-25 15:28 | XMS_ITS | Encounter Summary ---
Author Organization [facility] Address [address] [address] Care Team Providers Care Microelectronics Engineer Name Role Phone Viki Sauer MD Primary Care Provider [phone] Reason for Visit * Reason Comments Refill Topiramate completed for 90 days. Encounter Details Date Type Department Care Team (Late st Contact Info) Description 07/27/2025 Telephone [facility] [address] [facility] [address] [place] [address] Priya Aguilar, RN Refill (Topiramate completed for 90 days. ) Social History Tobacco Use Types Packs/Day Years [...] any time in the past 12 m [facility], were you homeless or living in a [facility] (including now)? 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 Prior refill request was denied. Medication refill request Date last visit:03/26/25 Future appointment is scheduled on 08/07/25. Follow up requested by provider: 4-5 months Since last seen she has no showed or cancelled the following appointments: none Labs are up to date n/a Medication refilled per standing order. documented in this encounter Plan of Treatment Upcoming Encounters Date Type Department Care Team (Late st Contact Info) Description 09/18/2025 5:30 PM CDT Appointment [facility] [address] [place], [place] [phone] [place] [address] [address] [place] [phone] documented as of this encounter Visit Diagnoses Diagnosis Obesity, Class I, BMI 30-34.9 Obesity, unspecified documented in this encounter Care Teams Microelectronics Engineer Relationship Specialty [place] [address] [address] [address] PCP - General Internal Medicine 05/03/20 documented as of this encounter
--- OUTSIDE RECORDS SUMMARY | 2025-08-25 15:28 | XMS_ITS | Encounter Summary ---
Author Organization [facility] Address [address] [address] Care Team Providers Care Supervisor Solder Making Name Role Phone Viki Sauer MD Primary Care Provider [phone] Reason for Visit * Reason Comments [facility] Care Coordination Encounter Details Date Type Department Care Team (Late st Contact Info) Description 05/09/2015 Care Conference [address] [address] Jayla Love, RN Social History Tobacco Use Types Packs/Day Years Used Date Smoking Tobacco: Never Assessed Comments No Sex and Gender Information Value Date Recorded Sex Assigned at Not on file Legal Sex Female 6:26 AM CDT Gender Identity Not on file Sexual Orientation Not on file documented as of this encounter Plan of Treatment Upcoming Encounters Date Type Department Care Team (Late st Contact Info) Description 09/18/2025 5:30 PM CDT Appointment [facility] [address] [place] [id number] Viki Sauer MD [address] [place] [phone] documented as of this encounter Visit Diagnoses Not on filedocumented in this encounter Additional Health Concerns Infection Onset Date Last Indicated Resolved Time R/O COVID19 09/26/2020 09/26/2020 09/27/2020 2:50 AM APPEALS ASSISTANT COVID19 09/26/2020 09/26/2020 10/17/2020 3:17 AM APPEALS ASSISTANT R/O COVID19 06/18/2022 06/18/2022 06/19/2022 4:17 AM CDT R/O COVID19 08/30/2023 08/30/2023 08/30/2023 9:30 PM CDT documented as of this encounter Care Teams Supervisor Solder Making Relationship Specialty [place] [address] [place] [address] PCP - General Internal Medicine 05/03/20 documented as of this encounter
--- OUTSIDE RECORDS SUMMARY | 2025-08-25 15:28 | XMS_ITS | Encounter Summary ---
Author Organization [facility] Address [address], [place] [address] Care Team Providers Care Cigar Making Machine Supervisor Name Role Phone Viki Sauer MD Primary Care Provider [phone] Reason for Referral * Procedure/Equipment (Routine) - New Request Specialty Diagnoses / Procedures Referred By Lis nichole Referred To Contact Diagnoses Hiatal hernia Dysphagia, unspecified type Procedures EGD Samaria Perdomo MD [address] [place] [address] Phone: tel: fax: Referral ID Status Reason Start Date Expiration Date V isits Requested Visits Authorized [id number] New Request 09/11/2025 12/11/2026 1 1 Encounter Details Date Type Department Care Team (Late st Contact Info) Description 08/21/2025 Results Follow-Up [facility] [address] [facility], [address] [place] [address] Samaria Perdomo MD [address] [place] [address] Social History Tobacco Use Types Packs/Day Years [...] any time in the past 12 m [facility], were you homeless or living in a jail (including now)? 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 Not on file Not on file documented as of this encounter Plan of Treatment Upcoming Encounters Date Type Department Care Team (Late st Contact Info) Description 09/18/2025 5:30 PM CDT Appointment [facility] [address] [place] [address] [place] [address] [address] Scheduled Orders Name Type Priority Associated Diagnoses Orde r Schedule EGD GI Routine Hiatal hernia Dysphagia, unspecified type Expected: 09/11/2025, Expires: 08/21/2026 documented as of this encounter Visit Diagnoses Diagnosis Hiatal hernia- Primary Diaphragmatic hernia without mention of obstruction or gangrene Dysphagia, unspecified type documented in this encounter Care Teams Cigar Making Machine Supervisor Relationship Specialty [place] [address] [place] [address] PCP - General Internal Medicine 05/03/20 documented as of this encounter
--- OUTSIDE RECORDS SUMMARY | 2025-08-25 15:28 | XMS_ITS | Encounter Summary ---
Author Organization [facility] Address [address] [address] Care Team Providers Care Commercial Illustrator Name Role Phone Viki Sauer MD Primary Care Provider [phone] Reason for Visit * Reason Comments Refill Topiramate Encounter Details Date Type Department Care Team (Late st Contact Info) Description 07/20/2025 Refill [facility] [address] [facility] [address] [place] [address] Samaria Perdomo MD [address] [place] [phone] Refill (Topiramate ) Social History Tobacco Use Types Packs/Day [...] any time in the past 12 m [facility], were you homeless or living in a halfway (including now)? 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 Not on file Not on file documented as of this encounter Plan of Treatment Upcoming Encounters Date Type Department Care Team (Late st Contact Info) Description 09/18/2025 5:30 PM CDT Appointment [facility] [address] [place] [address] [place] [address] [address] [address] [phone] documented as of this encounter Visit Diagnoses Diagnosis Obesity, Class I, BMI 30-34.9 Obesity, unspecified documented in this encounter Care Teams Commercial Illustrator Relationship Specialty [place] [address] [place] [address] [address] PCP - General Internal Medicine 05/03/20 documented as of this encounter
--- OUTSIDE RECORDS SUMMARY | 2025-08-25 15:28 | XMS_ITS | Clinical Summary ---
Author Organization [facility] Address [address] [place] [address] Care Team Providers Care Dev Manager Name Role Phone Juan Carlos Leon MD Unavailable [phone] Viki Sauer Primary Care Provider Allergies Active Allergy Reactions Criticality Noted Date Comments Diatrizoate Allergen Hives 04/09/2009 Azithromycin 10/22/2005 Medications BENADRYL 50 MG CAP take 1 capsule [...] 11/01/2020 Active venlafaxine (EFFEXOR XR) 150 mg Extended-Releas e capsule Take 150 mg by mouth. 06/28/2020 [...] Paying Living Expenses Not on file 11/22/2021 Comments Unknown Sex and Gender Information Value Date Recorded Sex Assigned at Not on file Legal Sex Female 6:16 AM NEGATIVE DEVELOPER Gender Identity Not on file Sexual Orientation Not on file Obstetrics History Last Filed Vital Signs Vital Sign Reading Time Taken Comments Blood Pressure 138/67 06/16/2021 3:45 PM CDT Pulse 60 06/16/2021 3:45 PM CDT Temperature 36.1 C (97 F) 06/16/2021 3:45 PM CDT Respiratory Rate 16 11/05/2020 5:24 PM NEGATIVE DEVELOPER Oxygen Saturation 100% 06/16/2021 3:45 PM CDT Inhaled Oxygen Concentration - - Weight 99.8 kg (220 lb) 11/04/2011 8:54 AM NEGATIVE DEVELOPER Height 167.6 cm (5' 6) 11/04/2011 8:54 AM NEGATIVE DEVELOPER Body Mass Index 35.51 11/04/2011 8:54 AM NEGATIVE DEVELOPER Plan of Treatment Health Maintenance Due Date Last Done Comments Tetanus booster 1978 Depression screening for age 12+ 1979 HIV for age 15-65 1982 BMI (ht and wt on same day) for age 18+ 1985 Hepatitis C screening for age 18-79 1985 Hepatitis B series for 19+ ( 1 of 3 - 19+ 3-dose series) 1986 Pap test for age 21-65 1988 Colonoscopy through age 75 2012 Lipids for age 45-75 2012 Mammogram for age 45-75 2012 Pneumococcal series for age 50+ (1 of 1 - PCV) 2017 Zoster (shingles) series for age 50+ (1 of 2) 2017 COVID-19 vaccine series (3 - season) 2025 04/24/2021, 03/26/2021 Influenza Vaccine (#1) 2025 RSV vaccine for adults or pr egnancy (1 - 1-dose 75+ series) 2042 Insurance [facility] [employer] [id number] [place] [address] [place] [address] Care Teams Dev Manager Relationship Specialty Start Date End Date Viki Sauer [place] [address] [place] [address] PCP - General Internal Medicine 11/05/20 [place] [address] [address] [address] 06/04/20
--- OUTSIDE RECORDS SUMMARY | 2025-08-25 15:28 | XMS_ITS | Clinical Summary ---
Author Organization [facility] Address [address] [place] [address] Care Team Providers Care Vascular Technologist Name Role Phone [facility], [facility] Allergies Active Allergy Reactions Criticality Noted Date Comments Azithromycin 02/10/2021 Contrast Dye Hives 02/10/2021 Medications sucralfate (CARAFATE) 1 GM/10ML suspension Take 10 mLs (1 g) by mouth 4 times daily as needed (Pain) 420 mL 02/10/2021 Active Social History Tobacco Use Types Packs/Day Years Used Date Smoking Tobacco: Never Assessed Adolescent Education Answer Date Record ed Getting School Help Needed Not on file 08/22 Comments No Sex and Gender Information Value Date Recorded Sex Assigned at Not on file Legal Sex Female 3:26 AM HOME CARE PROVIDER Gender Identity Not on file Sexual Orientation Not on file Last Filed Vital Signs Vital Sign Reading Time Taken Comments Blood Pressure 162/77 08/28/2024 5:30 PM CDT Pulse 50 08/28/2024 5:30 PM CDT Temperature 36.4 C (97.6 F) 08/28/2024 2:53 PM CDT Respiratory Rate 22 08/28/2024 5:30 PM CDT Oxygen Saturation 100% 08/28/2024 5:30 PM CDT Inhaled Oxygen Concentration - - Weight 77.1 kg (169 lb 15.6 oz) 08/28/2024 2:48 PM CDT Height 167.6 cm (5' 6) 08/28/2024 2:48 PM CDT Body Mass Index 27.43 08/28/2024 2:48 PM CDT Plan of Treatment Health Maintenance Due Date Last Done Comments ADVANCE CARE PLANNING 1967 ANNUAL REVIEW OF HM ORDERS 1967 CT COLONOGRAPHY 1967 FIT 1967 FLEX SIG 1967 sDNA (Cologuard) 1967 COLONOSCOPY 1977 COLORECTAL CANCER SCREENING 1977 LIPID 2007 DIABETES SCREENING 02/11/2024 02/10/2021, 0 02/05/2007, 12/11/2006 YEARLY PREVENTIVE VISIT 04/08/2024 04/08/20, 09/16/2021, 09/03/2020 PHQ-2 (once per calendar year) 2024 MAMMO SCREENING 04/13/2025 04/13/2023, 04/13/2023 COVID-19 VACCINE ( season) 2025 10/27/2022, 04/24/2021, 03/26/2021 INFLUENZA VACCINE (#1) 2025 , 09/16/2021, 09/03/2020, Additional history exists PAP 01/14/2027 01/14/2024 DTAP/TDAP/TD VACCINE (2 - Td or Tdap) 09/03/2030 09/03/2020 HIV SCREENING Completed 07/20/2020 ZOSTER VACCINE Completed 09/17/2021, 06/16/2021 HEPATITIS C SCREENING Completed 01/20/2023 HEPATITIS B VACCINE Completed 04/08/2023, 03/15/2021, 09/03/2020 PNEUMOCOCCAL VACCINE 50+ YEARS Completed 04/08/2023, 09/03/2020 HPV VACCINE (No Doses Required) Completed MENINGITIS VACCINE Aged Out No longer eligible based on patient's age to complete this topic Procedures Procedure Name Priority Date/Time Associated Diagnosis Comments BASIC METABOLIC PANEL STAT 02/10/2021 4:19 PM CDT from Last 3 Months or Most Recently Relevant to Health Maintenance Results * Basic metabolic panel (02/10/2021 4:19 PM CDT) Sodium 137 133 - 144 mmol/L 02/10/2021 4:41 PM CDT [facility] Potassium 3.7 3.4 - 5.3 mmol/L 02/10/2021 4:41 PM T [facility] Chloride 104 94 - 109 mmol/L 02/10/2021 4:41 PM T [facility] Carbon Dioxide 27 20 - 32 mmol/L 02/10/2021 4:47 PM T [facility] Anion Gap 6 3 - 14 mmol/L 02/10/2021 4:47 PM T [facility] Glucose 78 70 - 99 mg/dL 02/10/2021 4:47 PM T [facility] Urea Nitrogen 13 7 - 30 mg/dL 02/10/2021 4:47 PM T [facility] Creatinine 0.72 0.52 - 1.04 mg/dL 02/10/2021 4:47 PM [facility] GFR Estimate >90 >60 mL/min/{1. 73_m2} 02/10/2021 4:47 PM T [facility] Comment: Non GFR Calc Starting 11/08/2018, serum creatinine based estimated GFR (eGFR) will be calculated using the Chronic Kidney Disease Epidemiology Collaboration (CKD-EPI) equation. GFR Estimate If Black >90 >60 mL/min/{1. 73_m2} 02/10/2021 4:47 PM T [facility] Comment: GFR Calc Starting 11/08/2018, serum creatinine based estimated GFR (eGFR) will be calculated using the Chronic Kidney Disease Epidemiology Collaboration (CKD-EPI) equation. Calcium 8.9 8.5 - 10.1 mg/dL 02/10/2021 4:47 PM T [facility] Blood specimen (specimen) 02/10/2021 4:19 PM CDT 02/10/2021 4:28 PM CDT us Rashawn Mercado PA-C LAB - BLOOD ORDERABLE S Final Result [facility] [address] [place] [address], [facility] [phone] from Last 3 Months or Most Recently Relevant to Health Maintenance Insurance [employer] NON [employer] NON [facility] Care Teams Vascular Technologist Relationship Specialty Start Date End Date Clinic, [facility] [address] [place], [place] [id number] PCP - General 04/20/23
--- OUTSIDE RECORDS SUMMARY | 2025-08-25 15:28 | XMS_ITS | Encounter Summary ---
[facility] Address [address], [place] [address] Care Team Providers Care Air Hoist Operator Name Role Phone Viki Sauer MD Primary Care Provider [phone] Encounter Details Date Type Department Care Team (Late st Contact Info) Description 08/07/2025 E-Visit [facility] [address], [address] [place], [place] [id number] Samaria Perdomo MD [address] [place] [address] Social History Tobacco Use Types [...] in the past 12 m [facility], were you homeless or living in a skilled nursing (including now)? 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
--- OUTSIDE RECORDS SUMMARY | 2025-08-25 15:29 | XMS_ITS | Encounter Summary ---
Author Organization [facility] Address [address] [address] Care Team Providers Care Mini Baccarat Dealer Name Role Phone Viki Sauer MD Primary Care Provider Reason for Visit * Reason Comments Refill amLODIPine (NORVASC) 2.5 MG tablet [Pharmacy Med Name: AMLODIPINE BESYLATE 2.5 MG 2.5 Tablet] Encounter Details Date Type Department Care Team (Late st Contact Info) Description 08/22/2025 Refill [facility] [address] [place] [address] Viki Sauer MD [address] [place] [phone] Refill (amLODIPine (NORVASC) 2.5 MG tablet [Pharmacy Med Name: AMLODIPINE BESYLATE 2.5 MG 2.5 Tablet]) Social History Tobacco Use Types Packs/Day [...] any time in the past 12 m [facility], were you homeless or living in a correction (including now)? 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 Requested Prescriptions Signed Prescriptions Disp Refills amLODIPine (NORVASC) 2.5 MG tablet 90 Tablet 2 Sig: TAKE ONE TABLET (2.5MG) BY MOUTH DAILY Authorizing Provider: VIKI SAUER Ordering User: CECE RUVALCABA * Uriel Stern [employer] - 08/22/2025 2:59 PM CDT amLODIPine (NORVASC) 2.5 MG tablet [Pharmacy Med Name: AMLODIPINE BESYLATE 2.5 MG 2.5 Tablet] Medication started: 05/09/2021 Last ordered by VIKI SAUER: 08/29/2024 (358 days ago) QTY: 90, Refills: 3, Sig: take 1 tablet(2.5 mg) by mouth daily. (changed but equivalent) -> Refill x 9 months, qty: 90, refills: 2 (until due for an office visit) Last qualifying visit: 04/04/2025 (with VIKI SAUER) (A more recent visit (in Family Practice with BARRETT WEEKS) was found) Next scheduled visit: 09/18/2025 (with VIKI SAUER) [facility] Embedded Refills, Reference: [id number], 08/22/2025 2:59:22 PM CDT, Pool: [facility] [[id number]] ([id number]) documented in this encounter Plan of Treatment Upcoming Encounters Date Type Department Care Team (Late st Contact Info) Description 09/18/2025 5:30 PM CDT Appointment [facility] [address] [place] [address] [place] [address] [place] [address] documented as of this encounter Visit Diagnoses Diagnosis Essential hypertension (HRC) Unspecified essential hypertension documented in this encounter Care Teams Mini Baccarat Dealer Relationship Specialty [place] [address] [address] [address] PCP - General Internal Medicine 05/03/20 documented as of this encounter
--- OUTSIDE RECORDS SUMMARY | 2025-08-25 15:29 | XMS_ITS | Encounter Summary ---
Author [facility] Address [address], [place] [address] Care Team Providers Care Medicine Tech Name Role Phone Viki Sauer MD Primary Care Provider [phone] Reason for Visit * Reason Comments Medication Questions Encounter Details Date Type Department Care Team (Late st Contact Info) Description 08/25/2025 Nurse Triage [facility] [id number] [place] [address] Viki Sauer MD [address] [place] [address] Medication Questions Social History Tobacco Use Types Packs/Day [...] any time in the past 12 m [facility], were you homeless or living in a fpc (including now)? 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 She has been out of town helping with elder parents. She is feeling dizzy and feels that her heart is palpating. Feeling like an out of body experience at times. And having trouble concentrating. Denies chest pain, shortness of breath, difficulty breathing, facial weakness or weakness on one side of the body, slurred speech. Reviewed pertinent medical history (as relates to the call): Yes Reviewed pertinent medications (as relates to the call): Yes Reason for Disposition [1] MODERATE dizziness (e.g., interferes with normal activities) AND [2] has NOT been evaluated by doctor (or SENIOR SOFTWARE QUALITY ENGINEER/PA) for this (Exception: Dizziness caused by heat exposure, sudden standing, or poor fluid intake.) [1] Systolic BP >= 160 OR Diastolic >= 100 AND [2] cardiac (e.g., breathing difficulty, chestpain) or neurologic symptoms (e.g., new-onset blurred or double vision, unsteady gait) Protocols used: Dizziness - [id number], Blood Pressure - [id number]-HS * Sonya Thomasa Nicky - 08/25/2025 3:03 PM CDT Medication change/question What is the name of the medication you are calling about? BP med and heart medication What is the change or question you are requesting? Pt stated she's been out of all medications since 08/22/25, and wants to know if she should go to ER. Pt stated she's been w/o all meds, but is mainly concerned about BP & heart meds. Please advise. Pharmacy verified and updated? Yes Preferred communication method: Phone Call. Is it okay to leave a detailed message on your voicemail? Yes documented in this encounter Plan of Treatment Upcoming Encounters Date Type Department Care Team (Late st Contact Info) Description 09/18/2025 5:30 PM CDT Appointment [facility] [address] [place] [address] [place] [address] [place] [address] documented as of this encounter Visit Diagnoses Not on filedocumented in this encounter Care Teams Medicine Tech Relationship Specialty [place] [address] [place] [id number] PCP - General Internal Medicine 05/03/20 documented as of this encounter
--- OUTSIDE RECORDS SUMMARY | 2025-08-25 15:29 | XMS_ITS | Clinical Summary ---
Author Organization formerly [facility] Address [address], [place] [address] Care Team Providers Care Rental Counter Clerk Name Role Phone Viki Sauer MD Primary Care Provider [phone] Source Comments You are receiving this document as you are listed as the primary care provider,follow-up provider, or the patient has been referred to you for consultation.This is in compliance with the Medicare and[facility] EHR Incentive Program,which states Providers who transition their patient to another setting of careor provider of care or refers their patient to another provider of care shouldprovide summary care record for each transition of care or referral. formerly [facility] Allergies Active Allergy Reactions Criticality Noted Date Comments Azithromycin 05/03/2020 Upset stomach Iodinated Contrast Media High 05/03/2020 Diffuse hives Semaglutide Rash 06/23/2023 Medications ascorbic acid (AKA VITAMIN C) 500 MG tabletIndicatio ns:take with iron to aide in iron absorption Take 1 Tablet (500 mg) by mouth daily. Indications: take with iron to aide in iron absorption Active ferrous sulfate 325 (65 FE) MG tablet Take 1 Tablet (325 mg) by mouth daily. Active CALCIUM OR Take 1 tablet by mouth 2 times daily. Indications: HYPOCALCEMIA PREVENTION Active cholecalciferol (AKA VITAMIN D3) 2000 UNITS tablet Take 1 Tablet (2,000 Units) by mouth daily. Active cyanocobalamin [address] 1 Tablet (1,000 mcg) under tongue daily. 015 Active saline 0.65 % nasal solution 1 [place] by Nasal route every morning. 012 Active diphenhydrAMINE (BENADRYL) 25 MG tabletIndicatio ns:allergies Take 1-2 Tablets (25-50 mg) by mouth 4 times daily as needed (Take 25-50 mg by mouth 4 times daily as needed.). Indications: allergies 008 Active multivitamin (THERAGRAN) tablet Take 1 Tablet by mouth daily. Active ALBUterol sulfate HFA 108 (90 Base) MCG/ACT inhalerIndicati ons:SOB (shortness of breath) Inhale 1-2 Puffs every 4 hours as needed for Wheezing. 1 Each 1 023 Active jgqgie-ziqu-zyp ding chambers devices as needed. 1 Each 023 Active carvedilol (COREG) 3.125 MG tabletIndicatio ns:Essential hypertension (HRC),Resistant hypertension Take 1 Tablet (3.125 mg) by mouth two times a day with meals. 180 Tablet 3 024 2024 Active cetirizine (ZYRTEC) 10 MG tablet Take 1 Tablet (10 mg) by mouth daily. 90 Tablet 3 024 Active hydroCHLOROthia zide (ORETIC) 25 MG tabletIndicatio ns:Essential hypertension (HRC) Take 1 Tablet (25 mg) by mouth daily. 90 Tablet 3 024 2024 Active losartan (COZAAR) 100 MG tabletIndicatio ns:Essential hypertension (HRC) Take 1 Tablet (100 mg) by mouth daily. 90 Tablet 3 024 2024 Active omeprazole (PRILOSEC) 20 MG capsuleIndicati ons:Gastroesoph ageal reflux disease without esophagitis Take 1 Capsule (20 mg) by mouth daily. 1 HOUR BEFORE A MEAL 90 Capsule 3 024 Active Pyridoxine HCl (VITAMIN B-6) 50 MG tabletIndicatio ns:Vitamin B6 deficiency (HRC) Take 2 Tablets (100 mg) by mouth daily. 180 Tablet 3 024 Active rOPINIRole (REQUIP) 0.25 MG tabletIndicatio ns:RLS (restless legs syndrome) Take 1 Tablet (0.25 mg) by mouth daily. 90 Tablet 3 Active SUMAtriptan (IMITREX) 50 MG tabletIndicatio ns:Migraine with aura and without status migrainosus, not intractable Take 1 Tablet (50 mg) by mouth as needed for Migraine. May repeat one tablet after 2 hours if needed. Maximum 4 tabs/24 hours and 9 days/month 9 Tablet 3 Active tacrolimus (PROTOPIC) 0.1 % ointmentIndicat ions:Perioral dermatitis Apply topically two times a day. 30 g 11 Active traZODone (DESYREL) 50 MG tabletIndicatio ns:Chronic insomnia Take 1 Tablet (50 mg) by mouth at bedtime as needed. for sleep 90 Tablet 3 Active venlafaxine (EFFEXORXR) 150 MG 24 hour release capsuleIndicati ons:Major depressive disorder, recurrent episode, in full remission (HRC) Take 1 Capsule (150 mg) by mouth daily. 90 Capsule 3 Active venlafaxine (EFFEXORXR) 37.5 MG 24 hour release capsuleIndicati ons:Major depressive disorder, recurrent episode, in full remission (HRC) Take 1 Capsule (37.5 mg) by mouth daily. 90 Capsule 3 Active cyclobenzaprine (FLEXERIL) 10 MG tablet Take 1 Tablet (10 mg) by mouth three times a day. Active latanoprost (XALATAN) 0.005 % eye drop solution Place 1 Drop into left eye daily at bedtime. Active fluticasone propionate (FLONASE) 50 MCG/ACT nasal solution Place 2 Sprays into both nostrils daily. decrease to 1 spray per nostril daily if symptoms controlled 16 g 11 Active potassium chloride (KLOR-CON M) 20 MEQ ER tabletIndicatio ns:Hypokalemia Take 1 Tablet (20 mEq) by mouth two times a day. 180 Tablet 3 024 2024 Active topiramate (TOPAMAX) 100 MG tabletIndicatio ns:Obesity, Class I, BMI 30-34.9 Take 1 Tablet (100 mg) by mouth two times a day. 180 Tablet Active Pyridoxine HCl (VITAMIN B6) 50 MG TABS TAKE 2 TABLETS (100 MG) BY MOUTH DAILY. Active amoxicillin-cla vulanate (AUGMENTIN) 875-125 mg per tabletIndicatio ns:Acute non-recurrent maxillary sinusitis Take 1 Tablet by mouth two times a day for 10 days. 20 Tablet 025 2024 Active azelastine (ASTELIN) 0.1 % nasal solutionIndicat ions:Acute non-recurrent maxillary sinusitis Place 1 [place] into both nostrils two times a day. 30 mL 6 Active amLODIPine (NORVASC) 2.5 MG tabletIndicatio ns:Essential hypertension (HRC) TAKE ONE TABLET (2.5MG) BY MOUTH DAILY 90 Tablet 2 Active amLODIPine (NORVASC) 2.5 MG tabletIndicatio ns:Essential hypertension (HRC) Take 1 Tablet (2.5 mg) by mouth daily. 90 Tablet 3 024 2024 Discontinued tirzepatide-nhung ght management (ZEPBOUND) 2.5 MG/0.5ML pen injectionIndica tions:Obesity, Class I, BMI 30-34.9 Inject 2.5 mg subcutaneously one time weekly for 4 weeks 2 mL 025 2024 Discontinued tirzepatide-nhung ght management (ZEPBOUND) 5 MG/0.5ML pen injectionIndica tions:Obesity, Class I, BMI 30-34.9 Inject 5 mg subcutaneously one time weekly for 4 weeks Do not start before April 23, 2025. 2 mL 025 2024 Discontinued tirzepatide-nhung ght management (ZEPBOUND) 7.5 MG/0.5ML pen injectionIndica tions:Obesity, Class I, BMI 30-34.9 Inject 7.5 mg subcutaneously one time weekly for 4 weeks Do not start before May 21, 2025. 2 mL 025 2024 Discontinued tirzepatide-nhung ght management (ZEPBOUND) 10 MG/0.5ML pen injectionIndica tions:Obesity, Class I, BMI 30-34.9 Inject 10 mg subcutaneously one time weekly for 4 weeks Do not start before June 18, 2025. 2 mL 025 2024 Discontinued tirzepatide-nhung ght management (ZEPBOUND) 12.5 MG/0.5ML pen injectionIndica tions:Obesity, Class I, BMI 30-34.9 Inject 12.5 mg subcutaneously one time weekly for 4 weeks Do not start before July 16, 2025. 2 mL 07/16/ 025 2024 Discontinued tirzepatide-nhung ght management (ZEPBOUND) 15 MG/0.5ML pen injectionIndica tions:Obesity, Class I, BMI 30-34.9 Inject 15 mg subcutaneously one time weekly for 4 weeks Do not start before August 13, 2025. 2 mL 11 025 2024 Discontinued topiramate (TOPAMAX) 100 MG tabletIndicatio ns:Obesity, Class I, BMI 30-34.9 TAKE 1 TABLET (100 MG) BY MOUTH TWO TIMES A DAY. 180 Tablet 025 2024 Discontinued(* Med change OR same med OR reorder, new dose/direction s) Active Problems Problem Noted Date Diagnosed Date Stage 3a chronic kidney disease 04/04/2025 Overview (04/04/2025): Baseline since 2023 Cr 1.1-1.2, GFR 55-60 Hypervitaminosis B6 08/24/2024 Resistant hypertension 01/14/2024 Overview (02/09/2024): Recheck Resistant, Uncontrolled HTN - Severe elevation, multiRx uncontrolled, young age onset raises concern for secondary HTN. 01/2024 normal renin, aldosterone, cortisol levels at baseline, normal plasma metanephrines. Adrenal glands were normal on MRI abd 06/2020. 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 02/2024 MRA renal arteries pending. Vitamin D deficiency 09/04/2022 Mild obstructive sleep apnea 10/09/2021 Overview (01/14/2024): Re-eval 2022, no need for treatment. 10/09/2021 sleep eval very mild. rx for oral appliance vs CPAP, rec to decrease meds Qhs for daytime somnolence Osteopenia of multiple sites 02/12/2021 Overview (07/14/2023): DEXA: 02/12/2021 DEXA -2.4, low risk, s/p gastric bypass - DUE 2 years, 07/14/2023 improved osteopenia, -2.1. repeat in 3 years - DUE 06/2026 LVH (left ventricular hypertrophy) 02/12/2021 Elevated parathyroid hormone 07/22/2020 Overview (07/22/2020): S/p gastric bypass - 07/22/2020 PTH 103, 1-2 months after resuming appropriate supplementation post Betty-en-Y, vitamin d in 40s, calcium low 9s. Iron deficiency anemia secon cecille to inadequate dietary iron intake 05/03/2020 Overview (05/03/2020): ALICIA s/p betty en y History of Betty-en-Y gastric bypass 05/03/2020 Overview (05/03/2020): 2015 PN History of diabetes mellitus 05/03/2020 Overview (05/03/2020): Resolved s/p betty en y Essential hypertension 05/03/2020 Overview (04/08/2023): Lisinopril d/c 2022 with angioedema/hives - resolved. Losartan 100 mg Migraine with aura and witho ut status migrainosus, not intractable 05/03/2020 Overview (05/03/2020): topiramate Qhs started 2019 in [place] - imitrex. Chronic insomnia 05/03/2020 Overview (05/03/2020): Trazodone works well RLS (restless legs syndrome) 05/03/2020 Overview (05/03/2020): requip controlled low dose 0.25 Liver fibrosis 05/03/2020 Overview (05/03/2020): Stage 3-4 dx liver bx in 2013, s/p ebtty en y, NAFLD. Ref back to GI and RUQ US ordered 05/03/2020 Recurrent major depressive disorder in partial r emission 01/04/2015 Overview (09/16/2021): effexor controlled - tried celexa, zoloft and prozac in the past ORTIZ (nonalcoholic steatohepatitis) 06/27/2014 Overview (06/25/2016): fatty liver on us 10/03, liver bx 07/05 steatohepatitis stage3-4 fibrosis SUSANA (generalized anxiety disorder) 06/25/2011 Social phobia 06/25/2011 Gastroesophageal reflux disease without esophagi tis Overview (09/03/2020): PPI resumed 08/2020, ulceration on EGD - indefinite Mixed hyperlipidemia Overview (07/14/2017): Hyperlipidemia LDL goal < 130 Obesity, Class I, BMI 30-34.9 Resolved Problems Problem Noted Date Diagnosed Date Resolved Date Sleep disturbance 06/16/2023 01/14/2024 Snoring 06/16/2023 01/14/2024 Overview (01/14/2024): [address] Viveros noted the most mild RAFIA, no treatment recommended. Vitamin B6 deficiency 03/23/20222023 Routine health maintenance 08/08/2020 0 03/26/2025 Overview (08/29/2024): Reviewed at physical exam 08/29/24 Menstrual periods: Post menopausal Calcium/vit D: Recommended daily DEXA: 02/12/2021 DEXA -2.4, low risk, s/p gastric bypass - DUE 2 years, 07/14/2023 improved osteopenia, -2.1. repeat in 3 years - DUE 06/2026 ASA: NA Obesity: Estimated body mass index is 29.05 kg/m as calculated from the following: Height as of 12/30/22: 1.676 m (5' 6). Weight as of 12/30/22: 81.6 kg (180 lb). Exercise: Recommended daily 30 min Smoking cessation: Never smoker Mammogram: Last normal 03/2023 DUE annually, ordered 08/24/2024 Pap smear: Neg 09/03/2020 with cotesting, DUE 08/2025 Colonoscopy - 10/2012 - 10/05/2023 normal, DUE 10 years, 09/2033 EGD - [facility] - 07/2020 - 09/2023 EGD Normal esophagus. I do not see any Zhao's. No further routine endoscopic surveillance is required. ORTIZ - LFT annual, liver imaging Q 3-5 years per GI consult 2019. Liver US 10/2022 - DUE 10/2025- Vitamin B12 deficiency 07/22/202011/23 Major depressive disorder wi th single episode, in partial remission 05/03/2020 09/16/2021 Overview (05/03/2020): effexor controlled - tried celexa, zoloft and prozac in the past NAFLD (nonalcoholic fatty liver disease) 05/03/2020 11/23/2023 Overview (05/03/2020): Dx on biopsy - s/p betty en y Zhao's esophagus with dysplasia 05/03/2020 09/03/2020 Overview (05/03/2020): Noted on [facility] EGD x2 historically - ref to GI 05/03/2020 to determine if repeat EGD warranted. Status post bariatric surgery 11/27/2014 11/23/2023 Overview (07/14/2017): Laparoscopic Betty-en-Y gastric bypass Fibrosis of liver 07/24/2014 08/16/2020 Excessive or frequent menstruation 04/25/2014 09/03/2020 Diabetes mellitus type 2, diet-controlled 08/03/2013 09/16/2021 Overview (06/25/2016): hgba1c 6.8, fbs 142 Pre-syncope 11/11/2012 08/03/2013 History of GI bleed 11/11/2012 03/26/20 25 Overview (06/25/2016): hospitalized s/p egd, colonoscopy-colitis vs nsaid related- felt related to NSAID use Dysthymic disorder 06/25/2011 Major depression, recurrent 04/16/2009 03/26/2025 Elevated liver enzymes 09/03 Overview (06/25/2016): fatty liver on us Zhao's esophagus without dysplasia 10/05/2023 Overview (10/05/2023): dx'd 2009 [facility] EGD x 2 - EGD 08/2020 resumed PPI for ulceration, DUE EGD 2022 (colon too) -- 10/05/2023 Dr Garcia EGD no further surveillance warranted. - Normal esophagus. I do not see any Zhao's. No further routine endoscopic surveillance is required. Recommend ongoing use of PPI for symptom control at lowest effective dose. Absolute anemia 08/24/2024 HTN, goal below 140/90 09/16 Restless leg syndrome 2023 Overview (06/25/2016): requip Encounters Date Type Department Care Team Description 08/25/2025 Nurse Triage [facility] [address] [place] [address] Viki Sauer MD Medication Questions 08/23/2025 9:00 AM CDT - 08/23/2025 11:59 PM CDT Hospital Encounter [facility] [address], [address] [place] [address] Amy Davis, PhD, LP SUSANA (generalized anxiety disorder) (HRC) (Primary Dx); Recurrent major depressive disorder in partial remission (HRC); History of Betty-en-Y gastric bypass 08/22/2025 Refill [facility] [address] [place] [address] Viki Sauer MD Refill (amLODIPine (NORVASC) 2.5 MG tablet [Pharmacy Med Name: AMLODIPINE BESYLATE 2.5 MG 2.5 Tablet]) 08/21/2025 3:00 PM CDT E-Visit [facility] [address], [address] [place] [address] Samaria Perdomo MD Chief Comp: RESULTS, TEST 08/21/2025 Results Follow-Up [address], [facility] [address] [place] [id number] Samaria Perdomo MD 08/16/2025 3:30 PM CDT Telemedicine [facility] [address] [place] [address], [address] [place] [address] Amarilis Calvillo MD Acute non-recurrent maxillary sinusitis (Primary Dx) 08/15/2025 8:00 AM CDT Ancillary Procedure [facility] [address] [place] [address] Samaria Perdomo MD Dysphagia, unspecified type (Primary Dx) 08/07/2025 4:30 PM CDT Telemedicine [address] [place] [id number] Samaria Perdomo MD Dysphagia, unspecified type (Primary Dx); History of Betty-en-Y gastric bypass; Stage 3a chronic kidney disease (HRC); Chronic insomnia; Mild obstructive sleep apnea; Osteopenia of multiple sites; SUSANA (generalized anxiety disorder) (HRC); Recurrent major depressive disorder in partial remission (HRC); Iron deficiency anemia secondary to inadequate dietary iron intake; Social phobia (HRC); Vitamin D deficiency (HRC); Gastroesophageal reflux disease without esophagitis; Liver fibrosis; ORTIZ (nonalcoholic steatohepatitis); Essential hypertension (HRC); Mixed hyperlipidemia (HRC) 08/07/2025 E-Visit [address], [address] [place] [id number] Samaria Perdomo MD 07/27/2025 Telephone [facility] [place] [address] [place] [address] [address] [place] [address] Priya Aguilar RN Refill (Topiramate completed for 90 days. ) 07/26/2025 2:51 PM CDT - 07/26/2025 11:59 PM CDT Hospital Encounter [facility] [address], [address] [place] [id number] Amy Davis, PhD, LP SUSANA (generalized anxiety disorder) (HRC) (Primary Dx); Recurrent major depressive disorder in partial remission (HRC); History of Betty-en-Y gastric bypass 07/20/2025 Refill [facility] [address] [place] [address] Samaria Perdomo MD Refill (Topiramate ) 07/02/2025 4:20 PM CDT Office Visit [facility] [address] [facility] [address] [place] [phone] Kapil Lucia MD Left ear impacted cerumen 06/12/2025 10:44 AM CDT - 06/12/2025 11:59 PM CDT Hospital Encounter [facility] [address], [address] [place] [address] Amy Davis, PhD, LP SUSANA (generalized anxiety disorder) (HRC) (Primary Dx); Recurrent major depressive disorder in partial remission (HRC); History of Betty-en-Y gastric bypass Discharge Disposition: Home from Last 3 Months Immunizations Immunization Administration Dates Next Due Flu Vac (3+ yrs) 08/24/2012,09/22/2011, 0 Flu Vac Preserv Free (3+yrs) 08/24/2012,09/26/20 09 HepB Adult (Engerix-B, 20+ y rs, 3 dose series) 04/08/2023,03/15/2021,09/03/2020 Influenza (Fluzone 0.25, 6-35 mos) 08/03/2013 Influenza IIV4 (Quadrivalent ) 0.5mL (63850) 10/03/2022,09/16/2021,09/03/2020,2013,08/03/2013 Influenza ccIIV3 6 months+ (Flucelvax) 08/29/2024 Moderna Monovalent 12+ 04/24/2021,03/26/2021 PCV20 (Mgpuoip05) 04/08/2023 PPSV23 (Pneumovax) 09/03/2020 Pfizer Bivalent 12+ 10/27/2022 Tdap 09/03/2020 Zoster RZV (Shingrix) 09/17/2021,06/16/2021 Family History Medical History Relation Name Comments Coronary Artery Disease Father Bertram Sr CABG /s/p 4v cabg in 50's Diabetes Father Bertram Sr type 2 Obstructive Sleep Apnea Father Bertram Sr Anxiety Mother Ernalee Depression Mother Ernalee Mother Hypertension Mother Ernalee Heart Disease Maternal Grandmother 70 Diabetes Paternal Grandfather Waqar Sr decea sed Heart Attack Paternal Grandfather Waqar Sr Other Sister 1 autoimmune unkn own Cancer, Breast Negative Family History Cancer, Colon Negative Family History Cancer, Uterine Negative Family History Relation Name Status Comments Father Bertram Sr Alive Mother Ernalee Alive Maternal Grandmother Paternal Grandfather Waqar Sr [...] any time in the past 12 m [facility], were you homeless or living in a senior care (including now)? 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 Not on file Not on file Not on file Last Filed Vital Signs Vital Sign Reading Time Taken Comments Blood Pressure 141/70 07/02/2025 4:13 PM CDT Pulse 60 07/02/2025 4:13 PM CDT Temperature 37.1 C (98.7 F) 05/19/2023 8:55 AM CDT pt reported Respiratory Rate 16 07/02/2025 4:13 PM CDT Oxygen Saturation 100% 07/02/2025 4:13 PM CDT Inhaled Oxygen Concentration - - Weight 74.8 kg (165 lb) 08/07/2025 8:09 AM CDT Height 167.6 cm (5' 6) 08/07/2025 8:09 AM CDT Body Mass Index 26.63 08/07/2025 8:09 AM CDT Plan of Treatment Upcoming Encounters Date Type Department Care Team (Late st Contact Info) Description 09/18/2025 5:30 PM CDT Appointment [facility] [address] [place] [address] [place] [address] [place] [id number] [place] [address] Health Maintenance Due Date Last Done Comments Mammogram 04/13/2024 04/13/2023, 04/22, 09/20/2012 Dexa 07/14/2025 07/14/2023, 02/05/2021 COVID-19 Vaccine ( season) 2025 10/27/2022, 04/24/2021, 03/26/2021 Influenza Vaccine (#1) 2025 , 10/03/2022, 09/16/2021, Additional history exists Adult Preventive Visit 08/29/2025 , 04/08/2023, 09/16/2021, Additional history exists Diabetes Screening- (based on age and BMI) 03/31/2028 03/31/2025, 08/28/2024, 01/17/2024, Additional history exists Cervical Cancer Screening 01/14/20292023, 01/14/2024, 09/03/2020, Additional history exists Cholesterol 08/28/2029 08/28/2024, 12/24, 01/20/2023, Additional history exists DTaP/Tdap/Td Vaccine (2 - Tdap) 09/03/2030 09/03/2020 Colonoscopy 10/05/2033 10/05/2023, 11/12/2012 RSV Vaccine (1 - 1-dose 75+ series) 2042 HIV Screening (Preventive Services) Completed 07/20/2020 Zoster/Shingles Vaccine Completed 09/17/2021, 06/16 Hep C Screening (Preventive Services) Completed 01/20/2023 HepB Vaccine Completed 04/08/2023, /02/2021, 09/03/2020 Pneumococcal Vaccine 50+ Yrs Completed 04/08/2023, 09/03/2020 HepA Vaccine Aged Out No longer eligi ble based on patient's age to complete this topic Hib Vaccine Aged Out No longer eligi ble based on patient's age to complete this topic IPV (Polio) Vaccine Aged Out No longe r eligible based on patient's age to complete this topic MCV4 Vaccine Aged Out No longer eligi ble based on patient's age to complete this topic Meningococcal B Vaccine Aged Out No l onger eligible based on patient's age to complete this topic Procedures Procedure Name Priority Date/Time Associated Diagnosis Comments FL UGI W ESOPHAGUS Routine 08/15/2025 8:37 AM CDT Dysphagia, unspecified type HGB A1C Routine 03/31/2025 10:41 AM CDT History of diabetes mellitus LIPID PANEL & DIRECT LDL (IF NEEDED) Routine 08/28/2024 7:11 AM CDT Mixed hyperlipidemia (HRC) HPV WITH 16 18 GENOTYPING, CERVICAL/ENDOCERV ICAL Routine 01/14/2024 1:44 PM HYDRO STATION OPERATOR Screening for cervical cancer ENDOSCOPY, COLON, SCREENING/DIAGNOS TIC Routine 10/05/2023 2:20 PM HYDRO STATION OPERATOR Screening for colon cancer DXA BONE DENSITY SPINE/HIP Routine 07/14/2023 4:28 PM CDT Screening for osteoporosis Estrogen deficiency (HRC) MM MAMMOGRAM SCREENING BILAT W 3D YONIS W CAD Routine 04/13/2023 3:20 PM CDT HEPATITIS C ANTIBODY, WITH REFLEX (ANTI-HCV) Routine 01/20/2023 3:38 PM HYDRO STATION OPERATOR Need for hepatitis C screening test HIV 1/2 AG/AB 4TH GEN Routine 07/20/2020 9:18 AM CDT Screening for HIV (human immunodeficiency virus) from Last 3 Months or Most Recently Relevant to Health Maintenance Results * FL UGI W Esophagus (08/15/2025 [...] of diverticulum. The patient is status post Betty-en-Y bypass. Hiatal hernia is present which contains [...] evidence of diverticulum. The patient isstatus post Betty-en-Y bypass. Hiatal hernia is present which containsmuch, [...] Campos 08/15/2025 9:06 AM Samaria Perdomo MD [facility] Final Result * Hgb A1C (03/31/2025 10:41 AM CDT) Hemoglobin A1C 5.5 <=5.6 % 04/01/2025 8:32 AM CDT [facility] Estimated Average Glucose (Calc) 111 < 117 mg/dL 04/01/2025 8:32 AM CDT [facility] Comment:Estimated average gl ucose (eAG) converts A1c into glucose units (mg/dL) and estimates average glucose over the past approximately 3 months. The eAG reference interval (<117 mg/dL) corresponds to an A1c of <5.7%. Blood Venipuncture / Unknown 03/31/2025 10:41 AM CDT 03/31/2025 10:41 AM CDT us Viki Sauer MD LAB_1 Final Result [facility] [address] * Lipid Panel & Direct LDL (if Needed) (08/28/2024 7:11 AM CDT) [facility] Signature Cholesterol 128 0 - 199 mg/dL 08/28/2024 11:25 AM CDT [facility] Triglyceride 79 <=149 mg/dL 08/28/2024 11:25 AM CDT [facility] HDL Cholesterol 50 >=40 mg/dL 08/28/2024 11:25 AM CDT [facility] LDL, Calculated 62 <130 mg/dL 08/28/2024 11:25 AM T [facility] Non HDL Chol, Calculated 78 <=159 mg/dL 08/28/2024 11:25 AM CDT [facility] Cholesterol/HDL Ratio 2.6 <=5.0 08/28/2024 11:25 AM T [facility] Hours Fasting 12.0 8 - 12 Hours 08/28/2024 11:25 AM T [facility] Blood Venipuncture / Unknown 08/28/2024 7:11 AM CDT 08/28/2024 7:11 AM CDT us Viki Sauer MD LAB_1 Final Result [facility] [address] [id number] [address] [place] [address] * HPV with 16 18 Genotyping (01/14/2024 1:44 PM HYDRO STATION OPERATOR) HPV High Risk Type 16 PCR Not Detected Not detected 02/09/2024 8:20 AM CDT [facility] HPV High Risk Type 18 PCR Not Detected Not Detected 02/09/2024 8:20 AM [facility] HPV High Risk Other Than 16/18 Not Detected Not detected 02/09/2024 8:20 AM T [facility] Cervical Broom ENTIRE ENDOCERVIX / Unknown 01/14/2024 1:44 PM HYDRO STATION OPERATOR 01/14/2024 2:53 PM HYDRO STATION OPERATOR [facility] [facility] - 02/09/2024 8:20 AM CDT The Lee HPV test is a qualitative in vitro test for the detection of Human Papillomavirus in [facility] patient specimens. The test utilizes amplification of target DNA by Polymerase Chain Reaction (PCR) and nucleic acid hybridization for the detection of 14 high-risk (HR) HPV types. The assay tests for high risk types (16, 18, 31, 33, 35, 39, 45, 51, 52, 56, 58, 59, 66, and 68). us Viki Sauer MD LAB_1 Final Result [id number] [place] [address] * Endoscopy, Colon, Screening/Diagnostic (10/05/2023 2:20 PM HYDRO STATION OPERATOR) Anatomical Region Laterality Modality Other 10/05/2023 2:20 PM HYDRO STATION OPERATOR Narrative 10/05/2023 2:20 PM HYDRO STATION OPERATOR Patient Name: Nel Pearl Procedure Date: [...] and oxygen saturations were monitored continuously. The [id number] was introduced through the anus and advanced [...] the same physician or other qualified health childcare provider performing a gastrointestinal endoscopic service that sedation supports, requiring the presence of an independent trained observer to assist in the monitoring of the patient's level of consciousness and physiological status; initial 15 minutes of intra-service time; patient age 5 years or older (additional time may be reported with [id number], as appropriate) Diagnosis Code(s): --- Professional --- Z12.11, Encounter for screening for malignant neoplasm of colon CPT copyright 2021 [employer]. All rights reserved. The codes documented in this report are preliminary and upon car repairer apprentice review may be revised to meet current compliance requirements. Valentin Garcia MD 10/05/2023 2:42:22 PM This document has been electronically signed. Number of Addenda: 0 Note Initiated On: 10/05/2023 2:20 PM Endoscopy Report Procedure Note Valentin Garcia MD [...] and oxygen saturations were monitored continuously. The [id number] was introduced through the anus and advanced [...] the same physician or other qualified health childcare provider performing a gastrointestinal endoscopic service that sedation supports, requiring the presence of an independent trained observer to assist in the monitoring of the patient's level of consciousness and physiological status; initial 15 minutes of intra-service time; patient age 5 years or older (additional time may be reported with [id number], as appropriate) Diagnosis Code(s): --- Professional --- Z12.11, Encounter for screening for malignant neoplasm of colon CPT copyright 2021 [employer]. All rights reserved. The codes documented in this report are preliminary and upon car repairer apprentice review may be revised to meet current compliance requirements. Valentin Garcia MD 10/05/2023 2:42:22 PM This document has been electronically signed. Number of Addenda: 0 Note Initiated On: 10/05/2023 2:20 PM Endoscopy Report us Viki Sauer MD ET GI PROCEDURE ORDERABLES Fi nal Result * DXA Bone Density Spine/Hip (07/14/2023 4:28 [...] not included. Patient Name: Nel Pearl Densitometer: [place] W Appt Dept/Resource: [facility] Demographics Age: 58 y.o. Gender: Female Height: 5' 6 (1.676 m) Height at age 27: 5.6 Weight: 190 lb (86.2 kg) Race: Medical/Surgical History Menstrual periods: None Age of menopause: 57 Able to stand from a chair easily without use of the arms?: Yes, easily How many falls indoors/outdoors within the last 12 months?: 0 History of fractures in parents: No History of previous fractures?: No Hip replacement?: No Oral cortisone or steroid medication for more than 3 months?: No Currently or have taken medications to treat osteoporosis?: No Taking any aromatase inhibitor medication for breast cancer - anti-estrogen excluding tamoxifen?: No Have had the following medical conditions: None [...] (11/24) (Not Scanned) N/A N/A N/A N/A *N/A indicates that measurements were either not needed or not valid TBS: Trabecular Bone Score (TBS): 1.292 FRAX Score: 10 Year Risk Hip Fracture: 0.9% 10 Year Risk Major Osteoporotic Fracture: 8.5% Comments: *Increase in bone density of hip is clinically significant. Diagnosis: *Osteopenia of left hip. Patient has a low risk of fracture Recommendations:. *Consider follow up DXA in 3 years, unless clinical circumstances change. FRAX [...] trabecular bone, and is derived from the [id number] changes of bone density embedded in the [...] = 20% based on the FRAX scores. us Viki Sauer MD RAD DEXA Final Result * MM Mammogram Screening Bilat W 3D [...] Image(S) Mammogram, and 12/17/2016 Foreign Image(S) Mammogram FINDINGS: Bilateral screening mammogram was performed with the assistance of Computer-Aided Detection and breast tomosynthesis. The breasts have scattered areas of fibroglandular density. There is no radiographic evidence of malignancy. us Viki Sauer MD RAD REMY Final Result * Hepatitis C Antibody, with Reflex (01/20/2023 3:38 PM HYDRO STATION OPERATOR) Hepatitis C Antibody Negative (Non Reactive) Negative (Non Reactive) 01/20/2023 10:12 PM HYDRO STATION OPERATOR [facility] Comment:Antibodies to HCV no t detected. Does not exclude the possiblity of exposure to HCV. Blood Venipuncture / Unknown 01/20/2023 3:38 PM HYDRO STATION OPERATOR 01/20/2023 3:38 PM HYDRO STATION OPERATOR Viki Sauer MD LAB_1 Final Result Performing Organization Address [facility] Co de Phone Number [facility] [address] [place] [address] * HIV 1/2 Ag/Ab 4th Generation (07/20/2020 9:18 AM CDT) [facility] HIV 1/2 Antigen/Antib paco (4th generation) Negative (Non Reactive) Negative (Non Reactive) 07/20/2020 5:08 PM CDT [facility] Comment:HIV-1 p24 Antigen an d HIV-1/HIV-2 Antibody not detected Blood Venipuncture / Unknown 07/20/2020 9:18 AM CDT 07/20/2020 9:22 AM CDT Viki Sauer MD LAB_1 Final Result Performing Organization Address [facility] Phone Number [facility] [address] [place] [address] from Last 3 Months or Most Recently Relevant to Health Maintenance Insurance [employer] Advance Directives * Full Code (Latest Code Status on File) Date Activated Date Inactivated Comments 11/27/2014 5:46 PM 11/29/2014 5:39 PM * Full Code Date Activated Date Inactivated Comments 04/25/2014 11:37 AM 04/25/2014 9:29 PM * Full Code Date Activated Date Inactivated Comments 11/11/2012 2:02 PM 11/12/2012 8:33 PM Care Teams Rental Counter Clerk Relationship Specialty [place] [id number] [place] [id number] PCP - General Internal Medicine 05/03/20
[2025-08-25 15:37] VITALS: BP 160/94; PULSE 57; RESP 18; TEMP 36.3; O2SAT 99; BMI 27.3
== END 2025-08-25 16:36 | disposition home or self-care (01) ==
LOC: ED 16:27
PROVIDERS: Emergency Provider Emergency Medicine Emergency Medical Services
DX: Z53.21 Procedure and treatment not carried out due to patient leaving prior to being seen by health care provider (principal)
CPT/HCPCS: 99281